=== PATIENT | male | born 1950 | race Caucasian/White ===

== ENCOUNTER 2022-01-20 09:55 | Outpatient (CLI) | payer OTHER, SELFPAY ==
--- OUTSIDE RECORDS SUMMARY | 2022-01-20 09:57 | XMS_ITS | Encounter Summary ---
:1950 Author Organization [facility] Address [address] [place] [address] Care Team Providers Name Role Phone Elsewhere, Pcp Primary Care Provider Unavailable Encounter Details Date Type Department Care Team Description 03/27/2021 Admin Visit Department of Family Medicine, [address] [address] [facility] [phone] Social History Tobacco Use Types Packs/Day Years Used Date Smoking Tobacco: Never Smokeless Tobacco: Never Sex Assigned at Date Recorded Not on file documented as of this encounter Plan of Treatment Not on filedocumented as of this encounter Visit Diagnoses Not on filedocumented in this encounter Additional Health Concerns Infection Onset Date Last Indicated Resolved Time COVID19 Pending 03/26/2021 03/27/2021 03/28/2021 2:04 AM 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
--- OUTSIDE RECORDS SUMMARY | 2022-01-20 09:57 | XMS_ITS | Encounter Summary ---
:[address] [facility] Address [address] [place] [address] Care Team Providers Name Role Phone Elsewhere, Pcp Primary Care Provider Unavailable Reason for Visit Reason Onset Date Comments Outpatient COVID-19 Testing 04/11/2021 Encounter Details Date Type Department Care Team Description 04/11/2021 External Outreach Department of [facility] Lissa Derek Contact With And Medicine, Piyush Cassidy D.O. (Suspected) Exposure Building, in [address] COVID-19 ([place], [place] Dx) [address] [address] [place], [place] [phone] [address] (Work) [phone] Social History Tobacco Use Types Packs/Day Years Used Date Smoking Tobacco: Never Smokeless Tobacco: Never Sex Assigned at Date Recorded Not on file documented as of this encounter Progress Notes Kiki Carver, RMira. - 04/11/2021 8:13 AM CST Encounter created for COVID-19 screening. TIVE PHYSICAL EDUCATION SPECIALIST documented in this encounter Plan of Treatment Not on filedocumented as of this encounter Procedures Procedure Name Priority Date/Time Associated Diagnosis Comme nts SARS CORONAVIRUS-2 Routine 04/12/2021 11:01 AM Contact With An d Results for this RNA, V ADAPTIVE PHYSICAL EDUCATION SPECIALIST (Suspected) Exposure procedu re are in To COVID-19 the results section. documented in this encounter Results SARS Coronavirus-2 RNA, V Asymptomatic (04/12/2021 11:01 AM ADAPTIVE PHYSICAL EDUCATION SPECIALIST) [facility] Method Time Signature SARS-CoV-2 Swab, 04/13/2021 MKTO Specimen Nasopharynx 4:01 AM ADAPTIVE PHYSICAL EDUCATION SPECIALIST Source SARS CoV-2 Undetected Undetected 04/13/2021 MKTO RNA, TMA 4:01 AM ADAPTIVE PHYSICAL EDUCATION SPECIALIST Comment: SARS-CoV-2 RNA absent. This result does not rule out COVID-19 in the patient, as the sensitivity of the test depends o n the timing of the specimen collection and the quality of the specim en. Result should be correlated with patient's history and clinical presentat ion. ----ADDITIONAL INFORMATION---- This molecular amplification test was pe rformed using the Aptima SARS-CoV-2 assay ([employer] on the Resort Gem[employer] tem under emergency use authorization (EUA) by the U.S. Food and Drug Administ ration. Fact sheets for this EUA assay can be fo und at the following links: For Healthcare Providers: https://www.Handprint a.gov/media/390488/download For Patients: https://www.fda.gov/media/ 722439/download Specimen Anatomical Collection Method Collection Time Receive d Time (Source) Location / / Volume Laterality Varies 04/12/2021 11:01 04/12/2021 8:00 (Nasopharynx) AM ADAPTIVE PHYSICAL EDUCATION SPECIALIST PM ADAPTIVE PHYSICAL EDUCATION SPECIALIST Derek Alcaraz D.O. LAB MICROBIOLOGY - GENERAL O ESTHERERABLES Performing Organization Address City/State/ZIP Code Phon e Number [facility]- [address] [place] [phone] [place] [address] [place] [address] [address] documented in this encounter Visit Diagnoses Diagnosis Contact With And (Suspected) Exposure To COVID-19 - Primary documented in this encounter Additional Health Concerns Infection Onset Date Last Indicated Resolved Time COVID19 Pending 04/11/2021 04/12/2021 04/13/2021 4:02 AM ADAPTIVE PHYSICAL EDUCATION SPECIALIST documented as of this encounter Care Teams Boat Builder And Repairer Relationship Specialty Start Date End Date Elsewhere, Pcp PCP - General Family Medicine 10/30/20 documented as of this encounter
--- OUTSIDE RECORDS SUMMARY | 2022-01-20 09:57 | XMS_ITS ---
:1950 Author Care Team Providers Name Role Phone MATTHIEU DAIGLE MD Primary Care Provider [phone] Allergies Notes: Duramorph 0.5 MG/ML Injection S olution Medications Name Status Start Date Stop Date ? ? amoxicillin 500 mg capsule Completed ? 02/06 cephalexin 500 mg capsule Completed ? 2019 clobetasol 0.05 % topical ointment Active ? Not available hydrocodone 5 mg-acetaminophen 325 mg tablet Completed ? 02/07/2020 hydrocortisone 2.5 % topical cream Active ? Not available imatinib 100 mg tablet Completed ? 0 ketoconazole 2 % shampoo Completed ? 020 mupirocin 2 % topical ointment Active ? N ot available omeprazole 40 mg capsule,delayed release Active ? Not available TAKE 1 CAPSULE BY MOUTH TWO TIMES A DAY BEFORE A MEAL. prednisolone acetate 1 % eye drops,suspension Active ? Not available tadalafil 20 mg tablet Active ? Not avail able TAKE ONE TABLET BY MOUTH EVERY DAY tobramycin 0.3 %-dexamethasone 0.1 % eye Active ? Not available drops,suspension Problems None recorded. Procedures Date Name Performed by ? 11/04/2007 Colonoscopy Information not sofy alexis Notes: last done 2007, checked care ev erywhere 02/07/2020 MRI, Prostate[facility] W/[facility] [address] [place] [address] (Work Place) Notes: TURP surgery stomach tumor Results Lab Results Date Name Specimen Result Interpretation Description Value Range Status Address ? 10/02/2020 PSA, Serum ? No observation ? ? ? or Plasma recorded. 05/01/2020 PSA, Total, ? No observation ? ? ? [place] [facility] Serum or recorded. [facility] ury: [address] [facility] 02/07/2020 PSA, Serum ? No observation ? ? ? or Plasma recorded. 10/11/2019 PSA, Serum ? No observation ? ? ? or Plasma recorded. ? PSA, Serum ? PSA, Total 8.9 ? ? or Plasma ? PSA, Serum ? PSA, Total 6.4 ? ? or Plasma ng/mL ? PSA, Serum Blood venous ? No observation ? ? ? [facility]: or Plasma recorded. [address], [place] [facility] ? PSA, Serum ? PSA, Total 7.0 ? ? [facility]: or Plasma ng/ml [address], [place] Past Encounters 10/02/2020 Raised Prostate Specific Antigen; Primar y Erectile Dysfunction Dimitri Griggs MD: [address] [facility] [place] [address], Ph. Social History Tobacco Smoking Status Never Smoker Vaccine List Vaccine Type pneumococcal polysaccharide PPV23 02/13/2020 Plan of Care Reminders Provider Appointments None recorded. ? ? Lab None recorded. ? ? Referral None recorded. ? ? Procedures None recorded. ? ? Surgeries None recorded. ? ? Imaging None recorded. ? ? Vitals 10/02/2020 10:10AM ESTABLISHED 20 Height Weight BMI 6 ft 158 lbs 21.4 kg/m2 02/07/2020 02:20PM ESTABLISHED 10 Height Weight BMI 6 ft 158 lbs 21.4 kg/m2 11/11/2019 02:40PM ESTABLISHED 20 Height 6 ft 10/11/2019 08:50AM NEW PHONE VISIT 20 Height Weight BMI 6 ft 158 lbs 21.4 kg/m2
--- OUTSIDE RECORDS SUMMARY | 2022-01-20 09:57 | XMS_ITS | Encounter Summary ---
:1950 Author Organization [facility] Address [address] [place] [address] Care Team Providers Name Role Phone Elsewhere, Pcp Primary Care Provider Unavailable Encounter Details Date Type Department Care Team Description 04/09/2021 Clinical Communication Central Appointment Vipul murphy, Office in [facility] [address] [place], [place] [address] Social History Tobacco Use Types Packs/Day Years Used Date Smoking Tobacco: Never Smokeless Tobacco: Never Sex Assigned at Date Recorded Not on file documented as of this encounter Miscellaneous Notes Telephone Encounter - Abigail Lyle - 04/09/2021 8:20 AM CST What is the purpose of the call?: Requesting Testing Only Request Testing In the past 14 days are any of the following symptoms new to you and not related to an existing health condition?: No symptoms noted In the past 14 days have you had close contact* with a person who has a LABORATORY CONFIRMED case ofCOVID-19?: Yes exposure noted. [place] patient, instruct to quarantine, testing indicated (End Screening) Plan: Endpoint recommendation: Patient is asymptomatic with exposure to a COVID-19 positive individual. Instructed to quarantine for 14 days because they are not fully vaccinated or vaccination series has been less than 2 weeks. *Reminder if sending patient for testing in [facility] or [facility], route encounter to the correct testing pool. NT RELATIONS ASSOCIATE documented in this encounter Plan of Treatment Not on filedocumented as of this encounter Visit Diagnoses Not on filedocumented in this encounter Care Teams Bus Analyst Relationship Specialty Start Date End Date Elsewhere, Pcp PCP - General Family Medicine 10/30/20 documented as of this encounter
--- OUTSIDE RECORDS SUMMARY | 2022-01-20 09:57 | XMS_ITS | Encounter Summary ---
:1950 Author Organization [facility] Address [address] [place] [address] Care Team Providers Name Role Phone Elsewhere, Pcp Primary Care Provider Unavailable Encounter Details Date Type Department Care Team Description 04/12/2021 Admin Visit Department of Family Medicine, [address] [address] [facility] [phone] Social History Tobacco Use Types Packs/Day Years Used Date Smoking Tobacco: Never Smokeless Tobacco: Never Sex Assigned at Date Recorded Not on file documented as of this encounter Plan of Treatment Not on filedocumented as of this encounter Visit Diagnoses Not on filedocumented in this encounter Additional Health Concerns Infection Onset Date Last Indicated Resolved Time COVID19 Pending 04/11/2021 04/12/2021 04/13/2021 4:02 AM LEDGE MAN documented as of this encounter Care Teams Employment Service Specialist Relationship Specialty Start Date End Date Elsewhere, Pcp PCP - General Family Medicine 10/30/20 documented as of this encounter
--- OUTSIDE RECORDS SUMMARY | 2022-01-20 09:57 | XMS_ITS | Clinical Summary ---
:[address] [facility] Address [address] [place] [address] Care Team Providers Name Role Phone Elsewhere, Pcp Primary Care Provider Unavailable Source Comments Patient records contain information from all sites at [facility]. For routine questions regarding patient records, call [phone] during business hours, M-F 8:00 AM - 5:00 PM Central Time. Record requests for emergency care only can be directed to [phone] at any time.[facility] Allergies Active Allergy Reactions Severity Noted Date Comments Morphine Other (see comments) 05/24/2010 Medications Medication Sig Dispensed Refills Start Date End Date Status imatinib (GLEEVEC) Take 200 mg by 0 07/27/2017 Active 100 mg tablet mouth daily. prasterone, dhea, Take by mouth. 0 Active (DHEA) 25 mg tablet acetaminophen Take 500-1,000 mg 0 01/23/2016 Active (TYLENOL EXTRA by mouth. STRENGTH) 500 mg tablet amoxicillin (AMOXIL) TAKE 4 CAPSULES 1 6 06/01/2018 Active 500 mg capsule HOUR BEFORE DENTAL PROCEDURE omeprazole (PriLOSEC) Take 1 capsule 180 capsule 3 02/04/[address] capsule (40 mg total) by mouth 2 (two) times a day. 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) Chronic Kidney Disease Stage 4 Glomerular Filtration R ate 15-29 11/22/2015 Overview: Chronic Kidney Disease (CKD) Stage 4 GFR 15-29 Anemia 11/22/2015 Elevated Prostate-Specific Antigen 11/22/2015 Impaired Fasting Glucose 11/22/2015 Hydroureteronephrosis 11/22/2015 Benign Prostatic Hyperplasia Hypertrophy With Obstruct ion 11/09/2015 Hypertension 11/08/2015 Overview: Hypertension (HTN) NOS Stasis Ulcer With Varicose Vein Left 12/13/2014 Overview: Stasis Ulcer With Varicose Vein (VV) L Keratosis Seborrheic 11/29/2013 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 Immunizations Name Administration Dates Next Due H1N1 All Forms 04/05/2009 HepA Adult 08/11/2006, 01/28/2006 HepA, Unspecified 08/11/2006 HepB Adult 08/11/2006, 01/28/2006 HepB, Unspecified 08/11/2006 Influenza Split 01/07/2006 Influenza, Injectable, Quadrivalent 03/27/2015 Influenza, Seasonal, Injectable 03/19/2012, 03/18/2007, 12/21 Influenza, Unspecified 02/23/2018, 01/29/2016, 03/27/2015, 03/18/2013, 03/19/2012, 01/14/2011 PCV13 04/26/2018 Td (Adult), adsorbed 03/02/2003, 02/19/1994, 03/10/1984 Td, (Adult) Unspecified 03/02/2003 Tdap 03/27/2015 Ty21a (oral) 02/05/2006 TyVi (inj) 02/05/2006 influenza high dose (65 years or 02/01/2019, 03/10/2017 older) (PF) Family History Medical History Relation Name Comments Benign prostatic hyperplasia Father Coronary artery disease Father Heart failure Father Relation Name Status Comments Father Social History Tobacco Use Types Packs/Day Years Used Date Smoking Tobacco: Never Smokeless Tobacco: Never Sex Assigned at Date Recorded Not on file Last Filed Vital Signs Vital Sign Reading Time Taken Comments Blood Pressure 100/58 10/04/2018 11:00 AM CDT Pulse 84 10/04/2018 11:00 AM CDT Temperature 37 ??C (98.6 ??F) 10/04/2018 11:00 AM CDT Respiratory Rate 16 10/04/2018 11:00 AM CDT Oxygen Saturation 98% 10/04/2018 11:00 AM CDT Inhaled Oxygen Concentration - - Weight 65.6 kg (144 lb 11.7 oz) 10/04/2018 11:00 AM CDT Height 182.5 cm (5' 11.85) 10/04/2018 11:00 AM CDT Body Mass Index 19.71 10/04/2018 11:00 AM CDT Plan of Treatment Health Maintenance Due Date Last Done Comments Hepatitis C Screening 1950 Office Visit for Blood Pressure 1950 Check / Re-check Zoster Vaccines (1 of 2) 09/17/1970 Hepatitis B Vaccines (3 of 3 - 01/11/2007 08/11/2006, 08/11, 19+ 3-dose series) 01/28/2006 Depression Screening (Annual 03/23/2021 PHQ-2) Fall Risk Screen (Annual) 03/23/2021 Fasting Glucose for Diabetes 05/15/2021 05/15/2020, 019, Screening 07/05/2018, Additional history exists COVID-19 Vaccine (5 - Booster for 10/04/2021 08/09/2021, , Moderna series) 06/01/2020, Additional history exists DTaP,Tdap,and Td Vaccines (2 - Td 03/27/2025 03/27/2015, , or Tdap) 03/02/2003, Additional history exists Abdominal Aortic Aneurysm (AAA) Discontinued 11/14/2015 Screen Pneumococcal vaccine (65+ years) Completed 02/13/2020, 06/2018 Influenza Vaccine Completed 01/01/2022, 12/18/2020, 02/13/2020, Additional history exists Insurance Payer Benefit Plan / Subscriber ID Effective Phone Address Shauna Dean Dates [employer] [id number] 2017-Pre [phone] [address] PPO OPEN ACCESS sent [address] [place] [address] avelino Medina (Home) [place] [phone] Advance Directives For more information, please contact: [phone] Documents on File Type Date Recorded Patient Press Machine Operator Explanati on Advance Directives 12/13/2015 12:[address] [employer] doc ument. See document viewer. Advance Directives 12/05/2015 12:[address] [employer] doc ument. See document viewer. Care Teams Photographic Laboratory Supervisor Relationship Specialty Start Date End Date Elsewhere, Pcp PCP - General Family Medicine 10/30/20
--- OUTSIDE RECORDS SUMMARY | 2022-01-20 09:57 | XMS_ITS | Encounter Summary ---
:1950 Author Organization [facility] Address [address] [place] [address] Care Team Providers Name Role Phone Elsewhere, Pcp Primary Care Provider Unavailable Reason for Visit Reason Onset Date Comments Outpatient COVID-19 Testing 04/25/2021 Encounter Details Date Type Department Care Team Description 04/25/2021 External Outreach Department of Derek Alcaraz And Internal Medicine in [place] (Suspected) Exposure [place], [place] [address] To COVID-19 (Primary [address] [place], [place] Dx) [place] [phone] Social History Tobacco Use Types Packs/Day Years Used Date Smoking Tobacco: Never Smokeless Tobacco: Never Sex Assigned at Date Recorded Not on file documented as of this encounter Progress Notes Hailey Camargo R.N. - 04/25/2021 9:37 AM CST Encounter created for COVID-19 screening. LE HOME TECHNICIAN documented in this encounter Plan of Treatment Not on filedocumented as of this encounter Procedures Procedure Name Priority Date/Time Associated Diagnosis Comme nts SARS CORONAVIRUS-2 Routine 04/26/2021 10:32 AM Contact With An d Results for this RNA, V MOBILE HOME TECHNICIAN (Suspected) Exposure procedu re are in To COVID-19 the results section. documented in this encounter Results SARS Coronavirus-2 RNA, V Asymptomatic (04/26/2021 10:32 AM MOBILE HOME TECHNICIAN) [facility] Method Time Signature SARS-CoV-2 Swab, 04/27/2021 MKTO Specimen Nasopharynx 2:50 AM MOBILE HOME TECHNICIAN Source SARS CoV-2 Undetected Undetected 04/27/2021 MKTO RNA, TMA 2:50 AM MOBILE HOME TECHNICIAN Comment: SARS-CoV-2 RNA absent. This result does not rule out COVID-19 in the patient, as the sensitivity of the test depends o n the timing of the specimen collection and the quality of the specim en. Result should be correlated with patient's history and clinical presentat ion. ----ADDITIONAL INFORMATION---- This molecular amplification test was pe rformed using the Aptima SARS-CoV-2 assay ([employer] on the [employer] tem under emergency use authorization (EUA) by the U.S. Food and Drug Administ ration. Fact sheets for this EUA assay can be fo und at the following links: For Healthcare Providers: https://www.iSoccer a.gov/media/154507/download For Patients: https://www.fda.gov/media/ 453520/download Specimen Anatomical Collection Method Collection Time Receive d Time (Source) Location / / Volume Laterality Varies 04/26/2021 10:32 04/26/2021 3:24 (Nasopharynx) AM MOBILE HOME TECHNICIAN PM MOBILE HOME TECHNICIAN Derek Alcaraz D.O. LAB MICROBIOLOGY - GENERAL O ESTHERERABLES Performing Organization Address City/State/ZIP Code Phon e Number [facility]- [address] [place] [phone] [place] [address] [place] [address] [address] documented in this encounter Visit Diagnoses Diagnosis Contact With And (Suspected) Exposure To COVID-19 - Primary documented in this encounter Additional Health Concerns Infection Onset Date Last Indicated Resolved Time COVID19 Pending 04/25/2021 04/26/2021 04/27/2021 2:51 AM MOBILE HOME TECHNICIAN documented as of this encounter Care Teams Research Epidemiologist Relationship Specialty Start Date End Date Elsewhere, Pcp PCP - General Family Medicine 10/30/20 documented as of this encounter
--- OUTSIDE RECORDS SUMMARY | 2022-01-20 09:57 | XMS_ITS | Encounter Summary ---
:1950 Author Organization [facility] Address [address] [place] [address] Care Team Providers Name Role Phone Elsewhere, Pcp Primary Care Provider Unavailable Reason for Visit Reason Comments COVID Inquiry Encounter Details Date Type Department Care Team Description 04/25/2021 Clinical Communication Central Appointment PreschedKING barakatID Kim Office in [facility] [address] [place] [address] Social History Tobacco Use Types Packs/Day Years Used Date Smoking Tobacco: Never Smokeless Tobacco: Never Sex Assigned at Date Recorded Not on file documented as of this encounter Miscellaneous Notes Telephone Encounter - Yanique Anutnez - 04/25/2021 8:09 AM CST What is the purpose of the call?: Requesting Testing Only Request Testing In the past 48 hours, have you had any of the following symptoms new to you and not related to an existing health condition?: No symptoms noted In the past 14 days have you had close contact* with a person who has a LABORATORY CONFIRMED case ofCOVID-19?: No exposure noted (Continue Screening) Have you tested positive for COVID-19 in the last 90 days?: No (Continue Screening) Why is the patient requesting testing?: Other reason (Specify in Comments) (seeing family) [facility] only [facility] recommended (End Screening) Testing Recommendation Endpoint Is testing recommended? : Recommended to test Plan: Endpoint recommendation: Testing indicated, advised to be swabbed for COVID-19 Only , sent to [place] located at [address] [place] [address] ([facility]). An appointment is required for testing, please call [phone] Thursday-Thursday 7am to 6pm and Thursday & Thursday 9am to 4pm to schedule an appointment. Testing hours are 8am - 4:30pm daily. You can also schedule via your Patient Online Services account., Please avoid using public transportation per CDC recommendation. If you do not have personal transportation please self- quarantine until a personal transportation option is available. *Reminder if sending patient for testing in [facility] or [facility], route encounter to the correct testing pool. ENGINE OPERATOR documented in this encounter Plan of Treatment Not on filedocumented as of this encounter Visit Diagnoses Not on filedocumented in this encounter Care Teams Car Shifter Relationship Specialty Start Date End Date Elsewhere, Pcp PCP - General Family Medicine 10/30/20 documented as of this encounter
--- OUTSIDE RECORDS SUMMARY | 2022-01-20 09:57 | XMS_ITS | Encounter Summary ---
:1950 Author Organization [facility] Address [address] [place] [address] Care Team Providers Name Role Phone Elsewhere, Pcp Primary Care Provider Unavailable Encounter Details Date Type Department Care Team Description 04/26/2021 Admin Visit Department of Family Medicine, [address] [address] [facility] [phone] Social History Tobacco Use Types Packs/Day Years Used Date Smoking Tobacco: Never Smokeless Tobacco: Never Sex Assigned at Date Recorded Not on file documented as of this encounter Plan of Treatment Not on filedocumented as of this encounter Visit Diagnoses Not on filedocumented in this encounter Additional Health Concerns Infection Onset Date Last Indicated Resolved Time COVID19 Pending 04/25/2021 04/26/2021 04/27/2021 2:51 AM ANTENNA INSTALLER documented as of this encounter Care Teams Tractor Engine Assembler Relationship Specialty Start Date End Date Elsewhere, Pcp PCP - General Family Medicine 10/30/20 documented as of this encounter
--- OUTSIDE RECORDS SUMMARY | 2022-01-20 09:58 | XMS_ITS | Encounter Summary ---
:1950 Author Organization [facility] Address [address] [place] [address] Care Team Providers Name Role Phone Elsewhere, Pcp Primary Care Provider Unavailable Encounter Details Date Type Department Care Team Description 03/12/2021 Admin Visit Department of Family Medicine, [address] [address] [facility] [phone] Social History Tobacco Use Types Packs/Day Years Used Date Smoking Tobacco: Never Smokeless Tobacco: Never Sex Assigned at Date Recorded Not on file documented as of this encounter Plan of Treatment Not on filedocumented as of this encounter Visit Diagnoses Not on filedocumented in this encounter Additional Health Concerns Infection Onset Date Last Indicated Resolved Time COVID19 Pending 03/11/2021 03/12/2021 03/12/2021 7:41 PM FILLER MACHINE OPERATOR documented as of this encounter Care Teams Spanish Translator Relationship Specialty Start Date End Date Elsewhere, Pcp PCP - General Family Medicine 10/30/20 documented as of this encounter
--- OUTSIDE RECORDS SUMMARY | 2022-01-20 09:58 | XMS_ITS | Encounter Summary ---
:1950 Author Organization [facility] Address [address] [place] [address] Care Team Providers Name Role Phone Gabby Briggs M.D. Primary Care Provider [phone] Reason for Visit Reason Comments COURTNEY Nurse Line Encounter Details Date Type Department Care Team Description 02/07/2020 Clinical Communication Division of COURTNEY Galarza Nurse Rosaura [facility] Internal Betzy Benoit R.N. [facility] [address] [facility] in [place], [place] [address] [address] [facility] [phone] [place], [place] (Work) [phone] Social History Tobacco Use Types Packs/Day Years Used Date Smoking Tobacco: Never Smokeless Tobacco: Never Sex Assigned at Date Recorded Not on file documented as of this encounter Miscellaneous Notes Telephone Encounter - Betzy Galarza R.N. - 02/07/2020 8:37 PM CST COVID-19 Nurse Line Screening ASSESSMENT COVID 19 Screening Have you had close contact with a person who has a LABORATORY CONFIRMED case of COVID-19 in the past14 days?: Yes - Continue screening. Over the last 48 hours have you had any of the following symptoms that are not related to a exsitingcondition?: No symptoms- (Continue Screening) Have you tested positive for COVID-19 in the last 45 days? : No (Continue Screening) Do any of the following quarantine criteria apply?: Close contact with COVID positive person within their infectious period or 48 hours prior to testing if they had not symptoms PLAN Endpoint recommendation: Screening positive, testing indicated, advised to be swabbed for COVID-19, sent to [facility] located at [address] [place] [address]. The entrance is on the north side of the building. A staff member will reyes you access to get inside. You must call [phone] for an appointment time.Testing hours are Daily 9 am to 7 pm. Care Points provided: STANDARD PRECAUTIONS FOR ALL PATIENTS: Wash hands often with soap and water for at least 20 seconds, especially after blowing your nose, coughing, sneezing, or having been in a public place. If soap and water aren't available, use a hand medical file clerk that contains at least 60% alcohol. Avoid close contact with anyone who may be exhibiting respiratory symptoms such as coughing and sneezing. Avoid touching your eyes, nose and mouth. Clean and disinfect frequently touched surfaces daily. Cover your mouth and nose with a cloth face cover when around others or in public. The cloth face cover is not a substitute for social distancing. Continue to keep about 6 feet between yourself andothers. Monitor for symptoms. Do not take your temperature within 30 minutes of exercise. If your test or screen is negative and new symptoms develop please contact your provider if it has been greaterthan 72 hours since you were tested. Educational Resource: https://www.cdc.gov/coronavirus/2019-ncov/ piwqlxb-uqnsorg-lzgb/index.html RECOMMENDATIONS TESTING CRITERIA IS MET: Stay home except to get medical care. Quarantine for 14 days if exposed to someone with a laboratory confirmed case of COVID-19 exposure regardless of your test results. Avoid public areas and public transportation. Separate yourself from other people and stay in a specific sick room if possible. Wear a cloth face covering, over your nose and mouth if youmust be around other people even at home). Cover your nose and mouth when coughing or sneezing. Contact employer/occupational health department to notify them that they are being tested. Seek emergent care if any of the following occur: 1) Trouble breathing, 2) Bluish lips or face, 3) Persistent pain or pressure in the chest, 4) Newly confused or unable to stay alert and awake. Notify appropriate care provider if any new or worsening symptoms. You may need re-testing if it has been greater than 72 hours after a negative COVID- 19 test result. Education Resources: https://www.cdc.gov/coronavirus/2019- ncov/hz-oor-yqb-sick/imjid-iuhn-rdyp.html SELF CARE FOR ALL PATIENTS: Take breaks from watching, reading, or listening to news stories. Make time to unwind. Try to do some other activities you enjoy. Connect with others. Be creative in keepingconnected with loved ones, especially those at high risk. Try healthy coping strategies such as meditation, relaxation, exercise, healthy eating habits, and avoid alcohol and drugs. Education: Patient/caregiver able to teach back Patient agreeable to plan of care: Yes The following references were used: [facility] novel coronavirus (COVID- 19) resources CDC web site https://www.cdc.gov/coronavirus/2019-ncov/summary.html Nursing judgement SH BLENDER documented in this encounter Plan of Treatment Not on filedocumented as of this encounter Visit Diagnoses Not on filedocumented in this encounter Care Teams Light Rail Transit Operator Relationship Specialty Start Date End Date Gabby Briggs M.D. PCP - General Family Medicine 04/19/18 05/02/[address] [address] documented as of this encounter
--- OUTSIDE RECORDS SUMMARY | 2022-01-20 09:58 | XMS_ITS | Encounter Summary ---
:1950 Author Organization [facility] Address [address] [place] [address] Care Team Providers Name Role Phone Gabby Briggs M.D. Primary Care Provider [phone] Reason for Visit Reason Onset Date Comments Outpatient COVID-19 Testing 02/08/2020 Encounter Details Date Type Department Care Team Description 02/08/2020 External Outreach Department of Gabby Chapin M.D. [address] [place] [phone] Infection Upper Family Medicine, Johanny Chilel R.N. [address] [place] [phone] Respiratory (Primary [facility], Dx) in [place], [place] [address] [place] [address] Social History Tobacco Use Types Packs/Day Years Used Date Smoking Tobacco: Never Smokeless Tobacco: Never Sex Assigned at Date Recorded Not on file documented as of this encounter Progress Notes Johanny Chilel R.N. - 02/08/2020 8:18 AM CST Encounter created for the drive-through COVID-19 testing. ING SUPERVISOR documented in this encounter Plan of Treatment Not on filedocumented as of this encounter Procedures Procedure Name Priority Date/Time Associated Diagnosis Comme nts SARS CORONAVIRUS-2 Routine 02/08/2020 10:06 AM Infection Upper Results for this RNA, V BOOKING SUPERVISOR Respiratory procedure are i n the results section. documented in this encounter Results SARS Coronavirus-2 RNA, V Symptomatic (02/08/2020 10:06 AM BOOKING SUPERVISOR) [facility] Method Time Signature SARS-CoV-2 Swab, 02/08/2020 MKTO Specimen Nasopharynx 10:20 PM Source BOOKING SUPERVISOR SARS CoV-2 Undetected Undetected 02/08/2020 MKTO RNA, TMA 10:20 PM BOOKING SUPERVISOR Comment: SARS-CoV-2 RNA absent. This result does not rule out COVID-19 in the patient, as the sensitivity of the test depends o n the timing of the specimen collection and the quality of the specim en. Result should be correlated with patient's history and clinical presentat ion. ----ADDITIONAL INFORMATION---- This test is performed using the Aptima SARS-CoV-2 assay ([employer] which has received Emergency Use Authori zation (EUA) by the U.S. Food and Drug Administration. Fact sheets for this Emergency Use Autho rization (EUA) assay can be found at the following links: For Healthcare Providers: https://www.fd a.gov/media/361732/download For Patients: https://www.fda.gov/media/ 682766/download Specimen Anatomical Collection Method Collection Time Receive d Time (Source) Location / / Volume Laterality Varies 02/08/2020 10:06 02/08/2020 3:30 (Nasopharynx) AM BOOKING SUPERVISOR PM BOOKING SUPERVISOR Beverly Welsh P.A.-C. LAB MICROBIOLOGY - GENERAL O RDROCKYBLES Performing Organization Address City/State/ZIP Code Phon e Number [facility]- [address] [place] [address] [place] [address] [address] documented in this encounter Visit Diagnoses Diagnosis Infection Upper Respiratory - Primary documented in this encounter Additional Health Concerns Infection Onset Date Last Indicated Resolved Time COVID19 Pending 02/08/2020 02/08/2020 02/08/2020 10:20 PM BOOKING SUPERVISOR documented as of this encounter Care Teams Beam Carrier Hauler Pusher Relationship Specialty Start Date End Date Gabby Briggs M.D. PCP - General Family Medicine 04/19/18 05/02/[address] [address] documented as of this encounter
--- OUTSIDE RECORDS SUMMARY | 2022-01-20 09:58 | XMS_ITS | Encounter Summary ---
:1950 Author Organization [facility] Address [address] [place] [address] Care Team Providers Name Role Phone Elsewhere, Pcp Primary Care Provider Unavailable Reason for Visit Reason Comments COVID Inquiry Encounter Details Date Type Department Care Team Description 12/27/2020 Clinical Communication Central Appointment PreschedKING barakatID Kim Office in [facility] [address] [place] [address] Social History Tobacco Use Types Packs/Day Years Used Date Smoking Tobacco: Never Smokeless Tobacco: Never Sex Assigned at Date Recorded Not on file documented as of this encounter Miscellaneous Notes Telephone Encounter - Napoleon Dubose Kevin - 12/27/2020 9:29 AM CDT What is the purpose of the call?: [...] requesting testing?: Other reason (Specify in Comments) Select appropriate regional recommendations: [facility] COVID only testing recommended (End Screening) Plan: Endpoint recommendation: Testing indicated, advised to be swabbed for COVID-19 Only , sent to [facility] located at [address] [place] [address] ([facility]). An appointment is required for testing, please call [phone] Thursday-Thursday 7am to 6pm and Thursday & [...] sending patient for testing in [facility] or [facility], route encounter to the correct testing pool. documented in this encounter Plan of Treatment Not on filedocumented as of this encounter Visit Diagnoses Not on filedocumented in this encounter Care Teams Molding Machine Operator Helper Relationship Specialty Start Date End Date Elsewhere, Pcp PCP - General Family Medicine 10/30/20 documented as of this encounter
--- OUTSIDE RECORDS SUMMARY | 2022-01-20 09:58 | XMS_ITS | Encounter Summary ---
:1950 Author Organization [facility] Address [address] [place] [address] Care Team Providers Name Role Phone Gabby Briggs M.D. Primary Care Provider Encounter Details Date Type Department Care Team Description 03/13/2020 Admin Visit Department of Family Medicine, [address] [address] [facility] [phone] Social History Tobacco Use Types Packs/Day Years Used Date Smoking Tobacco: Never Smokeless Tobacco: Never Sex Assigned at Date Recorded Not on file documented as of this encounter Plan of Treatment Not on filedocumented as of this encounter Visit Diagnoses Not on filedocumented in this encounter Additional Health Concerns Infection Onset Date Last Indicated Resolved Time COVID19 Pending 03/12/2020 03/13/2020 03/14/2020 2:53 AM GOVERNMENT RELATIONS ANALYST documented as of this encounter Care Teams Machine Bander And Cellophaner Relationship Specialty Start Date End Date Gabby Briggs M.D. PCP - General Family Medicine 04/19/18 05/02/20 [address] [place] [address] documented as of this encounter
--- OUTSIDE RECORDS SUMMARY | 2022-01-20 09:58 | XMS_ITS | Encounter Summary ---
:1950 Author Organization [facility] Address [address] [place] [address] Care Team Providers Name Role Phone Gabby Briggs M.D. Primary Care Provider Encounter Details Date Type Department Care Team Description 02/08/2020 Admin Visit Department of Family Medicine, [facility] in [place], [place] [address] [place] [address] Social History Tobacco Use Types Packs/Day Years Used Date Smoking Tobacco: Never Smokeless Tobacco: Never Sex Assigned at Date Recorded Not on file documented as of this encounter Plan of Treatment Not on filedocumented as of this encounter Visit Diagnoses Not on filedocumented in this encounter Additional Health Concerns Infection Onset Date Last Indicated Resolved Time COVID19 Pending 02/08/2020 02/08/2020 02/08/2020 10:20 PM TUMBLER PLATER documented as of this encounter Care Teams Leather Production Artisan Relationship Specialty Start Date End Date Gabby Briggs M.D. PCP - General Family Medicine 04/19/18 05/02/[address] [place] [address] documented as of this encounter
--- OUTSIDE RECORDS SUMMARY | 2022-01-20 09:58 | XMS_ITS | Encounter Summary ---
:[address] [facility] Address [address] [place] [address] Care Team Providers Name Role Phone Elsewhere, Pcp Primary Care Provider Unavailable Encounter Details Date Type Department Care Team Description 03/20/2021 Admin Visit Department of Family Medicine, [address] [address] [facility] [phone] Social History Tobacco Use Types Packs/Day Years Used Date Smoking Tobacco: Never Smokeless Tobacco: Never Sex Assigned at Date Recorded Not on file documented as of this encounter Plan of Treatment Not on filedocumented as of this encounter Visit Diagnoses Not on filedocumented in this encounter Additional Health Concerns Infection Onset Date Last Indicated Resolved Time COVID19 Pending 03/19/2021 03/20/2021 03/20/2021 9:41 PM PUPPET MASTER documented as of this encounter Care Teams Channel Specialist Relationship Specialty Start Date End Date Elsewhere, Pcp PCP - General Family Medicine 10/30/20 documented as of this encounter
--- OUTSIDE RECORDS SUMMARY | 2022-01-20 09:58 | XMS_ITS | Encounter Summary ---
:1950 Author Organization [facility] Address [address] [place] [address] Care Team Providers Name Role Phone Elsewhere, Pcp Primary Care Provider Unavailable Encounter Details Date Type Department Care Team Description 02/27/2021 Admin Visit Department of Family Medicine, [address] [address] [facility] [phone] Social History Tobacco Use Types Packs/Day Years Used Date Smoking Tobacco: Never Smokeless Tobacco: Never Sex Assigned at Date Recorded Not on file documented as of this encounter Plan of Treatment Not on filedocumented as of this encounter Visit Diagnoses Not on filedocumented in this encounter Additional Health Concerns Infection Onset Date Last Indicated Resolved Time COVID19 Pending 02/26/2021 02/27/2021 02/27/2021 1:33 PM REMOTE BROADCAST ENGINEER documented as of this encounter Care Teams Tip Stitcher Relationship Specialty Start Date End Date Elsewhere, Pcp PCP - General Family Medicine 10/30/20 documented as of this encounter
--- OUTSIDE RECORDS SUMMARY | 2022-01-20 09:58 | XMS_ITS | Encounter Summary ---
:[address] [facility] Address [address] [place] [address] Care Team Providers Name Role Phone Elsewhere, Pcp Primary Care Provider Unavailable Reason for Visit Reason Onset Date Comments Outpatient COVID-19 Testing 12/27/2020 Encounter Details Date Type Department Care Team Description 12/27/2020 External Outreach Department of [facility] Lissa Derek Contact With And Medicine, Piyush Cassidy D.O. (Suspected) Exposure Building, in [address] COVID-19 ([place], [place] Dx) [address] [facility] [address] [place], [place] [phone] [address] (Work) [phone] Social History Tobacco Use Types Packs/Day Years Used Date Smoking Tobacco: Never Smokeless Tobacco: Never Sex Assigned at Date Recorded Not on file documented as of this encounter Progress Notes Kiki Carver R.N. - 12/27/2020 9:45 AM CDT Encounter created for COVID-19 screening. documented in this encounter Plan of Treatment Not on filedocumented as of this encounter Procedures Procedure Name Priority Date/Time Associated Diagnosis Comme nts SARS CORONAVIRUS-2 Routine 12/27/2020 10:10 AM Contact With An d Results for this RNA, V CDT (Suspected) Exposure procedu re are in To COVID-19 the results section. documented in this encounter Results SARS Coronavirus-2 RNA, V Asymptomatic (12/27/2020 10:10 AM CDT) [facility] Method Time Signature SARS-CoV-2 Swab, 12/27/2020 MKTO Specimen Nasopharynx 11:55 PM Source CDT SARS CoV-2 Undetected Undetected 12/27/2020 MKTO RNA, TMA 11:55 PM CDT Comment: SARS-CoV-2 RNA absent. This result does not rule out COVID-19 in the patient, as the sensitivity of the test depends o n the timing of the specimen collection and the quality of the specim en. Result should be correlated with patient's history and clinical presentat ion. ----ADDITIONAL INFORMATION---- This molecular amplification test was pe rformed using the Aptima SARS-CoV-2 assay ([employer] on the [employer] tem under emergency use authorization (EUA) by the U.S. Food and Drug Administ ration. Fact sheets for this EUA assay can be fo und at the following links: For Healthcare Providers: https://www.fd a.gov/media/339897/download For Patients: https://www.fda.gov/media/ 693158/download Specimen Anatomical Collection Method Collection Time Receive d Time (Source) Location / / Volume Laterality Varies 12/27/2020 10:10 12/27/2020 4:00 (Nasopharynx) AM CDT PM CDT Derek Alcaraz D.O. LAB MICROBIOLOGY - GENERAL O [place]HERERA[place]ONETTE Performing Organization Address City/State/ZIP Code Phon e Number [facility]- [address] [place] [id number] [place] [address] [place] [address] System [address] documented in this encounter Visit Diagnoses Diagnosis Contact With And (Suspected) Exposure To COVID-19 - Primary documented in this encounter Additional Health Concerns Infection Onset Date Last Indicated Resolved Time COVID19 Pending 12/27/2020 12/27/2020 12/27/2020 11:56 PM CDT documented as of this encounter Care Teams Dance Professor Relationship Specialty Start Date End Date Elsewhere, Pcp PCP - General Family Medicine 10/30/20 documented as of this encounter
--- OUTSIDE RECORDS SUMMARY | 2022-01-20 09:58 | XMS_ITS | Encounter Summary ---
:1950 Author Organization [facility] Address [address] [place] [address] Care Team Providers Name Role Phone Gabby Briggs M.D. Primary Care Provider [phone] Reason for Visit Reason Onset Date Comments Outpatient COVID-19 Testing 01/01/2020 Encounter Details Date Type Department Care Team Description 01/01/2020 External Outreach Department of Derek Alcaraz Infect ion Upper Internal Medicine in J, D.O. Respiratory (Primary [place], [place] [address] Dx) [address] [place] [address] Social History Tobacco Use Types Packs/Day Years Used Date Smoking Tobacco: Never Smokeless Tobacco: Never Sex Assigned at Date Recorded Not on file documented as of this encounter Progress Notes Jenny Hernandez RMira. - 01/01/2020 8:38 AM CDT Encounter created for the drive-through COVID-19 testing. documented in this encounter Plan of Treatment Not on filedocumented as of this encounter Procedures Procedure Name Priority Date/Time Associated Diagnosis Comme nts SARS CORONAVIRUS-2 Routine 01/01/2020 11:59 AM Infection Upper Results for this RNA, V CDT Respiratory procedure are i n the results section. documented in this encounter Results SARS Coronavirus-2 RNA, V Symptomatic (01/01/2020 11:59 AM CDT) [facility] Method Time Signature SARS-CoV-2 Swab, 01/02/2020 MKTO Specimen Nasopharynx 12:52 AM Source CDT SARS CoV-2 Undetected Undetected 01/02/2020 MKTO RNA, TMA 12:52 AM CDT Comment: SARS-CoV-2 RNA absent. This result does not rule out COVID-19 in the patient, as the sensitivity of the test depends o n the timing of the specimen collection and the quality of the specim en. Result should be correlated with patient's history and clinical presentat ion. ----ADDITIONAL INFORMATION---- This test is performed using the Aptima SARS-CoV-2 assay ([employer] which has received Emergency Use Authori zation (EUA) by the U.S. Food and Drug Administration. Fact sheets for this Emergency Use Autho rization (EUA) assay can be found at the following links: For Healthcare Providers: https://www.[employer] a.gov/media/554477/download For Patients: https://www.fda.gov/media/ 506294/download Specimen Anatomical Collection Method Collection Time Receive d Time (Source) Location / / Volume Laterality Varies 01/01/2020 11:59 01/01/2020 4:14 (Nasopharynx) AM CDT PM CDT Derek Alcaraz D.O. LAB MICROBIOLOGY - GENERAL O SILKE Performing Organization Address City/State/ZIP Code Phon e Number [facility]- [address] [place] [address] [place] [address] System in [address] documented in this encounter Visit Diagnoses Diagnosis Infection Upper Respiratory - Primary documented in this encounter Additional Health Concerns Infection Onset Date Last Indicated Resolved Time COVID19 Pending 01/01/2020 01/01/2020 01/02/2020 12:53 AM CDT documented as of this encounter Care Teams Crawler Crane Operator Relationship Specialty Start Date End Date Gabby Briggs M.D. PCP - General Family Medicine 04/19/18 05/02/[address] [phone] documented as of this encounter
--- OUTSIDE RECORDS SUMMARY | 2022-01-20 09:58 | XMS_ITS | Encounter Summary ---
:1950 [facility] Address [address] [place] [address] Care Team Providers Name Role Phone Gabby Briggs M.D. Primary Care Provider [phone] Reason for Visit Reason Onset Date Comments Testing For Upper Respiratory Virus Symptoms 03/12/2020 Encounter Details Date Type Department Care Team Description 03/12/2020 External Outreach Department of [facility] Derek Alcaraz [facility] Medicine, [facility] Aby Cassidy Respiratory (Primary Building, in [address]) [place], [place] [address] [facility] [address] [place], [place] [phone] [address] (Work) [phone] Social History Tobacco Use Types Packs/Day Years Used Date Smoking Tobacco: Never Smokeless Tobacco: Never Sex Assigned at Date Recorded Not on file documented as of this encounter Progress Notes Jeannine Danielson RLaceyN. - 03/12/2020 2:59 PM CST Encounter created for symptomatic infectious disease screening with possible COVID, Influenza, and RSV testing. P BALER documented in this encounter Plan of Treatment Not on filedocumented as of this encounter Procedures Procedure Name Priority Date/Time Associated Diagnosis Comme nts SARS CORONAVIRUS-2 Routine 03/13/2020 9:07 AM Infection Upper Results for this RNA, V SCRAP BALER Respiratory procedure are i n the results section. documented in this encounter Results SARS Coronavirus-2 RNA, V Symptomatic (03/13/2020 9:07 AM SCRAP BALER) [facility] Method Time Signature SARS-CoV-2 Swab, 03/14/2020 MKTO Specimen Nasopharynx 2:52 AM SCRAP BALER Source SARS CoV-2 Undetected Undetected 03/14/2020 [facility] RNA, TMA 2:52 AM SCRAP BALER Comment: SARS-CoV-2 RNA absent. This result does not rule out COVID-19 in the patient, as the sensitivity of the test depends o n the timing of the specimen collection and the quality of the specim en. Result should be correlated with patient's history and clinical presentat ion. ----ADDITIONAL INFORMATION---- This molecular amplification test was pe rformed using the Aptima SARS-CoV-2 assay ([employer] on the Equiendos tem under emergency use authorization (EUA) by the U.S. Food and Drug Administ ration. Fact sheets for this EUA assay can be fo und at the following links: For Healthcare Providers: https://www.Ruci.cn a.gov/media/247184/download For Patients: https://www.fda.gov/media/ 896619/download Specimen Anatomical Collection Method Collection Time Receive d Time (Source) Location / / Volume Laterality Varies 03/13/2020 9:07 AM 0 3:40 (Nasopharynx) SCRAP BALER PM SCRAP BALER Derek Alcaraz D.O. LAB MICROBIOLOGY - GENERAL O SILKE Performing Organization Address City/State/ZIP Code Phon e Number [facility]- [address] [place] [phone] [place] [address] System [address] documented in this encounter Visit Diagnoses Diagnosis Infection Upper Respiratory - Primary documented in this encounter Additional Health Concerns Infection Onset Date Last Indicated Resolved Time COVID19 Pending 03/12/2020 03/13/2020 03/14/2020 2:53 AM SCRAP BALER documented as of this encounter Care Teams System Controller Relationship Specialty Start Date End Date Gabby Briggs M.D. PCP - General Family Medicine 04/19/18 05/02/[address] [place] [address] [phone] documented as of this encounter
--- OUTSIDE RECORDS SUMMARY | 2022-01-20 09:58 | XMS_ITS | Encounter Summary ---
:1950 Author Organization [facility] Address [address] [place] [address] Care Team Providers Name Role Phone Elsewhere, Pcp Primary Care Provider Unavailable Reason for Visit Reason Comments COVID Inquiry Encounter Details Date Type Department Care Team Description 02/26/2021 Clinical Communication Central Appointment PreschedCOURTNEY barakat Office in [address] [id number] Social History Tobacco Use Types Packs/Day Years Used Date Smoking Tobacco: Never Smokeless Tobacco: Never Sex Assigned at Date Recorded Not on file documented as of this encounter Plan of Treatment Not on filedocumented as of this encounter Visit Diagnoses Not on filedocumented in this encounter Care Teams Stabilizing Machine Operator Relationship Specialty Start Date End Date Elsewhere, Pcp PCP - General Family Medicine 10/30/20 documented as of this encounter
--- OUTSIDE RECORDS SUMMARY | 2022-01-20 09:58 | XMS_ITS | Encounter Summary ---
:1950 Author Organization [facility] Address [address] [place] [address] Care Team Providers Name Role Phone Elsewhere, Pcp Primary Care Provider Unavailable Encounter Details Date Type Department Care Team Description 12/27/2020 Admin Visit Department of Family Medicine, [address] [address] [facility] [phone] Social History Tobacco Use Types Packs/Day Years [...] documented as of this encounter Care Teams Product Management Manager Relationship Specialty Start Date End Date Elsewhere, Pcp PCP - General Family Medicine 10/30/20 documented as of this encounter
--- OUTSIDE RECORDS SUMMARY | 2022-01-20 09:58 | XMS_ITS | Encounter Summary ---
:1950 Author Organization [facility] Address [address] [place] [address] Care Team Providers Name Role Phone Elsewhere, Pcp Primary Care Provider Unavailable Reason for Visit Reason Comments COURTNEY Nurse Rosaura Encounter Details Date Type Department Care Team Description 03/09/2021 Clinical Communication Division of COURTNEY Clay Nurse Rosaura [facility] Lizet Mayen [facility] [phone] [place], in (Work) [place], [place] [address] [place] [address] Social History Tobacco Use Types Packs/Day Years Used Date Smoking Tobacco: Never Smokeless Tobacco: Never Sex Assigned at Date Recorded Not on file documented as of this encounter Miscellaneous Notes Telephone Encounter - Denise Clay R.N. - 03/09/2021 12:32 PM BUSINESS SALES CONSULTANT COVID-19 Nurse Line Screening ASSESSMENT Initial Screening Pathway Select appropriate pathway: : Adult In the last 48 hours, have you had a fever* OR symptoms that are unrelated to a preexisting illness?: No symptoms noted (Continue Screening) COVID Asymptomatic Screening Have you had close contact* with a person who has a LABORATORY CONFIRMED case of COVID-19 in the past 14 days?: No (Continue Screening) Have you tested positive for COVID-19 in the last 90 days?: No (Continue Screening) Have you been advised to undergo testing or are you requesting testing?: Yes, COVID-19 testing is indicated (End Screening) Testing Recommendation Endpoint Is testing recommended? : Recommended to test Further Triage Needs Any further triage needs? : No further concerns noted. PLAN Endpoint recommendation: Per patient request, testing indicated for request test, sent to [facility] located at [address] [place] [address] ([facility]). An appointment is required for testing, please call [phone] Thursday-Thursday 7am to 6pm and Thursday & Thursday 9am to 4pm to schedule an appointment. Testing hours are 8am - 4:30pm daily. You can also schedule via your Patient Online Services account., Please avoid using public transportation per CDC recommendation. If you do not have personal transportation please self- quarantine until a personal transportation option is available. Standard Care Points -Get a COVID -19 vaccine as soon as you can if not fully vaccinated. -Wash hands frequently with soap and water, use hand escalator service mechanic if soap and water aren't available. -Wear a mask over your nose and mouth to help protect yourself and others if not fully vaccinated and having no symptoms -Stay 6 feet between yourself and others who don't live with you. -Avoid crowds and poorly ventilated indoor spaces. -Seek emergent care if any of the following occur Trouble breathing Bluish lips or face Persistent pain or pressure in the chest New confusion or inability to rouse. -Notify your regular care provider of any new or worsening symptoms. Exposure Carepoints: If you are not fully vaccinated, quarantine for 14 days from your last known exposure to someone with a laboratory confirmed case of COVID-19 regardless of a negative test result unless otherwise directed. If you are fully vaccinated (last dose was greater than 14 days) quarantineis not needed if you remain without symptoms. If you remain asymptomatic it is recommended to be tested 3-5 days after the exposure as this will produce a more accurate result, unless otherwise directed. Testing is recommended if you become symptomatic at any point. Education: Patient/caregiver able to teach back Patient agreeable to plan of care: Yes The following references were used: [facility] novel coronavirus (COVID- 19) resources CDC web site https://www.cdc.gov/coronavirus/2019-ncov/your-health/index.html Nursing judgement NESS SALES CONSULTANT documented in this encounter Plan of Treatment Not on filedocumented as of this encounter Visit Diagnoses Not on filedocumented in this encounter Care Teams Biomedical Scientist Relationship Specialty Start Date End Date Elsewhere, Pcp PCP - General Family Medicine 10/30/20 documented as of this encounter
--- OUTSIDE RECORDS SUMMARY | 2022-01-20 09:58 | XMS_ITS | Encounter Summary ---
:1950 Author Organization [facility] Address [address] [place] [address] Care Team Providers Name Role Phone Elsewhere, Pcp Primary Care Provider Unavailable Reason for Visit Reason Comments COVID Inquiry Encounter Details Date Type Department Care Team Description 03/25/2021 Clinical Communication Central Appointment PreschedKING barakatID Kim Office in [facility] [address] [place] [address] Social History Tobacco Use Types Packs/Day Years Used Date Smoking Tobacco: Never Smokeless Tobacco: Never Sex Assigned at Date Recorded Not on file documented as of this encounter Miscellaneous Notes Telephone Encounter - Brenda Bacon - 03/25/2021 11:18 AM CST Plan: Endpoint recommendation: Testing indicated, advised to be swabbed for COVID-19 Only , sent to [facility] located at [address] [place] [address] ([facility]). An appointment is required for testing, please call [phone] Thursday-Thursday 7am to 6pm and Thursday & [...] sending patient for testing in [facility] or [facility], route encounter to the correct testing pool. WASHER documented in this encounter Plan of Treatment Not on filedocumented as of this encounter Visit Diagnoses Not on filedocumented in this encounter Care Teams Dobie Worker Relationship Specialty Start Date End Date Elsewhere, Pcp PCP - General Family Medicine 10/30/20 documented as of this encounter
--- OUTSIDE RECORDS SUMMARY | 2022-01-20 09:58 | XMS_ITS | Encounter Summary ---
:1950 Author Organization [facility] Address [address] [place] [address] Care Team Providers Name Role Phone Elsewhere, Pcp Primary Care Provider Unavailable Reason for Visit Reason Onset Date Comments Outpatient COVID-19 Testing 03/19/2021 Encounter Details Date Type Department Care Team Description 03/19/2021 External Outreach Department of [facility] Derek Alcaraz Contact With And Medicine, Piyush Cassidy D.O. (Suspected) Exposure Building, in [address] ([place], [place] Dx) [address] [facility] [address] [place], [place] [phone] (Work) [phone] Social History Tobacco Use Types Packs/Day Years Used Date Smoking Tobacco: Never Smokeless Tobacco: Never Sex Assigned at Date Recorded Not on file documented as of this encounter Progress Notes Kiki Ann R.N. - 03/19/2021 11:31 AM CST Encounter created for COVID-19 screening. TRUCK DRIVER OFF HIGHWAY Kiki Ann R.N. - 03/19/2021 11:31 AM CST Encounter created for COVID-19 screening. TRUCK DRIVER OFF HIGHW[address] documented in this encounter Miscellaneous Notes Addendum Note - Kiki Ann R.N. - 03/19/2021 11:31 AM DUMP TRUCK DRIVER OFF HIG[address] Addended by: KIKI ANN on: 03/19/2021 11:34 AM Modules accepted: Orders, Level of Service, SmartSet TRUCK DRIVER OFF HIGHW[address] documented in this encounter Plan of Treatment Not on filedocumented as of this encounter Procedures Procedure Name Priority Date/Time Associated Diagnosis Comme nts SARS CORONAVIRUS-2 Routine 03/20/2021 8:58 AM Contact With And Results for this RNA, V DUMP TRUCK DRIVER OFF HIG[address] (Suspected) Exposure procedu re are in To COVID-19 the results section. documented in this encounter Results SARS Coronavirus-2 RNA, V Asymptomatic (03/20/2021 8:58 AM DUMP TRUCK DRIVER OFF [address]) [facility] Method Time Signature SARS-CoV-2 Swab, 03/20/2021 [facility] Specimen Nasopharynx 9:40 PM DUMP TRUCK DRIVER OFF [address] Source SARS CoV-2 Undetected Undetected 03/20/2021 [facility] RNA, TMA 9:40 PM DUMP TRUCK DRIVER [address] Comment: SARS-CoV-2 RNA absent. This result does not rule out COVID-19 in the patient, as the sensitivity of the test depends o n the timing of the specimen collection and the quality of the specim en. Result should be correlated with patient's history and clinical presentat ion. ----ADDITIONAL INFORMATION---- This molecular amplification test was pe rformed using the Aptima SARS-CoV-2 assay ([employer] on the Dexter Vessix V[employer] tem under emergency use authorization (EUA) by the U.S. Food and Drug Administ ration. Fact sheets for this EUA assay can be fo und at the following links: For Healthcare Providers: https://www.fd a.gov/media/939331/download For Patients: https://www.fda.gov/media/ 657861/download Specimen Anatomical Collection Method Collection Time Receive d Time (Source) Location / / Volume Laterality Varies 03/20/2021 8:58 AM 3:39 (Nasopharynx) DUMP TRUCK DRIVER OFF HIG[address] PM DUMP TRUCK DRIVER OFF HIG[address] Derek Alcaraz D.O. LAB MICROBIOLOGY - GENERAL O RDERABLES Performing Organization Address City/State/ZIP Code Phon e Number [facility]- [address] [place] [address] [place] [address] System in [place] [address] [facility] documented in this encounter Visit Diagnoses Diagnosis Contact With And (Suspected) Exposure To COVID-19 - Primary documented in this encounter Additional Health Concerns Infection Onset Date Last Indicated Resolved Time COVID19 Pending 03/19/2021 03/19/2021 03/19/2021 11:34 AM DUMP TRUCK DRIVER [address] COVID19 Pending 03/19/2021 03/20/2021 03/20/2021 9:41 PM DUMP TRUCK DRIVER [address] documented as of this encounter Care Teams Pick Pack Worker Relationship Specialty Start Date End Date Elsewhere, Pcp PCP - General Family Medicine 10/30/20 documented as of this encounter
--- OUTSIDE RECORDS SUMMARY | 2022-01-20 09:58 | XMS_ITS | Encounter Summary ---
:1950 Author Organization [facility] Address [address] [place] [address] Care Team Providers Name Role Phone Elsewhere, Pcp Primary Care Provider Unavailable Reason for Visit Reason Onset Date Comments Outpatient COVID-19 Testing 02/26/2021 Encounter Details Date Type Department Care Team Description 02/26/2021 External Outreach Department of [facility] Cesar Alcarazold Contact With And Medicine, Piyush Cassidy D.O. (Suspected) Exposure Building, in [address] COVID[address] ([place], [place] Dx) [address] [facility] [address] [place], [place] [phone] [address] (Work) [phone] Social History Tobacco Use Types Packs/Day Years Used Date Smoking Tobacco: Never Smokeless Tobacco: Never Sex Assigned at Date Recorded Not on file documented as of this encounter Progress Notes Hailey Camargo R.N. - 02/26/2021 2:55 PM CST Encounter created for COVID-19 screening. URCE TEACHER documented in this encounter Plan of Treatment Not on filedocumented as of this encounter Procedures Procedure Name Priority Date/Time Associated Comments Diagnosis SARS CORONAVIRUS 2 Routine 02/27/2021 11:00 Resul ts for this PCR DETECT, V AM RESOURCE TEACHER procedure are in the results section. documented in this encounter Results SARS Coronavirus 2 PCR Detect, V (02/27/2021 11:00 AM RESOURCE TEACHER) [facility] Method Time Signature SARS-CoV-2 Nasopharynx 02/28/2021 [facility] Specimen 11:29 AM RESOURCE TEACHER Source SARS-CoV-2 Undetected Undetected 02/28/2021 [facility] RNA by PCR 11:29 AM RESOURCE TEACHER Comment: SARS-CoV-2 RNA absent. This result does not rule out COVID-19 in the patient, as the sensitivity of the test depends o n the timing of the specimen collection and the quality of the specim en. Result should be correlated with patient's history and clinical presentat ion. ----ADDITIONAL INFORMATION---- This RT-PCR test using the stephanie SARS-Co V-2 assay ([employer] performed on the stephanie 6800/8800 S ystem has received Emergency Use Authorization (EUA) by the U.S. Food and Drug Administration, and is modified from the grain mill products inspector's instructions wit h a bridging study. Performance characteristics were verified by [facility] inic in a manner consistent with CLIA requirements. Fact sheets for this Emergency Use Autho rization (EUA) assay can be found at the following links: For Healthcare Providers: https://www.Novalact a.gov/media/478745/download For Patients: https://www.fda.gov/media/ 131608/download Specimen (Source) Anatomical Collection Method Collection Time Re ceived Time Location / / Volume Laterality Varies 02/27/2021 11:00 AM RESOURCE TEACHER Narrative [facility] - 02/28/2021 11:29 AM RESOURCE TEACHER Specimen Information: Specimen ID: [id number] Specimen Type: Varies Specimen Collection Start Date: 02/28/20 11:00 AM Specimen ID: [id number] Specimen Type: Varies Specimen Collection Start Date: 02/28/20 11:00 AM Specimen Received Date: 02/28/2021 ??5:3 0 AM Derek Alcaraz D.O. LAB MICROBIOLOGY - GENERAL O RDERABLES Performing Organization Address City/State/ZIP Code Phon e Number [address] [place] [address] [facility] [place] [place] [address] Laboratory Medicine and Pathology [address] [place] [address] Dr. KLINE documented in this encounter Visit Diagnoses Diagnosis Contact With And (Suspected) Exposure To COVID-19 - Primary documented in this encounter Additional Health Concerns Infection Onset Date Last Indicated Resolved Time COVID19 Pending 02/26/2021 02/27/2021 02/27/2021 1:33 PM RESOURCE TEACHER documented as of this encounter Care Teams Mental Health Worker Relationship Specialty Start Date End Date Elsewhere, Pcp PCP - General Family Medicine 10/30/20 documented as of this encounter
--- OUTSIDE RECORDS SUMMARY | 2022-01-20 09:58 | XMS_ITS | Encounter Summary ---
:1950 Author Organization [facility] Address [address] [place] [address] Care Team Providers Name Role Phone Elsewhere, Pcp Primary Care Provider Unavailable Reason for Visit Reason Onset Date Comments Outpatient COVID-19 Testing 03/26/2021 Encounter Details Date Type Department Care Team Description 03/26/2021 External Outreach Department of [facility] Lissa Derek Contact With And Medicine, Piyush Cassidy D.O. (Suspected) Exposure Building, in [address] COVID[address] ([place], [place] Dx) [address] [facility] [address] [place], [place] [phone] [address] (Work) [phone] Social History Tobacco Use Types Packs/Day Years Used Date Smoking Tobacco: Never Smokeless Tobacco: Never Sex Assigned at Date Recorded Not on file documented as of this encounter Progress Notes Domitila Rm RMira. - 03/26/2021 4:52 PM CST Encounter created for COVID-19 screening. ING SUPERVISOR documented in this encounter Plan of Treatment Not on filedocumented as of this encounter Procedures Procedure Name Priority Date/Time Associated Diagnosis Comme nts SARS CORONAVIRUS-2 Routine 03/27/2021 2:00 PM Contact With And Results for this RNA, V PUMPING SUPERVISOR (Suspected) Exposure procedu re are in To COVID-19 the results section. documented in this encounter Results SARS Coronavirus-2 RNA, V Asymptomatic (03/27/2021 2:00 PM PUMPING SUPERVISOR) [facility] Method Time Signature SARS-CoV-2 Swab, 03/28/2021 MKTO Specimen Nasopharynx 2:03 AM PUMPING SUPERVISOR Source SARS CoV-2 Undetected Undetected 03/28/2021 MKTO RNA, TMA 2:03 AM PUMPING SUPERVISOR Comment: SARS-CoV-2 RNA absent. This result does not rule out COVID-19 in the patient, as the sensitivity of the test depends o n the timing of the specimen collection and the quality of the specim en. Result should be correlated with patient's history and clinical presentat ion. ----ADDITIONAL INFORMATION---- This molecular amplification test was pe rformed using the Aptima SARS-CoV-2 assay ([employer] on the [employer] tem under emergency use authorization (EUA) by the U.S. Food and Drug Administ ration. Fact sheets for this EUA assay can be fo und at the following links: For Healthcare Providers: https://www.[employer] a.gov/media/484724/download For Patients: https://www.fda.gov/media/ 944784/download Specimen Anatomical Collection Method Collection Time Receive d Time (Source) Location / / Volume Laterality Varies 03/27/2021 2:00 PM 8:36 (Nasopharynx) PUMPING SUPERVISOR PM PUMPING SUPERVISOR Derek Alcaraz D.O. LAB MICROBIOLOGY - GENERAL O ESTHERERABLES Performing Organization Address City/State/ZIP Code Phon e Number [facility]- [address] [place] [phone] [place] [address] [place] [address] System [address] documented in this encounter Visit Diagnoses Diagnosis Contact With And (Suspected) Exposure To COVID-19 - Primary documented in this encounter Additional Health Concerns Infection Onset Date Last Indicated Resolved Time COVID19 Pending 03/26/2021 03/27/2021 03/28/2021 2:04 AM PUMPING SUPERVISOR documented as of this encounter Care Teams Construction Scheduler Relationship Specialty Start Date End Date Elsewhere, Pcp PCP - General Family Medicine 10/30/20 documented as of this encounter
--- OUTSIDE RECORDS SUMMARY | 2022-01-20 09:58 | XMS_ITS | Encounter Summary ---
:1950 Author Organization [facility] Address [address] [place] [address] Care Team Providers Name Role Phone Elsewhere, Pcp Primary Care Provider Unavailable Reason for Visit Reason Comments COVID Inquiry Encounter Details Date Type Department Care Team Description 03/19/2021 Clinical Communication Central Appointment PreschedKING barakatID Kim Office in [facility] [address] [place] [address] Social History Tobacco Use Types Packs/Day Years Used Date Smoking Tobacco: Never Smokeless Tobacco: Never Sex Assigned at Date Recorded Not on file documented as of this encounter Miscellaneous Notes Telephone Encounter - Brenda Bacon Kevin - 03/19/2021 10:36 AM CST What is the purpose of [...] Screening) Why is the patient requesting testing?: Requirement for work, school, or daycare Select appropriate regional recommendations: : [facility] only testing recommended (End Screening) Testing Recommendation Endpoint Is testing recommended? : Recommended to test Plan: Endpoint recommendation: Testing indicated, advised to be swabbed for COVID-19 Only , sent to [facility] located at [address] [place] [address] ([facility]). An appointment is required for testing, please call [phone] Thursday-Thursday 7am to 6pm and Thursday & [...] sending patient for testing in [facility] or [facility], route encounter to the correct testing pool. CTOR OF LEADERSHIP DEVELOPMENT documented in this encounter Plan of Treatment Not on filedocumented as of this encounter Visit Diagnoses Not on filedocumented in this encounter Care Teams Bad Credit Collector Relationship Specialty Start Date End Date Elsewhere, Pcp PCP - General Family Medicine 10/30/20 documented as of this encounter
--- OUTSIDE RECORDS SUMMARY | 2022-01-20 09:58 | XMS_ITS | Encounter Summary ---
:1950 Author Organization [facility] Address [address] [place] [address] Care Team Providers Name Role Phone Elsewhere, Pcp Primary Care Provider Unavailable Reason for Visit Reason Onset Date Comments Outpatient COVID-19 Testing 03/11/2021 Encounter Details Date Type Department Care Team Description 03/11/2021 External Outreach Department of [facility] Lissa Derek Contact With And Medicine, Piyush Cassidy D.O. (Suspected) Exposure Building, in [address] To COVID-19 ([place], [place] Dx) [address] [facility] [address] [place], [place] [phone] (Work) [phone] Social History Tobacco Use Types Packs/Day Years Used Date Smoking Tobacco: Never Smokeless Tobacco: Never Sex Assigned at Date Recorded Not on file documented as of this encounter Progress Notes Domitila Rm RMira. - 03/11/2021 2:47 PM CST Encounter created for COVID-19 screening. [employer] documented in this encounter Plan of Treatment Not on filedocumented as of this encounter Procedures Procedure Name Priority Date/Time Associated Diagnosis Comme nts SARS CORONAVIRUS-2 Routine 03/12/2021 9:24 AM Contact With And Results for this RNA, V [employer] (Suspected) Exposure procedu re are in To COVID-19 the results section. documented in this encounter Results SARS Coronavirus-2 RNA, V Asymptomatic (03/12/2021 9:24 AM [employer]) [facility] Method Time Signature SARS-CoV-2 Swab, 03/12/2021 MKTO Specimen Nasopharynx 7:40 PM [employer] Source SARS CoV-2 Undetected Undetected 03/12/2021 MKTO RNA, TMA 7:40 PM [employer] Comment: SARS-CoV-2 RNA absent. This result does not rule out COVID-19 in the patient, as the sensitivity of the test depends o n the timing of the specimen collection and the quality of the specim en. Result should be correlated with patient's history and clinical presentat ion. ----ADDITIONAL INFORMATION---- This molecular amplification test was pe rformed using the Aptima SARS-CoV-2 assay ([employer] on the [employer] tem under emergency use authorization (EUA) by the U.S. Food and Drug Administ ration. Fact sheets for this EUA assay can be fo und at the following links: For Healthcare Providers: https://www.[employer] a.gov/media/093425/download For Patients: https://www.fda.gov/media/ 587059/download Specimen Anatomical Collection Method Collection Time Receive d Time (Source) Location / / Volume Laterality Varies 03/12/2021 9:24 AM 2:44 (Nasopharynx) [employer] PM [employer] Derek Alcaraz D.O. LAB MICROBIOLOGY - GENERAL O RDERABLES Performing Organization Address City/State/ZIP Code Phon e Number [facility]- [address] [place] [id number] [place] [address] [place] [address] System in [address] documented in this encounter Visit Diagnoses Diagnosis Contact With And (Suspected) Exposure To COVID-19 - Primary documented in this encounter Additional Health Concerns Infection Onset Date Last Indicated Resolved Time COVID19 Pending 03/11/2021 03/12/2021 03/12/2021 7:41 PM [employer] documented as of this encounter Care Teams Director Global Market Research Relationship Specialty Start Date End Date Elsewhere, Pcp PCP - General Family Medicine 10/30/20 documented as of this encounter
--- OUTSIDE RECORDS SUMMARY | 2022-01-20 09:58 | XMS_ITS | Encounter Summary ---
:1950 Author Organization [facility] Address [address] [place] [address] Care Team Providers Name Role Phone Elsewhere, Pcp Primary Care Provider Unavailable Encounter Details Date Type Department Care Team Description 11/06/2020 Orders Only [facility] Sa hoa Hwang M.D. [address] [place], [place] [phone] (Wo rk) Social History Tobacco Use Types Packs/Day Years Used Date Smoking Tobacco: Never Smokeless Tobacco: Never Sex Assigned at Date Recorded Not on file documented as of this encounter Plan of Treatment Not on filedocumented as of this encounter Visit Diagnoses Not on filedocumented in this encounter Care Teams Key Account Executive Relationship Specialty Start Date End Date Elsewhere, Pcp PCP - General Family Medicine 10/30/20 documented as of this encounter
--- OUTSIDE RECORDS SUMMARY | 2022-01-20 09:58 | XMS_ITS | Encounter Summary ---
:[address] [facility] Address [address] [place] [address] Care Team Providers Name Role Phone Gabby Briggs M.D. Primary Care Provider [phone] Reason for Visit Reason Comments COVID Inquiry Encounter Details Date Type Department Care Team Description 03/08/2020 Clinical Communication Central Appointment PreschedKING barakatID Kim Office in [place] [address] [place], [place] [phone] Social History Tobacco Use Types Packs/Day Years Used Date Smoking Tobacco: Never Smokeless Tobacco: Never Sex Assigned at Date Recorded Not on file documented as of this encounter Miscellaneous Notes Telephone Encounter - Mariah Tejada - 03/08/2020 10:15 AM CST COVID-19 Nurse Line Screening ASSESSMENT Combo COVID + Upper Respiratory Infection (URI) Screening Select the most appropriate pathway: : Adult Have you had close contact* with a person who has a LABORATORY CONFIRMED case of COVID-19 in the past 14 days?: No (Continue Screening) In the last 48 hours, have you had a fever* OR symptoms that are unrelated to a preexisting illness?: No symptoms noted (Continue Screening) Have you tested positive for COVID-19 in the last 90 days?: No (Continue Screening) Have you been advised to undergo testing or are you requesting testing?: Yes (End Screening)- Ok to send for testing Testing Recommendation Endpoint Is testing recommended? : Recommended to test PLAN Endpoint recommendation: Screening negative, COVID- 19 testing indicated per request for public health , sent to [facility] located at [address] The entrance is on the north side of the building.You must call [phone] for an appointment time.Testing hours are Daily 9 am to 5 pm.When you arrive at the testing site: Remain in your vehicle and check-in by phone using the same appointment linenumber. and Please avoid using public transportation per CDC recommendation. If you do not have personal transportation please self- quarantine until a personal transportation option is available. Care Points: -Wash hands frequently with soap and water for at least 20 seconds -If soap and water are not available, use a hand chiropractic assistant -Avoid touching your eyes, nose and mouth. -Clean and disinfect high-touch surfaces routinely. -Wear a mask over your nose and mouth. A cloth face cover is not a substitute for social distancing -Continue to keep about 6 feet between yourself and others. -Avoid public areas and public transportation. -Find new ways to connect with family and friends, get support and share feelings. -Seek emergent care if any of the following occur Trouble breathing Bluish lips or face Persistent pain or pressure in the chest New confusion or inability to rouse. -Notify your regular care provider of any new or worsening symptoms. Asymptomatic without exposure Carepoints: If your COVID-19 result is negative and you become symptomatic consider retesting after 72 hours. Education: Not applicable Patient agreeable to plan of care: Yes The following references were used: [facility] novel coronavirus (COVID- 19) resources TEGIC PLANNING DIRECTOR documented in this encounter Plan of Treatment Not on filedocumented as of this encounter Visit Diagnoses Not on filedocumented in this encounter Care Teams Data Sciences Director Relationship Specialty Start Date End Date Gabby Briggs M.D. PCP - General Family Medicine 04/19/18 05/02/[address] [place] [phone] documented as of this encounter
--- OUTSIDE RECORDS SUMMARY | 2022-01-20 09:59 | XMS_ITS | Encounter Summary ---
:[address] [facility] Address [address] [place] [address] Care Team Providers Name Role Phone Gabby Briggs M.D. Primary Care Provider [phone] Encounter Details Date Type Department Care Team Description 04/26/2018 Hospital Encounter Department of Jaswinder Preop erative Exam Radiology in Gabby gutierrez [place], [place] [address] [place] [phone] Social History Tobacco Use Types Packs/Day Years Used Date Smoking Tobacco: Never Smokeless Tobacco: Never Sex Assigned at Date Recorded Not on file documented as of this encounter Medications at Time of Discharge Medication Sig Dispensed Refills Start Date End Date acetaminophen (TYLENOL EXTRA Take 500-1,000 mg 0 01/23/2016 STRENGTH) 500 mg tablet by mouth. imatinib (GLEEVEC) 100 mg Take 200 mg by 0 2017 tablet mouth daily. prasterone, dhea, (DHEA) 25 Take by mouth. 0 mg tablet documented as of this encounter Plan of Treatment Not on filedocumented as of this encounter Procedures Procedure Name Priority Date/Time Associated Comments Diagnosis DX CHEST AP OR PA RAD - Routine 04/26/2018 9:01 Preoperative Exam R esults for this AND LATERAL 2 (most inpatients AM WHEEL ALIGNMENT TECHNICIAN procedure are in VIEWS and all the results outpatients) section. documented in this encounter Results DX Chest AP or PA and Lateral 2 Views (04/26/2018 9:01 AM WHEEL ALIGNMENT TECHNICIAN) Anatomical Region Laterality Modality Chest, Thoracic RST LOS, Thoracic ARZ LOS, Thoracic N/A Digital Radiography FLA LOS Specimen (Source) Anatomical Collection Method Collection Time Re ceived Time Location / / Volume Laterality 04/26/2018 9:20 AM WHEEL ALIGNMENT TECHNICIAN Impressions 04/26/2018 9:21 AM WHEEL ALIGNMENT TECHNICIAN IMPRESSION: Blunting of the right costophrenic angle may represent small amount of pleural fluid or pleural thickening. Mild hyperinflation. Surgical clips in the upper midline abdomen. Normal heart size. Narrative 04/26/2018 9:21 AM WHEEL ALIGNMENT TECHNICIAN EXAM: DX CHEST AP OR PA AND LATERAL 2 VIEWS Procedure Note Xochitl Recinos M.D. - 04/26/2018Forma tting of this note might be different from the original. EXAM: DX CHEST AP OR PA AND LATERAL 2 EWS IMPRESSION: Blunting of the right costop hrenic angle may represent small amount of pleural fluid or pleural thickening. Mild hyperinflation. Surgical clips in the upper midline abdomen. Normal heart size. Gabby Briggs M.D. IMG DIAGNOSTIC IMAGING PROCEDURES documented in this encounter Visit Diagnoses Diagnosis Preoperative Exam documented in this encounter Care Teams Lead Instructor/Flight Attendant Relationship Specialty Start Date End Date Gabby Briggs M.D. PCP - General Family Medicine 04/19/18 05/02/[address] [phone] documented as of this encounter
--- OUTSIDE RECORDS SUMMARY | 2022-01-20 09:59 | XMS_ITS | Encounter Summary ---
:1950 Author Organization [facility] Address [address] [place] [address] Care Team Providers Name Role Phone Gabby Briggs M.D. Primary Care Provider Encounter Details Date Type Department Care Team Description 06/30/2018 Clinical Communication Department of [facility] [place] [facility], [facility], in Melissa Cornejo [place] [address] [place], [place] [address], [place] [phone] Social History Tobacco Use Types Packs/Day Years Used Date Smoking Tobacco: Never Smokeless Tobacco: Never Sex Assigned at Date Recorded Not on file documented as of this encounter Plan of Treatment Not on filedocumented as of this encounter Visit Diagnoses Not on filedocumented in this encounter Care Teams Supervisor Hand Silvering Relationship Specialty Start Date End Date Gabby Briggs M.D. PCP - General Family Medicine 04/19/18 05/02/20 [address] [phone] documented as of this encounter
--- OUTSIDE RECORDS SUMMARY | 2022-01-20 09:59 | XMS_ITS | Encounter Summary ---
:1950 Author Organization [facility] Address [address] [place] [address] Care Team Providers Name Role Phone Gabby Briggs M.D. Primary Care Provider [phone] Reason for Visit Reason Onset Date Comments Ultrasound Renal 06/29/2018 Encounter Details Date Type Department Care Team Description 06/29/2018 Clinical Communication Department of [facility], Gabby Cruz, [facility], in [place] [address] [place] [phone] Social History Tobacco Use Types Packs/Day Years Used Date Smoking Tobacco: Never Smokeless Tobacco: Never Sex Assigned at Date Recorded Not on file documented as of this encounter Miscellaneous Notes Telephone Encounter - Tomas Franco V., C.M.ALacey - 06/30/2018 4:12 PM CDT SUBJECTIVE CHIEF COMPLAINT / REASON FOR CALL Ultrasound Renal INFORMATION DISCUSSED Paperwork has been faxed out to the [facility] scheduling for this. I contacted the patient and notified him that it was all sent. I also notified him if he should have any trouble, to give us a call. PLAN Disposition/Recommendation: N/A Information: patient/caller able to repeat back in their own words Caller agreeable to plan of care: yes The following references were used: provider Dr. Hoffman Telephone Encounter - Jennifer Becerra - 06/30/2018 3:57 PM CDT Reason for Communication: Patient is waiting to get orders on his renal ultrasound which was supposeto be scheduled 2 weeks ago. Current Can Nursing/Provider leave a detailed message: yes Did the patient refuse triage through Nurse line? (for symptom based concerns):na Action Needed: Please advise Name of Medication (if relevant): Telephone Encounter - Gabby Briggs M.D. - 06/30/2018 3:46 PM CDT It is a paper order Telephone Encounter - Karla Quintero, L.P.NLacey - 06/30/2018 2:43 PM CDT SUBJECTIVE CHIEF COMPLAINT / REASON FOR CALL Ultrasound Renal Patient is requesting the following information: Ultra sound PLAN The following information was provided : Spoke with [facility] they would like a new order that states renal ultrasound (remove the with contrast) faxed to them [phone]. Please advise Information: patient/caller able to repeat back in their own words The following references were used: none Telephone Encounter - Luis Alberto Brooks - 06/30/2018 2:20 PM CDT Reason for Communication: mandy calling back to get an answer from her message yesterday. The patient is calling them to schedule and they need to know what dr. Hoffman wants done. Please advise. Current Can Nursing/Provider leave a detailed message: yes Did the patient refuse triage through Nurse line? (for symptom based concerns): Action Needed: Name of Medication (if relevant): Telephone Encounter - Gabby Briggs M.D. - 06/29/2018 5:03 PM CDT Needs a plain renal ultrasound at [facility] to follow-up flank pain and renal insufficiency. He also needs labs redone here when he is well hydrated to recheck his renal insufficiency. Telephone Encounter - Heather Sarah - 06/29/2018 2:17 PM CDT Reason for Communication:Mandy from [facility] states that they do not do a ultrasound renal withcontrast. Please call back to clarify and will also need a new order. Current Can Nursing/Provider leave a detailed message: Did the patient refuse triage through Nurse line? (for symptom based concerns): Action Needed: phone call Name of Medication (if relevant): documented in this encounter Plan of Treatment Not on filedocumented as of this encounter Visit Diagnoses Not on filedocumented in this encounter Care Teams Telegraph And Teletype Operator Relationship Specialty Start Date End Date Gabby Briggs M.D. PCP - General Family Medicine 04/19/18 05/02/20 [address] [place] [phone] documented as of this encounter
--- OUTSIDE RECORDS SUMMARY | 2022-01-20 09:59 | XMS_ITS | Encounter Summary ---
:1950 Author Organization [facility] Address [address] [place] [address] Care Team Providers Name Role Phone Gabby Briggs M.D. 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 tablet amoxicillin (AMOXIL) 500 TAKE 4 CAPSULES 1 6 05/21 mg capsule HOUR BEFORE DENTAL PROCEDURE imatinib (GLEEVEC) 100 mg Take 200 mg by mouth 0 07/27/2017 tablet daily. prasterone, dhea, (DHEA) Take by mouth. 0 25 mg tablet documented as of this encounter Plan of Treatment Not on filedocumented as of this encounter Procedures Procedure Name Priority Date/Time Associated Diagnosis Comme nts CBC WITH Routine 07/05/2018 3:38 Gastrointestinal Stromal Results for this DIFFERENTIAL, B PM CDT Tumor Unspecified Site pr ocedure are in (HCC) the results Other Vitamin B12 section. Deficiency Anemias BASIC METABOLIC Routine 07/05/2018 3:38 Insufficiency Renal Re sults for this PANEL, S/P PM CDT procedure are i n the results section. documented in this encounter Results (ABNORMAL) Basic Metabolic Panel (07/05/2018 3:38 PM CDT) Analysis Performed At Patho logist Time Signature Potassium, S 4.2 3.6 - 5.2 07/06/2018 [facility] mmol/L 11:32 AM [facility] [place] [facility] Sodium, S 143 135 - 145 07/06/2018 [facility] mmol/L 11:32 AM [facility] Chloride, S 108 (H) 98 - 107 07/06/2018 [facility] mmol/L 11:32 AM [facility] Bicarbonate, S 24 22 - 29 07/06/2018 [facility] mmol/L 11:32 AM [facility] Anion Gap 11 7 - 15 07/06/2018 [facility] 11:32 AM [facility] BUN (Blood Urea 20 8 - 24 07/06/2018 [facility] Nitrogen), S mg/dL 11:32 AM [facility] Creatinine 1.58 (H) 0.74 - 07/06/2018 [facility] 1.35 mg/dL 11:32 AM [facility] eGFR-Non 45 (L) >=60 07/06/2018 [facility] Black/ mL/min/BSA 11:32 AM [facility] [place] [facility] Comment: ----ADDITIONAL INFORMATION---- Estimated GFR calculated using the 2009 CKD_EPI creatinine equation. eGFR-Black/ 52 (L) >=60 mL/min/BSA 07/06/2018 11:3 2 [facility] Comment: ----ADDITIONAL INFORMATION---- Estimated GFR calculated using the 2009 CKD_EPI creatinine equation. Calcium, Total, S 9.3 8.8 - 10.2 mg/dL 07/06/2018 11:3 2 AM [facility] Glucose, S 133 70 - 140 mg/dL 07/06/2018 11:32 AM [facility] Specimen Anatomical Collection Method Collection Time Receive d Time (Source) Location / / Volume Laterality Blood (Blood, 07/05/2018 3:38 PM 07/07/19 19 Venous) CDT 10:41 AM CDT Gabby Briggs M.D. LAB BLOOD ADD-ON Performing Organization Address City/State/ZIP Code Phon e Number [facility] [address] [place] [address] LAB (ABNORMAL) CBC with Differential, Blood (07/05/2018 3:38 PM CDT) [facility] Method Time Signature Hemoglobin 11.1 (L) 13.2 - 07/05/2018 [facility] 16.6 g/dL 3:42 PM CDT [facility] Hematocrit 32.9 (L) 38.3 - 07/05/2018 [facility] 48.6 % 3:42 PM CDT [facility] Erythrocytes 3.59 (L) 4.35 - 07/05/2018 [facility] 5.65 3:42 PM CDT [facility] MCV 91.6 78.2 - 07/05/2018 [facility] 97.9 fL 3:42 PM CDT [facility] RBC Distrib Width 13.0 11.8 - 07/05/2018 [facility] 14.5 % 3:42 PM CDT [facility] Platelet Count 234 135 - 317 07/05/2018 [facility] x10(9)/L 3:42 PM CDT [facility] Leukocytes 5.8 3.4 - 9.6 07/05/2018 [facility] x10(9)/L 3:42 PM CDT [facility] Neutrophils 3.80 1.56 - 07/05/2018 [facility] 6.45 3:42 PM CDT [facility](9)/[facility]- [facility] Lymphocytes 1.24 0.95 - 07/05/2018 [facility] 3.07 3:42 PM CDT [facility] x[facility](9)/[facility]- [facility] Monocytes 0.41 0.26 - 07/05/2018 [facility] 0.81 3:42 PM CDT [facility] x10(9)/L SYSTEM- [place] [facility] Eosinophils 0.25 0.03 - 07/05/2018 [facility] 0.48 3:42 PM CDT [facility] x[facility](9[facility] Basophils 0.09 (H) 0.01 - 07/05/2018 [facility] 0.08 3:42 PM CDT [facility] Specimen Anatomical Collection Method Collection Time Receive d Time (Source) Location / / Volume Laterality Blood (Blood, 07/05/2018 3:38 PM 07/06/19 19 3:38 Venous) CDT PM CDT Harley Marquis M.D. LAB BLOOD ADD-ON Performing Organization Address City/State/ZIP Code Phon e Number [facility] [address] [place] [address] LAB documented in this encounter Visit Diagnoses Diagnosis Gastrointestinal Stromal Tumor Unspecifi ed Site (HCC) Other Vitamin B12 Deficiency Anemias Insufficiency Renal documented in this encounter Care Teams Waste Recycler Relationship Specialty Start Date End Date Gabby Briggs M.D. PCP - General Family Medicine 04/19/18 05/02/[address] [place] [phone] documented as of this encounter
--- OUTSIDE RECORDS SUMMARY | 2022-01-20 09:59 | XMS_ITS | Encounter Summary ---
:1950 Author Organization [facility] Address [address] [place] [address] Care Team Providers Name Role Phone Gabby Briggs M.D. Primary Care Provider [phone] Encounter Details Date Type Department Care Team Description 09/17/2018 Abstract Department of Family Medicine, Provider, [facility], in [place], [place] [address] [place] [address] Social History Tobacco Use Types Packs/Day Years Used Date Smoking Tobacco: Never Smokeless Tobacco: Never Sex Assigned at Date Recorded Not on file documented as of this encounter Plan of Treatment Not on filedocumented as of this encounter Procedures Procedure Name Priority Date/Time Associated Diagnosis Comme nts CBC WITH DIFFERENTIAL, Routine 08/24/2018 Resul ts for this B procedure are i n the results section . HEPATIC FUNCTION PANEL Routine 08/24/2018 Resul ts for this procedure are i n the results section . BASIC METABOLIC PANEL, Routine 08/24/2018 Resul ts for this S/P procedure are i n the results section . documented in this encounter Results Hepatic function panel (08/24/2018) [facility] Method Time Signature Alkaline 68 25 - 125 EXTERNAL Phosphatase, S NON-INTERFACE D LAB Alanine 31 10 - 40 EXTERNAL Amniotransferase, LD NON-INTER FACE D LAB Aspartate 34 14 - 40 EXTERNAL Aminotransferase NON-INTERFACE (AST), S D LAB Specimen (Source) Anatomical Location Collection Method / Collectio n Time Received Time / Laterality Volume Blood (Blood, Venous) Ordering Provider External M.D. LAB BLOOD ADD-ON Performing Organization Address City/State/ZIP Code Phon e Number EXTERNAL NON-INTERFACED LAB [address] [place], [place] [address] (ABNORMAL) Basic Metabolic Panel (08/24/2018) Analysis Performed At [facility] Time Signature Glucose 102 mg/dL EXTERNAL NON-INTERFACE D LAB BUN (Blood Urea 20 4 - 21 EXTERNAL Nitrogen), S NON-INTERFACE D LAB Creatinine 1.52 (A) 0.6 - 1.3 EXTERNAL NON-INTERFACE D LAB Potassium, S 3.8 3.4 - 5.3 EXTERNAL NON-INTERFACE D LAB Sodium, S 144 137 - 147 EXTERNAL NON-INTERFACE D LAB Specimen (Source) Anatomical Location Collection Method / Collectio n Time Received Time / Laterality Volume Blood (Blood, Venous) Ordering Provider External M.D. LAB BLOOD ADD-ON Performing Organization Address City/[facility] Phon e Number EXTERNAL NON-INTERFACED LAB [address] [place], [place] [address] (ABNORMAL) CBC with Differential, Blood (08/24/2018) Analysis Performed At [facility] Time Signature Hemoglobin 10.0 (A) 13.5 - EXTERNAL 17.5 NON-INTERFACE D LAB Hematocrit 29 (A) 41 - 53 % EXTERNAL NON-INTERFACE D LAB Platelet Count 151 150 - 399 EXTERNAL NON-INTERFACE D LAB Auto WBC 4.5 3.3 - 10.0 EXTERNAL 10*3/mL NON-INTERFACE D LAB Specimen (Source) Anatomical Location Collection Method / Collectio n Time Received Time / Laterality Volume Blood (Blood, Venous) Ordering Provider External M.D. LAB BLOOD ADD-ON Performing Organization Address [facility] Phon e Number EXTERNAL NON-INTERFACED LAB [address] [place], [place] [address] documented in this encounter Visit Diagnoses Not on filedocumented in this encounter Care Teams Mutual Fund Sales Agent Relationship Specialty Start Date End Date Gabby Briggs M.D. PCP - General Family Medicine 04/19/18 05/02/[address] [phone] documented as of this encounter
--- OUTSIDE RECORDS SUMMARY | 2022-01-20 09:59 | XMS_ITS | Encounter Summary ---
:1950 Author Organization [facility] Address [address] [place] [address] Care Team Providers Name Role Phone Gabby Briggs M.D. Primary Care Provider Encounter Details Date Type Department Care Team Description 06/29/2018 Orders Only [facility], Gabby Marlow, (Primary Dx) Clinic, in [place] [address] [place] [phone] Social History Tobacco Use Types Packs/Day Years Used Date Smoking Tobacco: Never Smokeless Tobacco: Never Sex Assigned at Date Recorded Not on file documented as of this encounter Plan of Treatment Not on filedocumented as of this encounter Results (ABNORMAL) Basic Metabolic Panel (07/05/2018 3:38 PM CDT) Analysis Performed At [facility] Time Signature Potassium, S 4.2 3.6 - 5.2 07[facility]06[facility] mmol/L 11:32 AM [facility] Sodium, S 143 135 - 145 07/06/2018 [facility] mmol/L 11:32 AM [facility] Chloride, S 108 (H) 98 - 107 07/06/2018 [facility] mmol/L 11:32 AM [facility] Bicarbonate, S 24 22 - 29 07/06/2018 [facility] mmol/L 11:[address] [facility] Anion Gap 11 7 - 15 07/06/2018 [facility] 11:[address] [facility] BUN (Blood Urea 20 8 - 24 07/06/2018 [facility] Nitrogen), S mg/dL 11:[address] [facility] Creatinine 1.58 (H) 0.74 - 07/06/2018 [facility] 1.35 mg/dL 11:[address] [facility] eGFR-Non 45 (L) >=60 07/06/2018 [facility] Black/ mL/min/BSA 11:32 AM [facility] Comment: ----ADDITIONAL INFORMATION---- Estimated GFR calculated using the 2009 CKD_EPI creatinine equation. eGFR-Black/ 52 (L) >=60 mL/min/BSA 07/06/2018 11:3 2 [facility] Comment: ----ADDITIONAL INFORMATION---- Estimated GFR calculated using the 2009 CKD_EPI creatinine equation. Calcium, Total, S 9.3 8.8 - 10.2 mg/dL 07/06/2018 11:3 2 AM [facility] Glucose, S 133 70 - 140 mg/dL 07/06/2018 11:32 AM [facility] LAB Specimen Anatomical Collection Method Collection Time Receive d Time (Source) Location / / Volume Laterality Blood (Blood, 07/05/2018 3:38 PM 07/07/19 19 Venous) CDT 10:41 AM CDT Gabby Briggs M.D. LAB BLOOD ADD-ON Performing Organization Address City/State/ZIP Code Phon e Number [facility] [address] [place] [address] LAB documented in this encounter Visit Diagnoses Diagnosis Insufficiency Renal - Primary documented in this encounter Care Teams [place] Aide Relationship Specialty Start Date End Date Gabby Briggs M.D. PCP - General Family Medicine 04/19/18 05/02/202199 [place] [address] documented as of this encounter
--- OUTSIDE RECORDS SUMMARY | 2022-01-20 09:59 | XMS_ITS | Encounter Summary ---
:1950 Author Organization [facility] Address [address] [place] [address] Care Team Providers Name Role Phone Gabby Briggs M.D. Primary Care Provider [phone] Encounter Details Date Type Department Care Team Description 08/08/2019 Orders Only RST PCP [facility] MNT Radha Scre ening Examination Gabby hopkins M.D. Diabetes Mellitus [address] [phone] (Wo rk) Social History Tobacco Use Types Packs/Day Years Used Date Smoking Tobacco: Never Smokeless Tobacco: Never Sex Assigned at Date Recorded Not on file documented as of this encounter Plan of Treatment Not on filedocumented as of this encounter Visit Diagnoses Diagnosis Screening Examination Diabetes Mellitus documented in this encounter Care Teams Chief Executive Relationship Specialty Start Date End Date Gabby Briggs M.D. PCP - General Family Medicine 04/19/18 05/02/20 [address] [phone] documented as of this encounter
--- OUTSIDE RECORDS SUMMARY | 2022-01-20 09:59 | XMS_ITS | Encounter Summary ---
:1950 Author Organization [facility] Address [address] [place] [address] Care Team Providers Name Role Phone Gabby Briggs M.D. Primary Care Provider Reason for Visit Reason Comments Med Refill Encounter Details Date Type Department Care Team Description 02/04/2019 Refill Department of Family Medicine, Dalton Hassan Med Refill [facility], in [place]by [place] M.D. [place] [address] [place] [address] [place] [address] [phone] Social History Tobacco Use Types Packs/Day Years Used Date Smoking Tobacco: Never Smokeless Tobacco: Never Sex Assigned at Date Recorded Not on file documented as of this encounter Plan of Treatment Not on filedocumented as of this encounter Visit Diagnoses Not on filedocumented in this encounter Care Teams Hr Specialist Relationship Specialty Start Date End Date Gabby Briggs M.D. PCP - General Family Medicine 04/19/18 05/02/20 [address], [place] [address] documented as of this encounter
--- OUTSIDE RECORDS SUMMARY | 2022-01-20 09:59 | XMS_ITS | Encounter Summary ---
:1950 Author Organization [facility] Address [address] [place] [address] Care Team Providers Name Role Phone Gabby Briggs M.D. Primary Care Provider [phone] Reason for Visit Reason Onset Date Comments FYI Only 12/15/2018 Encounter Details Date Type Department Care Team Description 12/15/2018 Clinical Communication Department of Family Dalton Beltran FYI Only Medicine, Gabby Varela, [employer], in [place] [address] [place] [phone] Social History Tobacco Use Types Packs/Day Years Used Date Smoking Tobacco: Never Smokeless Tobacco: Never Sex Assigned at Date Recorded Not on file documented as of this encounter Miscellaneous Notes Telephone Encounter - Heather Sarah - 12/15/2018 10:57 AM CDT Reason for Communication: [facility]) calling to report that patient is nolonger using this service as goal has been met. Understands what needs to be done and has gained 5 lbs. If further questions you can call Beverly at : Current - (private-confidential voice mail) Can Nursing/Provider leave a detailed message: Did the patient refuse triage through Nurse line? (for symptom based concerns): Action Needed: FYI only Name of Medication (if relevant): documented in this encounter Plan of Treatment Not on filedocumented as of this encounter Visit Diagnoses Not on filedocumented in this encounter Care Teams Chainstitch Pants Outseamer Relationship Specialty Start Date End Date Gabby Briggs M.D. PCP - General Family Medicine 04/19/18 05/02/[address] [phone] documented as of this encounter
--- OUTSIDE RECORDS SUMMARY | 2022-01-20 09:59 | XMS_ITS | Encounter Summary ---
:1950 Author Organization [facility] Address [address] [place] [address] Care Team Providers Name Role Phone Gabby Briggs M.D. Primary Care Provider [phone] Encounter Details Date Type Department Care Team Description 07/07/2018 Clinical Communication Department of [facility] Dalton Beltran [facility], Gabby Marlow, Clinic, in [place] [address] [phone] Social History Tobacco Use Types Packs/Day Years Used Date Smoking Tobacco: Never Smokeless Tobacco: Never Sex Assigned at Date Recorded Not on file documented as of this encounter Miscellaneous Notes Telephone Encounter - Tanesha Malave C.MYani - 07/07/2018 8:26 AM CDT SUBJECTIVE CHIEF COMPLAINT / REASON FOR CALL No chief complaint on file. INFORMATION DISCUSSED Results from Renal US. See message from Dr. Pierre below. PLAN Disposition/Recommendation: NA Information: patient/caller able to repeat back in their own words Caller agreeable to plan of care: yes The following references were used: provider Dr. Pierre Telephone Encounter - Gabby Briggs M.D. - 07/07/2018 7:44 AM CDT Please contact patient. Ultrasound was unremarkable. It could see that he has an enlarged prostate but that is not causing obstruction. His kidney function based on blood tests from the show that his kidneys, although not functioning quite normally, have gone back to his baseline. documented in this encounter Plan of Treatment Not on filedocumented as of this encounter Visit Diagnoses Not on filedocumented in this encounter Care Teams Bend Up Relationship Specialty Start Date End Date Gabby Briggs M.D. PCP - General Family Medicine 04/19/18 05/02/[address] [phone] documented as of this encounter
--- OUTSIDE RECORDS SUMMARY | 2022-01-20 09:59 | XMS_ITS | Encounter Summary ---
:1950 Author Organization [facility] Address [address] [place] [address] Care Team Providers Name Role Phone Gabby Briggs M.D. Primary Care Provider [phone] Reason for Visit Reason Comments Pre-op Exam upper endoscopy [facility] Dr. Peres fax [phone] 10/07/18 Appointment Request (Routine) - Closed Specialty Diagnoses / Procedures Referred By Contact Refer red To Contact Family Medicine Referral ID Status Reason Start Date Expiration Date Visits Requ ested Visits Authorized [id number] Closed 10/01/2018 10/01/2019 1 1 Encounter Details Date Type Department Care Team Description 10/04/2018 Office Visit Department of [facility] Eliezer Ledezma perative Exam (Primary Dx); Medicine, Ayden RowellSLacey, [facility], in [place] [address] [facility] [address] [place] [phone] Social History Tobacco Use Types Packs/Day Years Used Date Smoking Tobacco: Never Smokeless Tobacco: Never Sex Assigned at Date Recorded Not on file documented as of this encounter Last Filed Vital Signs Vital Sign Reading [...] Mass Index 19.71 10/04/2018 11:00 AM CDT documented in this encounter H&P Notes Eliezer Ledezma M.B.B.S., M.D. - 10/04/2018 11:00 AM CDT Adult PRE-OP Evaluation: Atilio Austin, 1950 presents for pre-operative evaluation and assessment as requested by Dr. Sky Peres. Proposed procedure: EGD with dilation with Botox Date of Surgery/ Procedure: 10/07/2018 Hospital/Surgical Facility: [facility]* Primary Physician: Gabby Briggs M.D. Type of Anesthesia Anticipated: General anesthesia History of anesthesia complications: NONE} History of abnormal bleeding: NONE History of blood transfusions: NONE Preoperative Questions NO - Do you have a history of heart attack, stroke, stent, bypass or surgery on an artery in the head, neck, heart or legs? NO - Do you ever have any pain or discomfort in your chest? NO - Do you have a history of Congestive Heart Failure? NO - Are you troubled by shortness of breath when: walking on the level/ up a slight hill/ at night? NO - Does your chest ever sound wheezy or whistling? NO - Do you currently have a cold, bronchitis or other respiratory infection? NO - Have you had a cold, bronchitis or other respiratory infection within the last 2 weeks? NO - Do you usually have a cough? NO - Do you sometimes get pains in the calves of your legs when you walk? NO - Do you or anyone in your family have previous history of blood clots? NO - Do you or does anyone in your family have a serious bleeding problem such as prolonged bleedingfollowing surgeries or cuts? NO - Have you ever had problems with anemia or been told to take iron pills? NO - Have you had any abnormal blood loss such as black, tarry or bloody stools, or abnormal vaginalbleeding? NO - Have you ever had a blood transfusion? NO - Have you or any of your relatives ever had problems with anesthesia? NO - Do you have sleep apnea, excessive snoring or daytime drowsiness? NO - Do you have any prosthetic heart valves? NO - Do you have prosthetic joints? NO - Is there any chance that you may be ? Patient Active Problem List Diagnosis ??? Hypertension ??? Stasis Ulcer With Varicose Vein Left (HCC) ??? Chronic Kidney Disease Stage 3 Glomerular Filtration Rate 30 To 59 (HCC) ??? Tumor Gastrointestinal Stromal Malignant ??? Chronic Kidney Disease Stage 4 Glomerular Filtration Rate 15-29 (HCC) ??? Gastrectomy Partial Status Post ??? Hernia Inguinal Right ??? Benign Prostatic Hyperplasia Hypertrophy With Obstruction ??? Malignant Neoplasm Of Skin Trunk ??? Anemia ??? Elevated Prostate-Specific Antigen ??? Impotence Organic ??? Impaired Fasting Glucose Current Outpatient Medications Medication Sig Dispense Refill ??? acetaminophen (TYLENOL EXTRA STRENGTH) 500 mg tablet Take 500-1,000 mg by mouth. ??? amoxicillin (AMOXIL) 500 mg capsule TAKE 4 CAPSULES 1 HOUR BEFORE DENTAL PROCEDURE 6 ??? imatinib (GLEEVEC) 100 mg tablet Take 200 mg by mouth daily. ??? prasterone, dhea, (DHEA) 25 mg tablet Take by mouth. Current Facility-Administered Medications Medication Dose Route Frequency Provider Last Rate Last Dose ??? cyanocobalamin 1,000 mcg/mL injection 1,000 mcg (VITAMIN B12) 1,000 mcg intramuscular Q30 Days Gabby Briggs M.D. 1,000 mcg at 04/26/18 1673 OTC products: None, except as noted above Allergies Allergen Reactions ??? Morphine Other (see comments) Latex Allergy:NO Social History Socioeconomic History ??? Marital status: Spouse name: None ??? Number of children: None ??? Years of education: None ??? Highest education level: None Occupational History ??? None Social Needs ??? Financial resource strain: None ??? Food insecurity: Worry: None Inability: None ??? Transportation needs: Medical: None Non-medical: None Tobacco Use ??? Smoking status: Never Smoker ??? Smokeless tobacco: Never Used Substance and Sexual Activity ??? Alcohol use: None ??? Drug use: None ??? Sexual activity: None Lifestyle ??? Physical activity: Days per week: None Minutes per session: None ??? Stress: None Relationships ??? Social connections: Talks on phone: None Gets together: None Attends sabianist service: None Active member of club or organization: None Attends meetings of clubs or organizations: None Relationship status: None ??? Intimate partner violence: Fear of current or ex partner: None Emotionally abused: None Physically abused: None Forced sexual activity: None Other Topics Concern ??? None Social History Narrative ??? None REVIEW OF SYSTEMS: GENERAL: No weight gain, no weight loss, no fever in past month, no chills, no sweats, no fatigue., HEENT: No blurred vision, no double vision, no eye pain, no sinus problems, no hoarseness, no difficulty swallowing, no mouth sores, no diminished hearing, no ringing in ears, no enlarged glands., PULMONARY: No shortness of breath, no cough, no wheezing, no sputum, no hemoptysis., CARDIAC: No valve problems, no chest pain, no chest pressure, no rapid beating, no irregular beating, no dependent edema, pain in calves or with walking, no difficulty moving arms and legs., GI: No heartburn, no nausea, no vomiting, no stomach trouble, no constipation, no diarrhea, no blood in BMs, no change in BMs., REPRODUCTIVE: Is heterosexual , no change in sex drive or performance., : No burning/pain with urination, no difficulty starting stream, no difficulty emptying bladder, no excessive urination., MUSCULOSKELETAL: No joint pain, no joint swelling, no joint stiffness, no muscle pain, no muscle stiffness, no back pain, no back stiffness., SKIN: No skin rashes, no skin sores, no change in moles., NEURO: No significant headaches, no slurred speech, no seizures, no dizziness, no loss of consciousness, no memoryloss. and PSYCH: No mood change. Sleep is okay. Obstructing sleep apnea screening: Stop Bang Total Score: 3 EXAM: BP 100/58 (BP Location: Left arm, Patient Position: Sitting, Cuff Size: Regular) Pulse 84 Temp 37 ??C Resp 16 Ht 182.5 cm Wt 65.6 kg SpO2 98% BMI 19.71 kg/m?? GENERAL: Patient is in no distress. Capable of full communication without difficulty. Patient is polite and cooperative. Appropriately dressed and normal hygiene., HEENT: Normocephalic. EOMI, PERRLA, Canals patent, TMs normal. Oropharynx without lesion of mucosa. Pharyngeal rises symmetrically without exudate., NECK: No nodes, no thyromegaly. No bruit auscultated., HEART: Regular rate and rhythm. No murmurs, gallops or rubs noted., LUNGS: Clear to auscultation bilaterally. No expiratory wheeze. No accessory muscles of respiration noted., ABDOMEN: Nontender to palpation. No hepato-splenomegaly. No mass. Normal bowel sounds in all 4 quadrants., EXTREMITIES: No neurovascular compromise. No cyanosis, clubbing or edema. No abnormal limb length., ENDOCRINE: No purple striae, villalpando faces or buffalo hump., NEURO: Grossly intact with no evidence of impairment. and SKIN: No lesion, rash or bruising. DIAGNOSTICS: Labs drawn and process RISK ASSESSMENT: Cardiovascular Risk: -Patient is able to perform ADL's without assistance and able to walk up a flight of stairs without chest pain. -The patient does not have chest pain at rest and with exertion . -Patient does not have a history of congestive heart failure. -The patient does not have a history of stroke and does not havea history of valvular disease. Cardiovascular risk analysis - none Revised cardiac risk index: 0 point, class 1 and risk of 0.4% of major cardiac event Pulmonary Risk: -In terms of risk factors for pulmonary complication, the patient is older than 60 Perioperative Complications: -The patient does not have a history of bleeding or clotting problems in the past. -The patient has not had complications from surgeries -The patient does not have a family history of any anesthesia or surgical complications. IMPRESSION: Reason for surgery/procedure: Persistent weight loss with a history of GI stromal tumor. The proposed surgical procedure is considered LOW(endoscopic, cataract and breast surgery) risk. For above listed surgery and anesthesia: Patient is at LOW(otherwise) perioperative complications. RECOMMENDATIONS: Fasting: Must be NPO for 8 hours preoperatively. Preop Plan: Approval given to proceed with proposed procedure, without further diagnostic evaluation. Medications: Patient should hold their regular medications the morning of surgery unless otherwise instructed. Hold aspirin 7 days prior to surgery. Hold ibuprofen for 5 days prior to surgery. Yasmin Gomez M.D. Please contact our office if there are any further questions or information required about this patient. documented in this encounter Plan of Treatment Not on filedocumented as of this encounter Procedures Procedure Name Priority Date/Time Associated Diagnosis Comme nts CBC WITH Routine 10/04/2018 11:47 Preoperative Ex am Results for this DIFFERENTIAL, B AM CDT Anemia procedure ar e in the results section. documented in this encounter Results (ABNORMAL) CBC with Differential, Blood (10/04/2018 11:47 AM CDT) [facility] Method Time Signature Hemoglobin 11.1 (L) 13.2 - 10/04/2018 16.6 g/dL 11:57 AM CDT Hematocrit 33.9 (L) 38.3 - 10/04/2018 48.6 % 11:57 AM CDT Erythrocytes 3.62 (L) 4.35 - 10/04/2018 5.65 11:57 AM CDT x10(12)/L MCV 93.6 78.2 - 10/04/2018 97.9 fL 11:57 AM CDT RBC Distrib Width 12.8 11.8 - 10/04/2018 14.5 % 11:57 AM CDT Platelet Count 208 135 - 317 10/04/2018 x10(9)/L 11:57 AM CDT Leukocytes 4.3 3.4 - 9.6 10/04/2018 x10(9)/L 11:57 AM CDT Neutrophils 2.64 1.56 - 10/04/2018 6.45 11:57 AM CDT x10(9)/L Lymphocytes 0.99 0.95 - 10/04/2018 3.07 11:57 AM CDT x10(9)/L Monocytes 0.32 0.26 - 10/04/2018 0.81 11:57 AM CDT x10(9)/L Eosinophils 0.24 0.03 - 10/04/2018 0.48 11:57 AM CDT x10(9)/L Basophils 0.09 (H) 0.01 - 10/04/2018 0.08 11:57 AM CDT x10(9)/L Specimen Anatomical Collection Method Collection Time Receive d Time (Source) Location / / Volume Laterality Blood (Blood, 10/04/2018 11:47 10/04/2018 Venous) AM CDT 11:47 AM CDT Eliezer Hoffman M.D. LAB BLOOD ADD-ON Performing Organization Address City/State/ZIP Code Phon e Number [facility] [address] [place] [address] LAB documented in this encounter Visit Diagnoses Diagnosis Preoperative Exam - Primary Anemia documented in this encounter Administered Medications Inactive Administered Medications - up to 3 most recent administrations Medication Order MAR Action Action Date Dose Rate Site cyanocobalamin 1,000 mcg/mL Given 10/04/2018 11:35 AM 1,000 mcg Left Deltoid injection 1,000 mcg CDT (VITAMIN B12) 1,000 mcg, intramuscular, Every 30 days, First dose on Thu04/27/18 at 0900, For 12 doses Given 04/26/2018 9:23 AM MANAGER ACTIVITIES 1,000 mcg Right Deltoid documented in this encounter Care Teams Technology Manager Relationship Specialty Start Date End Date Gabby Briggs M.D. PCP - General Family Medicine 04/19/18 05/02/[address] [place] [phone] documented as of this encounter
--- OUTSIDE RECORDS SUMMARY | 2022-01-20 09:59 | XMS_ITS | Encounter Summary ---
:1950 Author Organization [facility] Address [address] [place] [address] Care Team Providers Name Role Phone Gabby Briggs M.D. Primary Care Provider [phone] Encounter Details Date Type Department Care Team Description 04/26/2018 Clinical Communication Department of [facility] Shauna Izquierdo, Medicine, [place] [facility], [facility] [address] [place], [place] [address] [facility] [address] [place], [place] [phone] (Work) [phone] Social History Tobacco Use Types Packs/Day Years Used Date Smoking Tobacco: Never Smokeless Tobacco: Never Sex Assigned at Date Recorded Not on file documented as of this encounter Miscellaneous Notes Telephone Encounter - Tg Izquierdo, L.P.N. - 04/26/2018 3:37 PM DOOR WORKER Pre op documents for procedure scheduled for 04/29/2018 at [facility] faxed to [facility] pre op department at [phone], along with copy of documents faxed to patient per his request to [phone]. Copy of patients labs completed today at appointment faxed to [facility] at [phone] harp WORKER documented in this encounter Plan of Treatment Not on filedocumented as of this encounter Visit Diagnoses Not on filedocumented in this encounter Care Teams Business Development Associate Relationship Specialty Start Date End Date Gabby Briggs M.D. PCP - General Family Medicine 04/19/18 [address] [phone] documented as of this encounter
--- OUTSIDE RECORDS SUMMARY | 2022-01-20 09:59 | XMS_ITS | Encounter Summary ---
:1950 Author Organization [facility] Address [address] [place] [address] Care Team Providers Name Role Phone Gabby Briggs M.D. Primary Care Provider Reason for Visit Reason Onset Date Comments Lab Results 06/22/2018 Encounter Details Date Type Department Care Team Description 06/22/2018 Clinical Communication Department of [facility] Dalton Beltran Lab Results Medicine, Gabby Marlow, Clinic, in [place] [address] [place] [phone] Social History Tobacco Use Types Packs/Day Years Used Date Smoking Tobacco: Never Smokeless Tobacco: Never Sex Assigned at Date Recorded Not on file documented as of this encounter Miscellaneous Notes Telephone Encounter - Consuelo Bowman, C.M.ALacey - 06/24/2018 4:24 PM CDT Faxed paperwork to [facility] to schedule the patient. Telephone Encounter - Jenny Wilson - 06/24/2018 3:41 PM CDT Patient called again to see if Ultra sound is still needed. Telephone Encounter - Gabby Briggs M.D. - 06/23/2018 4:07 PM CDT Yes his renal function was off so I want to make sure everything looks okay Telephone Encounter - Jimbo You L.P.NLacey - 06/23/2018 11:00 AM CDT SUBJECTIVE CHIEF COMPLAINT / REASON FOR CALL Lab Results INFORMATION DISCUSSED Ultra sound [facility]. Dr. Hoffman, The patient is stating that the pain went away and is gone now. He would like to know if he still needs the ultra Sound? Please advise. PLAN Disposition/Recommendation: self-care appropriate at this time . Information: patient/caller able to repeat back in their own words Caller agreeable to plan of care: yes The following references were used: provider [place] Telephone Encounter - Gabby Briggs M.D. - 06/22/2018 9:59 PM CDT Renal function suggests that he is dehydrated. He needs to push fluids. We also need to get an ultrasound [facility], renal ultrasound. [facility] May be our best bet. Telephone Encounter - Gill Suero - 06/22/2018 4:50 PM CDT Reason for Communication: Patient is calling in regards to his lab results. Was advised by pcp that he would have them by the afternoon. Current Can Nursing/Provider leave a detailed message: Action Needed: Please review and call back patient with lab results. Name of Medication (if relevant): documented in this encounter Plan of Treatment Not on filedocumented as of this encounter Visit Diagnoses Not on filedocumented in this encounter Care Teams Rib Cloth Knitter Relationship Specialty Start Date End Date Gabby Briggs M.D. PCP - General Family Medicine 04/19/18 05/02/[address] [phone] documented as of this encounter
--- OUTSIDE RECORDS SUMMARY | 2022-01-20 09:59 | XMS_ITS | Encounter Summary ---
:1950 Author Organization [facility] Address [address] [place] [address] Care Team Providers Name Role Phone Gabby Briggs M.D. Primary Care Provider [phone] Reason for Visit Reason Comments Back Pain yesterday morning after a kim ut of diarrhea, low back pain. Rates at a 8. Used a heat pack. Appointment Request (Routine) - Closed Specialty Diagnoses / Procedures Referred By Contact Refer red To Contact Family Medicine Referral ID Status Reason Start Date Expiration Date Visits Requ ested Visits Authorized [id number] Closed 06/22/2018 06/22/2019 1 Encounter Details Date Type Department Care Team Description 06/22/2018 Office Visit Department of Family Gera Tran (Primary Dx) Medicine, Gabby Marlow, [facility], in [place] [address] [phone] Social History Tobacco Use Types Packs/Day Years Used Date Smoking Tobacco: Never Smokeless Tobacco: Never Sex Assigned at Date Recorded Not on file documented as of this encounter Last Filed Vital Signs Vital Sign Reading Time Taken Comments Blood Pressure 120/68 06/22/2018 8:59 AM CDT Pulse 68 06/22/2018 8:59 AM CDT Temperature 36.9 ??C (98.4 ??F) 06/22/2018 8:59 AM CDT Respiratory Rate 16 06/22/2018 8:59 AM CDT Oxygen Saturation - - Inhaled Oxygen Concentration - - Weight 67.9 kg (149 lb 12.8 oz) 06/22/2018 8:59 AM CDT Height 185 cm (6' 0.84) 06/22/2018 8:59 AM CDT Body Mass Index 19.85 06/22/2018 8:59 AM CDT documented in this encounter Progress Notes Gabby Briggs M.D. - 06/22/2018 8:45 AM CDT CHIEF COMPLAINT/ REASON FOR VISIT Back pain. HISTORY OF PRESENT ILLNESS Atilio Austin is a 67 y.o. male who presents to the clinic today for back pain. He states that he woke up yesterday with severe diarrhea, which lasted most of the morning. As this was going on, he developed severe pain in his upper back. He left work and went home and put heat on it. He slept for a few hours and it did better. It was fine later in the day, but towards bedtime, it startedto be painful again and he did not sleep well last night. He is worried that it may be kidneys. The diarrhea has resolved and he has not had any abdominal pain. He has not noticed any issues with his urine, but he has not been drinking much. He has had a kidney infection in the past. He describes his pain as mostly uncomfortable and rates it at a 5-6/10. It is not tender to the touch. He had a normalchest CT in April. The patient denies any additional questions or concerns at this time. REVIEW OF SYSTEMS Please see HPI for pertinent positives, otherwise rest of ROS negative. CURRENT MEDICATIONS Current Outpatient Prescriptions Medication Sig Dispense Refill ??? acetaminophen (TYLENOL [...] Gabby Briggs M.D. 1,000 mcg at 04/26/18 0923 ALLERGIES/CONTRAINDICATIONS Allergies Allergen Reactions ??? Morphine Other (see comments) MEDICAL HISTORY Past Medical History: Diagnosis Date ??? Anemia 11/22/2015 ??? Benign Prostatic Hyperplasia Hypertrophy With Obstruction 11/09/2015 ??? Chronic Kidney Disease Stage 3 Glomerular Filtration Rate 30 To 59 (HCC) ??? Elevated Prostate-Specific Antigen 11/22/2015 ??? Hernia Inguinal Right 08/07/2017 ??? Hypertension ??? Impaired Fasting Glucose 11/22/2015 ??? 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 Stasis Ulcer With Varicose Vein Left (HCC) ??? Tumor Gastrointestinal Stromal Malignant SURGICAL HISTORY Past Surgical History: Procedure Laterality Date ??? COLONOSCOPY 10/22/2007 ??? CYSTOSCOPY W/ LASER LITHOTRIPSY 11/2015 Cystolitholapaxy with laser lithotripsy with bladder stone removal with TURP secondary to BPH and bladder stones ??? HEMILAMINOTOMY LUMBAR SPINE Right 05/31/1998 Right fourth-fifth lumbar hemilaminectomy ??? INGUINAL HERNIA REPAIR Right 04/29/[address] Moreno at [facility] ??? 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 He developed a small esophageal leak at four weeks and was stented with subsequent J-tube placement. ??? TONSILLECTOMY As a child ??? TOTAL HIP ARTHROPLASTY Left 2000 PREVENTIVE SERVICES: Social History Substance Use Topics ??? Smoking status: Never Smoker ??? Smokeless tobacco: Never Used ??? Alcohol use Not on file VITAL SIGNS Vitals: 06/22/18 0859 BP: 120/68 Patient Position: Sitting Pulse: 68 Temp: 36.9 ??C Resp: 16 Height: 185 cm Weight: 67.9 kg Body mass index is 19.85 kg/m??. PHYSICAL EXAMINATION General: Patient is alert and oriented times three, in no acute distress, good hygiene and is dressed appropriately. Lymph: Not palpably enlarged and no nodules are palpated. Heart: Regular rate and rhythm without murmur. Lungs: Clear to auscultation. Abdomen: Soft and nontender with no masses. Back: Left flank tenderness. No palpable mass. Extremities: Within normal limits. Skin: No rashes or suspicious lesions noted on exposed skin. DIAGNOSTICS BMP is ordered today with results pending. Lab Results Component Value Date WBC 7.3 06/22/2018 HGB 12.1 (L) 06/22/2018 HCT 36.1 (L) 06/22/2018 MCV 90.5 06/22/2018 PLT 193 06/22/2018 Lab Results Component Value Date URINESOURCE Midstream 06/22/2018 CLARITYU Clear 06/22/2018 COLORU Yellow 06/22/2018 RBCU Negative 06/22/2018 RBCU None Seen 06/22/2018 NITRITEU Negative 06/22/2018 LEUKOCYTESU Negative 06/22/2018 PROTEINQUALU 30 (A) 06/22/2018 GLUCOSEU Negative 06/22/2018 KETONESU Negative 06/22/2018 BILIRUBINU Negative 06/22/2018 PHURINE 5.0 06/22/2018 SPECGRAV >=1.030 06/22/2018 UROBILINOGEN 0.2 06/22/2018 ASSESSMENT / PLAN #1 Pain Flank PLAN: Will await BMP results. Further recommendations pending these results. Will consider ultrasound if this is normal. #2 Follow up PLAN: The patient will contact the clinic with any new or worsening symptoms. This document serves as a record of services personally performed by Gabby Hoffman MD. It was created on their behalf by Anay Berger, a trained certified medical biller. The creation of this record is based on the scribe's personal observations and the provider's statements to them. This document has been ch ecked and approved by the attending provider. documented in this encounter Plan of Treatment Not on filedocumented as of this encounter Procedures Procedure Name Priority Date/Time Associated Comments Diagnosis CBC WITH Routine 06/22/2018 9:35 AM Pain Flank Results f or this DIFFERENTIAL, B CDT procedure ar e in the results section. BASIC METABOLIC Routine 06/22/2018 9:35 AM Pain Flank Result s for this PANEL, S/P CDT procedure are i n the results section. URINALYSIS WITH Routine 06/22/2018 9:34 AM Pain Flank Result s for this MICROSCOPIC IF CDT procedure are in INDICATED, U the results section. MICROSCOPIC MANUAL Routine 06/22/2018 9:34 AM Res ults for this CDT procedure are i n the results section. BACTERIAL CULTURE, Routine 06/22/2018 9:34 AM Pain Flank Res ults for this AEROBIC + SUSC, URINE CDT proced ure are in the results section. documented in this encounter Results (ABNORMAL) Basic Metabolic Panel (06/22/2018 9:35 AM CDT) Analysis Performed At Patho logist Time Signature Potassium, S 4.5 3.6 - 5.2 06/22/2018 [facility] mmol/L 3:05 PM [facility] Sodium, S 140 135 - 145 06/22/2018 [facility] mmol/L 3:05 PM [facility] Chloride, S 106 98 - 107 06/22/2018 [facility] mmol/L 3:05 PM [facility] Bicarbonate, S 22 22 - 29 06/22/2018 [facility] mmol/L 3:05 PM [facility] Anion Gap 12 7 - 15 06/22/2018 [facility] 3:05 PM [facility] BUN (Blood Urea 25 (H) 8 - 24 06/22/2018 [facility] Nitrogen), S mg/dL 3:05 PM [facility] Creatinine 2.18 (H) 0.74 - 06/22/2018 [facility] 1.35 mg/dL 3:05 PM [facility] eGFR-Non 30 (L) >=60 06/22/2018 [facility] Black/ mL/min/BSA 3:05 PM [facility] Comment: ----ADDITIONAL INFORMATION---- Estimated GFR calculated using the 2009 CKD_EPI creatinine equation. eGFR-Black/ 35 (L) >=60 mL/min/BSA 06/22/2018 3:05 [facility] [place] [facility] Comment: ----ADDITIONAL INFORMATION---- Estimated GFR calculated using the 2009 CKD_EPI creatinine equation. Calcium, Total, S 9.5 8.8 - 10.2 mg/dL 06/22/2018 3 :05 PM CDT [facility] Glucose, S 102 70 - 140 mg/dL 06/22/2018 3:05 PM CDT [facility] LAB Specimen Anatomical Collection Method Collection Time Receive d Time (Source) Location / / Volume Laterality Blood (Blood, 06/22/2018 9:35 AM 06/23/19 19 1:02 Venous) CDT PM CDT Gabby Briggs M.D. LAB BLOOD ADD-ON Performing Organization Address City/State/ZIP Code Phon e Number [facility] [address] [place] [address] LAB (ABNORMAL) CBC with Differential, Blood (06/22/2018 9:35 AM CDT) [facility] gist Method Time Signature Hemoglobin 12.1 (L) 13.2 - 06/22/2018 [facility] 16.6 g/dL 9:48 AM [facility] Hematocrit 36.1 (L) 38.3 - 06/22/2018 [facility] 48.6 % 9:48 AM [facility] Erythrocytes 3.99 (L) 4.35 - 06/22/2018 [facility] 5.65 9:48 AM CDT [facility] x10(12)/L [facility] LAB MCV 90.5 78.2 - 06/22/2018 [facility] 97.9 fL 9:48 AM [facility] RBC Distrib Width 13.1 11.8 - 06/22/2018 [facility] 14.5 % 9:48 AM [facility] Platelet Count 193 135 - 317 06/22/2018 [facility] x10(9)/L 9:48 AM T [facility] Leukocytes 7.3 3.4 - 9.6 06/22/2018 [facility] x10(9)/L 9:48 AM [facility] Neutrophils 5.95 1.56 - 06/22/2018 [facility] 6.45 9:48 AM CDT [facility] x10(9)/L [facility] LAB Lymphocytes 0.61 (L) 0.95 - 06/22/2018 [facility] 3.07 9:48 AM CDT [facility] x10(9)/L [facility] Monocytes 0.57 0.26 - 06/22/2018 [facility] 0.81 9:48 AM CDT [facility] x10(9)/L [facility] Eosinophils 0.06 0.03 - 06/22/2018 [facility] 0.48 9:48 AM CDT [facility] x10(9)/L [facility] Basophils 0.06 0.01 - 06/22/2018 [facility] 0.08 9:48 AM CDT HEALTH x10(9)/L [facility]- [facility] Specimen Anatomical Collection Method Collection Time Receive d Time (Source) Location / / Volume Laterality Blood (Blood, 06/22/2018 9:35 AM 06/23/19 19 9:35 Venous) CDT AM CDT Gabby Briggs M.D. LAB BLOOD ADD-ON Performing Organization Address City/[facility] Code Phon e Number [facility] [address] [place] [address] LAB Microscopic Manual (06/22/2018 9:34 AM CDT) P athologist Signature White Blood Occ-3 /hpf 06/22/2018 [facility] Cells 10:01 AM CDT [facility] LAB Comment: ----REFERENCE VALUE---- Males: 0-3 Females: 0-10 Unknown: 0-10 Red Blood Cells None Seen 0 - 2 /hpf 06/22/2018 10:01 AM CDT [facility] [place] B Specimen Anatomical Collection Method Collection Time Receive d Time (Source) Location / / Volume Laterality Urine 06/22/2018 9:34 AM 9 9:44 CDT AM CDT Gabby Briggs M.D. LAB URINE ORDERABLES Performing Organization Address City/[facility] Phon e Number [facility] [address] [place] [address] LAB Bacterial Culture, Aerobic + Susc, Urine (06/22/2018 9:34 AM CDT) Patholo gist Method Time Signature Urine Culture No growth 06/23/2018 [facility] after 1 day 11:04 AM T [facility] LAB Specimen Anatomical Collection Method Collection Time Receive d Time (Source) Location / / Volume Laterality Urine (Urine, 06/22/2018 9:34 AM 06/23/19 19 2:07 Midstream) CDT PM CDT Comment: Specimen Source Site: Urine Gabby Briggs M.D. LAB MICROBIOLOGY - GEN ERAL ORDERABLES Performing Organization Address City/State/[facility] Code Phon e Number [facility] [address] [place] [address] LAB (ABNORMAL) Urinalysis with Microscopic if Indicated (06/22/2018 9:34 AM CDT) P athologist Signature Source Midstream 06/22/2018 [facility] 9:44 AM [facility] [employer] LAB Clarity Clear Clear 06/22/2018 [facility] 9:44 AM [facility] [employer] LAB Color Yellow 06/22/2018 [facility] 9:44 AM [facility] Comment: ----REFERENCE VALUE---- Colorless Yellow Celena Blood Negative Negative 06/22/2018 9:44 AM CDT [facility] Nitrite Negative Negative 06/22/2018 9:44 AM CDT [facility] Leukocyte Esterase Negative Negative 06/22/2018 9:44 AM CD T [facility] [employer] B Protein 30 (A) mg/dL 06/22/2018 9:44 AM CDT [facility] B Comment: ----REFERENCE VALUE---- Negative Trace Glucose Negative Negative mg/dL 06/22/2018 9:44 AM [facility] Ketones, QI(U) Negative Negative mg/dL 06/22/2018 9:44 AM [facility] [employer] LAB Bilirubin Negative Negative 06/22/2018 9:44 AM [facility] pH 5.0 5.0 - 8.0 06/22/2018 9:44 AM [facility] [employer] LAB Specific Prentiss >=1.030 1.001 - 1.035 06/22/2018 9:44 AM [facility] [employer] LAB Urobilinogen 0.2 0.2 - 1.0 mg/dL 06/22/2018 9:44 AM [facility] [employer] LAB Specimen Anatomical Collection Method Collection Time Receive d Time (Source) Location / / Volume Laterality Urine (Urine, 06/22/2018 9:34 AM 06/23/19 19 9:40 Clean Catch) CDT AM CDT Gabby Briggs M.D. LAB URINE ORDERABLES Performing Organization Address City/State/ZIP Code Phon e Number [facility] [address] [place] [address] LAB documented in this encounter Visit Diagnoses Diagnosis Pain Flank - Primary documented in this encounter Care Teams Boat Joiner Relationship Specialty Start Date End Date Gabby Briggs M.D. PCP - General Family Medicine 04/19/18 05/02/[address] [phone] documented as of this encounter
--- OUTSIDE RECORDS SUMMARY | 2022-01-20 09:59 | XMS_ITS | Encounter Summary ---
:1950 Author Organization [facility] Address [address] [place] [address] Care Team Providers Name Role Phone Gabby Briggs M.D. Primary Care Provider [phone] Encounter Details Date Type Department Care Team Description 06/30/2018 Clinical Communication Department of [facility], in [place] [address] [facility] [address] [phone] Social History Tobacco Use Types Packs/Day Years Used Date Smoking Tobacco: Never Smokeless Tobacco: Never Sex Assigned at Date Recorded Not on file documented as of this encounter Miscellaneous Notes Telephone Encounter - Tomas Franco V. CLaceyMLaceyALacey - 06/30/2018 4:11 PM CDT SUBJECTIVE CHIEF COMPLAINT / REASON FOR CALL No chief complaint on file. INFORMATION DISCUSSED Contacted the patient and notified them of the provider's request for labs and advice. Patient was understanding of this. PLAN Disposition/Recommendation: patient to schedule appointment Information: patient/caller able to repeat back in their own words Caller agreeable to plan of care: yes The following references were used: provider Dr. Hoffman Telephone Encounter - Gabby Briggs M.D. - 06/30/2018 3:55 PM CDT In addition to renal ultrasound, he needs to have his chemistries recheck. He should hydrate well prior to testing. documented in this encounter Plan of Treatment Not on filedocumented as of this encounter Visit Diagnoses Diagnosis Insufficiency Renal - Primary documented in this encounter Care Teams Vehicle Damage Appraiser Relationship Specialty Start Date End Date Gabby Briggs M.D. PCP - General Family Medicine 04/19/18 05/02/[address] [phone] documented as of this encounter
--- OUTSIDE RECORDS SUMMARY | 2022-01-20 09:59 | XMS_ITS | Encounter Summary ---
:1950 Author Organization [facility] Address [address] [place] [address] Care Team Providers Name Role Phone Gabby Briggs M.D. Primary Care Provider Reason for Visit Reason Comments Flu Vaccine Appointment Request (Routine) - Closed Specialty Diagnoses / Procedures Referred By Contact Refer red To Contact Family Medicine Referral ID Status Reason Start Date Expiration Date Visits Requ ested Visits Authorized [id number] Closed 02/01/2019 02/01/2020 1 1 Encounter Details Date Type Department Care Team Description 02/01/2019 Immunization Department of [facility] CMLaceyAL[facility], [facility] [address] [phone] Social History Tobacco Use Types Packs/Day Years Used Date Smoking Tobacco: Never Smokeless Tobacco: Never Sex Assigned at Date Recorded Not on file documented as of this encounter Plan of Treatment Not on filedocumented as of this encounter Visit Diagnoses Not on filedocumented in this encounter Care Teams Motorcycle Deliverer Relationship Specialty Start Date End Date Gabby Briggs M.D. PCP - General Family Medicine 04/19/18 05/02/20 [address] [address] documented as of this encounter
--- OUTSIDE RECORDS SUMMARY | 2022-01-20 09:59 | XMS_ITS | Encounter Summary ---
:[address] [facility] Address [address] [place] [address] Care Team Providers Name Role Phone Rudi Briggs M.D. Primary Care Provider [phone] Encounter Details Date Type Department Care Team Description 07/01/2018 Clinical Communication Department of [facility] Dalton Zonia [facility], Rudi Varela, [facility], in [place] [address] [place] [phone] Social History Tobacco Use Types Packs/Day Years Used Date Smoking Tobacco: Never Smokeless Tobacco: Never Sex Assigned at Date Recorded Not on file documented as of this encounter Miscellaneous Notes Telephone Encounter - Angeltia Veronica CLaceyMLaceyALacey - 07/02/2018 8:56 AM CDT SUBJECTIVE CHIEF COMPLAINT / REASON FOR CALL No chief complaint on file. Patient is requesting the following information: Return call PLAN The following information was provided : Called and left a message with Jennifer housing case manager of and [employer] recommendations. Let her know if she has any question to call me at the clinic Information: patient/caller able to repeat back in their own words The following references were used: provider rudi Telephone Encounter - Rudi Briggs M.D. - 07/01/2018 7:18 PM CDT Has an ultrasound coming up soon and I should see him back after that to review results. We can discuss weight loss at that time. Telephone Encounter - Cielo Patrick - 07/01/2018 2:51 PM CDT Reason for Communication: Weight loss concerns Current Phone Number: [phone] Can Nursing/Provider leave a detailed message: Yes Did the patient refuse triage through Nurse line? (for symptom based concerns):N/A Action Needed: Jennifer called from [employer] stating that the patient is participating in a case management program and Jennifer said that the patient has weight loss concerns due toa poor appetite. Jennifer was asking if Dr. Hoffman would address this concern at his next appt. She also said that he is seeing an Oncologist at [facility] and it was recommended that he also see a stock sorter. Name of Medication (if relevant): documented in this encounter Plan of Treatment Not on filedocumented as of this encounter Visit Diagnoses Not on filedocumented in this encounter Care Teams Sat Math Tutor Relationship Specialty Start Date End Date Rudi Briggs M.D. PCP - General Family Medicine 04/19/18 05/02/[address] [phone] documented as of this encounter
--- OUTSIDE RECORDS SUMMARY | 2022-01-20 10:00 | XMS_ITS | Encounter Summary ---
:1950 Author Organization [facility] Address [address] [place] [address] Care Team Providers Name Role Phone Unavailable Primary Care Provider Unavailable Encounter Details Date Type Department Care Team Description 10/23/2015 Hospital Encounter HX [facility] Hugo Preciado M.D. [address] [place], [place] [address] (Wo rk) Social History Tobacco Use Types Packs/Day Years Used Date Smoking Tobacco: Never Assessed Sex Assigned at Date Recorded Not on file documented as of this encounter Last Filed Vital Signs Vital Sign Reading Time Taken Comments Blood Pressure 162/84 10/23/2015 2:03 PM CDT Pulse 72 10/23/2015 1:58 PM CDT Temperature - - Respiratory Rate - - Oxygen Saturation - - Inhaled Oxygen Concentration - - Weight 100 kg (220 lb 7.4 oz) 10/23/2015 1:58 PM CDT Height 185 cm (6' 0.84) 10/23/2015 2:03 PM CDT Body Mass Index 29.22 10/23/2015 1:58 PM CDT documented in this encounter Progress Notes Keaton Preciado M.D. - 10/23/2015 2:39 PM CDT Clinic Full Note CHIEF COMPLAINT/REASON FOR VISIT frequent urination, sometime painful to urinate and leaking at night over the last 2-3 weeks, has been feeling some pressure on upper left side HISTORY OF PRESENT ILLNESS Pt here with c/o urinary frequency as well as some incontinence at night x 2-3 weeks. He is followed by Urology in [place] for some form of prostatism for which he is taking Flomax and apparently has some surgical option being pushed upon him. He denies any fever, nausea or emesis. He does acknowledge higher BP today and admits having checked BP in the past (including more than a year ago) where he is consistently SBP=/> 160mm Hg. He admits being historically reticent to take senior living medication for HTN. He reports having adverse affect to atenolol after surgery in the past (hypotension, likely enhanced by postop hypovolemia). 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 SOCIAL HISTORY Date Time: 10/23/2015 13:58 Tobacco: Smoking Status: Never smoker Exposure: Other: NEVER Alcohol: Use: No Results Found Recreational Drugs: Use: None Type: No Results Found FAMILY HISTORY Father:Positive: Congestive heart failure; Coronary artery disease SYSTEMS REVIEW GENERAL: No weight gain, no weight loss, no fever in past month, no chills, no sweats, no fatigue EENT: No blurred vision, no double vision, no eye pain, no sinus problems, no hoarseness, no difficulty swallowing, no mouth sores, no diminished hearing, no ringing in ears, no enlarged glands PULMONARY: No shortness of breath, no cough, no wheezing, no sputum, no hemoptysis CARDIAC: No valve problems, no chest pain, no chest pressure, no rapid beating, no dependent edema,no pain in calves or with walking, no difficulty moving arms and legs GI: No heartburn, no nausea, no vomiting, no stomach trouble, no constipation, no diarrhea, no blood in BMs, no change in BMs : No urethral discharge, no burning/pain with urination, notes difficulty starting stream as wellas difficulty emptying bladder and with sensation of excessive urination MUSCULOSKELETAL: No joint pain, no joint swelling, no joint stiffness, no muscle pain, no muscle stiffness, no back pain, no back stiffness. SKIN: No skin rashes, no skin sores, no change in moles NEURO: No significant headaches, no slurred speech, no seizures, no dizziness, no loss of consciousness, no memory loss ENDOCRINE: No excessive thirst, no excessive bruising. VITAL SIGNS HR: 72 BP: 162 / 84 HT: 185 cm WT: 100 kg BMI: 29.22 PHYSICAL EXAMINATION HEAD: nc/at. PERRLA.EOMI. OP clear and unobstructed. Tongue midline with extension and lesion-free NECK: supple. No gross JVD. Thyroid is non-palpable. Trachea midline LUNGS: clear to auscultation. No wheezes, rales or egophony. No stridor CV: regular, Normal s1 and s2. No murmur or rub. ABD: Soft, non-distended. Non-tender. No suprapubic discomfort. No CVA tenderness. No palpable pulsatile masses. EXTR: no clubbing, cyanosis, or edema. Capillary refill at 2 seconds throughout both upper and lower extremities bilaterally NEURO: Aware and oriented x3. 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 PSYCH: pt is euthymic. Pt shows no delusions or hallucinations. Pt denies any violent ideation. No psychomotor agitation present. Speech normal flow. Insight adequate. IMPRESSION/REPORT/PLAN Frequency Urinary UA noted for bacterial and + LET. He may be predisposed for infection due to possible retention/reflux. After d/w pt regarding risks and benefits, the pt accepts script for Cipro per EMR orders. Ordered: OV New Pt Level 3 - 66358 - 30 min Hypertension (HTN) Essential Benign Despite great reluctance, we have prevailed upon pt to reduce risk for ASCVD and CVA by accepting treatment for his HTN. After d/w pt regarding risks and benefits, the pt accepts script for Valsartan per EMR orders. I've deferred beta blockers (previous experience) as well as losartan (inefficacy per Nephrology) and will have pt f/u with PCP in 3 weeks Ordered: valsartan, 160 mg = 1 tab(s), PO, Daily AM, # 30 tab(s), 11 Refill(s), Maintenance, [id number] OV New Pt Level 3 - 45967 - 30 min Orders: ciprofloxacin, 250 mg = 1 tab(s), PO, 2xDay, x 5 day(s), # 10 tab(s), 0 Refill(s), Acute, [id number] Electronically Signed By: KEATON PRECIADO MD On: 10/23/2015 02:48 PM Source: [facility] [employer] Document Id: [id number] documented in this encounter Nursing Notes Keaton Preciado M.D. - 10/23/2015 2:49 PM CDT Ambulatory Patient Education The following Patient Education Materials have been given to the patient: Patient Education Materials: Ambulatory HYPERTENSION, Established Ambulatory High Blood Pressure --Established High Blood Pressure (Hypertension) is a chronic disease. The cause is unknown in most cases. It can usually be controlled with lifestyle changes and/or medicines. Symptoms of high blood pressure may include headache, dizziness, visual changes, chest pain and shortness of breath. Sometimes it causes no symptoms at all. However, even if there are no symptoms, untreated high blood pressure increases therisk of heart attack, also known as acute myocardial infarction, or AMI, and stroke. It is a serioushealth risk and should not be ignored. A normal blood pressure is 120/80 or less. The first (top) number is the systolic pressure. The second (bottom) number is the diastolic pressure. Hypertension exists when either the top number is 140 or higher, OR the bottom number is 90 or higher on repeated measurements. Home Care: All patients with high blood pressure should do the following to lower their pressure. If you are onmedicines, then these methods may reduce or eliminate your need for medicines in the future. Begin a weight loss program if you are overweight. Reduce your salt intake. ?? Avoid high salt foods (olives, pickles, smoked meats, salted potato chips, etc.). ?? Do not add salt to your food at the table. ?? Use only small amounts of salt when cooking. Begin an exercise program. Discuss with your doctor what type of exercise program would be best for you. It doesn't have to be difficult. Even brisk walking for 20 minutes three times a week is a good form of exercise. Avoid medicines which contain heart stimulants. This includes many cold and sinus decongestant pillsand sprays as well as diet pills. Check the warnings about hypertension on the label. Stimulants such as amphetamine or cocaine could be lethal for someone with hypertension. Never take these. Limit your caffeine intake or switch to caffeine-free products. Stop smoking. If you are a long-time smoker, this can be hard. Enroll in a stop- smoking program to improve your chance of success. Learning how to handle stress better is an important part of any program to lower blood pressure. Learn about relaxation methods such as meditation, yoga or biofeedback. If medicines were prescribed, take them exactly as directed. Missing doses may cause your blood pressure get out of control. Consider buying an automatic blood pressure machine (available at most pharmacies). Use this to monitor your blood pressure at home and report the results to your doctor. Follow Up: Regular visits to your own physician for blood pressure checks and medicine adjustment is an important part of your care. Make a follow-up appointment as directed by our staff. Get Prompt Medical Attention if any of the following occur: ?? Chest pain or shortness of breath ?? Severe headache ?? Throbbing or rushing sound in the ears ?? Nosebleed ?? Sudden severe abdominal pain ?? Extreme drowsiness, confusion or fainting ?? Dizziness or vertigo (dizziness with spinning sensation) ?? Weakness of an arm or leg or one side of the face ?? Difficulty with speech or vision ?? [id number] [employer], [address] [place] [address], [place] [address]. All rights reserved. This information is not intended as a substitute for professional medical care. Always follow your healthcare professional's instructions. This document has images extracted. Please consider using [employer] for all your patient education needs. Source: [facility] [employer] Document Id: [id number] Keaton Prceiado M.D. - 10/23/2015 2:48 PM CDT Ambulatory Patient Education The following Patient Education Materials have been given to the patient: Patient Education Materials: Ambulatory HYPERTENSION, Established Ambulatory High Blood Pressure --Established High Blood Pressure (Hypertension) is a chronic disease. The cause is unknown in most cases. It can usually be controlled with lifestyle changes and/or medicines. Symptoms of high blood pressure may include headache, dizziness, visual changes, chest pain and shortness of breath. Sometimes it causes no symptoms at all. However, even if there are no symptoms, untreated high blood pressure increases therisk of heart attack, also known as acute myocardial infarction, or AMI, and stroke. It is a serioushealth risk and should not be ignored. A normal blood pressure is 120/80 or less. The first (top) number is the systolic pressure. The second (bottom) number is the diastolic pressure. Hypertension exists when either the top number is 140 or higher, OR the bottom number is 90 or higher on repeated measurements. Home Care: All patients with high blood pressure should do the following to lower their pressure. If you are onmedicines, then these methods may reduce or eliminate your need for medicines in the future. Begin a weight loss program if you are overweight. Reduce your salt intake. ?? Avoid high salt foods (olives, pickles, smoked meats, salted potato chips, etc.). ?? Do not add salt to your food at the table. ?? Use only small amounts of salt when cooking. Begin an exercise program. Discuss with your doctor what type of exercise program would be best for you. It doesn't have to be difficult. Even brisk walking for 20 minutes three times a week is a good form of exercise. Avoid medicines which contain heart stimulants. This includes many cold and sinus decongestant pillsand sprays as well as diet pills. Check the warnings about hypertension on the label. Stimulants such as amphetamine or cocaine could be lethal for someone with hypertension. Never take these. Limit your caffeine intake or switch to caffeine-free products. Stop smoking. If you are a long-time smoker, this can be hard. Enroll in a stop- smoking program to improve your chance of success. Learning how to handle stress better is an important part of any program to lower blood pressure. Learn about relaxation methods such as meditation, yoga or biofeedback. If medicines were prescribed, take them exactly as directed. Missing doses may cause your blood pressure get out of control. Consider buying an automatic blood pressure machine (available at most pharmacies). Use this to monitor your blood pressure at home and report the results to your doctor. Follow Up: Regular visits to your own physician for blood pressure checks and medicine adjustment is an important part of your care. Make a follow-up appointment as directed by our staff. Get Prompt Medical Attention if any of the following occur: ?? Chest pain or shortness of breath ?? Severe headache ?? Throbbing or rushing sound in the ears ?? Nosebleed ?? Sudden severe abdominal pain ?? Extreme drowsiness, confusion or fainting ?? Dizziness or vertigo (dizziness with spinning sensation) ?? Weakness of an arm or leg or one side of the face ?? Difficulty with speech or vision ?? [phone] [place] [address]. All rights reserved. This information is not intended as a substitute for professional medical care. Always follow your healthcare professional's instructions. This document has images extracted. Please consider using [employer] for all your patient education needs. Source: [facility] Document Id: [id number] documented in this encounter Miscellaneous Notes Miscellaneous - Keaton Preciado M.D. - 10/23/2015 2:49 PM CDT Ambulatory Patient Summary [address] [id number] Visit Information Name: ATILIO AUSTIN [facility] Number: [id number] Current Date: 10/23/2015 14:49:07 Physicians Attending Provider: KEATON PRECIADO MD Primary Care Provider: MIGUEL A ESTRADA MD ATILIO AUSTIN has been given the following list of follow-up instructions, medicationlist, and patient education materials: Follow-up Instructions With: Address: When: Follow up with primary care provider , only if needed Your Medications Here is a list of your medications. It is important to take your medications as directed. Use a pillbox or chart to help remind you to take your medications. Please let your doctor or nurse know if you have problems taking your medications. Medication/Strength How to Take Indications/Special Instructions/Comments/Notes for Patient Medication Changes/Routing aspirin (aspirin 81 mg oral tablet) 1 Tablet(s), Oral, once a day ciprofloxacin (ciprofloxacin 250 mg oral tablet) 1 Tablet(s), Oral, two times a day x 5 day(s) New Routed to [facility] [address] [place], [place] [id number] multivitamin (multivitamin) Oral, once a day sildenafil (Viagra 50 mg oral tablet) 1 Tablet(s), Oral, once a day as needed for Erectile dysfunction tamsulosin (Flomax 0.4 mg oral capsule) 1 cap, Oral, two times a day valsartan (valsartan 160 mg oral tablet) 1 Tablet(s), Oral, once a day (in the morning) New Routed to [facility] [address] [place], [place] [id number] Stop Taking the Following Medications: Medication list as of 10-23-15 14:49 Attention: If you have any medications at home that are not on this list, DO NOT take them until youcontact your provider for clarification. Give a copy of your medication list to your primary care provider. Update your medication list any time medications or doses are changed and carry your medication list at all times in case of emergency. Electronically Signed By: KEATON PRECIADO MD Signed On:23-OCT-2015 14:48:45 Your Allergies & Intolerances Substance Reaction Symptoms Category Comments morphine Drug Your Problem List Problem Status Onset Comments DJD, Unspecified Active Back pain, low Active Total Hip Arthroplasty Active 01/14/112000 and left hip Lumbar discectomy Active 01/14/11 05/31/98 foot frop resulting on right side Closed fracture of wrist NOS Active 01/14/11 right wrist - distant past Ankle fracture Active 01/14/11 right ankle- distant past BPH (benign prostatic hypertrophy) w/o obstruction & LUTS Active Erectile dysfunction* Active Screening for Malignant Neoplasms of the Skin Active 01/28/2011 Neoplasm of Uncertain Behavior of Skin Active 01/28/2011 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 High Blood Pressure --Established High Blood Pressure (Hypertension) is a chronic disease. The cause is unknown in most cases. It can usually be controlled with lifestyle changes and/or medicines. Symptoms of high blood pressure may include headache, dizziness, visual changes, chest pain and shortness of breath. Sometimes it causes no symptoms at all. However, even if there are no symptoms, untreated high blood pressure increases therisk of heart attack, also known as acute myocardial infarction, or AMI, and stroke. It is a serioushealth risk and should not be ignored. A normal blood pressure is 120/80 or less. The first (top) number is the systolic pressure. The second (bottom) number is the diastolic pressure. Hypertension exists when either the top number is 140 or higher, OR the bottom number is 90 or higher on repeated measurements. Home Care: All patients with high blood pressure should do the following to lower their pressure. If you are onmedicines, then these methods may reduce or eliminate your need for medicines in the future. Begin a weight loss program if you are overweight. Reduce your salt intake. ?? Avoid high salt foods (olives, pickles, smoked meats, salted potato chips, etc.). ?? Do not add salt to your food at the table. ?? Use only small amounts of salt when cooking. Begin an exercise program. Discuss with your doctor what type of exercise program would be best for you. It doesn't have to be difficult. Even brisk walking for 20 minutes three times a week is a good form of exercise. Avoid medicines which contain heart stimulants. This includes many cold and sinus decongestant pillsand sprays as well as diet pills. Check the warnings about hypertension on the label. Stimulants such as amphetamine or cocaine could be lethal for someone with hypertension. Never take these. Limit your caffeine intake or switch to caffeine-free products. Stop smoking. If you are a long-time smoker, this can be hard. Enroll in a stop- smoking program to improve your chance of success. Learning how to handle stress better is an important part of any program to lower blood pressure. Learn about relaxation methods such as meditation, yoga or biofeedback. If medicines were prescribed, take them exactly as directed. Missing doses may cause your blood pressure get out of control. Consider buying an automatic blood pressure machine (available at most pharmacies). Use this to monitor your blood pressure at home and report the results to your doctor. Follow Up: Regular visits to your own physician for blood pressure checks and medicine adjustment is an important part of your care. Make a follow-up appointment as directed by our staff. Get Prompt Medical Attention if any of the following occur: ?? Chest pain or shortness of breath ?? Severe headache ?? Throbbing or rushing sound in the ears ?? Nosebleed ?? Sudden severe abdominal pain ?? Extreme drowsiness, confusion or fainting ?? Dizziness or vertigo (dizziness with spinning sensation) ?? Weakness of an arm or leg or one side of the face ?? Difficulty with speech or vision ?? [id number] [place] [address]. All rights reserved. This information is not intended as a substitute for professional medical care. Always follow your healthcare professional's instructions. Consider Using Patient Online [employer] Patient Online [employer] is a secure online and Mobile application that lets you: ?? View lab and test results ?? View portions of your medical record including clinical notes, immunizations and discharge summaries ?? Request an appointment or medication refill ?? Review your appointment schedule ?? Send secure messages to your care team Its easy to create an account if you dont have one. Go to [email or web address] and click on Create Your Account. Then, follow the directions to complete the online form. Youll be asked for your [facility] number which you can find at the top of this document. Your Goals/Additional instructions: This document has images extracted. Please consider using [employer] for all your patient education needs. Source: [facility] POWERCHART Document Id: [id number] Miscellaneous - Keaton Preciado M.D. - 10/23/2015 2:49 PM CDT Ambulatory Discharge Medication List [place] [id number] [facility] [place] [phone] Visit Information Name: ATILIO AUSTIN [facility] Number: [id number] Visit Date: 10/23/2015 14:49:06 Attending Provider: KEATON PRECIADO MD Primary Care Provider: MIGUEL A ESTRADA MD [facility] ATILIO DURANIN has been given the following list of medications: Your Medications It is important to take your medications as directed. Use a pill box or chart to help remind you to take your medications. Please let your doctor or nurse know if you have problems taking your medications. Medication/Strength How to Take Indications/Special Instructions/Comments/Notes for Patient Medication Changes/Routing aspirin (aspirin 81 mg oral tablet) 1 Tablet(s), Oral, once a day ciprofloxacin (ciprofloxacin 250 mg oral tablet) 1 Tablet(s), Oral, two times a day x 5 day(s) New Routed to [facility] [address] [place] [address] multivitamin (multivitamin) Oral, once a day sildenafil (Viagra 50 mg oral tablet) 1 Tablet(s), Oral, once a day as needed for Erectile dysfunction tamsulosin (Flomax 0.4 mg oral capsule) 1 cap, Oral, two times a day valsartan (valsartan 160 mg oral tablet) 1 Tablet(s), Oral, once a day (in the morning) New Routed to [facility] [address] [place] [address] Stop Taking the Following Medications: Medication list as of 10-23-15 14:49 Attention: If you have any medications at home that are not on this list, DO NOT take them until youcontact your provider for clarification. Give a copy of your medication list to your primary care provider. Update your medication list any time medications or doses are changed and carry your medication list at all times in case of emergency. Electronically Signed By: KEATON PRECIADO MD Signed On:23-OCT-2015 14:48:45 Additional Information: Source: [facility] [employer] Document Id: [id number] Miscellaneous - Anant Chong L.P.NLacey - 10/23/2015 2:03 PM CDT Ambulatory Vitals Height Weight Ambulatory Vitals Height Weight Entered On: 10/23/2015 14:04 CDT Performed On: 10/23/2015 14:03 CDT by ANANT CHONG LPN Vitals/Ht/Wt Systolic Blood Pressure : 162 mmHg (>HHI) Diastolic Blood Pressure : 84 mmHg NIBP Mean : 110 mmHg BP Location : Left upper extremity Blood Pressure Cuff Size : Large Height : 185 cm(Converted to: 6 ft 1 inch(es), 73 inch(es)) ANANT CHONG LPN - 10/23/2015 14:03 CDT 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 Intake/History Entered On: 10/23/2015 14:02 CDT Performed On: 10/23/2015 13:58 CDT by ANNAT CHONG LPN Intake Chief Complaint : frequent urination, sometime painful to urinate and leaking at night over the last2-3 weeks, has been feeling some pressure on upper left side Peripheral Pulse Rate : 72 /min Heart Rhythm : Regular Systolic Blood Pressure : 176 mmHg (>HHI) Diastolic Blood Pressure : 90 mmHg (HI) NIBP Mean : 119 mmHg BP Location : Left upper extremity Blood Pressure Cuff Size : Large Height : 185 cm(Converted to: 6 ft 1 inch(es), 73 inch(es)) Actual Weight : 100 kg(Converted to: 220 lb 7 oz) Weight Source : Standing scale Dosing Weight Clinic : 100 kg Clinic BSA : 2.27 Body Mass Index : 29.22 kg/m2 ANANT CHONG LPN - 10/23/2015 13:58 CDT General Info Information Given By : Patient Preferred Communication Mode : Verbal, Written Languages : Romansh Is Patient Female and 13-50 no hysterectomy : No ANANT CHONG LPN - 10/23/2015 13:58 CDT Subjective Pain Symptoms : Yes ANANT CHONG LPN - 10/23/2015 13:58 CDT Pain Scale Pain Scale Verbal 0-10 : Open ANANT CHONG LPN - 10/23/2015 13:58 CDT Pain Pain Assessment Grid Pain 1 Location : Abdomen Laterality : Left ANANT CHONG LPN - 10/23/2015 13:58 CDT Dependent Habits Exposure to Tobacco Smoke : Other: NEVER Smoking Status : Never smoker Tobacco 2A : No Tobacco Use/Currently Using : No Tobacco Use/Last 30 Days : No Tobacco Use/Last 12 months : No ANANT CHONG LPN - 10/23/2015 13:58 CDT Caffeine Use Grid Caffeine Use : Current Type : Soft drinks Frequency : Daily ANANT CHONG LPN 10/23/2015 13:58 CDT Recreational Drug Use Grid Drug Use : None ANANT CHONG LPN 10/23/2015 13:58 CDT [facility] Document Id: [id number]!45 documented in this encounter Plan of Treatment Not on filedocumented as of this encounter Procedures Procedure Name Priority Date/Time Associated Comments Diagnosis URINALYSIS WITH Routine 10/23/2015 1:53 PM Result s for this MICROSCOPIC CDT procedure are i n the results section. documented in this encounter Results (ABNORMAL) Urinalysis, Complete, Includes Microscopic (10/23/2015 1:53 PM CDT) [facility] gist Method Time Signature Clarity Clear Clear POWERCHART HXUr Color Yellow Colorless POWERCHART Specific 1.010 POWERCHART [place], POCT, U pH, POCT, Urine 5.5 <5.0 POWERCHART Protein, Ur, Dip Negative Negative POWERCHART MGDL Glucose Negative Negative POWERCHART MGDL Ketones, QL(U) Negative Negative POWERCHART MGDL HXBILIRUBIN Negative Negative POWERCHART HXBLOOD Negative Negative POWERCHART Leukocyte Trace (A) Negative POWERCHART Esterase HXNITRITE Negative Negative POWERCHART Urobilinogen 0.2 0.2 MGDL POWERCHART HXUR WBC. 4-10 (A) None Seen POWERCHART HPF HXUR RBC. None Seen None Seen POWERCHART HPF Specimen (Source) Anatomical Collection Method Collection Time Re ceived Time Location / / Volume Laterality Urine, First 10/23/2015 1:53 PM Voided CDT Keaton Preciado M.D. LAB URINE ORDERABLES Performing Organization Address City/State/ZIP Code Phon e Number POWERCHART documented in this encounter Visit Diagnoses Not on filedocumented in this encounter
--- OUTSIDE RECORDS SUMMARY | 2022-01-20 10:00 | XMS_ITS | Encounter Summary ---
:1950 Author Organization [facility] Address [address] [place] [address] Care Team Providers Name Role Phone Jefferson Mitchell M.D. Primary Care Provider Encounter Details Date Type Department Care Team Description 09/09/2017 [facility] [place] [facility] [place], [address] [place], [place] [address] [facility] [address] [place], [place] [phone] (Work) [phone] Social History Tobacco Use Types Packs/Day Years Used Date Smoking Tobacco: Never Smokeless Tobacco: Never Sex Assigned at Date Recorded Not on file documented as of this encounter Plan of Treatment Not on filedocumented as of this encounter Visit Diagnoses Not on filedocumented in this encounter Care Teams Engineering Officer Relationship Specialty Start Date End Date Jefferson Mitchell M.D. PCP - General 09/04/16 11/12/17 [address] [place], [place] [id number] documented as of this encounter
--- OUTSIDE RECORDS SUMMARY | 2022-01-20 10:00 | XMS_ITS | Encounter Summary ---
:1950 Author Organization [facility] Address [address] [place] [address] Care Team Providers Name Role Phone Unavailable Primary Care Provider Unavailable Encounter Details Date Type Department Care Team Description 02/15/2016 Hospital Encounter HX [facility] Gabby Haywood M.D. [address] [place], [place] [phone] (Wo rk) Social History Tobacco Use Types Packs/Day Years Used Date Smoking Tobacco: Never Assessed Sex Assigned at Date Recorded Not on file documented as of this encounter Last Filed Vital Signs Vital Sign Reading Time Taken Comments Blood Pressure 102/66 02/15/2016 11:33 AM DYE TANK TENDER Pulse 92 02/15/2016 11:33 AM DYE TANK TENDER Temperature - - Respiratory Rate 20 02/15/2016 11:33 AM DYE TANK TENDER Oxygen Saturation - - Inhaled Oxygen Concentration - - Weight 81.9 kg (180 lb 10.7 oz) 02/15/2016 11:33 AM DYE TANK TENDER Height 185 cm (6' 0.84) 02/15/2016 11:33 AM DYE TANK TENDER Body Mass Index 23.94 02/15/2016 11:33 AM DYE TANK TENDER documented in this encounter Medications at Time of Discharge Medication Sig Dispensed Refills Start Date End Date acetaminophen (TYLENOL EXTRA Take 500-1,000 mg 0 01/23/2016 STRENGTH) 500 mg tablet by mouth. documented as of this encounter H&P Notes Gabby Palmer M.D. - 02/15/2016 11:23 AM CST [id number] CHIEF COMPLAINT/ REASON FOR VISIT Proposed surgery date: 02/19/2016. Surgeon: Dr. Zambrano Proposed surgery: Stent removal. Location: [facility]. HISTORY OF PRESENT ILLNESS Atilio is a 65-year-old male who presents to the clinic today for a preanesthetic medical evaluation for stent removal. I am asked by Dr. Zambrano to assess whether the patient is an adequate candidate foranesthesia. He has not had any changes since his last hospitalization. Atilio has had not fevers or runny nose. He has had a dry cough which he has had since having his surgeries. Atilio has had no difficulty with anesthesia There are no further concerns at this time. MEDICATIONS Post-visit Medication Reconciliation On no chronic medications. ALLERGIES Morphine. SYSTEMS REVIEW He is able to take liquid PO but otherwise gets nutrition via tube feeds. He otherwise has no complaints. No headaches, numbness or tingling. No changes in vision or hearing.No sore throat, runny nose, earache. No shortness of breath or chest pain. No abdominal pain or change in bowel habits. No hematuria or dysuria. No musculoskeletal aches or pains. No lymph node swelling. No easy bruising or bleeding. No excessive thirst or hunger. No mood or behavioral difficulties. Cardiac risk factors: none Pulmonary risk factors: none Sleep Apnea: none Steroid use within the past 12 months: none Diabetes: none Bleeding risk factors: none Anesthesia reactions: none Need for prophylactic antibiotics: none Beta mariely: none The remainder of the review of systems is negative. PAST MEDICAL/SURGICAL HISTORY 1. DJD. 2. Low back pain. 3. Left total hip arthroplasty, 2000. 4. Hemilaminectomy of L4-5 resulting in right drop foot, 1998. 5. History of closed fracture of the right wrist in the distant past. 6. History of right ankle fracture, distant past. 7. BPH without obstruction. 8. Erectile dysfunction. 9. History of stasis ulcer with varicose vein. 10. Solar elastosis. 11. History of primary essential hypertension. 12. Hydroureteronephrosis. 13. History of bladder stones. 14. Chronic kidney disease. 15. Anemia. 16. History of elevated PSA. 17. History of hyperglycemia. 19. History of basal cell carcinoma of the skin of the trunk, 2010. 19. Tonsillectomy as a child. 20. Cystolitholapaxy with laser lithotripsy with bladder stone removal with TURP secondary to BPH and bladder stones, 11/2015. 21. 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 Regional lymph nodeswere negative and there were 17 lymph nodes evaluated. He developed an esophageal leak in the postoperative period with subsequent J-tube placement. PREVENTIVE SERVICES Tobacco use: none, never smoker. Lipid panel: 03/27/2015. Colonoscopy: 10/22/2007. Influenza: 01/2016, per patient. Tetanus booster: 03/27/2015. SOCIAL HISTORY He is and has grown children. No personal history of difficulty with anesthesia. FAMILY HISTORY Father with congestive heart failure, coronary artery disease and BPH. Mother is living has difficulty with her joints. He is an only child. Paternal family history positive for heart disease. No family history of cancer. No family history of difficulty with anesthesia VITAL SIGNS HEIGHT: 185 cm. WEIGHT: 81.95 kg. BMI: 23.94 kg/m2. NECK CIRCUMFERENCE: 40 cm. TEMP: 36.8 Deg C. PULSE: 92 /min. RESP: 20 /min. SpO2: 97 %. SYSTOLIC: 102 mmHg. DIASTOLIC: 66 mmHg. PHYSICAL EXAMINATION GENERAL: Alert and orientated x3, good hygiene, appropriately dressed. HEENT: Tympanic membranes are normal bilaterally. Oropharynx is without erythema or exudate. Nasal mucosa is without injection. Neck is without adenopathy. LYMPH NODES: Not palpably enlarged and no nodules are palpated. HEART: Regular rate and rhythm without murmur. LUNGS: Clear to auscultation. ABDOMEN: Soft and nontender with no masses. Percutaneous jejunostomy in place in the left abdomen with no surrounding erythema or skin break down. EXTREMITIES: Within normal limits. IMPRESSION/REPORT/PLAN 1. Preoperative evaluation for surgery. The patient is cleared up to and including general anesthesia. There is no contraindication to proceeding with anesthesia and surgery as planned. Further recommendations per Dr. Zambrano. 2. Follow up. The patient will contact the clinic with any new or worsening symptoms. This document serves as a record of services personally performed by Gabby Hoffman MD. It was created on their behalf by Suzy Lake, a trained certified medical coding specialist. The creation of this record is based on the scribe's personal observations and the provider's statements to them. This document has been monster cked and approved by the attending provider. Gabby Booker M.D./tiffanie cc: [address] [phone] Electronically Signed By: GABBY PALMER MD On: 02/15/2016 12:17 PM Modified by and Electronically Signed by: GABBY PALMER MD On: 02/15/2016 12:17 PM Source: [facility] MHSDOLBEYNONRADSYS Document Id: [id number] TANK TENDER documented in this encounter Miscellaneous Notes Miscellaneous - Gabby Palmer M.D. - 02/18/2016 8:57 AM DYE TANK TENDER Ambulatory Patient Summary [address] [id number] Visit Information Name: ATILIO AUSTININ [facility] Number: [id number] Current Date: 02/18/2016 08:57:34 Physicians Attending Provider: GABBY PALMER MD Primary Care Provider: MIGUEL A ESTRADA MD ATILIO AUSTIN has been given the following list of follow-up instructions, medicationlist, and patient education materials: Follow-up Instructions Your Medications Here is a list of your medications. It is important to take your medications as directed. Use a pillbox or chart to help remind you to take your medications. Please let your doctor or nurse know if you have problems taking your medications. Medication/Strength How to Take Indications/Special Instructions/Comments/Notes for Patient Medication Changes/Routing No Medications found Stop Taking the Following Medications: Medication list as of 02-18-16 08:57 Attention: If you have any medications at home that are not on this list, DO NOT take them until youcontact your provider for clarification. Give a copy of your medication list to your primary care provider. Update your medication list any time medications or doses are changed and carry your medication list at all times in case of emergency. Electronically Signed By: GABBY PALMER MD Signed On:18-FEB-2016 08:56:46 Your Allergies & Intolerances Substance Reaction Symptoms [...] Vein (VV) L Active Elastosis Solar Active Hypertension (HTN) NOS Active Hydroureteronephrosis Bilateral Active Stone Bladder Active Chronic Kidney Disease (CKD) Stage 4 GFR 15-29 Active Anemia NOS Active Elevated Prostate-Specific Antigen (PSA) Active Impaired (IFG) Fasting Glucose Active Abnormal CT Abdomen Gastric wall thickening and flocculent calcifications within the gastric fundus Active Leak Esophageal Postoperative Active Your Upcoming Appointments Date Time Location Provider 02/27/2016 13:15 [facility] Paula GOOD, Miguel A Brown Attention: Contact your local Clinic if further appointment detail needed. Consider Using Patient Online Services Patient Online Services is a secure online and Mobile application that lets you: ?? View lab and test results ?? View portions of your medicalrecord including clinical notes, immunizations and discharge summaries ?? Request an appointment or medication refill ?? Review your appointment schedule ?? Send secure messages to your care team Its easy to create an account if you dont have one. Go to [email or web address] and click on Create Your Account. Then, follow the directions to complete the online form. Youll be asked for your [facility] number which you can find at the top of this document. Your Goals/Additional instructions: Source: [facility] Smallaa Document Id: [id number] TANK TENDER Marybelcellaneous - Gabby Palmer M.D. - 02/18/2016 8:57 AM DYE TANK TENDER Ambulatory Discharge Medication List [address] [id number] Visit Information Name: ATILIO AUSTIN [facility] Number: [id number] Current Date: 02/18/2016 08:57:33 Attending Provider: GABBY PALMER MD Primary Care Provider: MIGUEL A ESTRADA [...] Take Indications/Special Instructions/Comments/Notes for Patient Medication Changes/Routing No Medications found Stop Taking the Following Medications: Medication list as of 02-18-16 08:57 Attention: If you have any medications at home that are not on this list, DO NOT take them until youcontact your provider for clarification. Give a copy of your medication list to your primary care provider. Update your medication list any time medications or doses are changed and carry your medication list at all times in case of emergency. Electronically Signed By: GABBY PALMER MD Signed On:18-FEB-2016 08:56:46 Additional Information: Source: [facility] Smallaa Document Id: [id number] TANK TENDER Miscellaneous - Zuleika Zapata, L.P.N. - 02/15/2016 11:35 AM CST Obstructive Sleep Apnea Obstructive Sleep Apnea Entered On: 02/15/2016 11:36 DYE TANK TENDER Performed On: 02/15/2016 11:35 DYE TANK TENDER by ZULEIKA ZAPATA LPN ANN Screening Known Obstructive Sleep Apnea : No - NOT diagnosed with ANN ANN Score : No qualifying data available. ANN Results : No qualifying data available. ZULEIKA ZAPATA LPN - 02/15/2016 11:35 DYE TANK TENDER ANN Assessment Do you have high blood pressure or have you been told to take medication for high blood pressure? : Yes Frequency of Snoring HTN : Often (1-2 times per week) Frequency of Gasping, Choking, Snorting HTN : Never Total Number of Historical Features HTN : 0 Neck Circumference - ANN - HTN : 40/41 Total Sleep Apnea Clinical Score HTN Calc : 8 ZULEIKA ZAPATA LPN - 02/15/2016 11:35 DYE TANK TENDER Source: [facility] Specific MediaCHART Document Id: [id number] DYE TANK TENDER!12 TANK TENDER Miscellaneous - Zuleika Zapata L.P.N. - 02/15/2016 11:33 AM CST Adult Viner Operator Intake/History Adult Viner Operator Intake/History Entered On: 02/15/2016 11:35 DYE TANK TENDER Performed On: 02/15/2016 11:33 DYE TANK TENDER by ZULEIKA ZAPATA LPN Intake Chief Complaint : pre op physical for stent removal on 02/19/2016 at [facility] Temperature Core : 36.8 DegC(Converted to: 98.2 DegF) Peripheral Pulse Rate : 92 /min Respiratory Rate : 20 /min Systolic Blood Pressure : 102 mmHg Diastolic Blood Pressure : 66 mmHg NIBP Mean : 78 mmHg BP Location : Left upper extremity Blood Pressure Cuff Size : Regular SpO2 : 97 % Oxygen Therapy : Room air Height : 185 cm(Converted to: 6 ft 1 inch(es), 73 inch(es)) Actual Weight : 81.95 kg(Converted to: 180 lb 11 oz) Weight Source : Standing scale Dosing Weight Clinic : 81.95 kg Prosthetic device on during patient weight : No Clinic BSA : 2.05 Body Mass Index : 23.94 kg/m2 Neck Circumference : 40 cm(Converted to: 16 inch(es)) ZULEIKA ZAPATA [facility] - 02/15/2016 11:33 DYE TANK TENDER General Info Information Given By : Patient Preferred Communication Mode : Verbal Languages : Indonesian Is Patient Female and 13-50 no hysterectomy : No ZULEIKA ZAPATA [facility] - 02/15/2016 11:33 DYE TANK TENDER Subjective Pain Symptoms : ZULEIKA [place] [facility] - 02/15/2016 11:33 DYE TANK TENDER Dependent Habits Exposure to Tobacco Smoke : Other: NEVER Smoking Status : Never smoker Tobacco 2A : No Tobacco Use/Currently Using : No Tobacco Use/Last 30 Days : No Tobacco Use/Last 12 months : No ZULEIKA ZAPATA [facility] - 02/15/2016 11:33 DYE TANK TENDER Caffeine Use Grid Caffeine Use : Current Type : Soft drinks Frequency : Daily ZULEIKA ZAPATA [facility] - 02/15/2016 11:33 DYE TANK TENDER Recreational Drug Use Grid Drug Use : None ZULEIKA ZAPATA [facility] - 02/15/2016 11:33 DYE TANK TENDER [facility] Document Id: [id number] DYE TANK TENDER!43 TANK TENDER documented in this encounter Plan of Treatment Not on filedocumented as of this encounter Visit Diagnoses Not on filedocumented in this encounter
--- OUTSIDE RECORDS SUMMARY | 2022-01-20 10:00 | XMS_ITS | Encounter Summary ---
:1950 Author Organization [facility] Address [address] [place] [address] Care Team Providers Name Role Phone Unavailable Primary Care Provider Unavailable Encounter Details Date Type Department Care Team Description 01/30/2016 Hospital Encounter [facility]X [facility]NMED Haja Mitchell M.D. [address] [place], [place] [address] (Wo rk) Social History Tobacco Use Types Packs/Day Years Used Date Smoking Tobacco: Never Assessed Sex Assigned at Date Recorded Not on file documented as of this encounter Last Filed Vital Signs Vital Sign Reading Time Taken Comments Blood Pressure 118/70 01/30/2016 3:09 PM DRAFTER (CAD) ELECTRONIC Pulse 80 01/30/2016 3:09 PM DRAFTER (CAD) ELECTRONIC Temperature - - Respiratory Rate 16 01/30/2016 3:09 PM DRAFTER (CAD) ELECTRONIC Oxygen Saturation - - Inhaled Oxygen Concentration - - Weight 82 kg (180 lb 12.4 oz) 01/30/2016 3:09 PM DRAFTER (CAD) ELECTRONIC Height 185 cm (6' 0.84) 01/30/2016 3:09 PM DRAFTER (CAD) ELECTRONIC Body Mass Index 23.96 01/30/2016 3:09 PM DRAFTER (CAD) ELECTRONIC documented in this encounter Medications at Time of Discharge Medication Sig Dispensed Refills Start Date End Date acetaminophen (TYLENOL EXTRA Take 500-1,000 mg 0 01/23/2016 STRENGTH) 500 mg tablet by mouth. documented as of this encounter Progress Notes Miguel A Mitchell M.D. - 01/30/2016 2:57 PM CST [id number] Document Contains Addenda REVISION HISTORY January 31, 2016, at 11:24 a.m. - Modification - Addendum added per Dr. Miguel A Mitchell by Skylar Orta. CHIEF COMPLAINT/REASON FOR VISIT Recheck after [facility] significant [facility]. Patient basically has had a lot of work [facility]. 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 Regional lymph nodes were negative and there were 17 lymph nodes evaluated. He did well postoperatively but did develop a complication. He had a postoperative esophageal leak which has caused him to have to have a chest tube on the right side and be fed by feeding tube. He is receiving 5-1/2 cans of feed a day. It is 1300 mL, 1.5 kcal/mL so he has got around 1800 to 2000 kcal a day which is maintenance for him. He will not gain weight but he will lose weight with thatand I think that is what they have calculated that. He is not having any diarrhea which is a problemwith tube feeds nor does he have gastric distention or bloating. Tolerates it fairly well. The patient's chest tube is having progressively less drainage. He is down to about 18 mL a day. He is going back up there on Thursday which is a few days in and he is hopeful that they will take the tube out. Chest tube site is good. It is bandaged and it is in his right lung. He has lost a lot of weight but he feels he is finally getting better. He is able to take clear liquids by mouth. They are letting him do that. MEDICATIONS See medicine list in EHR. ALLERGIES See EHR allergy list. SYSTEMS REVIEW Review of systems in all areas except as mentioned above is negative. PREVENTIVE SERVICES Per the Preventive Service component of the EMR. Handwashing done prior to patient contact. PAST MEDICAL/SURGICAL HISTORY Per the diagnosis and problem section of the EHR. VITAL SIGNS Per the nurses' documentation form for this visit. PHYSICAL EXAMINATION GENERAL: He is thin appearing. EENT: Conjunctivae and lids normal. PERRLA. EOMs normal. Sclerae nonicteric. Ophthalmologic exam grossly normal. TMs look okay bilaterally. Nares without erythema or congestion. Mouth without erythema or exudate, no leuko or erythroplakia. Hearing grossly normal to scratch test bilaterally. NECK: Supple, no adenopathy or thyromegaly. Carotid upstrokes plus 2 bilaterally, no bruits. CHEST: Lung gu clear to auscultation and percussion with normal respiratory rate and effort. He has the chest tube in the posterior axillary line on the right side which has got minimal drainage inthe tube. He has a PEG tube in the epigastrium for his tube feedings. CARDIAC: Central venous pressure is normal at 7 to 8 cm of water or less; there is a normal systoliccollapse of the jugular venous pulse; there is not a positive hepatojugular reflex. Heart tones are in sinus rhythm; S1 and S2 normal, physiologic splitting of the second heart tone, no third or fourthsound, no significant murmur, no gallop. IMPRESSION/REPORT/PLAN Complicated course after his tumor surgery where he developed an esophageal leak which has required a chest tube. He is on antibiotics and antifungals at the moment and he has had his esophagus repaired and stented and he is probably going to have his chest tube out on Thursday. I expect he will be feeding with his PEG tube for somewhere in the next couple months as they will probably go very slow withhis esophagus since he is not having any trouble with PEG feedings with diarrhea or bloating and if he tolerates it well, they will be slow and using his esophagus and let it totally heal before he hasto put it to full use. He thinks that will be the course. He is comfortable with that approach. I did not do anything today. He can come back in a month and we will just see how he is doing. ADDENDUM Patient obviously has a PEG tube and he has chest tube as well and today's did constitute a [id number] encounter in which we discussed his need for RN and PT services. As a patient who has been seriously ill and needs postop nursing services and physical therapy. Miguel A Mitchell M.D./aonuris Electronically Signed By: MIGUEL A MITCHELL MD On: 01/31/2016 10:23 AM Miguel A Mitchell M.D./alb Electronically Signed By: MIGUEL A MITCHELL MD On: 01/31/2016 10:23 AM Co-Signed By: MIGUEL A MITHCELL MD On: 01/31/2016 11:33 AM Source: [facility] MHSDOLBEYNONRADSYS Document Id: [id number] TER (CAD) ELECTRONIC documented in this encounter Miscellaneous Notes Miscellaneous - Miguel A Mitchell M.D. - 01/30/2016 3:53 PM CST Ambulatory Discharge Medication List [address] [id number] Visit Information Name: TRENT ATILIO LOPEZ [facility] Number: [id number] Current Date: 01/30/2016 15:53:41 Attending Provider: MIGUEL A MITCHELL MD Primary Care Provider: MIGUEL A MITCHELL MD MINISTERIOSHERRIATILIO JOHN has been given the following list of medications: Your Medications It is important to take your medications as directed. Use a pill box or chart to help remind you to take your medications. Please let your doctor or nurse know if you have problems taking your medications. Medication/Strength How to Take Indications/Special Instructions/Comments/Notes for Patient Medication Changes/Routing amoxicillin-clavulanate (amoxicillin-clavulanate 200 mg-28.5 mg/5 mL oral liquid) 5 Milliliter, Oral, two times a day fluconazole (fluconazole 10 mg/mL oral liquid) 10 Milliliter, Oral, once a day Stop Taking the Following Medications: Medication list as of 01-30-16 15:53 Attention: If you have any medications at home that are not on this list, DO NOT take them until youcontact your provider for clarification. Give a copy of your medication list to your primary care provider. Update your medication list any time medications or doses are changed and carry your medication list at all times in case of emergency. Electronically Signed By: MIGUEL A MITCHELL MD Signed On:30-JAN-2016 15:52:14 Additional Information: Source: [facility] POWERCHART Document Id: [id number] TER (CAD) ELECTRONIC Miscellaneous - Miguel A Mitchell M.D. - 01/30/2016 3:53 PM CST Ambulatory Patient Summary [address] [id number] Visit Information Name: ATILIO AUSTIN [facility] Number: [id number] Current Date: 01/30/2016 15:53:41 Physicians Attending Provider: MIGUEL A MITCHELL MD Primary Care Provider: MIGUEL A MITCHELL MD ATILIO AUSTIN has been given the [...] Take Indications/Special Instructions/Comments/Notes for Patient Medication Changes/Routing amoxicillin-clavulanate (amoxicillin-clavulanate 200 mg-28.5 mg/5 mL oral liquid) 5 Milliliter, Oral, two times a day fluconazole (fluconazole 10 mg/mL oral liquid) 10 Milliliter, Oral, once a day Stop Taking the Following Medications: Medication list as of 01-30-16 15:53 Attention: If you have any medications at home that are not on this list, DO NOT take them until youcontact your provider for clarification. Give a copy of your medication list to your primary care provider. Update your medication list any time medications or doses are changed and carry your medication list at all times in case of emergency. Electronically Signed By: MIGUEL A MITCHELL MD Signed On:30-JAN-2016 15:52:14 Your Allergies & Intolerances Substance Reaction Symptoms [...] if you dont have one. Go to [email or web address] and click on Create Your Account. Then, follow the directions to complete the online form. Youll be asked for your [facility] number which you can find at the top of this document. Your Goals/Additional instructions: Source: [facility] POWERCHART Document Id: [id number] TER (CAD) ELECTRONIC Miscellaneous - Galina Chin L.P.N. - 01/30/2016 3:09 PM CST Adult Associate Merchandise Planner Intake/History Adult Associate Merchandise Planner Intake/History Entered On: 01/30/2016 15:11 DRAFTER (CAD) ELECTRONIC Performed On: 01/30/2016 15:09 DRAFTER (CAD) ELECTRONIC by GALINA CHIN LPN Intake Chief Complaint : post Hospital Face to face encounter Temperature Core : 36.8 DegC(Converted to: 98.2 DegF) Peripheral Pulse Rate : 80 /min Respiratory Rate : 16 /min Systolic Blood Pressure : 118 mmHg Diastolic Blood Pressure : 70 mmHg NIBP Mean : 86 mmHg BP Location : Left upper extremity Blood Pressure Cuff Size : Large Height : 185 cm(Converted to: 6 ft 1 inch(es), 73 inch(es)) Actual Weight : 82 kg(Converted to: 180 lb 12 oz) Weight Source : Standing scale Dosing Weight Clinic : 82 kg Clinic BSA : 2.05 Body Mass Index : 23.96 kg/m2 GALINA CHIN LPN - 01/30/2016 15:09 DRAFTER (CAD) ELECTRONIC General Info Information Given By : Patient Languages : [place] Is Patient Female and 13-50 no hysterectomy : No GALINA CHIN LPN - 01/30/2016 15:09 DRAFTER (CAD) ELECTRONIC Subjective Pain Symptoms : No GALINA CHIN LPN - 01/30/2016 15:09 DRAFTER (CAD) ELECTRONIC Dependent Habits Exposure to Tobacco Smoke : Other: NEVER Smoking Status : Smoker, current status unknown Tobacco 2A : Yes Tobacco Use/Currently Using : No Tobacco Use/Last 30 Days : No Tobacco Use/Last 12 months : No GALINA CHIN LPN - 01/30/2016 15:09 DRAFTER (CAD) ELECTRONIC Caffeine Use Grid Caffeine Use : Current Type : Soft drinks Frequency : Daily GALINA CHIN LPN - 01/30/2016 15:09 DRAFTER (CAD) ELECTRONIC Recreational Drug Use Grid Drug Use : None GALINA CHIN LPN - 01/30/2016 15:09 DRAFTER (CAD) ELECTRONIC Source: [facility] POWERCHART Document Id: [id number] DRAFTER (CAD) ELECTRONIC!38 TER (CAD) ELECTRONIC documented in this encounter Plan of Treatment Not on filedocumented as of this encounter Visit Diagnoses Not on filedocumented in this encounter
--- OUTSIDE RECORDS SUMMARY | 2022-01-20 10:00 | XMS_ITS | Encounter Summary ---
:1950 Author Organization [facility] Address [address] [place] [address] Care Team Providers Name Role Phone Unavailable Primary Care Provider Unavailable Encounter Details Date Type Department Care Team Description 12/05/2014 Hospital Encounter HX [facility] Summer Palacios M.D. [address] [place] [address], [place] [phone] (Wo rk) Social History Tobacco Use Types Packs/Day Years Used Date Smoking Tobacco: Never Assessed Sex Assigned at Date Recorded Not on file documented as of this encounter Last Filed Vital Signs Vital Sign Reading Time Taken Comments Blood Pressure - - Pulse - - Temperature - - Respiratory Rate - - Oxygen Saturation - - Inhaled Oxygen Concentration - - Weight - - Height 185 cm (6' 0.84) 12/05/2014 1:45 PM CDT Body Mass Index - - documented in this encounter Progress Notes Idania Palacios M.D. - 12/05/2014 1:34 PM CDT [id number] CHIEF COMPLAINT/REASON FOR VISIT Full skin exam to screen for skin cancer. HISTORY OF PRESENT ILLNESS This 64-year-old male is here for his annual full skin exam to rule out skin cancer. He has a history of basal cell carcinoma and has had atypical nevi in the past. He has many nevi and comes in once ayear to have them evaluated for changes. Today he notes that he has a wart on his right thumb and perhaps others on his fingers that he would like to have treated. He also has a very large brown spot on his left cheek his grandchildren ask about and wonders if it can be removed. MEDICATIONS Please see medication list in [facility] EMR updated today. ALLERGIES Please see allergy list in [facility] EMR updated today. SYSTEMS REVIEW Please see pertinent positives listed in HPI. Otherwise rest of systems review is negative. PAST MEDICAL/SURGICAL HISTORY Reviewed per EMR. Skin history as reviewed in HPI. 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 He enjoys exercising, walking and golf. Does not smoke. Does not drink alcohol. FAMILY HISTORY Negative for psoriasis, eczema, acne, skin cancer, hayfever, and asthma. PHYSICAL EXAMINATION GENERAL: Alert and oriented x3 in no acute distress. Pleasant demeanor. Well groomed. Near ideal weight. SKIN: Skin of scalp, face, neck, back, chest, abdomen, arms, legs, hands, feet, and buttocks shows type 2 skin with many nevi, many of which were examined under dermoscopy and appeared to be benign. Review of last visit showed that a nevus was removed on the left posterior calf which was read as lentiginous junctional nevus. He does have multiple seborrheic keratoses on back and a large seborrheic keratosis measuring about 1.5 cm on the left cheek, which we opted to treat with liquid nitrogen. It was explained that this may not completely remove this lesion but should improve its appearance and make it ciaio counter molder. It is possible that it could return. Exam of forearms shows photodamage and some seborrheic keratoses. Lower legs show multiple varicosities and support stockings. Exam of hands shows multiple verrucae, one on the right thumb periungually, one on the left index finger, one on the right wrist, and one on the left forearm. These 4 warts were treated with liquid nitrogen. On the right lateral canthus there is a scaly 3 mm pink papule consistent with an actinic keratosis that was treated with liquid nitrogen. DIGITS: Fingers, toes, and nails are within normal limits on visualization and palpation. HEAD: Lips and teeth within normal limits. Hair of scalp and face within normal limits. EYES: Eyes and eyelids normal. THYROID: No thyromegaly on palpation. PERIPHERAL VESSELS: Peripheral vascular system intact. DIAGNOSTICS Medical records from previous visits were reviewed. Pertinent lab results were examined. Verbal consent for any photos was obtained. IMPRESSION/REPORT/PLAN 1. Full skin examination to screen for skin cancer. 2. History of basal cell carcinoma. 3. Seborrheic keratoses, the benign nature of this skin lesion was discussed with the patient. No treatment is required. I recommend continued observation and if any concerning changes occur, the patient should return for reevaluation. 4. Verrucae on hands, 4 treated with liquid nitrogen. 5. Irritated seborrheic keratosis, left cheek, treated with liquid nitrogen. 6. Actinic keratosis, right lateral canthus, treated with liquid nitrogen. 7. Varicose veins. Recommended support stockings with graduated compression. 8. Solar elastosis. Sun protection and sun avoidance were reviewed with the patient. Educational materials were reviewed regarding skin self-examination, the warning signs and symptoms of skin cancer, and the proper use of sunscreens. He will follow up 1 year. Idania aPlacios M.D./julio Electronically Signed By: IDANIA PALACIOS MD On: 01/03/2015 12:45 PM Source: [facility] MHSDOLBEYNONRADSYS Document Id: [id number] documented in this encounter Miscellaneous Notes Miscellaneous - Idania Palacios M.D. - 12/05/2014 4:55 PM CDT Ambulatory Patient Summary [address] [id number] Visit Information Name: ATILIO AUSTIN [facility] Number: [id number] Current Date: 12/05/2014 16:55:06 Physicians Attending Provider: IDANIA PALACIOS MD Primary Care Provider: MIGUEL A ESTRADA [...] tablet) 1 Tablet(s), Oral, once a day multivitamin (multivitamin) Oral, once a day naproxen (naproxen 500 mg oral tablet) 1 Tablet(s), Oral, two times a day as needed for pain sildenafil (Viagra 50 mg oral tablet) 1 Tablet(s), Oral, once a day as needed for Erectile dysfunction tamsulosin (Flomax 0.4 mg oral capsule) 1 cap, Oral, once a day Stop Taking the Following Medications: Medication list as of 12-05-14 16:55 Attention: If you have any medications at home that are not on this list, DO NOT take them until youcontact your provider for clarification. Give a copy of your medication list to your primary care provider. Update your medication list any time medications or doses are changed and carry your medication list at all times in case of emergency. Electronically Signed By: IDANIA PALACIOS MD Signed On:05-DEC-2014 16:55:02 Your Allergies & Intolerances Substance Reaction Symptoms [...] Multiple Active Keratosis Seborrheic (SEBKER SK) Active Your Upcoming Appointments Date Time Location Provider No Appointments found Attention: Contact your local Clinic if further [...] if you dont have one. Go to [email or web address] and click on Create Your Account. Then, follow the directions to complete the online form. Youll be asked for your [facility] number which you can find at the top of this document. Your Goals/Additional instructions: Source: [facility] POWERCHART Document Id: [id number] Miscellaneous - Idania Palacios M.D. - 12/05/2014 4:55 PM CDT Ambulatory Discharge Medication List [facility] [address] [place] [id number] Visit Information Name: ATILIO AUSTIN [facility] Number: [id number] Visit Date: 12/05/2014 16:55:05 Attending Provider: IDANIA PALACIOS MD Primary Care Provider: MIGUEL A ESTRADA [...] tablet) 1 Tablet(s), Oral, once a day multivitamin (multivitamin) Oral, once a day naproxen (naproxen 500 mg oral tablet) 1 Tablet(s), Oral, two times a day as needed for pain sildenafil (Viagra 50 mg oral tablet) 1 Tablet(s), Oral, once a day as needed for Erectile dysfunction tamsulosin (Flomax 0.4 mg oral capsule) 1 cap, Oral, once a day Stop Taking the Following Medications: Medication list as of 12-05-14 16:55 Attention: If you have any medications at home that are not on this list, DO NOT take them until youcontact your provider for clarification. Give a copy of your medication list to your primary care provider. Update your medication list any time medications or doses are changed and carry your medication list at all times in case of emergency. Electronically Signed By: IDANIA PALACIOS MD Signed On:05-DEC-2014 16:55:02 Additional Information: Source: [facility] Conjur Document Id: [id number] Miscellaneous - Justice Riggs, L.P.N. - 12/05/2014 1:45 PM CDT Adult Childcare Administrator Intake/History Adult Childcare Administrator Intake/History Entered On: 12/05/2014 13:46 CDT Performed On: 12/05/2014 13:45 CDT by JUSTICE RIGGS [facility] Intake Chief Complaint : FSE-Nevi Height : 185 cm(Converted to: 6 ft 1 inch(es), 73 inch(es)) JUSTICE RIGGS [facility] - 12/05/2014 13:45 CDT General Info Information Given By : Patient Preferred Communication Mode : Verbal Languages : Lao Is Patient Female and 13-50 no hysterectomy : No JUSTICE RIGGS [facility] - 12/05/2014 13:45 CDT Subjective Pain Symptoms : No JUSTCIE RIGGS [facility] - 12/05/2014 13:45 CDT Dependent Habits Tobacco Use/Currently Using : No Exposure to Tobacco Smoke : Other: NEVER Smoking Status : Never smoker JUSTICE RIGGS [facility] - 12/05/2014 13:45 CDT Caffeine Use Grid Caffeine Use : Current Type : Soft drinks Frequency : Daily JUSTICE RIGGS [facility] - 12/05/2014 13:45 CDT Recreational Drug Use Grid Drug Use : None JUSTICE RIGGS [facility] - 12/05/2014 13:45 CDT Source: [facility] Conjur Document Id: [id number] CDT!23 documented in this encounter Plan of Treatment Not on filedocumented as of this encounter Visit Diagnoses Not on filedocumented in this encounter
--- OUTSIDE RECORDS SUMMARY | 2022-01-20 10:00 | XMS_ITS | Encounter Summary ---
:1950 Author Organization [facility] Address [address] [place] [address] Care Team Providers Name Role Phone Unavailable Primary Care Provider Unavailable Encounter Details Date Type Department Care Team Description 11/08/2015 Hospital Encounter HX [facility] FB Haja Lagunas M.D. [address] [place], [place] [address] (Wo rk) Social History Tobacco Use Types Packs/Day Years Used Date Smoking Tobacco: Never Assessed Sex Assigned at Date Recorded Not on file documented as of this encounter Last Filed Vital Signs Vital Sign Reading Time Taken Comments Blood Pressure 162/82 11/08/2015 8:36 AM CDT Pulse 80 11/08/2015 8:33 AM CDT Temperature - - Respiratory Rate 16 11/08/2015 8:33 AM CDT Oxygen Saturation - - Inhaled Oxygen Concentration - - Weight 97 kg (213 lb 13.5 oz) 11/08/2015 8:33 AM CDT Height 185 cm (6' 0.84) 11/08/2015 8:36 AM CDT Body Mass Index 28.34 11/08/2015 8:33 AM CDT documented in this encounter Progress Notes Miguel A Mitchell M.D. - 11/08/2015 8:26 AM CDT [id number] CHIEF COMPLAINT/REASON FOR VISIT Frequent urination and fatigue. The patient has been having 6 weeks in which he is urinating very frequently at night. He gets up 3 to 4 times at night to empty his bladder. He did not used to have this problem but he is on Flomax twice a day for BPH. A PSA was checked as recently as March of 2015 and was in the normal range for his age. He had a prostate exam at that time that was unremarkable. He gets abdominal bloating at times. He feels nauseous but does not vomit. He has lost a little weight. He raises the issue of whether he could have become diabetic or something of that nature. He does not have fever, chills or sweats and has not had any change in bowel habits. He did take some Cipro from Dr. Preciado for a questionable urinary infection but it made him so sick GI redding he quit the pill. The urine does not really look like he had infection. MEDICATIONS See medicine list in EHR. ALLERGIES [...] documentation form for this visit. PHYSICAL EXAMINATION HEENT: Eyes: Conjunctivae and lids normal. Pupils equal, round, reactive to light and accommodation.Extraocular movements normal. Sclerae nonicteric. Ophthalmologic exam grossly normal. ENT: Tympanic membranes look okay bilaterally. Nares without erythema or congestion. Mouth without erythema or exudate, no leuko or erythroplakia. NECK: Supple, no adenopathy or thyromegaly. Carotid upstrokes plus 2 bilaterally, no bruits. CHEST: Lung gu clear to auscultation and percussion with normal respiratory rate and effort. CARDIAC: Central venous pressure is normal at 7 to 8 cm of water or less; there is a normal systoliccollapse of the jugular venous pulse; there is not a positive hepatojugular reflex. Heart tones are in sinus rhythm; S1 and S2 normal, physiologic splitting of the second heart tone, no third or fourthsound, no significant murmur, no gallop. ABDOMEN: Soft, not distended. There is no organomegaly. No focal mass. His bladder is full but does not appear to be enlarged. The costovertebral angles are nontender. EXTREMITIES: He has no edema in the legs. IMPRESSION/REPORT/PLAN Very unusual situation where we have hypertension, not well controlled, malaise, fatigue, abdominal bloating, and frequent urination. I will check complete laboratories fortunately he does have an appointment with the urologist next week and they can do a postvoid residual. If he is retaining a lot inthe bladder, he is on maximal dose of Flomax, and he is going to have to have a laser surgery. In any event what will do today are laboratories to rule out other possibilities. I will increase his valsartan from 160 to 320 mg. 1. Nonspecific symptoms and frequent urination. He will have full laboratory evaluation. We did today a BMP, CBC, A1c, hepatic function panel, thyroid function cascade, and UA with reflex to culture. 2. Hypertension. Increase valsartan from 160 to 320 mg a day. 3. Malaise, fatigue, etiology unclear but labs will be checked. We will call him with results of thetests. If there is not an answer the next step is to see the urologist next week. Miguel A Mitchell M.D./julio Electronically Signed By: MIGUEL A MITCHELL MD On: 11/09/2015 09:34 AM Source: [facility] MHSDOLBEYNONRADSYS Document Id: [id number] documented in this encounter Miscellaneous Notes Telephone Encounter - Conversion, Historical Provider Ser - 01/25/2016 9:33 AM CDT *Phone Message Document Contains Addenda Addendum by MIGUEL A MITCHELL MD on January 28, 2016 09:00:10 EVP CHIEF EXPLORATION OFFICER From: MIGUEL A MITCHELL MD To: TONY Mitchell Nurse; Sent: 01/28/2016 09:00:10 EVP CHIEF EXPLORATION OFFICER Subject: RE: *Phone Message ok, good Addendum by GALINA CHIN LPN on January 28, 2016 08:45:25 EVP CHIEF EXPLORATION OFFICER From: GALINA CHIN LPN (TONY Mitchell Nurse) To: MIGUEL A MITCHELL MD; Sent: 01/28/2016 08:45:25 EVP CHIEF EXPLORATION OFFICER Subject: FW: *Phone Message From: SAIMA MCCLOUD (TONY Mitchell Nurse) To: TONY Mitchell Nurse; Sent: 01/25/2016 09:33:44 CDT Subject: *Phone Message Caller is: ( ) Patient ( ) Mother ( ) Father ( ) Spouse ( ) Daughter ( ) Son ( ) Pharmacy ( x [facility] ) Other: Physician: Patient MRN #: Reason for Call: Message: Hailey calling - did a hosp f/u today on patient- doing well- has a post surgical appt. 11-8-any questions call Hailey back at [phone] Advice/Action: Source used: ( ) Verbalizes understanding of instructions ( ) Instructed to call back if symptoms worsen or do not resolve ( ) Refused to see provider ( ) Appointment Scheduled ( ) OK to leave message on voice mail ( ) Patient told to expect return call: ( ) today ( ) tomorrow ( ) next work day ( ) Patient's email ( ) Patient told physician out of office, will call upon return call on ( ) ( ) Patient told physician out of office, routed to other physician ( ) Other ( ) Call back telephone number ( ) Call back cell phone number ( ) [facility]: [facility] Document Id: [id number] Telephone Encounter - Conversion, Historical Provider Ser - 12/20/2015 8:46 AM CDT *Phone Message Document Contains Addenda Addendum by GALINA CHIN LPN on December 20, 2015 09:42:01 CDT Sylvie called final culture report faxed to D[facility] From: BREEZY MONTES ([facility]/Travel Nurse) To: TONY Mitchell Nurse; Sent: 12/20/2015 08:46:37 CDT ! Subject: *Phone Message Caller is: ( ) Patient ( ) Mother ( ) Father ( ) Spouse ( ) Daughter ( ) Son ( ) Pharmacy ( x-Dimitrios/ Sylvie ) Other: Physician: Patient MRN #: Reason for Call: Message: Looking for a update on his urine growth he is having surgery today at [facility]. [phone] Advice/Action: Source used: ( ) Verbalizes understanding of instructions ( ) Instructed to call back if symptoms worsen or do not resolve ( ) Refused to see provider ( ) Appointment Scheduled ( ) OK to leave message on voice mail ( ) Patient told to expect return call: ( ) today ( ) tomorrow ( ) next work day ( ) Patient's email ( ) Patient told physician out of office, will call upon return call on ( ) ( ) Patient told physician out of office, routed to other physician ( ) Other ( ) Call back telephone number ( ) Call back cell phone number ( ) Source: [employer] Document Id: [id number] Miscellaneous - Conversion, Historical Provider Ser - 11/20/2015 1:13 PM CDT [facility] November 20, 2015 Re: ATILIO NEWMAN 1950 MR# [id number] Date of Visit 11/08/2015 [facility] - Dr. Bliss, To Whom it May Concern, This patient is being referred for continuing care at your facility. Following your evaluation(s), Iwould appreciate hearing: Your findings and recommendations Notification regarding any medication changes Copies of lab radiology and other reports Please see included pertinent records. Thank you for your assistance with the evaluation and treatment of this patient. Sincerely, Ryan Reyes MD This document has images extracted. Source: [employer] Document Id: [id number] Telephone Encounter - Conversion, Historical Provider Ser - 11/20/2015 8:54 AM CDT *Phone Message- Paula/patrick Document Contains Addenda Addendum by QAMAR ARREOLA LPN on November 20, 2015 13:37:29 CDT This message along with patient's face sheet and order faxed to Dr. Bliss's office at [phone].Called to inform patient's and stated that they are all scheduled with Dr. Bliss for tomorrow at 8:30am. Addendum by RYAN REYES MD on November 20, 2015 13:05:59 CDT From: RYAN REYES MD To: TONY Mitchell Nurse; Sent: 11/20/2015 13:05:59 CDT ! Subject: RE: *Phone Message- Kylee Actions: Notify patient- refer to General Message, Notify patient of Future Order I reviewed CT abdomen and pelvis report. I don't have MRI reports. Order for consultation with Dr. Bliss from [facility] is in EHR. Dx: Gastric wall thickening and flocculent calcifications within the gastric fundus suggesting neoplasm per recent CT abdomen & pelvis. Dr. Bliss may want to see CT scan. They need to get it from [facility] unless he can look at in their [facility] EHR. Addendum by QAMAR ARREOLA LPN on November 20, 2015 10:14:00 CDT From: QAMAR ARREOLA LPN (TONY Mitchell Nurse) To: RYAN REYES MD; Sent: 11/20/2015 10:14:00 CDT Subject: FW: *Phone Message- Kylee Addendum by QAMAR ARREOLA LPN on November 20, 2015 10:13:48 CDT Called and spoke with patient's . was requesting our fax number to have patient's MRI results faxed to us. also wanted patient's CT scan reviewed. Based on the results it shows Marked gastric wall thickening and flocculent clacifications within the gastric fundus suggesting neoplasm and radiologist recommended an upper endoscopy. Patient is scheduled to see you on however wifeand patient are unwilling to wait until then to get this scheduled. They would like a referral sent today to Dr. Bliss for an upper endoscopy. I have set his CT scan on your desk. Please advise. From: BREEZY HUERTAS ([facility] Nurse) To: TONY Mitchell Nurse; Sent: 11/20/2015 08:54:31 CDT Subject: *Phone Message- Paula/patrick Caller is: ( ) Patient ( ) Mother ( ) Father ( valentino) Spouse ( ) Daughter ( ) Son ( ) Pharmacy ( ) Other: Physician: Patient MRN #: Reason for Call: Message: would like a call to discuss MRI an endoscopy, please call Valentino [phone] Advice/Action: Source used: ( ) Verbalizes understanding of instructions ( ) Instructed to call back if symptoms worsen or do not resolve ( ) Refused to see provider ( ) Appointment Scheduled ( ) OK to leave message on voice mail ( ) Patient told to expect return call: ( ) today ( ) tomorrow ( ) next work day ( ) Patient's email ( ) Patient told physician out of office, will call upon return call on ( ) ( ) Patient told physician out of office, routed to other physician ( ) Other ( ) Call back telephone number ( ) Call back cell phone number ( ) Source: [facility] [employer] Document Id: [id number] Miscellaneous - Pauly Sen P.A.-C. - 11/14/2015 1:08 PM CDT Addendum by GALINA CHIN LPN on November 14, 2015 15:49:19 CDT patient will contact [facility] for ct scan report and lab results Addendum by BREEZY HUERTAS on November 14, 2015 15:43:24 CDT Atilio calling to see if he can get a copy of test results from today, please call [phone] or cell [phone] Addendum by GALINA CHIN LPN on November 14, 2015 14:51:43 CDT patient called order faxed to [facility] for MRI of Abdomen From: PAULY SEN PA-C To: TONY Mitchell Nurse; Sent: 11/14/2015 13:08:32 CDT Received a call from urologist. CT scan shows abnormality in stomach and pancreas that needs furtherevaluation. Please set up MRI of abdomen Source: [facility] [employer] Document Id: [id number] Electronically signed by Conversion, [facility] [employer] [id number] at 08/17/2016 1:54 AM CDT Miguel A Villar M.D. - 11/09/2015 9:34 AM CDT Results Notification Document Contains Addenda Addendum by QAMAR ARREOLA LPN on November 09, 2015 10:15:48 CDT Patient notified of results. From: MIGUEL A MITCHELL MD To: TONY Mitchell Nurse; Sent: 11/09/2015 09:34:29 CDT ! Show up: 11/09/2015 09:34:29 CDT Subject: Results Notification Actions: Notify patient of results Reminder Comments: ok Results: Date Result Name Value Ref Range 11/08/2015 09:35 TSH, Sensitive-Terry 2.2 mIU/L (0.3-4.2 - ) Source: [facility] POWERCHART Document Id: [id number] Electronically signed by Conversion, [facility] [employer] [id number] at 08/17/2016 1:54 AM CDT Harvey - Miguel A Mitchell M.D. - 11/08/2015 2:28 PM CDT Results Notification Document Contains Addenda Addendum by GALINA CHIN LPN on November 08, 2015 14:46:57 CDT patient called with results instruted patient to report to Er for further work up ER notified From: MIGUEL A MITCHELL MD To: TONY Mitchell Nurse; Sent: 11/08/2015 14:28:23 CDT ! Show up: 11/08/2015 14:28:23 CDT Subject: Results Notification Actions: Notify patient of results Reminder Comments: needs to go to ER for henderson Results: Date Result Name Ind Value Ref Range 11/08/2015 09:35 Sodium Lvl 144 mmol/L (135 - 145) 11/08/2015 09:35 Potassium Lvl 4.6 mmol/L (3.6 - 5.2) 11/08/2015 09:35 Chloride (H) 111 mmol/L (98 - 107) 11/08/2015 09:35 CO2 23 mmol/L (22 - 29) 11/08/2015 09:35 AGAP 10 mmol/L (7 - 15) 11/08/2015 09:35 Alkaline Phosphatase 68 unit/L (45 - 115) 11/08/2015 09:35 Glucose Lvl 101 mg/dL (70 - 139) 11/08/2015 09:35 Creatinine (H) 2.74 mg/dL (0.80 - 1.30) 11/08/2015 09:35 EGFR (MDRD) (L) 24 mL/min/1.73m2 (>=60 - ) 11/08/2015 09:35 EGFR (MDRD) (L) 28 mL/min/1.73m2 (>=60 - ) 11/08/2015 09:35 BUN (H) 28 mg/dL (8 - 24) 11/08/2015 09:35 Calcium Lvl 9.7 mg/dL (8.8 - 10.3) 11/08/2015 09:35 Protein Total 7.0 G/DL (6.3 - 7.9) 11/08/2015 09:35 Albumin Lvl 4.3 G/DL (3.2 - 5.2) 11/08/2015 09:35 AST 26 unit/L (8 - 48) 11/08/2015 09:35 ALT 23 unit/L (7 - 55) 11/08/2015 09:35 Bili Total 0.5 mg/dL (0.1 - 1.0) 11/08/2015 09:35 Bili Direct <0.20 mg/dL ( - <=0.30) Source: [facility] POWERCHART Document Id: [id number] Electronically signed by Conversion, [facility] [employer] [id number] at 08/17/2016 1:54 AM CDT Miscellaneous - Miguel A Mitchell M.D. - 11/08/2015 12:48 PM CDT Results Notification Document Contains Addenda Addendum by GALINA CHIN LPN on November 08, 2015 14:47:09 CDT called with results From: MIGUEL A MITCHELL MD To: TONY Mitchell Nurse; Sent: 11/08/2015 12:48:45 CDT ! Show up: 11/08/2015 12:48:45 CDT Subject: Results Notification Actions: Notify patient of results Reminder Comments: normal Results: Date Result Name Value Ref Range 11/08/2015 09:35 Hgb A1c 5.4 % A1C ( - <=5.6) Source: [facility] [employer] Document Id: [id number] Electronically signed by Conversion, [facility] [employer] [id number] at 08/17/2016 1:54 AM CDT Telephone Encounter - Conversion, Historical Provider Ser - 11/08/2015 10:14 AM CDT *Phone Message/Marlen Mitchell Document Contains Addenda Addendum by GALINA CHIN LPN on November 08, 2015 10:41:[address] Mitchell would like patient to wait on referral until work up is done on patient visit from today From: SAHIL BANDA To: TONY Mitchell Nurse; Sent: 11/08/2015 10:14:48 CDT Subject: *Phone Message/Marlen Mitchell Caller is: ( x ) Patient ( ) Mother ( ) Father ( ) Spouse ( ) Daughter ( ) Son ( ) Pharmacy ( ) Other: Physician: Patient MRN #: Reason for Call: Atilio forgot to ask Dr. Mitchell about a referral for a hip surgery. Please call Atilio back at [phone] (fdml). Message: Advice/Action: Source used: ( ) Verbalizes understanding of instructions ( ) Instructed to call back if symptoms worsen or do not resolve ( ) Refused to see provider ( ) Appointment Scheduled ( ) OK to leave message on voice mail ( ) Patient told to expect return call: ( ) today ( ) tomorrow ( ) next work day ( ) Patient's email ( ) Patient told physician out of office, will call upon return call on ( ) ( ) Patient told physician out of office, routed to other physician ( ) Other ( ) Call back telephone number ( ) Call back cell phone number ( ) Source: [facility] POWERCHART Document Id: [id number] Miscellaneous - Miguel A Mitchell M.D. - 11/08/2015 10:11 AM CDT Results Notification Document Contains Addenda Addendum by MIGUEL A MITCHELL MD on November 08, 2015 11:05:41 CDT From: MIGUEL A MITCHELL MD To: TONY Mitchell Nurse; Sent: 11/08/2015 11:05:41 CDT Show up: 11/08/2015 11:05:00 CDT Subject: RE: Results Notification will await other labs for now Addendum by GALINA CHIN LPN on November 08, 2015 10:39:19 CDT From: GALINA CHNI LPN ( Miguel A Mitchell Nurse) To: MIGUEL A MITCHELL MD; Sent: 11/08/2015 10:39:19 CDT Show up: 11/08/2015 10:39:00 CDT Subject: RE: Results Notification patient called reports no blood noted From: MIGUEL A MITCHELL MD To: TONY Mitchell Nurse; Sent: 11/08/2015 10:11:43 CDT ! Show up: 11/08/2015 10:11:43 CDT Subject: Results Notification Actions: Notify patient of results Reminder Comments: anemia, urine looks fine. Seen any blood loss, or dark tarry stools? Results: Date Result Name Ind Value Ref Range 11/08/2015 09:35 Hgb (L) 12.3 g/dL (13.5 - 17.5) 11/08/2015 09:35 Hct (L) 36.3 % (38.8 - 50.0) 11/08/2015 09:35 WBC 7.9 x10(9)/L (3.5 - 10.5) 11/08/2015 09:35 RBC (L) 4.13 x10(12)/L (4.32 - 5.72) 11/08/2015 09:35 MCV 87.9 fL (81.0 - 95.0) 11/08/2015 09:35 RDW 12.5 % (11.8 - 15.6) 11/08/2015 09:35 Platelet 196 x10(9)/L (150 - 450) 11/08/2015 09:35 Neutro Absolute 5.92 10(9)/L (1.70 - 7.00) 11/08/2015 09:35 Lymph Absolute 1.11 x10(9)/L (0.90 - 2.90) 11/08/2015 09:35 Mclennan Absolute 0.58 x10(9)/L (0.30 - 0.90) 11/08/2015 09:35 Eos Absolute 0.21 x10(9)/L (0.05 - 0.50) 11/08/2015 09:35 Baso Absolute 0.06 x10(9)/L (0.00 - 0.30) 11/08/2015 09:27 UA Color Yellow (Colorless - ) 11/08/2015 09:27 UA Clarity Clear (Clear - ) 11/08/2015 09:27 UA Spec Grav <=1.005 11/08/2015 09:27 UA pH 5.5 (<5.0 - ) 11/08/2015 09:27 UA Protein Negative mg/dL (Negative - ) 11/08/2015 09:27 UA Glucose Negative mg/dL (Negative - ) 11/08/2015 09:27 UA Ketones Negative mg/dL (Negative - ) 11/08/2015 09:27 UA Bili Negative (Negative - ) 11/08/2015 09:27 UA Urobilinogen 0.2 mg/dL (0.2 - ) 11/08/2015 09:27 UA Blood Negative (Negative - ) 11/08/2015 09:27 UA Nitrite Negative (Negative - ) 11/08/2015 09:27 UA Leuk Est Negative (Negative - ) 11/08/2015 09:27 UR WBC Occ-3 /HPF (None Seen - ) 11/08/2015 09:27 UR RBC None Seen /HPF (None Seen - ) Source: [facility] POWERCHART Document Id: [id number] Electronically signed by Conversion, [facility] [employer] [id number] at 08/17/2016 1:54 AM CDT Miscellaneous - Miguel A Mitchell M.D. - 11/08/2015 8:53 AM CDT Ambulatory Patient Summary [address] [place] [id number] Visit Information Name: ATILIO NEWMANIN [facility] Number: [id number] Current Date: 11/08/2015 08:53:34 Physicians Attending Provider: MIGUEL A MITCHELL MD Primary Care Provider: MIGUEL A MITCHELL MD EMMYJUAN JOSENADIASHERRI ATILIO LOPEZ has been given the following list of [...] day multivitamin (multivitamin) Oral, once a day sildenafil (Viagra 50 mg oral tablet) 1 Tablet(s), Oral, once a day as needed for Erectile dysfunction tamsulosin (Flomax 0.4 mg oral capsule) 1 cap, Oral, two times a day valsartan (valsartan 320 mg oral tablet) 1 Tablet(s), Oral, once a day This is a CHANGE Routed to [facility] [address] [place] [id number] Stop Taking the Following Medications: Medication list as of 11-08-15 08:53 Attention: If you have any medications at [...] Signed By: MIGUEL A MITCHELL MD Signed On:08-NOV-2015 08:50:19 Your Allergies & Intolerances Substance Reaction Symptoms [...] Elastosis Solar Active Hypertension (HTN) NOS Active Your Upcoming Appointments Date Time Location Provider No Appointments found Attention: Contact your local Clinic if further appointment detail needed. Taking Your Blood Pressure Blood pressure is the force of blood as it moves from the heart through the blood vessels. You can take your own blood pressure reading using a digital monitor. Take readings as often as your doctor instructs. Take each reading at the same time of day. 1. Relax ?? Wait at least a half-hour after smoking, eating, or exercising. ?? Sit comfortably at a table. Place the monitor near you. ?? Rest for a few minutes before you begin. 2. Wrap the Cuff ?? Place your arm on the table, palm up. Your arm should be at the level of your heart. Wrap the cuff around your upper arm, just above your elbow. Its best done on bare skin, not over clothing. ?? Make sure your cuff fits. If it doesnt wrap around your upper arm, order a larger cuff. 3. Inflate the Cuff ?? Pump the cuff until the scale reads 160. If you have a self-inflating cuff, push the button that starts the pump. ?? The cuff will tighten, then loosen. ?? The numbers will change. When they stop changing, your blood pressure reading will appear. ?? If you get a reading that is too high or too low for you, relax for a few minutes. Then do the test again. 4. Write Down the Results ?? Write down your blood pressure numbers. Note the date and time. Keep your results in one place, such as a notebook. ?? Remove the cuff from your arm. Turn off the machine. ?? [id number] [facility], [address] [place] [address], [place] [address]. All rights reserved. This information is not [...] if you dont have one. Go to [employer]lineservices and click on Create Your Account. Then, follow the directions to complete the online form. Youll be asked for your [facility] number which you can find at the top of this document. Your Goals/Additional instructions: This document has images extracted. Please consider using [employer] for all your patient education needs. Source: [facility] POWERCHART Document Id: [id number] Miscellaneous - Miguel A Mitchell M.D. - 11/08/2015 8:53 AM CDT Ambulatory Discharge Medication List [address] [id number] Visit Information Name: ATILIO NEWMAN [facility] Number: [id number] Visit Date: 11/08/2015 08:53:33 Attending Provider: MIGUEL A MITCHELL MD Primary Care Provider: MIGUEL A MITCHELL MD ATILIO NEWMAN has been given the following list of [...] day multivitamin (multivitamin) Oral, once a day sildenafil (Viagra 50 mg oral tablet) 1 Tablet(s), Oral, once a day as needed for Erectile dysfunction tamsulosin (Flomax 0.4 mg oral capsule) 1 cap, Oral, two times a day valsartan (valsartan 320 mg oral tablet) 1 Tablet(s), Oral, once a day This is a CHANGE Routed to [facility] [address] [place] [address] Stop Taking the Following Medications: Medication list as of 11-08-15 08:53 Attention: If you have any medications at [...] Signed By: MIGUEL A MITCHELL MD Signed On:08-NOV-2015 08:50:19 Additional Information: Source: [facility] POWERCHART Document Id: [id number] Miscellaneous - Galina Chin L.PLaceyN. - 11/08/2015 8:36 AM CDT Ambulatory Vitals Height Weight Ambulatory Vitals Height Weight Entered On: 11/08/2015 8:37 CDT Performed On: 11/08/2015 8:36 CDT by GALINA CHIN LPN Vitals/Ht/Wt Systolic Blood Pressure : 162 mmHg (>HHI) Diastolic Blood Pressure : 82 mmHg NIBP Mean : 109 mmHg BP Location : Left upper extremity Blood Pressure Cuff Size : Large Height : 185 cm(Converted to: 6 ft 1 inch(es), 73 inch(es)) GALINA CHIN LPN - 11/08/2015 8:36 CDT Source: [facility] POWERCHART Document Id: [id number] CDT!8 Miscellaneous - Galina Chin L.P.N. - 11/08/2015 8:33 AM CDT Adult Public Accountant Intake/History Adult Public Accountant Intake/History Entered On: 11/08/2015 8:36 CDT Performed On: 11/08/2015 8:33 CDT by GALINA CHIN LPN Intake Chief Complaint : tired up voiding at night Temperature Core : 36.7 DegC(Converted to: 98.1 DegF) Peripheral Pulse Rate : 80 /min Respiratory Rate : 16 /min Heart Rhythm : Regular Systolic Blood Pressure : 162 mmHg (>HHI) Diastolic Blood Pressure : 80 mmHg NIBP Mean : 107 mmHg BP Location : Left upper extremity Blood Pressure Cuff Size : Large Height : 185 cm(Converted to: 6 ft 1 inch(es), 73 inch(es)) Actual Weight : 97 kg(Converted to: 213 lb 14 oz) Weight Source : Standing scale Dosing Weight Clinic : 97 kg Clinic BSA : 2.23 Body Mass Index : 28.34 kg/m2 CHINCOSTAGALINAYVES RAMIREZ LPN - 11/08/2015 8:33 CDT General Info Information Given By : Patient Languages : Icelandic Is Patient Female and 13-50 no hysterectomy : No GALINA CHIN LPN - 11/08/2015 8:33 CDT Subjective Pain Symptoms : No GALINA CHIN LPN - 11/08/2015 8:33 CDT Dependent Habits Exposure to Tobacco Smoke : Other: NEVER Smoking Status : Never smoker Tobacco 2A : No Tobacco Use/Currently Using : No Tobacco Use/Last 30 Days : No Tobacco Use/Last 12 months : No GALINA CHIN LPN - 11/08/2015 8:33 CDT Caffeine Use Grid Caffeine Use : Current Type : Soft drinks Frequency : Daily GALINA CHIN LPN - 11/08/2015 8:33 CDT Recreational Drug Use Grid Drug Use : None GALINA CHIN ASHLEY FURNACE UNLOADER - 11/08/2015 8:33 CDT Source: [facility] POWERCHART Document Id: [id number] CDT!39 documented in this encounter Plan of Treatment Not on filedocumented as of this encounter Procedures Procedure Name Priority Date/Time Associated Comments Diagnosis HEPATIC FUNCTION Routine 11/08/2015 9:35 AM Resul ts for this PANEL, S CDT procedure are i n the results section. THYROID FUNCTION Routine 11/08/2015 9:35 AM Resul ts for this CASCADE, S CDT procedure are i n the results section. AUTOMATED Routine 11/08/2015 9:35 AM Results f or this DIFFERENTIAL, B CDT procedure ar e in the results section. CBC WITH Routine 11/08/2015 9:35 AM Results f or this DIFFERENTIAL, B CDT procedure ar e in the results section. HEMOGLOBIN A1C, B Routine 11/08/2015 9:35 AM Resu lts for this CDT procedure are i n the results section. BASIC METABOLIC Routine 11/08/2015 9:35 AM Result s for this PANEL, S/P CDT procedure are i n the results section. URINALYSIS, Routine 11/08/2015 9:27 AM Results f or this MIDSTREAM, WITH CDT procedure ar e in CULTURE IF INDICATED the res ults section. documented in this encounter Results Automated Differential (11/08/2015 9:35 AM CDT) P athologist Signature Absolute 5.92 1.70 - POWERCHART Neutrophils 7.00 109L Lymphocytes 1.11 0.90 - POWERCHART 2.90 X109L Monocytes 0.58 0.30 - POWERCHART 0.90 X109L Eosinophils 0.21 0.05 - POWERCHART 0.50 X109L Absolute 0.06 0.00 - POWERCHART Basophil 0.30 X109L Specimen Anatomical Collection Method Collection Time Receive d Time (Source) Location / / Volume Laterality Blood 11/08/2015 9:35 AM 6 9:35 CDT AM CDT Miguel A Mitchell M.D. LAB BLOOD ADD-ON Performing Organization Address City/State/ZIP Code Phon e Number POWERCHART (ABNORMAL) CBC with Differential (11/08/2015 9:35 AM CDT) Analysis Performed At Patho logist Time Signature Leukocytes 7.9 3.5 - 10.5 POWERCHART X109L Erythrocytes 4.13 (L) 4.32 - POWERCHART 5.72 M6816T Hemoglobin 12.3 (L) 13.5 - POWERCHART 17.5 GDL Hematocrit 36.3 (L) 38.8 - POWERCHART 50.0 MCV 87.9 81.0 - POWERCHART 95.0 FL Platelet Count 196 150 - 450 POWERCHART X109L HX RDW 12.5 11.8 - POWERCHART 15.6 Specimen (Source) Anatomical Collection Method Collection Time Re ceived Time Location / / Volume Laterality Blood 11/08/2015 9:35 AM CDT Miguel A Mitchell M.D. LAB BLOOD ADD-ON Performing Organization Address [facility] Code Phon e Number POWERCHART Hepatic Function Panel (11/08/2015 9:35 AM CDT) Patholo gist Method Time Signature Alanine 23 7 - 55 POWERCHART Amniotransferase, LD UNITL Albumin, S 4.3 3.2 - 5.2 POWERCHART GDL Alkaline 68 45 - 115 POWERCHART Phosphatase, S UNITL Aspartate 26 8 - 48 POWERCHART Aminotransferase UNITL (AST), S Bilirubin, Direct, S <0.20 <=0.30 POWERCHAR T MGDL Bilirubin, Total, S 0.5 0.1 - 1.0 POWERCHART MGDL Total Protein, S 7.0 6.3 - 7.9 POWERCHART GDL Specimen (Source) Anatomical Collection Method Collection Time Re ceived Time Location / / Volume Laterality Blood 11/08/2015 9:35 AM CDT Miguel A Mitchell M.D. LAB BLOOD ADD-ON Performing Organization Address City/[facility] Code Phon e Number POWERCHART Thyroid Function [place] (11/08/2015 9:35 AM CDT) P athologist Signature TSH, Sensitive 2.2 0.3 - 4.2 POWERCHART MIUL Comment: Test Performed by: [address] [address] [place] Mining Machine Helper: Gt Schmid II, M.D., Ph.D. Specimen (Source) Anatomical Collection Method Collection Time Re ceived Time Location / / Volume Laterality Blood 11/08/2015 9:35 AM CDT Miguel A Mitchell M.D. LAB BLOOD ADD-ON Performing Organization Address City/State/ZIP Code Phon e Number POWERCHART Hemoglobin A1c (11/08/2015 9:35 AM CDT) P athologist Signature Hemoglobin A1c, 5.4 <=5.6 A1C POWERCHART B Specimen (Source) Anatomical Collection Method Collection Time Re ceived Time Location / / Volume Laterality Blood 11/08/2015 9:35 AM CDT Miguel A Mitchell M.D. LAB BLOOD ADD-ON Performing Organization Address City/[facility]/ZIP Code Phon e Number POWERCHART (ABNORMAL) BMP (Basic Metabolic Panel) (11/08/2015 9:35 AM CDT) Analysis Performed At Patho logist Time Signature Sodium, S 144 135 - 145 POWERCHART MMOLL Potassium, S 4.6 3.6 - 5.2 POWERCHART MMOLL Chloride, S 111 (H) 98 - 107 POWERCHART MMOLL CO2 Total 23 22 - 29 POWERCHART MMOLL BUN (Blood Urea 28 (H) 8 - 24 POWERCHART Nitrogen), S MGDL Creatinine 2.74 (H) 0.80 - POWERCHART 1.30 MGDL Calcium, Total, 9.7 8.8 - 10.3 POWERCHART S MGDL Anion Gap 10 7 - 15 POWERCHART MMOLL HXeGFR (MDRD) 24 (L) >=60 POWERCHART [id number] eGFR 28 (L) >=60 POWERCHART Black/ [id number] [place] Glucose 101 70 - 139 POWERCHART MGDL Specimen (Source) Anatomical Collection Method Collection Time Re ceived Time Location / / Volume Laterality Blood 11/08/2015 9:35 AM CDT Miguel A Mitchell M.D. LAB BLOOD ADD-ON Performing Organization Address City/[facility]/ZIP Code Phon e Number POWERCHART Urinalysis, Midstream, with culture if indicated (11/08/2015 9:27 AM CDT) Patholo gist Method Time Signature Clarity Clear Clear POWERCHART HXUr Color Yellow Colorless POWERCHART Specific <=1.005 POWERCHART [place], POCT, U pH, POCT, Urine 5.5 <5.0 POWERCHART Protein, Ur, Dip Negative Negative POWERCHART MGDL Glucose Negative Negative POWERCHART MGDL Ketones, QL(U) Negative Negative POWERCHART MGDL HXBILIRUBIN Negative Negative POWERCHART HXBLOOD Negative Negative POWERCHART Leukocyte Negative Negative POWERCHART Esterase HXNITRITE Negative Negative POWERCHART Urobilinogen 0.2 0.2 MGDL POWERCHART HXUR WBC. Occ-3 None Seen POWERCHART HPF HXUR RBC. None Seen None Seen POWERCHART HPF Specimen (Source) Anatomical Collection Method Collection Time Re ceived Time Location / / Volume Laterality Urine, First 11/08/2015 9:27 AM Voided CDT Miguel A Mitchell M.D. LAB URINE ORDERABLES Performing Organization Address City/State/ZIP Code Phon e Number POWERCHART documented in this encounter Visit Diagnoses Not on filedocumented in this encounter
--- OUTSIDE RECORDS SUMMARY | 2022-01-20 10:00 | XMS_ITS | Encounter Summary ---
:1950 Author Organization [facility] Address [address] [place] [address] Care Team Providers Name Role Phone Unavailable Primary Care Provider Unavailable Encounter Details Date Type Department Care Team Description 12/17/2015 Hospital Encounter HX NO MAPPING Missael Mitchell M.D. [address] [place], [place] [address] (Wo rk) Social History Tobacco Use Types Packs/Day Years Used Date Smoking Tobacco: Never Assessed Sex Assigned at Date Recorded Not on file documented as of this encounter Miscellaneous Notes Miscellaneous - Conversion, Historical Provider Ser - 12/17/2015 11:59 PM CDT Coding Summary-Paper Based CODING DATE: 12/27/2015 FINAL [facility] STATUS: * Discharged to Home or Self Care PAYOR: Commercial Insurance ADMIT DX: REASON FOR VISIT DX: FINAL DX: PRINCIPAL: Z01.818 Encounter for other preprocedural examination SECONDARY: K31.89 Other diseases of stomach and duodenum PROCEDURES DOCTOR NAME DATE NOTE: The code number assigned matches the documented diagnosis and / or procedure in the patient's chart. However, the narrative phrase printed from the coding software may appear abbreviated, or result in slightly different terminology. Coded By: RAFAEL FERNANDO Date Saved: 12/27/2015 06:27 am Source: [employer] Document Id: [id number] documented in this encounter Plan of Treatment Not on filedocumented as of this encounter Visit Diagnoses Not on filedocumented in this encounter
--- OUTSIDE RECORDS SUMMARY | 2022-01-20 10:00 | XMS_ITS | Encounter Summary ---
:1950 Author Organization [facility] Address [address] [place] [address] Care Team Providers Name Role Phone Addy Reyes M.D. Primary Care Provider Encounter Details Date Type Department Care Team Description 02/08/2018 Orders Only Department of [facility] Baljit Reyes M.D. Internal Medicine in [address] [place] [address] [address] [place] [address] [place] [address] [phone] Social History Tobacco Use Types Packs/Day Years Used Date Smoking Tobacco: Never Smokeless Tobacco: Never Sex Assigned at Date Recorded Not on file documented as of this encounter Plan of Treatment Not on filedocumented as of this encounter Visit Diagnoses Not on filedocumented in this encounter Care Teams Rate Setter Relationship Specialty Start Date End Date Addy Reyes M.D. PCP - General Internal Medicine 11/13/17 04/18/18 documented as of this encounter
--- OUTSIDE RECORDS SUMMARY | 2022-01-20 10:00 | XMS_ITS | Encounter Summary ---
:1950 Author Organization [facility] Address [address] [place] [address] Care Team Providers Name Role Phone Jefferson Mitchell M.D. Primary Care Provider Encounter Details Date Type Department Care Team Description 07/30/2017 Orders Only [address] [facility] Internal Medicine in [address] [place] [address] [address] [facility] [place] [address] Social History Tobacco Use Types Packs/Day Years Used Date Smoking Tobacco: Never Sex Assigned at Date Recorded Not on file documented as of this encounter Plan of Treatment Not on filedocumented as of this encounter Visit Diagnoses Not on filedocumented in this encounter Care Teams Down Filler Relationship Specialty Start Date End Date Jefferson Mitchell M.D. PCP - General 09/04/16 11/12/17 [address] [place], [place] [id number] documented as of this encounter
--- OUTSIDE RECORDS SUMMARY | 2022-01-20 10:00 | XMS_ITS | Encounter Summary ---
:1950 Author Organization [facility] Address [address] [place] [address] Care Team Providers Name Role Phone Unavailable Primary Care Provider Unavailable Encounter Details Date Type Department Care Team Description 03/18/2013 Hospital Encounter HX [facility] JESSIE GARCIA Provider, Hi kathy Social History Tobacco Use Types Packs/Day Years Used Date Smoking Tobacco: Never Assessed Sex Assigned at Date Recorded Not on file documented as of this encounter Plan of Treatment Not on filedocumented as of this encounter Visit Diagnoses Not on filedocumented in this encounter
--- OUTSIDE RECORDS SUMMARY | 2022-01-20 10:00 | XMS_ITS | Encounter Summary ---
:1950 Author Organization [facility] Address [address] [place] [address] Care Team Providers Name Role Phone Unavailable Primary Care Provider Unavailable Encounter Details Date Type Department Care Team Description 11/29/2013 Hospital Encounter HX [facility] Summer Palacios M.D. [address] [place] [address], [place] [address] (Wo rk) Social History Tobacco Use Types Packs/Day Years Used Date Smoking Tobacco: Never Assessed Sex Assigned at Date Recorded Not on file documented as of this encounter Last Filed Vital Signs Vital Sign Reading Time Taken Comments Blood Pressure 136/84 11/29/2013 1:28 PM CDT Pulse 88 11/29/2013 1:28 PM CDT Temperature - - Respiratory Rate - - Oxygen Saturation - - Inhaled Oxygen Concentration - - Weight - - Height 185 cm (6' 0.84) 11/29/2013 1:28 PM CDT Body Mass Index - - documented in this encounter Progress Notes Idania Palacios M.D. - 11/29/2013 1:20 PM CDT [id number] CHIEF COMPLAINT/REASON FOR VISIT Full skin exam for skin cancer. HISTORY OF PRESENT ILLNESS This 63-year-old male is here for a full skin exam to rule out skin cancer. He has a history of a basal cell carcinoma and has had atypical nevi in the past. He has always had a lot of moles and comes in once a year to have them evaluated for any changes. He has not noticed any changes himself. MEDICATIONS Viagra. Flomax. Vitamins. Aspirin. ALLERGIES Morphine. SYSTEMS REVIEW All systems were reviewed and were negative. PAST MEDICAL/SURGICAL HISTORY Arthritis. He is anticipating surgery on his bad hip soon. 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 HOBBIES AND LEISURE ACTIVITIES: Enjoys exercising, walking and golf. SMOKING: Does not smoke. ALCOHOL: Does not drink alcohol. FAMILY HISTORY Negative for psoriasis, eczema, acne, skin cancer, hayfever, and asthma. VITAL SIGNS BP 136/84, temp 36.8 C, pulse 88. PHYSICAL EXAMINATION GENERAL: Alert and oriented x3 in no acute distress. Pleasant demeanor. Well groomed. Near ideal weight. SKIN: Skin of face, neck, back, chest, abdomen, arms, legs, hands, feet, and buttocks shows type 2 skin with a multitude of nevi, which were examined under dermoscopy and pictures were taken. He does have 1 nevus on his left posterior calf that appeared darker and more irregular than the other lesionsand we decided to remove that for pathology review. PROCEDURE: Shave biopsy. Prior to the procedure, final verification of the patient identity and correct marked surgical site was performed. Patient consent was obtained. 1.0% lidocaine with epinephrine1:200,000, buffered, was used for anesthesia. The skin was prepped with chlorhexidine. The specimen was tangentially excised through the partial thickness of the dermis using a blade, with 1 mm margins. Hemostasis achieved with Drysol. Postoperative size 4 mm. Blood loss: Minimal. Complications: None.Wound care: Routine. The specimen was sent for pathology. DIGITS: Fingers, toes, and nails are within normal limits on visualization and palpation. HEAD: Lips and teeth within normal limits. Hair of scalp and face within normal limits. EYES: Eyes and eyelids normal. THYROID: No thyromegaly. PERIPHERAL VESSELS: Peripheral vascular system intact. IMPRESSION/REPORT/PLAN 1. Skin exam for skin cancer. 2. Multiple nevi. The ABCDE criteria for moles and melanoma were reviewed with the patient. None of the patients nevi reached the clinical threshold for biopsy. I recommend continued sun protection, self-skin examinations, and observation. Should any of the patients nevi change in size, color, texture, shape, or develop symptoms such as itching or bleeding, I recommend a return visit for reassessmentas these can be signs of skin cancer. 3. Removal of 1 irregular nevus for pathology review. PLAN: Care instructions were given, and he will follow up in 1 year. We will contact him with results of biopsy report and the need to follow up as necessary. Idania Palacios M.D./julio Electronically Signed By: IDANIA PALACIOS MD On: 12/27/2013 05:36 PM Source: [facility] [email or web address] Document Id: [id number] documented in this encounter Miscellaneous Notes Miscellaneous - Idania Palacios M.D. - 12/09/2013 12:26 PM CDT Results Notification Document Contains Addenda Addendum by JAZZ CHIU on 09 December 2013 16:53:06 CDT Patient informed. From: IDANIA PALACIOS MD To: Dermatology Nurse; Sent: 12/09/2013 12:26:02 CDT Show up: 12/09/2013 12:26:00 CDT Subject: Results Notification 1.) (Medium Importance) Result Comment by CONTRIBUTOR_SYSTEM, [facility]_MML_SYS on 05 December 2013 12:14CDT A. DermPath Consultation, Wet Tissue; left posterior calf: Lentiginous junctional nevus No cancer. Normal nevus. Results: Date Result Name Value 11/29/2013 16:45 Drm Exam Accn-[facility] [id number] 11/29/2013 16:45 Drm Exam Addr[facility] See Comment 11/29/2013 16:45 Drm Exam Impr[facility] See Comment 11/29/2013 16:45 Drm Exam Mtrl[facility] See Comment 11/29/2013 16:45 Drm Exam Refer[facility] See Comment 11/29/2013 16:45 Drm Exam Sign[facility] See Comment 11/29/2013 16:45 Drm Exam Site[facility] See Comment Source: [facility] POWERCHART Document Id: [id number] Electronically signed by Conversion, [facility] Dam Tender Assistant [id number] at 08/19/2016 12:50 PM CDT Miscellaneous - Idania Palacios M.D. - 12/05/2013 5:19 PM CDT Results Notification Document Contains Addenda Addendum by JAZZ CHIU on 06 December 2013 10:43:19 CDT Message to patient with results. From: IDANIA PALACIOS MD To: Dermatology Nurse; Sent: 12/05/2013 17:19:01 CDT Show up: 12/05/2013 17:19:00 CDT Subject: Results Notification 1.) (Medium Importance) Result Comment by CONTRIBUTOR_SYSTEM, [facility]_MML_SYS on 05 December 2013 12:14 CDT A. DermPath Consultation, Wet Tissue; left posterior calf: Lentiginous junctional nevus Benign. no further treatment needed. Results: Date Result Name Value 11/29/2013 16:45 Drm Exam [facility] [id number] 11/29/2013 16:45 Drm Exam Addr[facility] See Comment 11/29/2013 16:45 Drm Exam Impr[facility] See Comment 11/29/2013 16:45 Drm Exam Mtrl[facility] See Comment 11/29/2013 16:45 Drm Exam Refer[facility] See Comment 11/29/2013 16:45 Drm Exam Sign[facility] See Comment 11/29/2013 16:45 Drm Exam Site[facility] See Comment Source: [facility] POWERCHART Document Id: [id number] Electronically signed by Conversion, [facility] Dam Tender Assistant [id number] at 08/19/2016 12:50 PM CDT Miscellaneous - Jazz Chiu, L.P.N. - 11/29/2013 1:28 PM CDT Adult Economics Lecturer Intake/History Adult Economics Lecturer Intake/History Entered On: 11/29/2013 13:31 CDT Performed On: 11/29/2013 13:28 CDT by JAZZ CHIU Intake Chief Complaint : full skin exam history of atypical nevi, BCC Temperature Oral : 36.8 DegC(Converted to: 98.2 DegF) Peripheral Pulse Rate : 88 /min Systolic Blood Pressure : 136 mmHg Diastolic Blood Pressure : 84 mmHg NIBP Mean : 101 mmHg BP Location : Right upper extremity Blood Pressure Cuff Size : Regular Height : 185 cm(Converted to: 6 ft 1 inch(es), 73 inch(es)) ARAMAGUEDAWOO [place] 11/29/2013 13:28 CDT General Info Information Given By : Patient Languages : Nicaraguan Is Patient Female and 13-50 no hysterectomy : No JAZZ CHIU - 11/29/2013 13:28 CDT Subjective Pain Symptoms : No JAZZ CHIU - 11/29/2013 13:28 CDT Dependent Habits Tobacco Use/Currently Using : No Smoking Status : Never smoker ARAM JAZZ M - 11/29/2013 13:28 CDT Caffeine Use Grid Caffeine Use : Current Type : Soft drinks Frequency : Daily JAZZ CHIU - 11/29/2013 13:28 CDT Recreational Drug Use Grid Drug Use : None JAZZ CHIU - 11/29/2013 13:28 CDT Source: [employer] Document Id: [id number] CDT!28 documented in this encounter Plan of Treatment Not on filedocumented as of this encounter Procedures Procedure Name Priority Date/Time Associated Comments Diagnosis DERMATOPATHOLOGY CONSULT Routine 11/29/2013 4:45 Results for this PM CDT procedure are i n the results section. LAB SURG PATH,LEVEL IV Routine 11/29/2013 4:45 Re sults for this PRO AND TECH PM CDT procedure are i n the results section. documented in this encounter Results LAB SURG PATH,LEVEL IV PRO AND TECH (11/29/2013 4:45 PM CDT) Analysis Performed At Patho logist Time Signature HXLvl IV Surg Performed POWERCHART [facility] Comment: Test Performed by: [address] [address] Forest Resource Specialist: Ac spencer III, M.D. Specimen Anatomical Collection Method Collection Time Receive d Time (Source) Location / / Volume Laterality Tissue 11/29/2013 4:45 PM 4 9:30 CDT AM CDT Historical Provider [facility] Performing Organization Address City/State/ZIP Code Phon e Number POWERCHART PATHOLOGY DERMPATH CONSULT, WET TISSUE (11/29/2013 4:45 PM CDT) [facility] Method Time Signature HXDrm Exam [id number] POWERCHART [facility] HXDrm Exam See Comment POWERCHART [facility] Comment: RESULT: Brittny Palacios M.D. HXDrm Exam [facility] See Comment POWERCH ART Comment: [facility] [address] [place] [address] Priority Fax HXDrm Exam [facility] See Comment POWERCH ART Comment: RESULT: A. DermPath Consultatio n, Wet Tissue; left posterior calf: HXDrm Exam [facility] See Comment POWERCH ART Comment: A. ??Received in formalin labeled with t he patient's name and and lab eled as left posterior calf is a 0.5 x 0.4 x 0.1 cm skin shave biopsy. ??There is a 0.2 x 0.2 cm brown pigmented lesion with irreg ular borders eccentrically located on the skin surface. ??The speci men is bisected and submitted entirely in cassette A1. HXDrm Exam [facility] See Comment POWERCH ART Comment: A. ??DermPath Consultation, Wet Tissue; left posterior calf: Lentiginous junctional nevus HXDrm Exam [facility] See Comment POWERCH ART Comment: RESULT: 12/05/2013 12:08 ??Interpreted by : Verónica Nichols M.D Report electronically signed by Verónica Nichols M.D. Transcribed by: [email or web address] 12/05/2013 09:25:50 Test Performed by: [facility] [address] [place] [address] Forest Resource Specialist: Ac spencer III, M.D. Specimen (Source) Anatomical Collection Method Collection Time Re ceived Time Location / / Volume Laterality Tissue 11/29/2013 4:45 PM CDT Idania Palacios M.D. LAB PATH DERM ORDERABLES Performing Organization Address City/State/ZIP Code Phon e Number POWERCHART documented in this encounter Visit Diagnoses Not on filedocumented in this encounter
--- OUTSIDE RECORDS SUMMARY | 2022-01-20 10:00 | XMS_ITS | Encounter Summary ---
:1950 Author Organization [facility] Address [address] [place] [address] Care Team Providers Name Role Phone Jefferson Mitchell M.D. Primary Care Provider Encounter Details Date Type Department Care Team Description 09/09/2017 Clinical Communication Department of Nicole Reddy, Medicine, [place] Veronica TREJONJustin [facility], in [place], [address] [place], [place] [address] [facility] [address] [place], [place] [phone] [address] (Work) [phone] Social History Tobacco Use Types Packs/Day Years Used Date Smoking Tobacco: Never Smokeless Tobacco: Never Sex Assigned at Date Recorded Not on file documented as of this encounter Plan of Treatment Not on filedocumented as of this encounter Visit Diagnoses Diagnosis Gastrectomy Partial Status Post - Primar y documented in this encounter Care Teams [employer] Assistant Teacher Relationship Specialty Start Date End Date Jefferson Mitchell M.D. PCP - General 09/04/16 11/12/17 [address] [place], [place] [id number] documented as of this encounter
--- OUTSIDE RECORDS SUMMARY | 2022-01-20 10:00 | XMS_ITS | Encounter Summary ---
:1950 Author Organization [facility] Address [address] [place] [address] Care Team Providers Name Role Phone Jefferson Mitchell M.D. Primary Care Provider Reason for Referral Outpatient (Routine) - Closed Specialty Diagnoses / Procedures Referred By Contact Refer red To Contact General Surgery Diagnoses Hernia Inguinal Right Eliezer Ledezma Fulco, Jose M, M.D. M.B.BLaceySLacey, MAshanti [address] [place] [address] [address] [place] [address] [place], [place] Phone: [phone] Referral ID Status Reason Start Date Expiration Visits Visits Date Requested Authorized [id number] Closed Patient 08/07/2017 02/03/2018 1 1 Preference Reason for Visit Reason Comments Inguinal Hernia Right side; increased pain i n the past few days B12 Injection Last one given 06/30/17 Encounter Details Date Type Department Care Team Description 08/07/2017 Office Visit Department of [facility] Eliezer Ledezma Inguinal Right (Primary Dx); Medicine, Nyasia RowellBLaceyB.S., Gastrec xavier Partial Status Post Clinic, in [place] [address] [facility] [address] [place] [id number] Social History Tobacco Use Types Packs/Day Years Used Date Smoking Tobacco: Never Sex Assigned at Date Recorded Not on file documented as of this encounter Last Filed Vital Signs Vital Sign Reading Time Taken Comments Blood Pressure 124/62 08/07/2017 2:15 PM CDT Pulse 100 08/07/2017 2:15 PM CDT Temperature 36.7 ??C (98.1 ??F) 08/07/2017 2:15 PM CDT Respiratory Rate 16 08/07/2017 2:15 PM CDT Oxygen Saturation 99% 08/07/2017 2:15 PM CDT Inhaled Oxygen Concentration - - Weight 71.3 kg (157 lb 3 oz) 08/07/2017 2:15 PM CDT Height - - Body Mass Index 20.83 01/22/2017 2:15 PM CDT documented in this encounter H&P Notes Eliezer Ledezma M.D., M.B.B.S. - 08/07/2017 2:15 PM CDT SUBJECTIVE CHIEF COMPLAINT / REASON FOR VISIT Atilio Austin is a 66 y.o. male who presents for evaluation of Inguinal Hernia (Right side; increased pain in the past few days ) and B12 Injection (Last one given 06/30/17). HISTORY OF PRESENT ILLNESS Patient is here with a 1 month history of right groin pain. Pain has been intermittent but has been getting worse. It occurs more at the end of the day. He has also noticed some swelling in his right groin. Patient reports that he has been doing lots of moving and lifting of heavy furniture to help his mother move into assisted living. Patient denies any fever or chills. He has had no nausea or vomiting. He has had no melena or bloodystools. He reports some constipation and some weight loss but he has seen a childcare worker for this. Patient denies any dysuria, urinary frequency or hematuria. He has had no urgency, dribbling or nocturia. He denies any loss of appetite. 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 Hehad a partial gastrectomy at that time. He is on routine B12 injections and would like to get this done today. He is also concerned that the pain might be associated with that cancer. He has regular followups with Oncology. The following portions of the patient's history were reviewed and updated as appropriate: allergies,current medications, family history, medical history, social history, surgical history and problem list. REVIEW OF SYSTEMS Pertinent items are noted in HPI. OBJECTIVE BP 124/62 Pulse 100 Temp 36.7 ??C Resp 16 Wt 71.3 kg SpO2 99% BMI 20.83 kg/m?? PHYSICAL EXAM General Appearance: healthy, alert, no distress, cooperative. Head: normocephalic, no masses, lesions, tenderness or abnormalities. Abdomen: Abdomen soft, non-tender. Bowel sounds normal. No masses, organomegaly, negative CVA tenderness. Groin: Reducible right groin swelling. Swelling increases with increased intra- abdominal pressure.. ASSESSMENT / PLAN #1 Gastrectomy Partial Status Post Patient will receive a 1000 mcg of vitamin B12 today. - cyanocobalamin 1,000 mcg/mL injection 1,000 mcg (VITAMIN B12); 1,000 mcg, intramuscular, Once, Thu08/07/17 at 1500, For 1 dose #2 Hernia Inguinal Right Patient has been referred to General surgery, specifically [facility] and [facility] (patient's preference) for surgical review. - External referral physician (non-Neeses) documented in this encounter Plan of Treatment Not on filedocumented as of this encounter Visit Diagnoses Diagnosis Hernia Inguinal Right - Primary Gastrectomy Partial Status Post documented in this encounter Administered Medications Inactive Administered Medications - up to 3 most recent administrations Medication Order MAR Action Action Date Dose Rate Site cyanocobalamin 1,000 mcg/mL Given 08/07/2017 3:10 PM 1,000 mcg Left Deltoid injection 1,000 mcg CDT (VITAMIN B12) 1,000 mcg, intramuscular, Once, On Thu08/07/17 at 1500, For 1 dose documented in this encounter Care Teams Division Sergeant Relationship Specialty Start Date End Date Jefferson Mitchell M.D. PCP - General 09/04/16 11/12/[address] [place] [address] [place] [address] documented as of this encounter
--- OUTSIDE RECORDS SUMMARY | 2022-01-20 10:00 | XMS_ITS | Encounter Summary ---
:1950 Author Organization [facility] Address [address] [place] [address] Care Team Providers Name Role Phone Unavailable Primary Care Provider Unavailable Encounter Details Date Type Department Care Team Description 05/17/2015 Hospital Encounter HX [facility] INTERNMED Haja Mitchell M.D. [address] [place], [place] [address] (Wo rk) Social History Tobacco Use Types Packs/Day Years Used Date Smoking Tobacco: Never Assessed Sex Assigned at Date Recorded Not on file documented as of this encounter Last Filed Vital Signs Vital Sign Reading Time Taken Comments Blood Pressure 140/80 05/17/2015 8:27 AM FLATWORK FINISHER HAND Pulse 88 05/17/2015 8:26 AM FLATWORK FINISHER HAND Temperature - - Respiratory Rate 16 05/17/2015 8:26 AM FLATWORK FINISHER HAND Oxygen Saturation - - Inhaled Oxygen Concentration - - Weight 102 kg (224 lb 13.9 oz) 05/17/2015 8:26 AM FLATWORK FINISHER HAND Height 185 cm (6' 0.84) 05/17/2015 8:27 AM FLATWORK FINISHER HAND Body Mass Index 29.8 05/17/2015 8:26 AM FLATWORK FINISHER HAND documented in this encounter Progress Notes Miguel A Mitchell M.D. - 05/17/2015 8:16 AM CST [id number] CHIEF COMPLAINT/REASON FOR VISIT Elevated blood pressure without the diagnosis of hypertension. HISTORY OF PRESENT ILLNESS Patient comes to check his blood pressure today. Initial check was a little high but 2nd check was meeting goals. He is on Flomax now 0.4 mg by mouth 2 times a day and that has helped his urination andhe is quite satisfied with that. That is an alpha mariely so there is some hypertensive effect with it. The patient does not want to start a new medicine and he feels that stress in his family and stress with possibly inability to exercise because of a hip problem is giving him trouble. He is going to have his hip repaired probably in the summer. MEDICATIONS See medicine list in EHR. ALLERGIES [...] documentation form for this visit. PHYSICAL EXAMINATION Not performed. IMPRESSION/REPORT/PLAN He has elevated blood pressure without the diagnosis of hypertension. His blood pressure flirts withelevation but is not actually consistently there. He wishes to avoid a pill so we will honor that request and simply have him check his blood pressure at home periodically and then he can be checked next when he has a preop for his hip arthroplasty. He is going to do that in [place] probably. If the blood pressure stays elevated at any point on 3 separate occasions so that the diagnosis of hypertension can be made then he should start treatment and I would favor an ARB such as losartan. He will continue on current medicines at the moment without change. Miguel A Mitchell M.D./julio Electronically Signed By: MIGUEL A MITCHELL MD On: 05/17/2015 02:56 PM Source: [facility] MHSDOLBEYNONRADSYS Document Id: [id number] WORK FINISHER HAND documented in this encounter Miscellaneous Notes Miscellaneous - Miguel A Mitchell M.D. - 05/17/2015 8:40 AM CST Ambulatory Patient Summary [address] [id number] Visit Information Name: ATILIO AUSTIN [facility] Number: [id number] Current Date: 05/17/2015 08:40:12 Physicians Attending Provider: MIGUEL A MITCHELL MD [...] 1 cap, Oral, two times a day Stop Taking the Following Medications: Medication list as of 05-17-15 08:40 Attention: If you have any medications at home that are not on this list, DO NOT take them until youcontact your provider for clarification. Give a copy of your medication list to your primary care provider. Update your medication list any time medications or doses are changed and carry your medication list at all times in case of emergency. Electronically Signed By: Signed On: Your Allergies & Intolerances Substance Reaction Symptoms [...] local Clinic if further appointment detail needed. Controlling High Blood Pressure High blood pressure (hypertension) is called the silent killer. This is because many people who haveit dont know it. Normal blood pressure is less than 120/80. Know your blood pressure and remember tocheck it regularly. Doing so can save your life. Here are some things you can do to help control your blood pressure. Choose heart-healthy foods ?? Select low-salt, low-fat foods. ?? Limit canned, dried, cured, packaged, and fast foods. These can contain a lot of salt. ?? Eat 8--10 servings of fruits and vegetables every day. ?? Choose lean meats, fish, or chicken. ?? Eat whole-grain pasta, brown rice, and beans. ?? Eat 2--3 servings of low-fat or fat-free dairy products ?? Ask your doctor about the DASH eating plan. This plan helps reduce blood pressure. Maintain a healthy weight ?? Ask your healthcare provider how many calories to eat a day. Then stick to that number. ?? Ask your healthcare provider what weight range is healthiest for you. If you are overweight, weight loss of only 10 lbs can help lower blood pressure. ?? Limit snacks and sweets. ?? Get regular exercise. Get up and get active ?? Choose activities you enjoy. Find ones you can do with friends or family. ?? Park farther away from building entrances. ?? Use stairs instead of the elevator. ?? When you can, walk or bike instead of driving. ?? [place] leaves, garden, or do household repairs. ?? Be active for at least 30 minutes a day, most days of the week. Manage stress ?? Make time to relax and enjoy life. Find time to laugh. ?? Visit with family and friends, and keep up with hobbies. Limit alcohol and quit smoking ?? Men: Have no more than 2 drinks per day. ?? Women: Have no more than 1 drink per day. ?? Talk with your healthcare provider about quitting smoking. Smoking increases your risk for heart disease and stroke. Ask about local or community programs that can help. Medications If lifestyle changes arent enough, your healthcare provider may prescribe high blood pressure medicine. Take all medications as prescribed. ?? [id number] [facility], [address] [place] [address], [place] [address]. All rights reserved. This information is not [...] if you dont have one. Go to [email or web address] and click on Create Your Account. Then, follow the directions to complete the online form. Youll be asked for your [facility] number which you can find at the top of this document. Your Goals/Additional instructions: This document has images extracted. Please consider using [employer] for all your patient education needs. Source: [facility] POWERCHART Document Id: [id number] WORK FINISHER HAND Miscellaneous - Miguel A Mitchell M.D. - 05/17/2015 8:40 AM CST Ambulatory Discharge Medication List [address] [id number] Visit Information Name: ATILIO AUSTIN [facility] Number: [id number] Visit Date: 05/17/2015 08:40:10 Attending Provider: MIGUEL A MITCHELL MD Primary [...] 1 cap, Oral, two times a day Stop Taking the Following Medications: Medication list as of 05-17-15 08:40 Attention: If you have any medications at home that are not on this list, DO NOT take them until youcontact your provider for clarification. Give a copy of your medication list to your primary care provider. Update your medication list any time medications or doses are changed and carry your medication list at all times in case of emergency. Electronically Signed By: Signed On: Additional Information: Source: [facility] PayLease Document Id: [id number] WORK FINISHER HAND Galina Keen, L.P.N. - 05/17/2015 8:27 AM CST Ambulatory Vitals Height Weight Ambulatory Vitals Height Weight Entered On: 05/17/2015 8:28 FLATWORK FINISHER HAND Performed On: 05/17/2015 8:27 FLATWORK FINISHER HAND by GALINA CHIN LPN Vitals/Ht/Wt Systolic Blood Pressure : 140 mmHg Diastolic Blood Pressure : 80 mmHg NIBP Mean : 100 mmHg BP Location : Left upper extremity Blood Pressure Cuff Size : Large Height : 185 cm(Converted to: 6 ft 1 inch(es), 73 inch(es)) GALINA CHIN LPN - 05/17/2015 8:27 FLATWORK FINISHER HAND Source: [facility] PayLe[facility] Document Id: [id number] FLATWORK FINISHER HAND!8 WORK FINISHER HAND Galina Keen L.P.N. - 05/17/2015 8:26 AM CST Adult Race Relations Professor Intake/History Adult Race Relations Professor Intake/History Entered On: 05/17/2015 8:27 FLATWORK FINISHER HAND Performed On: 05/17/2015 8:26 FLATWORK FINISHER HAND by CHIN, GALINA ASHLEY MARINE WELDER Intake Chief Complaint : recheck BP Temperature Core : 36.7 DegC(Converted to: 98.1 DegF) Peripheral Pulse Rate : 88 /min Respiratory Rate : 16 /min Heart Rhythm : Regular Systolic Blood Pressure : 154 mmHg (HI) Diastolic Blood Pressure : 80 mmHg NIBP Mean : 105 mmHg BP Location : Left upper extremity Blood Pressure Cuff Size : Large Height : 185 cm(Converted to: 6 ft 1 inch(es), 73 inch(es)) Actual Weight : 102 kg(Converted to: 224 lb 14 oz) Weight Source : Standing scale Dosing Weight Clinic : 102 kg Clinic BSA : 2.29 Body Mass Index : 29.8 kg/m2 GALINA CHIN LPN - 05/17/2015 8:26 FLATWORK FINISHER HAND General Info Information Given By : Patient Languages : Urdu Is Patient Female and 13-50 no hysterectomy : No GALINA CHIN LPN - 05/17/2015 8:26 FLATWORK FINISHER HAND Subjective Pain Symptoms : GALINA Smith LPN - 05/17/2015 8:26 FLATWORK FINISHER HAND Dependent Habits Exposure to Tobacco Smoke : Other: NEVER Smoking Status : Never smoker Tobacco 2A : No Tobacco Use/Currently Using : No Tobacco Use/Last 30 Days : No Tobacco Use/Last 12 months : No GALINA CHIN LPN - 05/17/2015 8:26 FLATWORK FINISHER HAND Caffeine Use Grid Caffeine Use : Current Type : Soft drinks Frequency : Daily GALINA CHIN LPN - 05/17/2015 8:26 FLATWORK FINISHER HAND Recreational Drug Use Grid Drug Use : None GALINA CHIN LPN - 05/17/2015 8:26 FLATWORK FINISHER HAND Source: [facility] POWERCHART Document Id: [id number] FLATWORK FINISHER HAND!39 WORK FINISHER HAND documented in this encounter Plan of Treatment Not on filedocumented as of this encounter Visit Diagnoses Not on filedocumented in this encounter
--- OUTSIDE RECORDS SUMMARY | 2022-01-20 10:00 | XMS_ITS | Encounter Summary ---
:1950 Author Organization [facility] Address [address] [place] [address] Care Team Providers Name Role Phone Unavailable Primary Care Provider Unavailable Encounter Details Date Type Department Care Team Description 11/26/2012 Hospital Encounter HX [facility] Summer Palacios M.D. [address] [place] [address], [place] [phone] (Wo rk) Social History Tobacco Use Types Packs/Day Years Used Date Smoking Tobacco: Never Assessed Sex Assigned at Date Recorded Not on file documented as of this encounter Last Filed Vital Signs Vital Sign Reading Time Taken Comments Blood Pressure 136/80 11/26/2012 10:55 AM CDT Pulse - - Temperature - - Respiratory Rate - - Oxygen Saturation - - Inhaled Oxygen Concentration - - Weight 101 kg (221 lb 9 oz) 11/26/2012 10:55 AM CDT Height - - Body Mass Index - - documented in this encounter Progress Notes Idania Palacios M.D. - 11/26/2012 10:40 AM CDT [id number] CHIEF COMPLAINT/REASON FOR VISIT Full skin exam. HISTORY OF PRESENT ILLNESS This 62-year-old male is a previous patient of Dr. Bernard Caro and is here for his annual skin exam. He was last seen 09/08/2011. He has a history of basal cell carcinoma, superficial, on his left lower back in 2010, and many moles. He says that Dr. Caro used to call him liz garland becausehe attended [facility]. CURRENT MEDICATIONS Viagra. Vitamins. Flomax. ALLERGIES Morphine. SYSTEMS REVIEW Current problems with head and face, eyes, ears, mouth, throat, nose and sinuses, respiratory tract,cardiovascular system, gastrointestinal system, genitourinary system, musculoskeletal system, psychological system, endocrine system, hematopoietic system, nervous system were reviewed. PAST MEDICAL/SURGICAL HISTORY Past problems with head and face, eyes, ears, mouth, throat, nose and sinuses, respiratory tract, cardiovascular system, gastrointestinal system, genitourinary system, musculoskeletal system, psychological system, endocrine system, hematopoietic system, nervous system were reviewed. Past surgical procedures were reviewed. Hip replacement and back surgery. 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 SMOKING: Does not smoke. ALCOHOL: Does not drink alcohol. FAMILY HISTORY Negative for psoriasis, eczema, acne, skin cancer, hayfever, and asthma. VITAL SIGNS BLOOD PRESSURE: 136/80. WEIGHT: 100.5 kg. TEMP: 36.9 C. PHYSICAL EXAMINATION GENERAL: Alert and oriented x3 in no acute distress. Pleasant demeanor. Well groomed. Overweight. SKIN: Skin of face, neck, back, chest, abdomen, arms, legs, hands, feet, and buttocks shows type 2 skin with a multitude of nevi, which were examined under dermoscopy. He has a 1-cm seborrheic keratosis on his left cheek that we talked about treating with Liquid Nitrogen, but he declined because he has to go a marketing meeting next week. DIGITS: Fingers and finger nails are within normal limits. He asks about his left 5th toenail, whichseems to be coming off. He says he was running and something happened to it. On exam, it shows that the nail is indeed coming off. I did not pull it off. I told him just let nature take its course, andthe nail should regrow. HEAD: Lips and teeth within normal limits. Hair of scalp and face within normal limits. EYES: Eyes and eyelids normal. THYROID: No thyromegaly. PERIPHERAL VESSELS: Peripheral vascular system intact. IMPRESSION/REPORT/PLAN 1. Full skin examination to screen for skin cancer. 2. History of superficial basal cell carcinoma, 2011. 3. Multitude of benign nevi. 4. Seborrheic keratoses. 5. Damaged toenail. FOLLOW UP: He will follow up again 1 year or sooner as needed. Patient did not desire a depart summary. Idania Palacios M.D./rachid Electronically Signed By: IDANIA PALACIOS MD On: 12/09/2012 03:38 PM Source: [facility] MHSDOLBEYNONRADSYS Document Id: [id number] documented in this encounter Miscellaneous Notes Miscellaneous - Idania Palacios M.D. - 11/26/2012 11:18 AM CDT Ambulatory Patient Summary [facility] [address] [place] [id number] Visit Information Name: ATILIO AUSTIN [facility] Number: [id number] Current Date: 11/26/2012 11:18:59 Physicians Attending Provider: IDANIA PALACIOS MD Primary Care Provider: MIGUEL A ESTRADA MD Your Medications Here is a list of your medications. It is important to take your medications as directed. Use a pillbox or chart to help remind you to take your medications. Please let your doctor or nurse know if you have problems taking your medications. Medication/Strength Dose Route Frequency Indications/Special Instructions/Comments/Notes sildenafil (Viagra 50 mg oral tablet) 50 mg Oral once a day as needed for Erectile dysfunction *naproxen (naproxen 500 mg oral tablet) 500 mg Oral two times a day as needed for pain multivitamin (multivitamin) Oral once a day aspirin (aspirin 81 mg oral tablet) 1 tab(s) Oral once a day tamsulosin (Flomax 0.4 mg oral capsule) 1 cap(s) Oral once a day * You have let us know that you are not taking this medication as listed. Please talk with your primary care provider or the health care provider who prescribed the medication as soon as possible. Attention: If you have any medications at home that are not on this list, DO NOT take them until youcontact your provider for clarification. Your Allergies & Intolerances Substance Reaction Symptoms [...] Skin of Trunk, Except Scrotum Active 03/10/2011 Your Upcoming Appointments Date Time Location Reason Provider No Appointments found Your Goals/Additional instructions: Source: [facility] POWERCHART Document Id: [id number] Miscellaneous - Idania Palacios M.D. - 11/26/2012 11:18 AM CDT Ambulatory Depart Summary [address] [address] Visit Information Name: ATILIO AUSTIN [facility] Number: [id number] Visit Date: 11/26/2012 11:18:58 Attending Provider: IDANIA PALACIOS MD Primary Care Provider: MIGUEL A ESTRADA MD ATILIO AUSTIN has been given the following list of medications: Your Medications It is important to take your medications as directed. Use a pill box or chart to help remind you to take your medications. Please let your doctor or nurse know if you have problems taking your medications. Medication/Strength Dose Route Frequency Indications/Special Instructions/Comments/Notes sildenafil (Viagra 50 mg oral tablet) 50 mg Oral once a day as needed for Erectile dysfunction *naproxen (naproxen 500 mg oral tablet) 500 mg Oral two times a day as needed for pain multivitamin (multivitamin) Oral once a day aspirin (aspirin 81 mg oral tablet) 1 tab(s) Oral once a day tamsulosin (Flomax 0.4 mg oral capsule) 1 cap(s) Oral once a day * You have let us know that you are not taking this medication as listed. Please talk with your primary care provider or the health care provider who prescribed the medication as soon as possible. Attention: If you have any medications at home that are not on this list, DO NOT take them until youcontact your provider for clarification. Additional Information: Source: [facility] Coupsta Document Id: [id number] Miscellaneous - Breezy Browne R.MLaceyALacey - 11/26/2012 10:55 AM CDT Adult Sas Programmer Remote Intake/History Adult Sas Programmer Remote Intake/History Entered On: 11/26/2012 10:58 CDT Performed On: 11/26/2012 10:55 CDT by BREEZY BROWNE Intake Chief Complaint : FSE Temperature Core : 36.9 DegC(Converted to: 98.4 DegF) Systolic Blood Pressure : 136 mmHg Diastolic Blood Pressure : 80 mmHg NIBP Mean : 99 mmHg BP Location : Left upper extremity Blood Pressure Cuff Size : Regular Actual Weight : 100.5 kg(Converted to: 221 lb 9 oz) Dosing Weight Clinic : 100.5 kg BREEZY BROWNE - 11/26/2012 10:55 CDT General Info Information Given By : Patient Languages : Kyrgyz BREEZY BROWNE - 11/26/2012 10:55 CDT Subjective Pain Symptoms : No BREEZY BROWNE - 11/26/2012 10:55 CDT Dependent Habits Tobacco Use/Currently Using : No Smoking Status : Never smoker BREEZY BROWNE - 11/26/2012 10:55 CDT Caffeine Use Grid Caffeine Use : Current Type : Soft drinks Frequency : Daily BREEZY BROWNE - 11/26/2012 10:55 CDT Recreational Drug Use Grid Drug Use : None BREEZY BROWNE - 11/26/2012 10:55 CDT Source: [facility] [employer] Document Id: [id number] documented in this encounter Plan of Treatment Not on filedocumented as of this encounter Visit Diagnoses Not on filedocumented in this encounter
--- OUTSIDE RECORDS SUMMARY | 2022-01-20 10:00 | XMS_ITS | Encounter Summary ---
:1950 Author Organization [facility] Address [address] [place] [address] Care Team Providers Name Role Phone Unavailable Primary Care Provider Unavailable Encounter Details Date Type Department Care Team Description 12/17/2015 Hospital Encounter HX [facility] Haja Lagunas M.D. [address] [place], [place] [address] (Wo rk) Social History Tobacco Use Types Packs/Day Years Used Date Smoking Tobacco: Never Assessed Sex Assigned at Date Recorded Not on file documented as of this encounter Last Filed Vital Signs Vital Sign Reading Time Taken Comments Blood Pressure 136/78 12/17/2015 2:39 PM CDT Pulse 88 12/17/2015 2:39 PM CDT Temperature - - Respiratory Rate 16 12/17/2015 2:39 PM CDT Oxygen Saturation - - Inhaled Oxygen Concentration - - Weight 95 kg (209 lb 7 oz) 12/17/2015 2:39 PM CDT Height 185 cm (6' 0.84) 12/17/2015 2:39 PM CDT Body Mass Index 27.76 12/17/2015 2:39 PM CDT documented in this encounter H&P Notes Miguel A Mitchell M.D. - 12/17/2015 2:24 PM CDT [id number] Preoperative examination is requested by Dr. Cunha and Dr. Johnson for preoperative consultation regarding a distal esophagectomy, proximal gastrectomy and thoracotomy. Patient has surgery scheduled at [facility] 12/20/2015 with the aforementioned surgeons. Hepresents today for preop. He feels well and is offering no complaints. MEDICATIONS None. ALLERGIES Morphine, but this is a soft allergy and it is not certain. No other known allergies. SPECIFIC PRESURGICAL REVIEW OF SYSTEMS He is questionably allergic to morphine, has no other allergies. No history of bleeding complications or bleeding diatheses. No recent cortisone or prednisone. He is not diabetic and he has never had DVT or pulmonary emboli. He has no glaucoma or use of eyedrops. He has no history of familial untowardreaction to anesthesia or previous anesthetic problems. He has no history of rheumatic fever. He used to be hypertension and treated for that, but most recently his blood pressures have been quite normal without medicines as they are today. He does not have angina, orthopnea, PND or palpitation. He has no pulmonary symptomatology and no infective symptomatology. PAST MEDICAL/SURGICAL HISTORY 1. Significant for acute urinary obstruction [address] scan showing gastric thickening. Then he had endoscopy with Dr. Bliss. 2. 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 Peres on 11/27/2015 showing a hernia from 40 to 43 cm, showing basically a mass extending adjacent to thecardia of the stomach, extending to the left chest and gallstones. 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 This is for which he is undergoing surgery. 3. He has recently had a TURP with Dr. Rojas on 11/30/2015 and is passing urine well at the moment. 4. Pancreatic, hepatic and small splenic cysts. 5. Cholelithiasis. 6. Colonic diverticulosis. 7. He has had a right knee total knee arthroplasty in the past. 8. He has had a lumbar diskectomy. FAMILY HISTORY He is . SOCIAL HISTORY He does not use tobacco. Has rare social alcohol. PHYSICAL EXAMINATION VITAL SIGNS: Temperature 36.7, heart rate 88, respiratory rate 16, blood pressure 136/78, O2 saturation 97% room air, BMI 27.76. Total sleep apnea score 4.0. HEENT: Standard for sun'aq teeth top and bottom. NECK: Full flexion and extension. Carotid upstrokes brisk without bruits. LUNGS: Clear to auscultation and percussion. Respiratory rate and effort are normal. CARDIAC: CVP is normal. The heart tones are in sinus rhythm without any significant murmur, gallop or rub. ABDOMEN: Soft, nondistended. No organomegaly. No focal mass or tenderness. Bowel sounds positive in all quadrants. EXTREMITIES: Warm, dry, noncyanotic. No clubbing or peripheral edema. NEUROLOGICAL: He is alert, oriented, and grossly nonfocal. IMPRESSION/REPORT/PLAN Patient with the aforementioned medical problems scheduled on 12/17/2015 for a distal esophagectomy,proximal gastrectomy and thoracotomy. Instructions to him today: 1. Be strictly nothing by mouth on the morning of surgery. Having nothing to eat or drink when not having any pills. 2. Abstain from any aspirin or NSAID between now and the time of surgery. Tylenol may be used in appropriate doses. 3. Call promptly for any intercurrent medical illness between now and the time of surgery, particularly any illness with a fever. 4. Any preoperative defects found on laboratory testing will be corrected prior to surgery. He has an EKG which is normal from back in October which will be included in his preop materials. He otherwisetoday had a BMP, a CBC and a UA with micro. 5. He will be an inpatient in the hospital. When he is discharged, he should follow his operating surgeon's instructions to the letter. There are no preoperative defects that require correction prior to surgery at this point. Miguel A Mitchell M.D./julio Electronically Signed By: MIGUEL A MITCHELL MD On: 12/17/2015 04:18 PM Source: [facility] MHSDOLBEYNONRADSYS Document Id: [id number] documented in this encounter Miscellaneous Notes Miscellaneous - Miguel A Mitchell M.D. - 12/19/2015 11:38 AM CDT Results Notification Document Contains Addenda Addendum by GALINA CHIN LPN on December 19, 2015 11:53:27 CDT patient called From: MIGUEL A MITCHELL MD To: TONY Mitchell Nurse; Sent: 12/19/2015 11:38:29 CDT ! Show up: 12/19/2015 11:38:29 CDT Subject: Results Notification Actions: Notify patient of results Reminder Comments: bug is sensitive Results: Date Result Type Ind Result Name MBO POS Culture Urine Source: [facility] POWERCHART Document Id: [id number] Electronically signed by Conversion, [facility] Monument Setter Helper [id number] at 08/17/2016 4:54 AM CDT Miguel A Villar M.D. - 12/18/2015 3:21 PM CDT Results Notification Document Contains Addenda Addendum by GALINA CHIN LPN on December 19, 2015 11:16:12 CDT patient given cpoy From: MIGUEL A MITCHELL MD To: TONY Mitchell Nurse; Sent: 12/18/2015 15:21:46 CDT ! Show up: 12/18/2015 15:21:46 CDT Subject: Results Notification Actions: Notify patient of results Reminder Comments: await sensitivity Results: Date Result Type Ind Result Name MBO POS Culture Urine Source: [facility] POWERCHART Document Id: [id number] Electronically signed by Conversion, [facility] Monument Setter Helper [id number] at 08/17/2016 4:54 AM CDT Miguel A Villar M.D. - 12/18/2015 8:09 AM CDT Results Notification Document Contains Addenda Addendum by GALINA CHIN LPN on December 19, 2015 11:16:40 CDT patient given copy From: MIGUEL A MITCHELL MD To: TONY Mitchell Nurse; Sent: 12/18/2015 08:09:44 CDT ! Show up: 12/18/2015 08:09:44 CDT Subject: Results Notification Actions: Notify patient of results Reminder Comments: ok and renal function much improved Results: Date Result Name Ind Value Ref Range 12/17/2015 15:12 Sodium Lvl 140 mmol/L (135 - 145) 12/17/2015 15:12 Potassium Lvl 4.2 mmol/L (3.6 - 5.2) 12/17/2015 15:12 Chloride 103 mmol/L (98 - 107) 12/17/2015 15:12 CO2 25 mmol/L (22 - 29) 12/17/2015 15:12 AGAP 12 mmol/L (7 - 15) 12/17/2015 15:12 Glucose Lvl (H) 145 mg/dL (70 - 139) 12/17/2015 15:12 Creatinine (H) 1.34 mg/dL (0.80 - 1.30) 12/17/2015 15:12 EGFR (MDRD) (L) 54 mL/min/1.73m2 (>=60 - ) 12/17/2015 15:12 EGFR (MDRD) >60 mL/min/1.73m2 (>=60 - ) 12/17/2015 15:12 BUN 16 mg/dL (8 - 24) 12/17/2015 15:12 Calcium Lvl 10.2 mg/dL (8.8 - 10.3) 12/17/2015 15:12 Hgb (L) 12.8 g/dL (13.5 - 17.5) 12/17/2015 15:12 Hct 38.8 % (38.8 - 50.0) 12/17/2015 15:12 WBC 8.9 x10(9)/L (3.5 - 10.5) 12/17/2015 15:12 RBC 4.39 x10(12)/L (4.32 - 5.72) 12/17/2015 15:12 MCV 88.4 fL (81.0 - 95.0) 12/17/2015 15:12 RDW 13.9 % (11.8 - 15.6) 12/17/2015 15:12 Platelet 397 x10(9)/L (150 - 450) 12/17/2015 15:12 Neutro Absolute 6.20 10(9)/L (1.70 - 7.00) 12/17/2015 15:12 Lymph Absolute 1.62 x10(9)/L (0.90 - 2.90) 12/17/2015 15:12 [place] Absolute 0.58 x10(9)/L (0.30 - 0.90) 12/17/2015 15:12 Eos Absolute 0.37 x10(9)/L (0.05 - 0.50) 12/17/2015 15:12 Baso Absolute 0.16 x10(9)/L (0.00 - 0.30) Source: [facility] MyMundusCHART Document Id: [id number] Electronically signed by Conversion, [facility] Monument Setter Helper [id number] at 08/17/2016 4:54 AM CDT Miscellaneous - Miguel A Mitchell M.D. - 12/17/2015 3:51 PM CDT Results Notification Document Contains Addenda Addendum by GALINA CHIN LPN on December 19, 2015 11:17:02 CDT patient givin copy Addendum by MIGUEL A MITCHELL MD on December 17, 2015 15:57:09 CDT From: MIGUEL A MITCHELL MD To: Miguel A Mitchell Nurse; Sent: 12/17/2015 15:57:09 CDT Show up: 12/17/2015 15:57:00 CDT Subject: RE: Results Notification ok Addendum by GALINA CHIN LPN on December 17, 2015 15:56:26 CDT From: GALINA CHIN LPN ( Miguel A Mitchell Nurse) To: MIGUEL A MITCHELL MD; Sent: 12/17/2015 15:56:26 CDT Show up: 12/17/2015 15:55:00 CDT Subject: RE: Results Notification was cultured From: MIGUEL A MITCHELL MD To: Miguel A Mitchell Nurse; Sent: 12/17/2015 15:51:37 CDT ! Show up: 12/17/2015 15:51:37 CDT Subject: Results Notification Actions: Notify patient of results Reminder Comments: was this reflexed for culture? Results: Date Result Name Ind Value Ref Range 12/17/2015 15:23 UR WBC (*) 31-40 /HPF (None Seen - ) 12/17/2015 15:23 UR RBC (*) 21-30 /HPF (None Seen - ) 12/17/2015 15:23 UR % Dysmorphic RBC <=25 % (<=25 - ) 12/17/2015 15:23 UR Squamous Epi Cells (*) Occ-3 /HPF (None Seen - ) Source: [facility] POWERCHART Document Id: [id number] Electronically signed by Conversion, [facility] Monument Setter Helper [id number] at 08/17/2016 4:54 AM CDT Miscellaneous - Miguel A Mitchell M.D. - 12/17/2015 3:33 PM CDT Results Notification Document Contains Addenda Addendum by GALINA CHIN LPN on December 19, 2015 11:17:19 CDT copy to patient From: MIGUEL A MITCHELL MD To: TONY Mitchell Nurse; Sent: 12/17/2015 15:33:03 CDT ! Show up: 12/17/2015 15:33:03 CDT Subject: Results Notification Actions: Notify patient of results Reminder Comments: will have to see the cell count Results: Date Result Name Ind Value Ref Range 12/17/2015 15:23 UA Color Yellow (Colorless - ) 12/17/2015 15:23 UA Clarity Clear (Clear - ) 12/17/2015 15:23 UA Spec Grav 1.025 12/17/2015 15:23 UA pH 5.5 (<5.0 - ) 12/17/2015 15:23 UA Protein (*) 100 mg/dL (Negative - ) 12/17/2015 15:23 UA Glucose Negative mg/dL (Negative - ) 12/17/2015 15:23 UA Ketones (*) Trace mg/dL (Negative - ) 12/17/2015 15:23 UA Bili Negative (Negative - ) 12/17/2015 15:23 UA Urobilinogen 0.2 mg/dL (0.2 - ) 12/17/2015 15:23 UA Blood (*) Large (Negative - ) 12/17/2015 15:23 UA Nitrite Negative (Negative - ) 12/17/2015 15:23 UA Leuk Est (*) Large (Negative - ) [facility] POWER[facility]ART Document Id: [id number] Electronically signed by Conversion, [facility] Monument Setter Helper [id number] at 08/17/2016 4:54 AM CDT Miscellaneous - Miguel A Mitchell M.D. - 12/17/2015 3:04 PM CDT Ambulatory Patient Summary [id number] [place], [place] [phone] Visit Information Name: JUNATILIO POLANCO JOHN [facility] Number: [id number] Current Date: 12/17/2015 15:04:39 Physicians Attending Provider: MIGUEL A MITCHELL MD [...] the Following Medications: Medication list as of 12-17-15 15:04 Attention: If you have any medications at [...] Signed By: MIGUEL A MITCHELL MD Signed On:17-DEC-2015 15:03:58 Your Allergies & Intolerances Substance Reaction Symptoms [...] flocculent calcifications within the gastric fundus Active Your Upcoming Appointments Date Time Location Provider No Appointments found Attention: Contact your local Clinic if further appointment detail needed. Preventing Surgical Site Infections One risk of having surgery is an infection at the surgical site (any cut the surgeon makes in the skin to perform the operation). Surgical site infections can range from minor to severe or even fatal. This sheet tells you more about surgical site infections, what hospitals are doing to prevent them, and how they are treated if they do occur. It also tells you what you can do to prevent these infections. What Causes Surgical Site Infections? Covering a wound with a sterile dressing helps prevent infection. Germs are everywhere. Theyre on your skin, in the air, and on things you touch. Many germs are good.Some are harmful. Surgical site infections occur when harmful germs enter your body through the incision in your skin. Some infections are caused by germs that are in the air or on objects. But most are caused by germs found on and in your own body. What Are the Risk Factors for Surgical Site Infections? Anyone can have a surgical site infection. Your risk is greater if you: ?? Are an older adult. ?? Have a weakened immune system or other serious health problem such as diabetes. ?? Smoke. ?? Have certain types of operations, such as abdominal surgery. ?? Are malnourished (dont eat enough healthy foods). ?? Are very overweight. ?? Have a wound that is left open instead of closed with sutures. What Are the Symptoms of a Surgical Site Infection? ?? The infection usually begins with increased redness, pain, and swelling around the incision. Later, you may notice a cloudy or greenish-yellow discharge from the incision. You are also likely to have a fever and may feel very ill. ?? Symptoms can appear any time from hours to weeks after surgery. Implants such as an artificial knee or hip can become infected a year or more after the operation. How Are Surgical Site Infections Treated? ?? Most infections are treated with antibiotics. The type of medication you receive will depend on the germ causing the infection. ?? An infected skin wound may be reopened and cleaned. ?? If an infection occurs where an implant is placed, the implant may be removed. ?? If you have an infection deeper in your body, you may need another operation to treat it. Preventing Surgical Site Infections: What Hospitals Are Doing Many hospitals take these steps to help prevent surgical site infections: ?? Handwashing: Before the operation, your surgeon and all operating room staff scrub their hands and arms with an antiseptic soap. ?? Clean skin: The site where your incision is made is carefully cleaned with an antiseptic solution. ?? Sterile clothing and drapes: Members of your surgical team wear medical uniforms (scrub suits), long-sleeved surgical gowns, masks, caps, shoe covers, and sterile gloves. Your body is fully covered with a sterile drape (a large sterile sheet) except for the spot where the incision is made. ?? Clean air: Operating rooms have special air filters and positive pressure airflow to prevent unfiltered air from entering the room. ?? Careful use of antibiotics: Antibiotics are given no more than 60 minutes before the incision is made and stopped within 24 hours after surgery. This helps kill germs but avoids problems that can occur when antibiotics are taken longer. ?? Controlled blood sugar levels: After surgery, a patients blood sugar level is watched closely to make sure it stays within a normal range. High blood sugar delays wound healing and increases the chances for infection. ?? Controlled body temperature: A ywrdy-lchk-obipwk temperature during or after surgery prevents oxygen from reaching the wound and makes it harder for your body to fight infection. Hospitals may warm IV fluids, increase the temperature in the operating room, and provide warm-air blankets. ?? Proper hair removal: Any hair that must be removed is clipped, not shaved with a razor. This prevents tiny nicks and cuts through which germs can enter. ?? Wound care: After surgery, a closed wound is covered with a sterile dressing for a day or two. Open wounds are packed with sterile gauze and covered with a sterile dressing. Preventing Surgical Site Infections: What Patients Can Do ?? Ask questions. Learn what your hospital is doing to prevent infection. ?? If your doctor instructs, shower or bathe with antiseptic soap the night before and the day of your operation. Follow the instructions you are given. You may be asked to use a special antibiotic cleanser that you dont rinse off. ?? If you smoke, stop or cut down. Ask your doctor about ways to quit. ?? Take antibiotics only when your health care provider tells you to. Using antibiotics when theyre not needed can create germs that are harder to kill. Also, finish all your antibiotics, even if you feel better. ?? Be sure health care workers clean their hands with soap and water or with an alcohol-based hand fur cleaner before and after caring for you. Dont be afraid to remind them. ?? After surgery, eat healthy foods. ?? When you return home, care for your incision as directed by your doctor or nurse. Call Your Doctor If You Have Any of the Following: Increased soreness, pain, or tenderness at the surgical site A red streak, increased redness, or puffiness near the incision Yellowish, cloudy, or bad-smelling discharge from the incision Stitches that dissolve before the wound heals Fever of 101.0?F (38.3?C), or higher A tired feeling that doesnt go away ?? [id number] [place] [address]. All rights reserved. This information is not [...] if you dont have one. Go to [email or web address] and click on Create Your Account. Then, follow the directions to complete the online form. Youll be asked for your [facility] number which you can find at the top of this document. Your Goals/Additional instructions: This document has images extracted. Please consider using [employer] for all your patient education needs. Source: [facility] Refund Exchange Document Id: [id number] Harvey - Miguel A Mitchell M.D. - 12/17/2015 3:04 PM CDT Ambulatory Discharge Medication List [address] [id number] Visit Information Name: SHIRLEYJULIAATILIO ANDUJAR [facility] Number: [id number] Visit Date: 12/17/2015 15:04:39 Attending Provider: MIGUEL A MITCHELL MD Primary [...] the Following Medications: Medication list as of 12-17-15 15:04 Attention: If you have any medications at [...] Signed By: MIGUEL A MITCHELL MD Signed On:17-DEC-2015 15:03:58 Additional Information: Source: [facility] Refund Exchange Document Id: [id number] Harvey - Galina Chin L.P.N. - 12/17/2015 2:43 PM CDT Obstructive Sleep Apnea Obstructive Sleep Apnea Entered On: 12/17/2015 14:43 CDT Performed On: 12/17/2015 14:43 CDT by GALINA CHIN LPN ANN Screening Known Obstructive Sleep Apnea : No - NOT diagnosed with ANN ANN Score : Total Sleep Apnea Clinical Score: 6.00 11/22/15 ANN Results : High BP or Take Medications for High BP: Yes 11/22/15 Known Obstructive Sleep Apnea: No - NOT diagnosed with ANN 11/22/15 Freq of Gasping, Choking, Snorting HTN: Never 11/22/15 Frequency of Snoring HTN: Usually (3-5 times per week) 11/22/15 Total Number of Historical Features HTN: 1 11/22/15 GALINA CHIN LPN - 12/17/2015 14:43 CDT ANN Assessment Do you have high blood pressure or have you been told to take medication for high blood pressure? : Yes Frequency of Snoring HTN : Occasionally (4-8 times per year) Frequency of Gasping, Choking, Snorting HTN : Never Total Number of Historical Features HTN : 0 Neck Circumference - ANN - HTN : 36/37 Total Sleep Apnea Clinical Score HTN Calc : 4 GALINA CHIN LPN - 12/17/2015 14:43 CDT Source: [employer] Document Id: [id number] CDT!12 Miscellaneous - Galina Chin L.PLaceyNLacey - 12/17/2015 2:39 PM CDT Adult Journalism Teacher Intake/History Adult Journalism Teacher Intake/History Entered On: 12/17/2015 14:42 CDT Performed On: 12/17/2015 14:39 CDT by GALINA CHIN LPN Intake Chief Complaint : pre-op Abbot Shekhar Cunha 12/20/15 Temperature Core : 36.7 DegC(Converted to: 98.1 DegF) Peripheral Pulse Rate : 88 /min Respiratory Rate : 16 /min Heart Rhythm : Regular Systolic Blood Pressure : 136 mmHg Diastolic Blood Pressure : 78 mmHg NIBP Mean : 97 mmHg BP Location : Left upper extremity Blood Pressure Cuff Size : Large SpO2 : 97 % Oxygen Therapy : Room air Height : 185 cm(Converted to: 6 ft 1 inch(es), 73 inch(es)) Actual Weight : 95 kg(Converted to: 209 lb 7 oz) Weight Source : Standing scale Dosing Weight Clinic : 95 kg Clinic BSA : 2.21 Body Mass Index : 27.76 kg/m2 CHIN, GALINAYVES [employer]IREZ [employer] CHA[employer] 12/17/2015 14:39 CDT General Info Information Given By : Patient Languages : Anguillan Is Patient Female and 13-50 no hysterectomy : No YNES GLAINA ASHLEY [facility] - 12/17/2015 14:39 CDT Subjective Pain Symptoms : No YNES GALINAYVES [employer] CHAIR - 12/17/2015 14:39 CDT Dependent Habits Exposure to Tobacco Smoke : Other: NEVER Smoking Status : Never smoker Tobacco 2A : No Tobacco Use/Currently Using : No Tobacco Use/Last 30 Days : No Tobacco Use/Last 12 months : No GALINA CHIN [facility] 12/17/2015 14:39 CDT Caffeine Use Grid Caffeine Use : Current Type : Soft drinks Frequency : Daily YNES GALINAYVES RAMIREZ [facility] - 12/17/2015 14:39 CDT Recreational Drug Use Grid Drug Use : None YNES GALINAYVES RAMIREZ [facility] 12/17/2015 14:39 CDT Source: [employer] Document Id: [id number] CDT!41 documented in this encounter Plan of Treatment Not on filedocumented as of this encounter Procedures Procedure Name Priority Date/Time Associated Comments Diagnosis BACTERIAL CULTURE, Routine 12/17/2015 3:28 PM Res ults for this AEROBIC, URINE CDT procedure are in the results section. HXUR % DYSMORPHIC Routine 12/17/2015 3:23 PM Resu lts for this RBC CDT procedure are i n the results section. URINALYSIS, Routine 12/17/2015 3:23 PM Results f or this MIDSTREAM, WITH CDT procedure ar e in CULTURE IF INDICATED the res ults section. AUTOMATED Routine 12/17/2015 3:12 PM Results f or this DIFFERENTIAL, B CDT procedure ar e in the results section. CBC WITH Routine 12/17/2015 3:12 PM Results f or this DIFFERENTIAL, B CDT procedure ar e in the results section. BASIC METABOLIC Routine 12/17/2015 3:12 PM Result s for this PANEL, S/P CDT procedure are i n the results section. documented in this encounter Results (ABNORMAL) Bacterial Culture, Aerobic, Urine (12/17/2015 3:28 PM CDT) Analysis Performed At Patho logist Time Signature Bacterial PA 2 POWERCHART Culture, (POSITIVE) Aerobic, Urine HXPre PA POWERCHART Comment: >100,000 cfu/mL Pseudomonas aer uginosa HXFinal PA POWERCHART Comment: >100,000 cfu/mL Pseudomonas aer uginosa Specimen Anatomical Collection Method Collection Time Receive d Time (Source) Location / / Volume Laterality Urine, First 12/17/2015 3:28 PM 6 3:28 Voided CDT PM CDT Organism Antibiotic Method Susceptibility Pseudomonas aeruginosa Cefepime SUSCEPTIBILITY, JESSI 2: [place] sceptible (MCG/ML) Pseudomonas aeruginosa Ceftazidime SUSCEPTIBILITY, JESSI 4: [place] sceptible (MCG/ML) Pseudomonas aeruginosa Gentamicin SUSCEPTIBILITY, JESSI 2: [place] sceptible (MCG/ML) Pseudomonas aeruginosa Levofloxacin SUSCEPTIBILITY, JESSI 4: In termediate (MCG/ML) Pseudomonas aeruginosa Meropenem SUSCEPTIBILITY, JESSI 1: [place] sceptible (MCG/ML) Pseudomonas aeruginosa Piperacillin + Tazobactam SUSCEPTIBILITY, JESSI 16: Susceptible (MCG/ML) Pseudomonas aeruginosa Tobramycin SUSCEPTIBILITY, JESSI <=1: Susceptible (MCG/ML) Miguel A Mitchell M.D. LAB MICROBIOLOGY - GENERAL O RDERABLES Performing Organization Address City/[facility]/ZIP Code Phon e Number POWERCHART HXUR % DYSMORPHIC RBC (12/17/2015 3:23 PM CDT) P athologist Signature Dysmorphic RBC <=25 <=25 POWERCHART Specimen Anatomical Collection Method Collection Time Receive d Time (Source) Location / / Volume Laterality Urine, First 12/17/2015 3:23 PM 6 3:23 Voided CDT PM CDT Miguel A Mitchell M.D. LAB HISTORICAL ORDERS Performing Organization Address City/[facility]/ZIP Code Phon e Number POWERCHART (ABNORMAL) Urinalysis, Midstream, with culture if indicated (12/17/2015 3:23 PM CDT) athologist Signature Clarity Clear Clear POWERCHART HXUr Color Yellow Colorless POWERCHART Specific 1.025 POWERCHART [place], POCT, U Comment: Reference Range Specific [place]: 1.000-1.035 pH, POCT, Urine 5.5 <5.0 POWERCHART Comment: Reference Range pH: 5.0-8.0 Protein, Ur, Dip 100 (A) Negative MGDL POWERCHAR T Glucose Negative Negative MGDL POWERCHART Ketones, QL(U) Trace (A) Negative MGDL POWERCHART HXBILIRUBIN Negative Negative POWERCHART HXBLOOD Large (A) Negative POWERCHART Leukocyte Esterase Large (A) Negative POWERCHART HXNITRITE Negative Negative POWERCHART Urobilinogen 0.2 0.2 MGDL POWERCHART Comment: Reference Range Urobilinogen: 0.2-1.0 mg/dL HXUR WBC. 31-40 (A) None Seen HPF POWERCHART HXUR RBC. 21-30 (A) None Seen HPF POWERCHART Squamous Epithelial Occ-3 (A) None Seen HPF POWERC CHIRINOS Specimen (Source) Anatomical Collection Method Collection Time Re ceived Time Location / / Volume Laterality Urine, First 12/17/2015 3:23 PM Voided CDT Miguel A Mitchell M.D. LAB URINE ORDERABLES Performing Organization Address City/[facility] Code Phon e Number POWERCHART Automated Differential (12/17/2015 3:12 PM CDT) athologist Signature Absolute 6.20 1.70 - POWERCHART Neutrophils 7.00 109L Lymphocytes 1.62 0.90 - POWERCHART 2.90 X109L Monocytes 0.58 0.30 - POWERCHART 0.90 X109L Eosinophils 0.37 0.05 - POWERCHART 0.50 X109L Absolute 0.16 0.00 - POWERCHART Basophil 0.30 X109L Specimen Anatomical Collection Method Collection Time Receive d Time (Source) Location / / Volume Laterality Blood 12/17/2015 3:12 PM 6 3:12 CDT PM CDT Miguel A Mitchell M.D. LAB BLOOD ADD-ON Performing Organization Address City/State/ZIP Code Phon e Number POWERCHART (ABNORMAL) CBC with Differential (12/17/2015 3:12 PM CDT) Analysis Performed At [facility] Time Signature Leukocytes 8.9 3.5 - 10.5 POWERCHART X109L Erythrocytes 4.39 4.32 - POWERCHART 5.72 [id number] Hemoglobin 12.8 (L) 13.5 - POWERCHART 17.5 GDL Hematocrit 38.8 38.8 - POWERCHART 50.0 MCV 88.4 81.0 - POWERCHART 95.0 FL HX RDW 13.9 11.8 - POWERCHART 15.6 Platelet Count 397 150 - 450 POWERCHART X109L Specimen (Source) Anatomical Collection Method Collection Time Re ceived Time Location / / Volume Laterality Blood 12/17/2015 3:12 PM CDT Miguel A Mitchell M.D. LAB BLOOD ADD-ON Performing Organization Address City/State/ZIP Code Phon e Number POWERCHART (ABNORMAL) BMP (Basic Metabolic Panel) (12/17/2015 3:12 PM CDT) Analysis Performed At [facility] Time Signature Sodium, S 140 135 - 145 POWERCHART MMOLL Potassium, S 4.2 3.6 - 5.2 POWERCHART MMOLL Chloride, S 103 98 - 107 POWERCHART MMOLL CO2 Total 25 22 - 29 POWERCHART MMOLL BUN (Blood Urea 16 8 - 24 POWERCHART Nitrogen), S MGDL Creatinine 1.34 (H) 0.80 - POWERCHART 1.30 MGDL Calcium, Total, 10.2 8.8 - 10.3 POWERCHART S MGDL Anion Gap 12 7 - 15 POWERCHART MMOLL HXeGFR (MDRD) 54 (L) >=60 POWERCHART [id number] eGFR >60 >=60 POWERCHART Black/ [id number] [place]an Glucose 145 (H) 70 - 139 POWERCHART MGDL Specimen (Source) Anatomical Collection Method Collection Time Re ceived Time Location / / Volume Laterality Blood 12/17/2015 3:12 PM CDT Miguel A Mitchell M.D. LAB BLOOD ADD-ON Performing Organization Address City/State/ZIP Code Phon e Number POWERCHART documented in this encounter Visit Diagnoses Not on filedocumented in this encounter
--- OUTSIDE RECORDS SUMMARY | 2022-01-20 10:00 | XMS_ITS | Encounter Summary ---
:1950 Author Organization [facility] Address [address] [place] [address] Care Team Providers Name Role Phone Jefferson Mitchell M.D. Primary Care Provider Encounter Details Date Type Department Care Team Description 10/23/2016 Hospital Encounter HX [facility] Danny Mitchell M.D. [address] [place], [place] [address] (Wo rk) Social History Tobacco Use Types Packs/Day Years Used Date Smoking Tobacco: Never Sex Assigned at Date Recorded Not on file documented as of this encounter Medications at Time of Discharge Medication Sig Dispensed Refills Start Date End Date acetaminophen (TYLENOL EXTRA Take 500-1,000 mg 0 01/23/2016 STRENGTH) 500 mg tablet by mouth. documented as of this encounter Plan of Treatment Not on filedocumented as of this encounter Visit Diagnoses Not on filedocumented in this encounter Care Teams Timber Hewer Relationship Specialty Start Date End Date Jefferson Mitchell M.D. PCP - General 09/04/16 11/12/17 [address] [place] [address] documented as of this encounter
--- OUTSIDE RECORDS SUMMARY | 2022-01-20 10:00 | XMS_ITS | Encounter Summary ---
:1950 Author Organization [facility] Address [address] [place] [address] Care Team Providers Name Role Phone Jefferson Mitchell M.D. Primary Care Provider Encounter Details Date Type Department Care Team Description 09/09/2017 Nurse Only Department of [facility] Yvonne Farias, Medicine, [facility] in [facility] [address] [place] [address] [place] [address] Social History Tobacco Use Types Packs/Day Years Used Date Smoking Tobacco: Never Smokeless Tobacco: Never Sex Assigned at Date Recorded Not on file documented as of this encounter Plan of Treatment Not on filedocumented as of this encounter Visit Diagnoses Diagnosis Anemia documented in this encounter Administered Medications Inactive Administered Medications - up to 3 most recent administrations Medication Order MAR Action Action Date Dose Rate Site cyanocobalamin 1,000 mcg/mL Given 09/09/2017 1:47 PM 1,000 mcg Left Deltoid injection 1,000 mcg CDT (VITAMIN B12) 1,000 mcg, intramuscular, Once, On Thu09/09/17 at 0900, For 1 dose documented in this encounter Care Teams Institution Librarian Relationship Specialty Start Date End Date Jefferson Mitchell M.D. PCP - General 09/04/16 11/12/17 [address] [place] [address] documented as of this encounter
--- OUTSIDE RECORDS SUMMARY | 2022-01-20 10:00 | XMS_ITS | Encounter Summary ---
:1950 Author Organization [facility] Address [address] [place] [address] Care Team Providers Name Role Phone Jefferson Mitchell M.D. Primary Care Provider Encounter Details Date Type Department Care Team Description 01/22/2017 Hospital Encounter HX [facility] Vinay Walker APRN, C.N.P. [address] [place] [address] (Wo rk) Social History Tobacco Use Types Packs/Day Years Used Date Smoking Tobacco: Never Sex Assigned at Date Recorded Not on file documented as of this encounter Last Filed Vital Signs Vital Sign Reading Time Taken Comments Blood Pressure 132/73 01/22/2017 2:15 PM CDT Pulse 76 01/22/2017 2:09 PM CDT Temperature - - Respiratory Rate 18 01/22/2017 2:09 PM CDT Oxygen Saturation - - Inhaled Oxygen Concentration - - Weight 79.2 kg (174 lb 9.7 oz) 01/22/2017 2:09 PM CDT Height 185 cm (6' 0.84) 01/22/2017 2:15 PM CDT Body Mass Index 23.14 01/22/2017 2:09 PM CDT documented in this encounter Medications at Time of Discharge Medication Sig Dispensed Refills Start Date End Date acetaminophen (TYLENOL EXTRA Take 500-1,000 mg 0 01/23/2016 STRENGTH) 500 mg tablet by mouth. documented as of this encounter Miscellaneous Notes Miscellaneous - Rosa Isela Walker APRN, C.N.P. - 01/22/2017 2:51 PM CDT CHIEF COMPLAINT: Pruritic rash left lower leg. 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 He has developed a left lower extremity anterior mid tibial shaft. Puritic rash which he believes is a side effect of the medication. He developed the rash approximately 2 weeks ago. So far he hasnot applied any medications or creams to his leg. He states he came in today because the rash is spreading. He has no complaints of headaches fevers chills or night sweats. He has lost quite a bit of weight following the surgery in the stomach. He states he is not hungry and has to force himself to eat. MEDICATIONS 1.Cyanocobalamin 1000 mcg monthly for B12 deficiency 2. Gleevec 400 mg daily post GIST. ALLERGIES: morphine PAST MEDICAL/SURGICAL HISTORY 1. Status post GIST tumor removal with partial gastrectomy] 2. Prostate cancer 3. Renal disease stage III VITAL SIGNS Weight is 79.2 kg , height 185 cm, temperature 36.8 , pulse 76 , respirations 18 , blood pressure 132/73 . PHYSICAL EXAMINATION GENERAL: The patient is well groomed, in no acute distress. SKIN: Red raised macules and papules and a surface area of 11 by 5.6 with satellite lesions noted inthe setting of 1+ edema in varicosities. IMPRESSION/REPORT/PLAN 1. Pruritic rash right lower extremity mid tibial shaft. This rash appears to be a reaction from Gleevec. He will start on Zyrtec 10 mg daily, Sarna a 1% cream twice a day and I did suggest that he make an appointment with Dr. Golden Vera , the only electroplating laborer in [place]. Source: [facility] POWERCHART Document Id: [id number] Miscellaneous - Rosa Isela Walker APRN, C.N.P. - 01/22/2017 2:42 PM CDT 1. Sarna to rash twice a day. 2. Medipeds compression stockings on in the morning off at night. 3. Zyrtec 10 mg daily for rash. Source: [facility] -R- [place] [employer] MineCHART Document Id: [id number] Miscellaneous - Karla Cr L.P.N. - 01/22/2017 2:15 PM CDT Ambulatory Vitals Height Weight Ambulatory Vitals Height Weight Entered On: 01/22/2017 14:15 CDT Performed On: 01/22/2017 14:15 CDT by KARLA CR LPN Vitals/Ht/Wt Systolic Blood Pressure : 132 mmHg Diastolic Blood Pressure : 73 mmHg NIBP Mean : 93 mmHg BP Location : Left upper extremity Blood Pressure Cuff Size : Regular Height : 185 cm(Converted to: 6 ft 1 inch(es), 73 inch(es)) KARLA CR LPN - 01/22/2017 14:15 CDT Source: [facility] [employer] Document Id: [id number] CDT!8 Miscellaneous - Karla Cr L.P.NLacey - 01/22/2017 2:09 PM CDT Adult Breaker Boss Intake/History Adult Breaker Boss Intake/History Entered On: 01/22/2017 14:13 CDT Performed On: 01/22/2017 14:09 CDT by KARLA CR LPN Intake Chief Complaint : Rash on left lopes, has had for 3 to 4 weeks Temperature Core : 36.8 DegC(Converted to: 98.2 DegF) Peripheral Pulse Rate : 76 /min Respiratory Rate : 18 /min Systolic Blood Pressure : 142 mmHg (HI) Diastolic Blood Pressure : 71 mmHg NIBP Mean : 95 mmHg BP Location : Left upper extremity Blood Pressure Cuff Size : Regular Height : 185 cm(Converted to: 6 ft 1 inch(es), 73 inch(es)) Actual Weight : 79.2 kg(Converted to: 174 lb 10 oz) Weight Source : Standing scale Dosing Weight Clinic : 79.2 kg Clinic BSA : 2.02 Body Mass Index : 23.14 kg/m2 KARLA CR LPN - 01/22/2017 14:09 CDT General Info Information Given By : Patient Preferred Communication Mode : Verbal Languages : Colombian Is Patient Female and 13-50 no hysterectomy : No KARLA CR LPN - 01/22/2017 14:09 CDT Subjective Pain Symptoms : No KARLA CR LPN - 01/22/2017 14:09 CDT Dependent Habits Exposure to Tobacco Smoke : Other: NEVER Smoking Status : Never smoker Tobacco 2A : No Tobacco Use/Currently Using : No Tobacco Use/Last 30 Days : No Tobacco Use/Last 12 months : No KARLA CR LPN - 01/22/2017 14:09 CDT Caffeine Use Grid Caffeine Use : Current Type : Soft drinks Frequency : Daily KARLA RC LPN - 01/22/2017 14:09 CDT Recreational Drug Use Grid Drug Use : None KARLA CR LPN - 01/22/2017 14:09 CDT Source: [employer] Document Id: [id number] CDT!39 documented in this encounter Plan of Treatment Not on filedocumented as of this encounter Visit Diagnoses Not on filedocumented in this encounter Care Teams Ground Water Technician Relationship Specialty Start Date End Date Jefferson Mitchell M.D. PCP - General 09/04/16 11/12/[address] [place] [address] documented as of this encounter
--- OUTSIDE RECORDS SUMMARY | 2022-01-20 10:00 | XMS_ITS | Encounter Summary ---
:1950 Author Organization [facility] Address [address] [place] [address] Care Team Providers Name Role Phone Jefferson Mitchell M.D. Primary Care Provider Reason for Visit Reason Comments Sinus Problem complains of sinus pain and pressure for the last week along with headaches Appointment Request (Routine) - Closed Specialty Diagnoses / Procedures Referred By Contact Refer red To Contact [facility] Referral ID Status Reason Start Date Expiration Date Visits Requ ested Visits Authorized [id number] Closed 08/24/2017 08/24/2018 1 Encounter Details Date Type Department Care Team Description 08/24/2017 Office Visit Department of Addy Reyes M.D . Pain Face (Primary Dx); [facility] [address]; Medicine in [place] [address] [place] [address] [address] [facility] [place] [address] Social History Tobacco Use Types Packs/Day Years Used Date Smoking Tobacco: Never Smokeless Tobacco: Never Sex Assigned at Date Recorded Not on file documented as of this encounter Last Filed Vital Signs Vital Sign Reading Time Taken Comments Blood Pressure 129/77 08/24/2017 10:02 AM CDT Pulse 71 08/24/2017 10:02 AM CDT Temperature 36.7 ??C (98.1 ??F) 08/24/2017 9:57 AM CDT Respiratory Rate 16 08/24/2017 9:57 AM CDT Oxygen Saturation - - Inhaled Oxygen Concentration - - Weight 70.2 kg (154 lb 14 oz) 08/24/2017 9:57 AM CDT Height 185 cm (6' 0.84) 08/24/2017 9:57 AM CDT Body Mass Index 20.53 08/24/2017 9:57 AM CDT documented in this encounter Progress Notes Addy Reyes M.D. - 08/24/2017 10:00 AM CDT SUBJECTIVE CHIEF COMPLAINT/REASON FOR VISIT Sinus pain. HISTORY OF PRESENT ILLNESS Atilio Austin is a 66 y.o. male who presents to the clinic today for sinus pain. His primary care provider is Dr. Jefferson Mitchell. He has right-sided facial pressure at night. It has been affecting his sleep. He is concerned about sinus or ear infection. He has had similar symptoms intermittently in the past but not for a while. He denies fever, chills, sneezing, runny nose, chest pain, shortness of breath, or cough. He has mildly sore throat. He notices occasional popping in his right ear. He feels that his teeth on the right side of his mouth are sensitive. He denies pain with chewing or touching. Patient denies personal history of trigeminal neuralgia. I reviewed and updated his medication list. We discussed potential side effects. There are no additional questions, concerns, or complaints. CURRENT MEDICATIONS Current Outpatient Prescriptions Medication Sig Dispense Refill ??? cyanocobalamin (VITAMIN B12) 1,000 mcg/mL injection Inject 1,000 mcg intramuscularly every 30 (thirty) days. ??? imatinib (GLEEVEC) 100 mg tablet Take 200 mg by mouth daily. ??? amoxicillin-pot clavulanate (AUGMENTIN) 875-125 mg per tablet Take 1 tablet by mouth 2 (two) times a day for 7 days. 14 tablet 0 No current facility-administered medications for this visit. ALLERGIES/CONTRAINDICATIONS Allergies Allergen Reactions ??? Morphine Other (see comments) REVIEW OF SYSTEMS Please see history of present illness for pertinent positives, otherwise rest of review of systems negative. PAST MEDICAL/SURGICAL HISTORY Past Medical History: Diagnosis Date ??? Anemia 11/22/2015 ??? Benign Prostatic Hyperplasia Hypertrophy With Obstruction 11/09/2015 ??? Chronic Kidney Disease Stage 3 Glomerular Filtration Rate 30 To 59 ??? Elevated Prostate-Specific Antigen 11/22/2015 ??? Hernia Inguinal Right 08/07/2017 ??? Hypertension ??? Impaired Fasting Glucose 11/22/2015 ??? 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 Stasis Ulcer With Varicose Vein Left (HCC) ??? Tumor Gastrointestinal Stromal Malignant (HCC) Past Surgical History: Procedure Laterality Date ??? COLONOSCOPY 10/22/2007 ??? CYSTOSCOPY W/ LASER LITHOTRIPSY 11/2015 Cystolitholapaxy with laser lithotripsy with bladder stone removal with TURP secondary to BPH and bladder stones ??? HEMILAMINOTOMY LUMBAR SPINE Right 05/31/1998 >Right fourth-fifth lumbar hemilaminectomy ??? 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 He developed a small esophageal leak at four weeks and was stented with subsequent J-tube placement. ??? TONSILLECTOMY As a child ??? TOTAL HIP ARTHROPLASTY Left 2000 SOCIAL HISTORY Social History Social History ??? Marital status: Spouse name: N/A ??? Number of children: N/A ??? Years of education: N/A Social History Main Topics ??? Smoking status: Never Smoker ??? Smokeless tobacco: Never Used ??? Alcohol use None ??? Drug use: Unknown ??? Sexual activity: Not Asked Other Topics Concern ??? None Social History Narrative ??? None FAMILY HISTORY Family History Problem Relation Age of Onset ??? Heart failure Father ??? Benign prostatic hyperplasia Father ??? Coronary artery disease Father OBJECTIVE VITAL SIGNS Vitals: 08/24/17 0957 08/24/17 1002 BP: 146/78 129/77 Patient Position: Sitting Sitting Pulse: 76 71 Temp: 36.7 ??C Resp: 16 Height: 185 cm Weight: 70.2 kg TempSrc: Temporal PHYSICAL EXAMINATION GENERAL: Patient is sitting. No distress. Able to talk without interruption. HEAD: No facial rash, asymmetry or sinus tenderness. EYES: PERRLA. EOMI. No pallor, icterus or conjunctivitis. ENT: No nasal congestion, discharge or bleeding. Right TM is tense with effusion. Left TM is normal.No mastoid tenderness. Tongue is moist and midline. No oral lesions. LYMPH NODES: No cervical or supraclavicular lymphadenopathy. HEART: No carotid bruit. No JVD. Regular rhythm. There is no S3, gallop, murmur or thrill. LUNGS: Normal respiratory effort. Clear to auscultation. Normal percussion. EXTREMITIES: No clubbing, cyanosis, edema, infection or calf tenderness. MENTAL: Alert and oriented x 3. Normal mood and affect. NEURO: Grossly nonfocal. ASSESSMENT / PLAN #1 Pain Face Right Side #2 Headache #3 Otitis Media Acute Right There is no evidence of sinusitis or focal neurological deficit. He may have inner ear infection. Wewill treat with Augmentin 875-125 mg 1 tablet by mouth twice a day for 7 days. He was advised to drink plenty of fluids. Patient can take Tylenol as needed, not to exceed Acetaminophen 4000 mg in 24 hours. He should contact me if there is no improvement or worsening of symptoms or develops side effects to new prescription medication. #4 Followup Visit Return to the clinic as needed. This document serves as a record of services personally performed by Dr. Addy Reyes. It was created on their behalf by Addy Reyes M.D., a trained lpn or medical assistant. The creation of this record is based on the scribe's personal observations and the provider's statements to them. This document has been checked and approved by the attending provider. documented in this encounter Plan of Treatment Not on filedocumented as of this encounter Visit Diagnoses Diagnosis Pain Face - Primary Headache Unspecified Otitis Media Acute Right documented in this encounter Care Teams Installer Technician Relationship Specialty Start Date End Date Jefferson Mitchell M.D. PCP - General 09/04/16 11/12/[address] [place] [address] documented as of this encounter
--- OUTSIDE RECORDS SUMMARY | 2022-01-20 10:00 | XMS_ITS | Encounter Summary ---
:1950 Author Organization [facility] Address [address] [place] [address] Care Team Providers Name Role Phone Unavailable Primary Care Provider Unavailable Encounter Details Date Type Department Care Team Description 06/12/2016 Hospital Encounter HX [facility] INTERNMED Haja Mitchell M.D. [address] [place], [place] [address] (Wo rk) Social History Tobacco Use Types Packs/Day Years Used Date Smoking Tobacco: Never Sex Assigned at Date Recorded Not on file documented as of this encounter Last Filed Vital Signs Vital Sign Reading Time Taken Comments Blood Pressure 130/72 06/12/2016 8:39 AM CDT Pulse 64 06/12/2016 8:39 AM CDT Temperature - - Respiratory Rate 16 06/12/2016 8:39 AM CDT Oxygen Saturation - - Inhaled Oxygen Concentration - - Weight 86 kg (189 lb 7.8 oz) 06/12/2016 8:39 AM CDT Height 185 cm (6' 0.84) 06/12/2016 8:39 AM CDT Body Mass Index 25.11 06/12/2016 8:39 AM CDT documented in this encounter Medications at Time of Discharge Medication Sig Dispensed Refills Start Date End Date acetaminophen (TYLENOL EXTRA Take 500-1,000 mg 0 01/23/2016 STRENGTH) 500 mg tablet by mouth. documented as of this encounter Progress Notes Miguel A Mitchell M.D. - 06/12/2016 8:33 AM CDT [id number] CHIEF COMPLAINT/REASON FOR VISIT Look at wound on right leg. 1. The patient was out in [place] vacation[place] and he stepped in a hole and sprained his ankle. He is wearing a cast and he got some abrasion above that and he wants me to have a look at it. He is using peroxide on it and putting a Band- Aid on it. I can do that. 2. 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 He is getting Gleevec for the time being from his private insurance with a 30 dollar co-pay, but when hegoes on Medicare it would be much more expensive. He is going to defer Medicare probably for that reason. Otherwise, he is maintaining his weight and he feels reasonably well. Does not offer many complaints. 3. He has chronic kidney disease that has gotten much better ever since his urologic work. We may take his labs and revisit the classification of a stage 4 kidney disease because that was when he add postobstructive uropathy. He now has a GFR of 54 and that makes that much better. I did explain to himthe grading systems that are used according to the GFR and they can change based on how the kidney is doing. He now has chronic kidney disease stage 3, which is appropriate for his age. MEDICATIONS Per EMR. ALLERGIES Per EMR. SYSTEMS REVIEW In other areas is negative. PAST MEDICAL/SURGICAL HISTORY Significant for: 1. 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 He had a lot of problems with esophageal leaksand things like that, but he is out of the vásquez on that and taking Gleevec for it. <__IM_1: BLANK__> 2. Chronic kidney disease stage 3. 3. BPH. 4. Hypertension, controlled currently because his weight is down and he exercises. SOCIAL HISTORY He is . He works a [employer]. He has no tobacco and rare alcohol. PHYSICAL EXAMINATION HEENT: Eyes: Conjunctivae and lids [...] or fourthsound, no significant murmur, no gallop. EXTREMITIES: Down in his leg right above the ankle he has an abrasion, which has healed extremely well. I do not see any issue. IMPRESSION/REPORT/PLAN 1. Sprained ankle on the right side. Continue to wear his brace, but that wound has healed essentially. 2. Gastrointestinal stromal tumor of the stomach. Continue his Gleevec. 3. Chronic kidney disease, now upgraded to stage 3. He has bloods periodically because of the Gleevec and they are following him very closely. Miguel A Mitchell M.D./julio Electronically Signed By: MIGEUL A MITCHELL MD On: 06/13/2016 07:36 AM Source: [facility] MHSDOLBEYNONRADSYS Document Id: [id number] documented in this encounter Miscellaneous Notes Miscellaneous - Miguel A Mitchell M.D. - 06/12/2016 9:22 AM CDT Ambulatory Discharge Medication List [facility] [address] [place] [id number] Visit Information Name: ATILIO AUSTIN [facility] Number: [id number] Current Date: 06/12/2016 09:22:04 Attending Provider: MIGUEL A MITCHELL MD Primary [...] Take Indications/Special Instructions/Comments/Notes for Patient Medication Changes/Routing imatinib (Gleevec 400 mg oral tablet) 1 cap, Oral, once a day Stop Taking the Following Medications: Medication list as of 06-12-16 09:22 Attention: If you have any medications at [...] Signed By: MIGUEL A MITCHELL MD Signed On:12-JUN-2016 09:19:06 Additional Information: Source: [facility] POWERCHART Document Id: [id number] Miscellaneous - Miguel A Mitchell M.D. - 06/12/2016 9:22 AM CDT Ambulatory Patient Summary [address] [id number] Visit Information Name: ATILIO A[place]IN [facility] Number: [id number] Current Date: 06/12/2016 09:22:04 Physicians Attending Provider: MIGUEL A MITCHELL MD [...] Take Indications/Special Instructions/Comments/Notes for Patient Medication Changes/Routing imatinib (Gleevec 400 mg oral tablet) 1 cap, Oral, once a day Stop Taking the Following Medications: Medication list as of 06-12-16 09:22 Attention: If you have any medications at [...] Signed By: MIGUEL A MITCHELL MD Signed On:12-JUN-2016 09:19:06 Your Allergies & Intolerances Substance Reaction Symptoms [...] gastric fundus Active Leak Esophageal Postoperative Active Tumor Gastrointestinal (GI) Stromal Malignant (GIST) Active Your Upcoming Appointments Date Time Location [...] have one. Go to [email or web address] and click on Create Your Account. Then, follow the directions to complete the online form. Youll be asked for your [facility] number which you can find at the top of this document. Your Goals/Additional instructions: [facility] Document Id: [id number] Miscellaneous - Galina Chin L.P.N. - 06/12/2016 8:39 AM CDT Adult Down Filler Intake/History Adult Down Filler Intake/History Entered On: 06/12/2016 8:43 CDT Performed On: 06/12/2016 8:39 CDT by GALINA CHIN LPN Intake Chief Complaint : recheck Temperature Core : 36.8 DegC(Converted to: 98.2 DegF) Peripheral Pulse Rate : 64 /min Respiratory Rate : 16 /min Heart Rhythm : Regular Systolic Blood Pressure : 130 mmHg Diastolic Blood Pressure : 72 mmHg NIBP Mean : 91 mmHg BP Location : Left upper extremity Blood Pressure Cuff Size : Regular Height : 185 cm(Converted to: 6 ft 1 inch(es), 73 inch(es)) Actual Weight : 85.95 kg(Converted to: 189 lb 8 oz) Weight Source : Standing scale Dosing Weight Clinic : 85.95 kg Clinic BSA : 2.1 Body Mass Index : 25.11 kg/m2 GALINA CHIN LPN - 06/12/2016 8:39 CDT General Info Information Given By : Patient Languages : Welsh Is Patient Female and 13-50 no hysterectomy : No GALINA CHIN LPN - 06/12/2016 8:39 CDT Subjective Pain Symptoms : No GALINA CHIN LPN - 06/12/2016 8:39 CDT Dependent Habits Exposure to Tobacco Smoke : Other: NEVER Smoking Status : Never smoker Tobacco 2A : No Tobacco Use/Currently Using : No Tobacco Use/Last 30 Days : No Tobacco Use/Last 12 months : No GALINA CHIN LPN - 06/12/2016 8:39 CDT Caffeine Use Grid Caffeine Use : Current Type : Soft drinks Frequency : Daily GALINA CHIN LPN - 06/12/2016 8:39 CDT Recreational Drug Use Grid Drug Use : None GALINA CHIN LPN - 06/12/2016 8:39 CDT [facility] Document Id: [id number] CDT!39 documented in this encounter Plan of Treatment Not on filedocumented as of this encounter Visit Diagnoses Not on filedocumented in this encounter
--- OUTSIDE RECORDS SUMMARY | 2022-01-20 10:00 | XMS_ITS | Encounter Summary ---
:1950 Author Organization [facility] Address [address] [place] [address] Care Team Providers Name Role Phone Jefferson Mitchell M.D. Primary Care Provider Encounter Details Date Type Department Care Team Description 09/09/2017 Orders Only Department of Family Myrom, Mildred Cassidy, APR N, Medicine, [facility], C.N. P. 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 PCP - General 09/04/16 11/12/17 [address] [place] [address] documented as of this encounter
--- OUTSIDE RECORDS SUMMARY | 2022-01-20 10:00 | XMS_ITS | Encounter Summary ---
:1950 Author Organization [facility] Address [address] [place] [address] Care Team Providers Name Role Phone Unavailable Primary Care Provider Unavailable Encounter Details Date Type Department Care Team Description 03/27/2015 Hospital Encounter HX [facility] FB INTERNMED Haja Mitchell M.D. [address] [place], [place] [address] (Wo rk) Social History Tobacco Use Types Packs/Day Years Used Date Smoking Tobacco: Never Assessed Sex Assigned at Date Recorded Not on file documented as of this encounter Last Filed Vital Signs Vital Sign Reading Time Taken Comments Blood Pressure 147/90 03/27/2015 8:40 AM FORKLIFT TECHNICIAN Pulse 96 03/27/2015 8:38 AM FORKLIFT TECHNICIAN Temperature - - Respiratory Rate 16 03/27/2015 8:38 AM FORKLIFT TECHNICIAN Oxygen Saturation - - Inhaled Oxygen Concentration - - Weight 102 kg (224 lb 13.9 oz) 03/27/2015 8:38 AM FORKLIFT TECHNICIAN Height 185 cm (6' 0.84) 03/27/2015 8:40 AM FORKLIFT TECHNICIAN Body Mass Index 29.8 03/27/2015 8:38 AM FORKLIFT TECHNICIAN documented in this encounter H&P Notes Miguel A Mitchell M.D. - 03/27/2015 8:29 AM CST [id number] CHIEF COMPLAINT/REASON FOR VISIT Preventive medicine with acute problems. Acute problems: The patient has been having a little trouble with his prostate. He has a lot of dribbling and he is taking Flomax 0.4 mg already. We had a long talk about this and basically he can try increasing it to 0.4 mg 2 times a day and I will see him in a month. If that has not improved his urination then perhaps a urologist could talk to him about green light laser therapy. The patient has got elevated blood pressure without the diagnosis of hypertension. Increasing the Flomax would probably help that, but I will have him come back in a month and we will recheck the bloodpressure. If the blood pressure is high, then we are going to have to give him the diagnosis of hyper tension because all 3 blood pressures were hypertensive. MEDICATIONS Per EMR. ALLERGIES Per EMR. SYSTEMS REVIEW In all areas except as mentioned above is negative. PAST MEDICAL/SURGICAL HISTORY 1. He has had his left hip replaced about 12 years ago and he is looking to have his right hip replaced soon as well. 2. Elevated blood pressure without the diagnosis of hypertension. 3. BPH with obstruction. 4. Basal cell skin cancer and multiple skin lesions for which he sees a marketing program coordinator twice a year. 5. Erectile dysfunction on Viagra. SOCIAL HISTORY He is . He does not use tobacco. FAMILY HISTORY He has no first-degree relative with history of colorectal cancer or prostate cancer. He does have ahistory of longevity in his family. PHYSICAL EXAMINATION VITAL SIGNS: Per EMR. HEENT: Eyes: Conjunctivae and lids normal. Pupils equal, round, reactive to light and accommodation.Extraocular movements normal. Sclerae nonicteric. Ophthalmologic exam grossly normal. ENT: Tympanic membranes look okay bilaterally. Nares without erythema or congestion. Mouth without erythema or exudate, no leuko or erythroplakia. Cheesh-Na teeth top and bottom. NECK: Supple, no adenopathy or thyromegaly. Carotid [...] fourthsound, no significant murmur, no gallop. ABDOMEN: Soft and nondistended. No organomegaly. No focal mass or tenderness. PERIPHERAL VASCULAR: There are good femoral, popliteal and dorsalis pedis pulses bilaterally; no bruits over the femoral arteries. GENITOURINARY/RECTAL: Normal penis. Testicles normal. No hernias palpated. Rectal has normal perirectal area with internal exam revealing a smooth rectal vault. No mass or tenderness. Brown stool, guaiac negative. The prostate is normal in size for age with no nodules, induration, or pain to palpation. EXTREMITIES: Warm, dry, and noncyanotic without clubbing or peripheral edema. NEUROLOGIC: Cranial nerves II to XII are grossly intact. Reflexes in the upper and lower extremitiesare bilaterally symmetric. Toes are downgoing. There is no dysmetria. Gait is normal.. SKIN: Multiple moles, angioma and skin lesions of aging, under the care of the marketing program coordinator. IMPRESSION/REPORT/PLAN 1. Continue seeing the marketing program coordinator regularly because he has multiple skin lesions. 2. Prostatic issues. Will try Flomax 2 times a day and check him in a month. 3. Elevated blood pressure without the diagnosis of hypertension. Recheck blood pressure in 1 month. 4. Considering getting his right hip replaced and we talked about that in some detail. That could [facility] at [facility]. 5. Erectile dysfunction. I will refill his Viagra prescription for him. 6. Deficient immunization status. He received his Fluvax and a tetanus shot today. 7. Inactive problems. Please see past medical history. HEALTH MAINTENANCE CONCERNS Instructed to have a complete physical examination once a year, to see an valve and regulator repairer or citrix consultant once a year for glaucoma screening, and see the dentist at least once or twice a year. Instructed to wear seatbelts when in a motor vehicle. Recommended to drink at least 6 glasses of plain water each day, have 5 servings of fruits and vegetables each day, and get good aerobic exercise. I also recommended he take a generic multivitamin without iron once a day. With his laboratories and shots today, everything is up to date. Laboratories today he had a BMP, CBC, lipid panel, PSA, thyroid function cascade and UA with micro. He got a DTaP and a Fluvax. Miguel A Mitchell M.D./julio Electronically Signed By: MIGUEL A MITCHELL MD On: 03/27/2015 03:23 PM Source: [facility] MHSDOLBEYNONRADSYS Document Id: [id number] LIFT TECHNICIAN documented in this encounter Miscellaneous Notes Telephone Encounter - Conversion, Historical Provider Ser - 01/24/2016 2:34 PM CDT *Phone Message/dequan Document Contains Addenda Addendum by GALINA CHIN LPN on January 24, 2016 16:30:35 CDT Romelia called verbal orders given for RN and PT services Addendum by MIGUEL A MITCHELL MD on January 24, 2016 16:13:01 CDT From: MIGUEL A MITCHELL MD To: TONY Mitchell Nurse; Sent: 01/24/2016 16:13:01 CDT Subject: RE: *Phone Message/dequan ok Addendum by GALINA CHIN LPN on January 24, 2016 16:01:13 CDT From: GALINA CHIN LPN ( Miguel A Mitchell Nurse) To: MIGUEL A MITCHELL MD; Sent: 01/24/2016 16:01:13 CDT Subject: FW: *Phone Message/dequan León called will fax over discharge summary From: LULY LOW ( Miguel A Mitchell Nurse) To: TONY Mitchell Nurse; Sent: 01/24/2016 14:34:50 CDT Subject: *Phone Message/dequan Caller is: ( ) Patient ( ) Mother ( ) Father ( ) Spouse ( ) Daughter ( ) Son ( ) Pharmacy ( x ) Other: Physician: Patient MRN #: Reason for Call: Romelia with [facility] calling, she is need verbal orders for RN and PT services. Please call Romelia at [phone] Message: Advice/Action: Source used: ( ) Verbalizes [...] back cell phone number ( ) Source: [facility] [employer] Document Id: [id number] Miguel A Raza M.D. - 03/28/2015 7:34 AM CST Results Notification Document Contains Addenda Addendum by GALINA CHIN LPN on 28 March 2015 08:48:09 FORKLIFT TECHNICIAN called with results From: MIGUEL A MITCHELL MD To: TONY Mitchell Nurse; Sent: 03/28/2015 07:34:21 FORKLIFT TECHNICIAN ! Show up: 03/28/2015 07:34:21 FORKLIFT TECHNICIAN Subject: Results Notification Actions: Notify patient of results Reminder Comments: ok Results: Date Result Name Value Ref Range 03/27/2015 09:26 TSH, Sensitive-Terry 2.6 mIU/L (0.3-4.2 - ) Source: [facility] [employer] Document Id: [id number] Electronically signed by Conversion, [facility] Programmer Numerical Control [id number] at 08/16/2016 11:12 AM CDT Miguel A Villar M.D. - 03/27/2015 1:24 PM CST Results Notification Document Contains Addenda Addendum by GALINA CHIN LPN on 27 March 2015 16:10:02 FORKLIFT TECHNICIAN called with results From: MIGUEL A MITCHELL MD To: TONY Mitchell Nurse; Sent: 03/27/2015 13:24:45 FORKLIFT TECHNICIAN ! Show up: 03/27/2015 13:24:45 FORKLIFT TECHNICIAN Subject: Results Notification Actions: Notify patient of results Reminder Comments: ok Results: Date Result Name Ind Value Ref Range 03/27/2015 09:26 Sodium Lvl 142 mmol/L (135 - 145) 03/27/2015 09:26 Potassium Lvl 4.1 mmol/L (3.6 - 5.2) 03/27/2015 09:26 Chloride 104 mmol/L (98 - 107) 03/27/2015 09:26 CO2 27 mmol/L (22 - 29) 03/27/2015 09:26 AGAP 11 mmol/L (7 - 15) 03/27/2015 09:26 Glucose Fasting (H) 103 mg/dL (70 - 99) 03/27/2015 09:26 Creatinine 1.0 mg/dL (0.8 - 1.3) 03/27/2015 09:26 EGFR (MDRD) >60 mL/min/1.73m2 (>=60 - ) 03/27/2015 09:26 EGFR (MDRD) >60 mL/min/1.73m2 (>=60 - ) 03/27/2015 09:26 BUN 22 mg/dL (8 - 24) 03/27/2015 09:26 Calcium Lvl 9.7 mg/dL (8.8 - 10.3) 03/27/2015 09:26 Cholesterol 199 mg/dL ( - <=199) 03/27/2015 09:26 Trig 114 mg/dL ( - <=149) 03/27/2015 09:26 HDL 48 mg/dL (>=40 - ) 03/27/2015 09:26 LDL/HDL 3 Source: [facility] [employer]ART Document Id: [id number] Electronically signed by Garth, [facility] Programmer Numerical Control [id number] at 08/16/2016 11:12 AM CDT Miscellaneous - Miguel A Mitchell M.D. - 03/27/2015 12:48 PM CST Results Notification Document Contains Addenda Addendum by GALINA CHIN LPN on 27 March 2015 16:10:09 FORKLIFT TECHNICIAN called with results From: MIGUEL A MITCHELL MD To: TONY Mitchell Nurse; Sent: 03/27/2015 12:48:15 FORKLIFT TECHNICIAN ! Show up: 03/27/2015 12:48:15 FORKLIFT TECHNICIAN Subject: Results Notification Actions: Notify patient of results Reminder Comments: ok Results: Date Result Name Value Ref Range 03/27/2015 09:26 LDL Calculated 128 mg/dL ( - <=129) 03/27/2015 09:26 Chol/HDL Ratio 4.15 Source: [facility] P[employer]CHART Document Id: [id number] Electronically signed by Conversion, [facility] Programmer Numerical Control [id number] at 08/16/2016 11:12 AM CDT Miguel A Villar M.D. - 03/27/2015 12:42 PM CST Results Notification Document Contains Addenda Addendum by GALINA CHIN LPN on 27 March 2015 16:10:15 FORKLIFT TECHNICIAN called with results From: MIGUEL A MITCHELL MD To: TONY Mitchell Nurse; Sent: 03/27/2015 12:42:25 FORKLIFT TECHNICIAN ! Show up: 03/27/2015 12:42:25 FORKLIFT TECHNICIAN Subject: Results Notification Actions: Notify patient of results Reminder Comments: ok Results: Date Result Name Value Ref Range 03/27/2015 09:26 PSA 3.2 ng/mL (0.0 - 4.5) Source: [facility] [employer] Document Id: [id number] Electronically signed by Conversion, [facility] Programmer Numerical Control [id number] at 08/16/2016 11:12 AM CDT Miguel A Villar M.D. - 03/27/2015 11:22 AM CST Results Notification Document Contains Addenda Addendum by GALINA CHIN LPN on 27 March 2015 16:10:22 FORKLIFT TECHNICIAN called with results From: MIGUEL A MITCHELL MD To: TONY Mitchell Nurse; Sent: 03/27/2015 11:22:44 FORKLIFT TECHNICIAN ! Show up: 03/27/2015 11:22:44 FORKLIFT TECHNICIAN Subject: Results Notification Actions: Notify patient of results Reminder Comments: ok Results: Date Result Name Value Ref Range 03/27/2015 09:26 Hgb 15.2 g/dL (13.5 - 17.5) 03/27/2015 09:26 Hct 45.5 % (38.8 - 50.0) 03/27/2015 09:26 WBC 5.7 x10(9)/L (3.5 - 10.5) 03/27/2015 09:26 RBC 5.45 x10(12)/L (4.32 - 5.72) 03/27/2015 09:26 MCV 83.5 fL (81.0 - 95.0) 03/27/2015 09:26 RDW 12.9 % (11.8 - 15.6) 03/27/2015 09:26 Platelet 245 x10(9)/L (150 - 450) 03/27/2015 09:26 Neutro Absolute 3.50 10(9)/L (1.70 - 7.00) 03/27/2015 09:26 Lymph Absolute 1.41 x10(9)/L (0.90 - 2.90) 03/27/2015 09:26 Charlton Absolute 0.39 x10(9)/L (0.30 - 0.90) 03/27/2015 09:26 Eos Absolute 0.27 x10(9)/L (0.05 - 0.50) 03/27/2015 09:26 Baso Absolute 0.11 x10(9)/L (0.00 - 0.30) Source: [facility] POWERCHART Document Id: [id number] Electronically signed by Conversion, [facility] Programmer Numerical Control [id number] at 08/16/2016 11:12 AM CDT Miscellaneous - Miguel A Mitchell M.D. - 03/27/2015 9:40 AM CST Results Notification Document Contains Addenda Addendum by GALINA CHIN LPN on 27 March 2015 16:08:11 FORKLIFT TECHNICIAN called with results From: MIGUEL A MITCHELL MD To: TONY Mitchell Nurse; Sent: 03/27/2015 09:40:18 FORKLIFT TECHNICIAN ! Show up: 03/27/2015 09:40:18 FORKLIFT TECHNICIAN Subject: Results Notification Actions: Notify patient of results Reminder Comments: ok Results: Date Result Name Ind Value Ref Range 03/27/2015 09:30 UA Color Yellow (Colorless - ) 03/27/2015 09:30 UA Clarity Clear (Clear - ) 03/27/2015 09:30 UA Spec Grav 1.020 03/27/2015 09:30 UA pH 5.5 (<5.0 - ) 03/27/2015 09:30 UA Protein Negative mg/dL (Negative - ) 03/27/2015 09:30 UA Glucose Negative mg/dL (Negative - ) 03/27/2015 09:30 UA Ketones Negative mg/dL (Negative - ) 03/27/2015 09:30 UA Bili Negative (Negative - ) 03/27/2015 09:30 UA Urobilinogen 0.2 mg/dL (0.2 - ) 03/27/2015 09:30 UA Blood Negative (Negative - ) 03/27/2015 09:30 UA Nitrite Negative (Negative - ) 03/27/2015 09:30 UA Leuk Est Negative (Negative - ) 03/27/2015 09:30 UR WBC Occ-3 /HPF (None Seen - ) 03/27/2015 09:30 UR RBC None Seen /HPF (None Seen - ) 03/27/2015 09:30 UR Squamous Epi Cells (*) Occ-3 /HPF (None Seen - ) Source: [facility] [employer] Document Id: [id number] Electronically signed by Garth [facility] Programmer Numerical Control [id number] at 08/16/2016 11:12 AM CDT Miscellaneous - Galina Chin L.P.N. - 03/27/2015 8:40 AM CST Ambulatory Vitals Height Weight Ambulatory Vitals Height Weight Entered On: 03/27/2015 8:40 FORKLIFT TECHNICIAN Performed On: 03/27/2015 8:40 FORKLIFT TECHNICIAN by GALINA CHIN LPN Vitals/Ht/Wt Systolic Blood Pressure : 147 mmHg (HI) Diastolic Blood Pressure : 90 mmHg (HI) NIBP Mean : 109 mmHg BP Location : Left upper extremity Blood Pressure Cuff Size : Large Height : 185 cm(Converted to: 6 ft 1 inch(es), 73 inch(es)) GALINA CHIN LPN - 03/27/2015 8:40 FORKLIFT TECHNICIAN Source: [facility] [employer] Document Id: [id number] FORKLIFT TECHNICIAN!8 LIFT TECHNICIAN Miscellaneous - Miguel A Mitchell M.D. - 03/27/2015 8:40 AM CST Ambulatory Patient Summary [place] [id number] [facility] [place], [place] [id number] Visit Information Name: ATILIO AUSTIN [facility] Number: [id number] Current Date: 03/27/2015 08:40:00 Physicians Attending Provider: MIGUEL A MITCHELL MD [...] the Following Medications: Medication list as of 03-27-15 08:40 Attention: If you have any medications [...] Signed By: MIGUEL A MITCHELL MD Signed On:27-MAR-2015 08:37:24 Your Allergies & Intolerances Substance Reaction Symptoms [...] Vein (VV) L Active Elastosis Solar Active Your Upcoming Appointments Date Time Location Provider No Appointments found Attention: Contact your local Clinic if further appointment detail needed. Prevention Guidelines, Men Ages to 64 Screening tests and vaccines are an important part of managing your health. Health counseling is essential, too. Below are guidelines for these, for men ages 50 to 64. Talk with your health care provider to make sure youre up to date on what you need. Screening Who needs it How often Alcohol misuse All men in this age group At routine exams Blood pressure All men in this age group Every 2 years if your blood pressure is less than 120/80 mmHg; yearly if your systolic blood pressure is 120 to 139 mm Hg, or your diastolic blood pressure reading is 80 to 89 mm Hg Colorectal cancer All men in this age group Flexible sigmoidoscopy every 5 years, or colonoscopy every 10 years, or double-contrast barium enema every 5 years; yearly fecal occult blood test or fecal immunochemical test; or a stool DNA test as often as your health care provider advises; talk with yourhealth care provider about which tests are best for you Depression All men in this age group At routine exams Diabetes mellitus, type 2 Men who have blood pressure higher than 135/80 mm Hg At least every 3 years High cholesterol or triglycerides All men in this age group At least every 5 years HIV Men at increased risk for infection -- talk with your health care provider At routine exams Obesity All men in this age group At routine exams Syphilis Men at increased risk for infection -- talk with your health care provider At routine exams Tuberculosis Men at increased risk for infection -- talk with your health care provider Ask your health care provider Vision All men in this age group Ask your health care provider Vaccine Who needs it How often Chickenpox (varicella) All men in this age group who have no record of this infection or vaccine 2 doses; second dose should be given at least 4 weeks after the first dose Hepatitis A Men at increased risk for infection -- talk with your health care provider 2 doses givenat least 6 months apart Hepatitis B Men at increased risk for infection -- talk with your health care provider 3 doses over 6 months; second dose should be given 1 month after the first dose; the third dose should be given atleast 2 months after the second dose and at least 4 months after the first dose Influenza (flu) All men in this age group Once a year Measles, mumps, rubella (MMR) All men in this age group who have no record of these infections or vaccines 1 or 2 dose; ask your health care provider Meningococcal Men at increased risk for infection -- talk with your health care provider 1 or more doses Pneumococcal (polysaccharide) Men at increased risk for infection -- talk with your health care provider 1 or more doses Tetanus/diphtheria/ pertussis (Td/Tdap) booster All men in this age group Td every 10 years, or a one-time dose of Tdap instead of a Td booster after age 18, then Td every 10 years Zoster All men ages 60 and older 1 dose Counseling Who needs it How often Diet and exercise Men with high cholesterol or triglycerides, or other risk factors for cardiovascular or chronic disease affected by diet or exercise When diagnosed, and then at routine exams Use of daily aspirin Men in this age group at risk for cardiovascular health problems At routine exams Use of tobacco and the health affects it can cause All men in this age group Every visit ?? [id number], [place] [address]. All rights reserved. This information is not [...] if you dont have one. Go to [email or web address] and click on Create Your Account. Then, follow the directions to complete the online form. Youll be asked for your [facility] number which you can find at the top of this document. Your Goals/Additional instructions: Source: [facility] [employer] Document Id: [id number] LIFT TECHNICIAN Miscellaneous - Miguel A Mitchell M.D. - 03/27/2015 8:39 AM CST Ambulatory Discharge Medication List [address] [id number] Visit Information Name: ATILIO AUSTIN [facility] Number: [id number] Visit Date: 03/27/2015 08:39:59 Attending Provider: MIGUEL A MITCHELL MD Primary [...] the Following Medications: Medication list as of 03-27-15 08:39 Attention: If you have any medications at [...] Signed By: MIGUEL A MITCHELL MD Signed On:27-MAR-2015 08:37:24 Additional Information: Source: [facility] [employer] Document Id: [id number] LIFT TECHNICIAN Harvey - Galina Chin L.P.N. - 03/27/2015 8:38 AM CST PHQ-9 PHQ-9 Entered On: 03/27/2015 8:38 FORKLIFT TECHNICIAN Performed On: 03/27/2015 8:38 FORKLIFT TECHNICIAN by GALINA CHIN LPN PHQ-9 Little interest or pleasure in doing things : Not at all Feeling down, depressed, or hopeless : Not at all Trouble falling or staying asleep, or sleeping too much : Not at all Feeling tired or having little energy : Not at all Poor appetite or overeating : Not at all Feeling bad about yourself or that you are a failure : Not at all Trouble concentrating on things : Not at all Moving or speaking slowly; restless or fidgety : Not at all Thoughts that you would be better off /hurting self : Not at all PHQ-9 Calculated Score : 0 Problems make work, home, or dealing with others : Not difficult at all GALINA CHIN LPN - 03/27/2015 8:38 FORKLIFT TECHNICIAN [facility] Document Id: [id number] FORKLIFT TECHNICIAN!13 LIFT TECHNICIAN Galina Keen L.PLaceyNLacey - 03/27/2015 8:38 AM CST Adult Soil Conservation Teacher Intake/History Adult Soil Conservation Teacher Intake/History Entered On: 03/27/2015 8:40 FORKLIFT TECHNICIAN Performed On: 03/27/2015 8:38 FORKLIFT TECHNICIAN by GALINA CHIN LPN Intake Chief Complaint : complete exam Temperature Core : 36.4 DegC(Converted to: 97.5 DegF) (LOW) Peripheral Pulse Rate : 96 /min Respiratory Rate : 16 /min Heart Rhythm : Regular Systolic Blood Pressure : 160 mmHg (HI) Diastolic Blood Pressure : 85 mmHg NIBP Mean : 110 mmHg BP [...] : 29.8 kg/m2 GALINA CHIN LPN - 03/27/2015 8:38 FORKLIFT TECHNICIAN General Info Information Given By : Patient Languages : [place] Zealander Is Patient Female and 13-50 no hysterectomy : No GALINA CHIN LPN - 03/27/2015 8:38 FORKLIFT TECHNICIAN Subjective Pain Symptoms : No GALINA CHIN LPN - 03/27/2015 8:38 FORKLIFT TECHNICIAN Dependent Habits Exposure to Tobacco Smoke : Other: NEVER Smoking Status : Never smoker Tobacco 2A : No Tobacco Use/Currently Using : No Tobacco Use/Last 30 Days : No Tobacco Use/Last 12 months : No GALINA CHIN LPN - 03/27/2015 8:38 FORKLIFT TECHNICIAN Caffeine Use Grid Caffeine Use : Current Type : Soft drinks Frequency : Daily GALINA CHIN LPN - 03/27/2015 8:38 FORKLIFT TECHNICIAN Recreational Drug Use Grid Drug Use : None GALINA CHIN LPN - 03/27/2015 8:38 FORKLIFT TECHNICIAN Source: [facility] [employer] Document Id: [id number] FORKLIFT TECHNICIAN!39 LIFT TECHNICIAN Miscellaneous - Galina Chin L.PLaceyNLacey - 03/27/2015 8:37 AM CST Health Assessment Health Assessment Entered On: 03/27/2015 8:38 FORKLIFT TECHNICIAN Performed On: 03/27/2015 8:37 FORKLIFT TECHNICIAN by GALINA CHIN LPN Health Assessment Complete Health Assessment Complete or Modified : Annual Health Assessment Annual Health Assessment Completed : Yes GALINA CHIN LPN - 03/27/2015 8:37 FORKLIFT TECHNICIAN Nutrition Nutrition Risk Factors by History Adult : None GALINA CHIN LPN - 03/27/2015 8:37 FORKLIFT TECHNICIAN Functional Current Daily Living Assistance : None GALINA CHIN LPN - 03/27/2015 8:37 FORKLIFT TECHNICIAN Dependent Habits Exposure to Tobacco Smoke : Other: NEVER Smoking Status : Never smoker Tobacco 2A : No Tobacco Use/Currently Using : No Tobacco Use/Last 30 Days : No Tobacco Use/Last 12 months : No GALINA CHIN CLASSIFICATION AND TREATMENT DIRECTOR 03/27/2015 8:37 FORKLIFT TECHNICIAN Caffeine Use Grid Caffeine Use : Current Type : Soft drinks Frequency : Daily GALINA CHIN [facility] - 03/27/2015 8:37 FORKLIFT TECHNICIAN Alcohol Use : Yes GALINA CHIN [facility] 03/27/2015 8:37 FORKLIFT TECHNICIAN Recreational Drug Use Grid Drug Use : None GALINA CHIN [facility] 03/27/2015 8:37 FORKLIFT TECHNICIAN Psychosocial Domestic Abuse Concerns : None Behavioral Health Screen/Safety Assmt : No Episcopalian Preference : No qualifying data available. GALINA CHIN [facility] 03/27/2015 8:37 FORKLIFT TECHNICIAN Advance Directive Advanced Directives : No Advance Directive Additional Information : No GALINA CHIN [facility] 03/27/2015 8:37 FORKLIFT TECHNICIAN Educ Needs Learning Style Preference Adult Grid Patient : Verbal explanation, Printed materials Family : Verbal explanation, Printed materials GALINA CHIN [facility] - 03/27/2015 8:37 FORKLIFT TECHNICIAN Source: [facility] [employer]ART Document Id: [id number] FORKLIFT TECHNICIAN!35 LIFT TECHNICIAN documented in this encounter Plan of Treatment Not on filedocumented as of this encounter Procedures Procedure Name Priority Date/Time Associated Comments Diagnosis URINALYSIS WITH Routine 03/27/2015 9:30 AM Result s for this MICROSCOPIC FORKLIFT TECHNICIAN procedure are i n the results section. LIPID PANEL, S Routine 03/27/2015 9:26 AM Results for this FORKLIFT TECHNICIAN procedure are i n the results section. THYROID FUNCTION Routine 03/27/2015 9:26 AM Resul ts for this CASCADE, S FORKLIFT TECHNICIAN procedure are i n the results section. PROSTATE-SPECIFIC AG Routine 03/27/2015 9:26 AM R esults for this (PSA) SCRN, S FORKLIFT TECHNICIAN procedure are in the results section. AUTOMATED Routine 03/27/2015 9:26 AM Results f or this DIFFERENTIAL, B FORKLIFT TECHNICIAN procedure ar e in the results section. CBC WITH Routine 03/27/2015 9:26 AM Results f or this DIFFERENTIAL, B FORKLIFT TECHNICIAN procedure ar e in the results section. BASIC METABOLIC Routine 03/27/2015 9:26 AM Result s for this PANEL, S/P FORKLIFT TECHNICIAN procedure are i n the results section. documented in this encounter Results (ABNORMAL) Urinalysis, Complete, Includes Microscopic (03/27/2015 9:30 AM FORKLIFT TECHNICIAN) [facility] gist Method Time Signature Clarity Clear Clear POWERCHART HXUr Color Yellow Colorless POWERCHART Specific 1.020 POWERCHART [place], POCT, U pH, POCT, Urine 5.5 <5.0 POWERCHART Protein, Ur, Dip Negative Negative POWERCHART MGDL Glucose Negative Negative POWERCHART MGDL Ketones, QL(U) Negative Negative POWERCHART MGDL HXBILIRUBIN Negative Negative POWERCHART HXBLOOD Negative Negative POWERCHART Leukocyte Negative Negative POWERCHART Esterase HXNITRITE Negative Negative POWERCHART Urobilinogen 0.2 0.2 MGDL POWERCHART HXUR WBC. Occ-3 None Seen POWERCHART HPF HXUR RBC. None Seen None Seen POWERCHART HPF Squamous Occ-3 (A) None Seen POWERCHART Epithelial HPF Specimen (Source) Anatomical Collection Method Collection Time Re ceived Time Location / / Volume Laterality Urine, First 03/27/2015 9:30 AM Voided FORKLIFT TECHNICIAN Miguel A Mitchell M.D. LAB URINE ORDERABLES Performing Organization Address City/[facility] Phon e Number POWERCHART Automated Differential (03/27/2015 9:26 AM FORKLIFT TECHNICIAN) athologist Signature Absolute 3.50 1.70 - POWERCHART Neutrophils 7.00 109L Lymphocytes 1.41 0.90 - POWERCHART 2.90 X109L Monocytes 0.39 0.30 - POWERCHART 0.90 X109L Eosinophils 0.27 0.05 - POWERCHART 0.50 X109L Absolute 0.11 0.00 - POWERCHART Basophil 0.30 X109L Specimen Anatomical Collection Method Collection Time Receive d Time (Source) Location / / Volume Laterality Blood 03/27/2015 9:26 AM 6 9:26 FORKLIFT TECHNICIAN AM FORKLIFT TECHNICIAN Miguel A Mitchell M.D. LAB BLOOD ADD-ON Performing Organization Address City/[facility] Phon e Number POWERCHART CBC with Differential (03/27/2015 9:26 AM FORKLIFT TECHNICIAN) athologist Signature Leukocytes 5.7 3.5 - 10.5 POWERCHART X109L Erythrocytes 5.45 4.32 - 5.72 POWERCHART [id number] Hemoglobin 15.2 13.5 - 17.5 POWERCHART GDL Hematocrit 45.5 38.8 - 50.0 POWERCHART MCV 83.5 81.0 - 95.0 POWERCHART FL HX RDW 12.9 11.8 - 15.6 POWERCHART Platelet Count 245 150 - 450 POWERCHART X109L Specimen (Source) Anatomical Collection Method Collection Time Re ceived Time Location / / Volume Laterality Blood 03/27/2015 9:26 AM FORKLIFT TECHNICIAN Miguel A Mitchell M.D. LAB BLOOD ADD-ON Performing Organization Address City/State/ZIP Code Phon e Number POWERCHART Lipid Panel (03/27/2015 9:26 AM FORKLIFT TECHNICIAN) athologist Signature Calculated LDL 128 <=129 MGDL POWERCHART Comment: 2013 National Lipid Association recommen dations for LDL-C in adults ages 18 and up: Desirable <100 mg/dL Above desirable 100-129 mg/dL Borderline high 130-159 mg/dL High 160-189 mg/dL Very High 190 mg/dL 2014 National Lipid Association recommen dations for LDL-C in children ages 2 to 17. Acceptable <110 mg/dL Borderline High 110-129mg/dL High 130 mg/dL LDL-C >190mg/dL: The markedly elevated LDL level is suggestive of a genetic condition such as familial hypercholesterolemia(FH) or familial defective apolipoprotein B-100 (FDB). Molecular genetic t esting for FH and FDB is available donnyu [facility]: FH/ADH Genetic Reflex [place] el (test ADHP). Acquired (non-genetic) causes of markedly increased LDL cholesterol include cholestatic liver disease due to the presence of LpX. If a genetic form of hypercholesterolemia is suspected, family studies including biochemical testing fo r lipids (total cholesterol,triglycerides, LDL cholesterol and HDL cholesterol) are recommended. ??Please contact the laboratory at or the on-line test catalog at [email or web address] for information about how to order these emmett ts or to speak with a genetic counselor. Further interpretation would require clinical information. Total Cholesterol/HDL Ratio 4.15 PO WERCHART Cholesterol, Total 199 <=199 MGDL POWERCHART Comment: 2013 National Lipid Association recommen dations for Total Cholesterol in adults ages 18 and up: Desirable <200 mg/dL Borderline high 200-239 mg/dL High 240 mg/dL 2014 National Lipid Association recommen dations for Total Cholesterol in children ages 2 to 17. Acceptable <170 mg/dL Borderline High 170-199 mg/dL High 200 mg/dL HX HDL 48 >=40 MGDL POWERCHART Comment: 2013 National Lipid Association recommen dations for HDL-C in adults ages 18 and up: Low <40 mg/dL (Men) Low <50 mg/dL (Women) 2014 National Lipid Association recommen dations for HDL-C in children ages 2 to 17. Low <40 mg/dL Borderline Low 40-45 mg/dL Acceptable >45 mg/dL Triglycerides 114 <=149 MGDL POWERCHART Comment: 2013 National Lipid Association recommen dations for Triglycerides in adults ages 18 and up: Normal <150 mg/dL Borderline High 150-199 mg/dL High 200-499 mg/dL Very High 500 mg/dL 2014 National Lipid Association recommen dations for Triglycerides in children ages 2 to 9. Acceptable <75 mg/dL Borderline High 75-99 mg/dL High 100 mg/dL 2014 National Lipid Association recommen dations for Triglycerides in children ages 10 to 17. Acceptable <90 mg/dL Borderline High 90-129 mg/dL High 130 mg/dL Trigs >400mg/dL: Triglycerides >400 mg/ dL. Calculated LDL cholesterol is not valid. Non-HDL cholesterol may be used for risk assessment when triglycerides are >400mg/dL. HXLDL/HDL 3 POWERCHART Specimen (Source) Anatomical Collection Method Collection Time Re ceived Time Location / / Volume Laterality Blood 03/27/2015 9:26 AM FORKLIFT TECHNICIAN Miguel A Mitchell M.D. LAB BLOOD ADD-ON Performing Organization Address City/State/ZIP Code Phon e Number POWERCHART Thyroid Function [place] (03/27/2015 9:26 AM FORKLIFT TECHNICIAN) P athologist Signature TSH, Sensitive 2.6 0.3 - 4.2 POWERCHART MIUL Comment: Test Performed by: [address] [address] [employer] Operator: Gt Schmid II, M.D., Ph.D. Specimen (Source) Anatomical Collection Method Collection Time Re ceived Time Location / / Volume Laterality Blood 03/27/2015 9:26 AM FORKLIFT TECHNICIAN Miguel A Mitchell M.D. LAB BLOOD ADD-ON Performing Organization Address City/State/ZIP Code Phon e Number POWERCHART PSA (Prostate-Specific Antigen) Screen (03/27/2015 9:26 AM FORKLIFT TECHNICIAN) P athologist Signature Prostate-Specif 3.2 0.0 - 4.5 POWERCHART ic Ag NGML Specimen (Source) Anatomical Collection Method Collection Time Re ceived Time Location / / Volume Laterality Blood 03/27/2015 9:26 AM FORKLIFT TECHNICIAN Miguel A Mitchell M.D. LAB BLOOD ADD-ON Performing Organization Address City/State/ZIP Code Phon e Number POWERCHART (ABNORMAL) BMP (Basic Metabolic Panel) (03/27/2015 9:26 AM FORKLIFT TECHNICIAN) P athologist Signature Anion Gap 11 7 - 15 POWERCHART MMOLL BUN (Blood Urea 22 8 - 24 POWERCHART Nitrogen), S MGDL Chloride, S 104 98 - 107 POWERCHART MMOLL CO2 Total 27 22 - 29 POWERCHART MMOLL Creatinine 1.0 0.8 - 1.3 POWERCHART MGDL Glucose, 103 (H) 70 - 99 POWERCHART Fasting, S MGDL Calcium, Total, 9.7 8.8 - 10.3 POWERCHART S MGDL Sodium, S 142 135 - 145 POWERCHART MMOLL Potassium, S 4.1 3.6 - 5.2 POWERCHART MMOLL HXeGFR (MDRD) >60 >=60 POWERCHART [id number] eGFR >60 >=60 POWERCHART Black/ [id number] [place] Specimen (Source) Anatomical Collection Method Collection Time Re ceived Time Location / / Volume Laterality Blood 03/27/2015 9:26 AM FORKLIFT TECHNICIAN Miguel A Mitchell M.D. LAB BLOOD ADD-ON Performing Organization Address City/State/ZIP Code Phon e Number POWERCHART documented in this encounter Visit Diagnoses Not on filedocumented in this encounter
--- OUTSIDE RECORDS SUMMARY | 2022-01-20 10:00 | XMS_ITS | Encounter Summary ---
:1950 Author Organization [facility] Address [address] [place] [address] Care Team Providers Name Role Phone Unavailable Primary Care Provider Unavailable Encounter Details Date Type Department Care Team Description 11/22/2015 Hospital Encounter HX [facility] FB[facility] INTERNRyan Yusuf M.D. [address] [id number] [phone] Social History Tobacco Use Types Packs/Day Years Used Date Smoking Tobacco: Never Assessed Sex Assigned at Date Recorded Not on file documented as of this encounter Last Filed Vital Signs Vital Sign Reading Time Taken Comments Blood Pressure 136/78 11/22/2015 2:21 PM CDT Pulse 99 11/22/2015 2:21 PM CDT Temperature - - Respiratory Rate 16 11/22/2015 2:21 PM CDT Oxygen Saturation - - Inhaled Oxygen Concentration - - Weight 96 kg (211 lb 10.3 oz) 11/22/2015 2:21 PM CDT Height 185 cm (6' 0.84) 11/22/2015 2:21 PM CDT Body Mass Index 28.05 11/22/2015 2:21 PM CDT documented in this encounter H&P Notes Ryan Reyes M.D. - 11/22/2015 2:16 PM CDT [id number] CHIEF COMPLAINT/REASON FOR VISIT Proposed surgery date: 11/30/2015. Surgeon: Dr. Dimitri Griggs. Proposed surgery: Transurethral resection of the prostate (TURP). Location: [facility]. HISTORY OF PRESENT ILLNESS Atilio is a 65-year-old male who presents to the clinic today with his for a preanesthetic medical evaluation. I am asked by Dr. Griggs to assess whether Atilio Newman is an adequate candidate for anesthesia for transurethral resection of the prostate on 11/30/2015. They discussed with Dr. Griggs regarding risks, benefits, alternative therapy. He is willing to proceed because the benefits outweigh the risks. He has been having troubles with urination for about eight weeks. His creatinine was 2.74 on 11/08/2015 with his visit with Dr. Mitchell and was sent to hospital ER. Labs were remarkable for glucose 154, BUN 26, creatinine 2.85, and EGFR 22. He had catheter placed and still has catheter in. Renal and bladder ultrasound showed: 1. Prostatomegaly. 2. Diffuse borderline or mild wall thickening of the urinary bladder. 3. Large postvoid residual of 337 mL in the urinary bladder. 4. Multiple bladder calculi, the largest measuring 1.7 cm. 5. Moderate bilateral renal pelvicaliectasis consistent with hydronephrosis. He hasnt taken Valsartan or Flomax since ER visit on 11/08/2015. Valsartan was started by Dr. Preciado because of high blood pressure, which was discontinued because of elevated creatinine with declined renal function. His blood pressure has improved following after placing urinary catheter to relieve urinary retention with bilateral hydronephrosis. Patient saw kSylar Murray APRN/WING in Urology at [facility] on 11/13/2015 for BPH with obstruction and bilateral hydronephrosis. I reviewed [facility] records. In comparison, his creatinine decreased from 2.85 to 1.92 and EGFR improved from 22 to 35 over a week (11/07 to 11/13). I reviewed his CT of the abdomen/pelvis from 11/14/2015: 1. Large hiatal hernia extending into the right paraspinal region in the chest. 2. Marked gastric wall thickening and flocculent calcifications within the gastric fundus suggestingneoplasm. Recommend upper endoscopy. 3. 1.3 cm low dense mass in the mid body of the pancreas. This could represent a cystic or solid neoplasm. MRI could be considered for further evaluation. 4. Probably hepatic and small splenic cysts. 5. Cholelithiasis. 6. Moderate bilateral hydronephrosis and diffuse bladder all thickening with Streeter catheter in place. 1.5 cm calculus in the urinary bladder. 7. Mild prostatomegaly. 8. Colonic diverticulosis. He saw Dr. Dimitri Griggs at [facility] recently. His note is unavailable at this time. He denies any back pain, fever, chills, nausea, or vomiting. Patient has anemia. He noticed some hematuria afew days following after catheter placement. He denies any bleeding symptoms since then. There were no other bleeding symptoms. Patient mentioned that he had upper endoscopy with Dr. Nabil Bliss, General Surgeon at [facility] in [place] yesterday. Per the patients , he had 7 biopsies taken. He and his were contacted by Dr. James office with results earlier today. I reviewed impression of upper GI endoscopy from 11/21/2015: Normal esophagus. Biopsied. Medium-sized hiatus hernia. Biopsied. No gross lesion in the stomach. Biopsied. Normal examined duodenum. There have been no complications during or after previous surgeries. Patient denies any personal or family history intolerance to general anesthesia. He denies any blood transfusions. There is no personal history of hepatitis, jaundice, bleeding disorder, or drug resistant infection like MRSA or VRE. There was no family or personal history of blood clots in legs or lungs. He denies history of heart attack or previous stress test. Patient denies any exertional chest pain, shortness of breath, dizziness, lightheadedness, coughing up blood or phlegm, orthopnea, paroxysmal nocturnal dyspnea, palpitation, or peripheral edema. He was scheduled for a MRI yesterday at [facility] but was cancelled because of elevated creatinine. His MRI is rescheduled for 11/27/2015 but are willing to move it to 11/28/2015. They would need to repeat creatinine level prior to MRI. I reviewed and updated his medication list. We discussed potential side effects. There are no additional questions, concerns, or complaints. MEDICATIONS None. ALLERGIES Morphine. SYSTEMS REVIEW Please see HPI for pertinent positives, otherwise rest of ROS negative. PAST MEDICAL/SURGICAL HISTORY Basal cell carcinoma. Multiple nevi. Hypertension. Stasis ulcer with varicose vein in left lower extremity. History of right ankle fracture. BPH with obstruction. Erectile dysfunction. Actinic keratosis. Seborrheic keratosis. Degenerative joint disease. Low back pain. History of closed fracture of right wrist. Status post tonsillectomy. Status post L4-L5 hemilaminectomy for ruptured disc, 05/31/1998. Status post left total hip arthroplasty, 2000. Status post colonoscopy, 10/22/2007. PREVENTATIVE SERVICES Colonoscopy: 10/22/2007. PSA: 11/13/2015 at [facility]. Tetanus booster: 03/27/2015. Influenza: 03/27/2015. SOCIAL HISTORY He is and has four children. He denies tobacco, alcohol, or drug abuse. FAMILY HISTORY BPH in father. Congestive heart failure in father. Coronary artery disease in father. There is no family history of reaction to general anesthesia or bleeding disorders. VITAL SIGNS HEIGHT: 185 cm. WEIGHT: 96 kg. BMI: 28.05 kg/m2. TEMP: 37.1 Deg C. PULSE: 99 /min. RESP: 16 /min. O2SAT: 96 %. SYSTOLIC: 136 mmHg. DIASTOLIC: 78 mmHg. PHYSICAL EXAMINATION GENERAL: Patient is sitting. No distress. Able to talk without interruption. HEAD: No facial rash, asymmetry, or sinus tenderness. EYES: PERRLA. EOMI. No icterus or conjunctivitis. Slight pallor. ENT: No nasal congestion, discharge, or bleeding. There is no ear infection or discharge. No mastoidtenderness. Tongue is moist and midline. No oral lesions. LYMPH NODES: No cervical or supraclavicular lymphadenopathy. PERIPHERAL VESSELS: Good radial pulses. HEART: No carotid bruit. No JVD. Regular rhythm. There is no S3, gallop, murmur, or thrill. LUNGS: Normal respiratory effort. Clear to auscultation. Normal percussion. ABDOMEN: Moves with respiration. Bowel sounds present. Soft. No rebound tenderness, guarding, or rigidity. No organomegaly. EXTREMITIES: No clubbing, cyanosis, edema, infection, or calf tenderness. MENTAL: Alert and oriented x 3. Normal mood and affect. NEURO: Grossly nonfocal exam. IMPRESSION/REPORT/PLAN 1. Preoperative medical evaluation prior to transurethral resection of the prostate on 11/30/2015. The patient is stable from a cardiac and respiratory standpoint. There is no absolute contraindicationfor planned procedure. They discussed with Dr. Griggs regarding risks, benefits, alternative therapy. He is willing to proceed because the benefits outweigh the risks. EKG on 11/08/2015 at hospital ER showed sinus tachycardia, ventricular rate 93 BPM, as per the record. He was advised to get a copy from [facility]. He is not on any prescription medications. He should be NPO the night before surgery. He will follow urology instructions. 2. BPH with obstruction & retention, bilateral hydroureteronephrosis, and elevated PSA. His PSA was 6.7 on 11/13/15 at [facility]. He will proceed with procedure outlined above. 3. Chronic kidney disease, stage 4. His creatine was 2.74 on 11/08/2015 and has been decreasing. We will repeat BMP next week. Need to monitor electrolytes and renal function. Need to continue cardiovascular risk factors modification. Patient was advised to avoid NSAIDs and drink plenty of fluids. 4. Anemia. It is most likely due to recent illness and catheter placement. There was no evidence of bleeding. Need to watch for bleeding. We should monitor CBC in subsequent visit. 5. Hypertension. Blood pressure is controlled without medication. He is stable from a cardiac standpoint. Need to continue sodium controlled diet and current medication. Blood pressure goal is less than 140/90 mmHg. Need to continue cardiovascular risk factors modification. 6. Abnormal CT Abdomen. He was found to have gastric wall thickening and flocculent calcifications within the gastric fundus. He underwent EGD yesterday. He will follow with Dr. Bliss, general surgeon from [facility] in [place]. He is scheduled to have MRI of abdomen next week if his renalfunction improved. The patient will follow with Dr. Mitchell a few days after surgery. Please send a copy to Dr. Griggs at [facility]. Thank you for allowing me to participate in the care of this patient. Administrative Billing 40 minutes spent with greater than 50% counseling, coordination of care, answering questions, and discussing management of above medical problems. This document serves as a record of services personally performed by Dr. Ryan Reyes. It was created on their behalf by Ronnie Muro, a trained biomedical service engineer. The creation of this record is based on the scribe's personal observations and the provider's statements to them. This document has been checked and approved by the attending provider. Ryan Reyes M.D./heather Electronically Signed By: RYAN REYES MD On: 11/23/2015 08:33 AM Modified by and Electronically Signed by: RYAN REYES MD On: 11/23/2015 08:33 AM Source: [facility] MHSDOLBEYNONRADSYS Document Id: [id number] documented in this encounter Nursing Notes Qamar Arreola L.P.N. - 11/23/2015 9:16 AM CDT Pre-op faxed to [facility] Patient's pre-op information including office note from 11/22/2015, sleep apnea screening and lab work from 11/08/2015 faxed to [facility] at [phone] for patient's upcoming surgery. Copy given to patient's to handcarry as well. Electronically Signed By: QAMAR ARREOLA LPN On: 11/23/2015 09:18 AM Source: [facility] citibuddies Document Id: [id number] Ryan Reyes M.D. - 11/22/2015 3:18 PM CDT Ambulatory Patient Education The following Patient Education Materials have been given to the patient: Patient Education Materials: Source: [facility] cit[employer]uddies Document Id: [id number] documented in this encounter Miscellaneous Notes Miscellaneous - Elisabeth Moura CLaceyMYani - 12/11/2015 3:38 PM CDT Advance Directive Advance Directive Entered On: 12/11/2015 15:44 CDT Performed On: 12/11/2015 15:38 CDT by ELISABETH MOURA CMA Advance Directive Advanced Directives : Yes Advance Directive Date : 11/28/2015 Advance Directive Type : Other: Health Care Directive Advance Directive Location : Scanned into EMR Advance Directive Comments : 1) Karla Newman Cell 2) Suzy Gonzales 3) Ton Newman 4) Gaurav Newman ELISABETH MOURA HOUSING COUNSELOR - 12/11/2015 15:38 CDT Source: [facility] EnsightenCHART Document Id: [id number] CDT!7 Telephone Encounter - Conversion, Historical Provider Ser - 12/04/2015 3:30 PM CDT *Phone Message Document Contains Addenda Addendum by SAMANTHA WATERS CMA on December 06, 2015 18:18:45 CDT also was notifed that will take a day to get tested due to goes to [place] Addendum by SAMANTHA WATERS CMA on December 06, 2015 18:18:22 CDT patient was notifed that order was in to come in to the Clinic and get Blood tested. Addendum by RYAN REYES MD on December 06, 2015 18:13:48 CDT From: RYAN REYES MD To: Amy Nurse; Sent: 12/06/2015 18:13:48 CDT Subject: RE: *Phone Message Actions: Notify patient- refer to General Message, Notify patient of Future Order OK. Order is in EHR. Addendum by SAMANTHA WATERS CMA on December 05, 2015 12:27:35 CDT From: SAMANTHA WATERS CMA (FB Amy Nurse) To: RYAN REYES MD; Sent: 12/05/2015 12:27:35 CDT Subject: FW: *Phone Message Addendum by SAMANTHA WATERS CMA on December 05, 2015 12:27:25 CDT talked to lab and they said it is called [facility]. It will get sent to [place] for testing. Patient can come here to get the draw. will take about one days to get results and to run test. Addendum by RYAN REYES MD on December 04, 2015 18:09:16 CDT From: RYAN REYES MD To: Amy Nurse; Sent: 12/04/2015 18:09:16 CDT ! Subject: RE: *Phone Message Actions: Notify patient- refer to General Message I can't find an order to be put in EHR to check blood type. Please check with our lab and find out how to order. Please call the patient if we can't do it here. Addendum by SAMANTHA WATERS CMA on December 04, 2015 16:14:06 CDT From: SAMANTHA WATERS CMA ([facility] Nurse) To: RYAN REYES MD; Sent: 12/04/2015 16:14:06 CDT Subject: FW: *Phone Message Addendum by SAMANTHA WATERS CMA on December 04, 2015 16:14:01 CDT called the Patient back and she would like an order to be put is so they can know what [place] Blood type is so he can get there blood when he has surgery, he is having surgery on the . The states that they need this as soon as possible so they can go to the [facility] and donate blood. The states and feels that if they give blood it will be safer. From: CHEMA BANDA ([facility] 60 Appeals Board Referee) To: [facility] Nurse; Sent: 12/04/2015 15:30:02 CDT Subject: *Phone Message Caller is: ( ) Patient ( ) Mother ( ) Father ( x ) Spouse ( ) Daughter ( ) Son ( ) Pharmacy ( ) Other: Physician: Patient MRN #: Reason for Call: Message: Patients called, they need to know if you have Atilio's blood type in the chart. He will be having surgery and he wants to work it out that family members can donate blood if needed. This is done through the [facility]. Please call his back at [phone] Advice/Action: Source used: ( ) Verbalizes understanding [...] back cell phone number ( ) [facility] Document Id: [id number] Miscellaneous - Ryan Reyes M.D. - 11/23/2015 12:40 PM CDT Fax H&P to [facility] and [facility] Document Contains Addenda Addendum by QAMAR ARREOLA LPN on November 23, 2015 13:47 CDT Call recie[facility] from [place] [facility] confirming reciept of H & P along with theorders for the blood work. Angeles stated they have everything they need. Addendum by QAMAR ARREOLA LPN on November 23, 2015 13:42:09 CDT H & P including office note from 11/22/2015, labs from 11/08/2015, and sleep apnea screening sent to [facility] at [phone]. Called and spoke with Allison at [facility] and confirmed that she had recieved the fax. Fax was recieved. H & P including office noteand sleep apnea screening from 11/22/2015, labs from 11/08/2015, and orders for a CBC and BMP faxed to Angeles at [facility] at . Left a voicemail for Angeles requesting her to call with confirmation of recieving information. Called and informed patient's Allison of the above information. From: RYAN REYES MD To: TONY Reyes Nurse; Sent: 11/23/2015 12:40:09 CDT ! Subject: Fax H&P to [facility] and [facility] Atilio came in during lunch hour. I talked to her. 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 They need H&P to [facility], attention to Angeles, . They also want him to have creatinine and hemoglobin check before the surgery and I was told to order these tests to be done at [facility]. I explained to her that I'll write an order and fax the order along with H&P. She said, the nurse from [facility] told her that they didn't receive H&P we faxed this morning. Their fax number is [phone]. After faxing these, please make sure they received all the documents, because this is long weekend. Thank you. Source: [facility] POWERCHART Document Id: [id number] Telephone Encounter - Qamar Arreola L.P.N. - 11/23/2015 9:38 AM CDT *Phone Message Document Contains Addenda Addendum by QAMAR ARREOLA LPN on November 23, 2015 13:48:47 CDT Order added to appointment on 11/27/2015 Addendum by RYAN REYES MD on November 23, 2015 11:57:15 CDT From: RYAN REYES MD To: TONY Reyes Nurse; Sent: 11/23/2015 11:57:15 CDT Subject: RE: *Phone Message Actions: Notify patient- refer to General Message, Notify patient of Future Order Please call. Order for CBC is in EHR. PSR to add CBC to lab appointment on 11/27/2015. From: QAMAR ARREOLA LPN ( Amy Nurse) To: RYAN REYES MD; Sent: 11/23/2015 09:38:43 CDT Subject: *Phone Message Caller is: ( ) Patient ( ) Mother ( ) Father ( x- Allison ) Spouse ( ) Daughter ( ) Son ( ) Pharmacy ( )Other: Physician: Patient MRN #: Reason for Call: Message: Patient's is calling stating that she feels patient needs another hemoglobin level drawn. His last hemoglobin was low and she doesn't feel he should go into surgery without knowing what his level currently is. Please advise. Allison can be reached [phone] Advice/Action: Source used: ( ) Verbalizes understanding [...] back cell phone number ( ) Source: [facility] POWERCHART Document Id: [id number] Electronically signed by Conversion, [facility] Health Administrator [id number] at 08/17/2016 6:10 AM CDT Telephone Encounter - Conversion, Historical Provider Ser - 11/23/2015 8:15 AM CDT *Phone Message Document Contains Addenda Addendum by QAMAR ARREOLA LPN on November 23, 2015 09:41:42 CDT Called and spoke with patient's . Informed her the forms are ready at the [facility] desk. From: KAILEY MARQUEZ ( [place] Appeals Board Referee) To: TONY Reyes Nurse; Sent: 11/23/2015 08:15:19 CDT Subject: *Phone Message Caller is: ( ) Patient ( ) Mother ( ) Father ( Allison ) Spouse ( ) Daughter ( ) Son ( ) Pharmacy ( ) Other: Physician: Patient MRN #: Reason for Call: Allison is wondering if the H & P from yesterdays pre-op is ready to vegetable picker? Please contact her at [phone] (cell) or [phone] (home) Message: Advice/Action: Source used: ( ) Verbalizes [...] back cell phone number ( ) Source: [facility] POWERCHART Document Id: [id number] Telephone Encounter - Conversion, Historical Provider Ser - 11/23/2015 8:14 AM CDT *Phone Message Document Contains Addenda Addendum by GALINA QUICK LPN on November 27, 2015 11:12:22 CDT Allison called with update on test requesting fax number fax number given From: KAILEY MARQUEZ (TONY Rodriguez Appeals Board Referee) To: TONY Mitchell Nurse; Sent: 11/23/2015 08:14:09 CDT Subject: *Phone Message Caller is: ( ) Patient ( ) Mother ( ) Father ( Allison ) Spouse ( ) Daughter ( ) Son ( ) Pharmacy ( ) Other: Physician: Patient MRN #: Reason for Call: Alliosn would like for Galina to call patient on Sunday 11/26. Allison is aware she and Dr. Mitchell are out today. Allison would like to get Galina updated on the patient. Home # [phone], [facility] [phone] and Allison cell [phone] Message: Advice/Action: Source used: ( ) Verbalizes [...] back cell phone number ( ) Source: [facility] cit[employer]uddies Document Id: [id number] Miscellaneous - Ryan Reyes M.D. - 11/22/2015 3:18 PM CDT Ambulatory Patient Summary [address] [id number] Visit Information Name: ATILIO NEWMAN [facility] Number: [id number] Current Date: 11/22/2015 15:18:13 Physicians Attending Provider: RYAN REYES MD Primary Care Provider: MIGUEL A MITCHELL MD ATILIO NEWMAN has been given the following list of follow-up instructions, medicationlist, and patient education materials: Follow-up Instructions With: Address: When: Will do blood tests on 11/27/2015. Will let you know with results. You can come in to pick upthe test results on 11/27/2015 afternoon. With: Address: When: Follow with Dr. Mitchell after prostate surgery. Also need to discuss abnromal CT scan and upper GI endoscopy report. With: Address: When: You don't take any medication right now. Do not eat or drink after 11/29/2015 midnight and follow Urology instruction. Your Medications Here is a list of your medications. It is important to take your medications as directed. Use a pillbox or chart to help remind you to take your medications. Please let your doctor or nurse know if you have problems taking your medications. Medication/Strength How to Take Indications/Special Instructions/Comments/Notes for Patient Medication Changes/Routing Stop Taking the Following Medications: aspirin (aspirin 81 mg oral tablet) multivitamin (multivitamin) sildenafil (Viagra 50 mg oral tablet) tamsulosin (Flomax 0.4 mg oral capsule) valsartan (valsartan 320 mg oral tablet) Medication list as of 11-22-15 15:18 Attention: If you have any medications at home that are not on this list, DO NOT take them until youcontact your provider for clarification. Give a copy of your medication list to your primary care provider. Update your medication list any time medications or doses are changed and carry your medication list at all times in case of emergency. Electronically Signed By: RYAN REYES MD Signed On:22-NOV-2015 15:15:02 Your Allergies & Intolerances Substance Reaction Symptoms [...] (PSA) Active Impaired (IFG) Fasting Glucose Active Your Upcoming Appointments Date Time Location [...] if you dont have one. Go to [email or web address] and click on Create Your Account. Then, follow the directions to complete the online form. Youll be asked for your [facility] number which you can find at the top of this document. Your Goals/Additional instructions: Source: [facility] POWERCHART Document Id: [id number] Miscellaneous - Ryan Reyes M.D. - 11/22/2015 3:18 PM CDT Ambulatory Discharge Medication List [address] [id number] Visit Information Name: ATILIO NEWMAN [facility] Number: [id number] Visit Date: 11/22/2015 15:18:13 Attending Provider: RYAN REYES MD Primary Care Provider: MIGUEL A MITCHELL [...] Take Indications/Special Instructions/Comments/Notes for Patient Medication Changes/Routing Stop Taking the Following Medications: aspirin (aspirin 81 mg oral tablet) multivitamin (multivitamin) sildenafil (Viagra 50 mg oral tablet) tamsulosin (Flomax 0.4 mg oral capsule) valsartan (valsartan 320 mg oral tablet) Medication list as of 11-22-15 15:18 Attention: If you have any medications at home that are not on this list, DO NOT take them until youcontact your provider for clarification. Give a copy of your medication list to your primary care provider. Update your medication list any time medications or doses are changed and carry your medication list at all times in case of emergency. Electronically Signed By: RYAN REYES MD Signed On:22-NOV-2015 15:15:02 Additional Information: Source: [facility] citibuddies Document Id: [id number] Miscellaneous - Ryan Reyes M.D. - 11/22/2015 3:02 PM CDT Lab on 11/27/2015 Document Contains Addenda Addendum by QAMAR ARREOLA LPN on November 23, 2015 15:03:08 CDT No need to call them with results. Patient will be having this tested at [facility] on Thursday. From: RYAN REYES MD To: GALINA QUICK LPN; Cc: MIGUEL A MITCHELL MD; FB Amy Nurse; Sent: 11/22/2015 15:02:37 CDT ! Subject: Lab on 11/27/2015 Actions: Notify patient- refer to General Message, Notify patient of Future Order Please call him with lab result on 11/27/2015. They want to know BMP results right away because he is going to have MRI next day, 11/28/2015. I'll order the test. Source: [facility] citibuddies Document Id: [id number] Miscellaneous - Hasmukh Lees, C.M.ALacey - 11/22/2015 2:25 PM CDT Obstructive Sleep Apnea Obstructive Sleep Apnea Entered On: 11/22/2015 14:27 CDT Performed On: 11/22/2015 14:25 CDT by HASMUKH LEES CMA ANN Screening Known Obstructive Sleep Apnea : No - NOT diagnosed with ANN ANN Score : No qualifying data available. ANN Results : No qualifying data available. HASMUKH LEES CMA - 11/22/2015 14:25 CDT ANN Assessment Do you have high blood pressure or have you been told to take medication for high blood pressure? 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 Griggs at [facility] Temperature Core : 37.1 DegC(Converted to: 98.8 DegF) Peripheral Pulse Rate : 99 /min Respiratory Rate : 16 /min Heart Rhythm : Regular Systolic Blood Pressure : 136 mmHg Diastolic Blood Pressure : 78 mmHg NIBP Mean : 97 mmHg BP Location : Left upper extremity Blood Pressure Cuff Size : Large SpO2 : 96 % Oxygen Therapy : Room air Height : 185 cm(Converted to: 6 ft 1 inch(es), 73 inch(es)) Actual Weight : 96 kg(Converted to: 211 lb 10 oz) Weight Source : Standing scale Dosing Weight Clinic : 96 kg Clinic BSA : 2.22 Body Mass Index : 28.05 kg/m2 Neck Circumference : 3,696 cm(Converted to: 1,455 inch(es)) HASMUKH LEES [facility] - 11/22/2015 14:21 CDT General Info Information Given By : Patient Preferred Communication Mode : Verbal, Written Languages : Kenyan Is Patient Female and 13-50 no hysterectomy : No HASMUKH LEES [facility] - 11/22/2015 14:21 CDT Subjective Pain Symptoms : No HASMUKH LEES CMA - 11/22/2015 14:21 CDT Dependent Habits Exposure to Tobacco Smoke : Other: NEVER Smoking Status : Never smoker Tobacco 2A : No Tobacco Use/Currently Using : No Tobacco Use/Last 30 Days : No Tobacco Use/Last 12 months : No HASMUKH LEES [facility] - 11/22/2015 14:21 CDT Caffeine Use Grid Caffeine Use : Current Type : Soft drinks Frequency : Daily HASMUKH LEES [facility] - 11/22/2015 14:21 CDT Recreational Drug Use Grid Drug Use : None HASMUKH LEES [facility] - 11/22/2015 14:21 CDT [facility] Document Id: [id number] CDT!43 Telephone Encounter - Conversion, Historical Provider Ser - 11/20/2015 2:40 PM CDT *Phone Message Document Contains Addenda Addendum by RYAN REYES MD on November 22, 2015 13:02:09 CDT From: RYAN REYES MD To: Amy Nurse; Sent: 11/22/2015 13:02:09 CDT Subject: RE: *Phone Message Noted. Thank you. Addendum by JASS WALDEN LPN on November 21, 2015 13:31:02 CDT From: JASS WALDEN LPN ([facility] Nurse) To: RYAN REYES MD; Amy Nurse; Sent: 11/21/2015 13:31:02 CDT Subject: FW: *Phone Message Addendum by JASS WALDEN LPN on November 21, 2015 13:30:40 CDT mri was cancelled yesterday at [facility] because of hi creatnin level, 1.7, so it is rescheduled for nextTues. so would like creatnin checked if possible Tues before they head up to the [facility], Atilio has an appt with Dr. Reyes tomorrow . for pre op..... Addendum by QAMAR ARREOLA LPN on November 20, 2015 14:55:59 CDT Left message for patient's to return my call. From: BREEZY MONTES (TONY Hoffman Nurse) To: TONY Reyes Nurse; Sent: 11/20/2015 14:40:26 CDT Subject: *Phone Message Caller is: ( ) Patient ( ) Mother ( ) Father ( x-Allison ) Spouse ( ) Daughter ( ) Son ( ) Pharmacy ( ) Other: Physician: Patient MRN #: Reason for Call: Message: called in and would like nurse to call her regaurding some labs they need doen next thursday. Allison can be reached at [phone] or [place] [phone] Advice/Action: Source used: ( ) Verbalizes understanding [...] back cell phone number ( ) Source: [facility] POWERCHART Document Id: [id number] documented in this encounter Plan of Treatment Not on filedocumented as of this encounter Visit Diagnoses Not on filedocumented in this encounter
--- OUTSIDE RECORDS SUMMARY | 2022-01-20 10:00 | XMS_ITS | Encounter Summary ---
:1950 Author Organization [facility] Address [address] [place] [address] Care Team Providers Name Role Phone Gabby Briggs M.D. Primary Care Provider [phone] Reason for Referral Outpatient (Routine) - Closed Specialty Diagnoses / Procedures Referred By Contact Refer red To Contact Diagnoses Preoperative Exam MEAGHAN Briggs [facility] Procedures ECG 12 Lead NE EKG 12 LEAD TRACE ONLY NE EKG I&R ONLY Melissa Pierre [address] [place] [address] [phone] Referral ID Status Reason Start Date Expiration Date Visits Requ ested Visits Authorized [id number] Closed 04/26/2018 04/26/2019 1 1 DIRECTOR Reason for Visit Reason Comments Pre-op Exam hernia repair at [facility] on 04/[address] Moreno Outpatient (Routine) - Closed Specialty Diagnoses / Procedures Referred By Contact Refer red To Contact Family Medicine Diagnoses General Medical Examination Adult MEAGHAN Briggs [facility] Melissa Pierre [address] [place] [address] [phone] Referral ID Status Reason Start Date Expiration Date Visits Requ ested Visits Authorized [id number] Closed 04/19/2018 04/19/2019 1 1 Encounter Details Date Type Department Care Team Description 04/26/2018 Office Visit Department of [facility] [place] Pre operative Exam (Primary Dx); Medicine, Gabby Marlow, General Medical Examination Adult; Clinic, in [place] Gastrectomy Partial Status Post; [place] [address]199 Need Vaccine Immunization [address] [place] [phone] Social History Tobacco Use Types Packs/Day Years Used Date Smoking Tobacco: Never Smokeless Tobacco: Never Sex Assigned at Date Recorded Not on file documented as of this encounter Last Filed Vital Signs Vital Sign Reading Time Taken Comments Blood Pressure 118/60 04/26/2018 7:58 AM ART DIRECTOR Pulse 72 04/26/2018 7:58 AM ART DIRECTOR Temperature 36.9 ??C (98.4 ??F) 04/26/2018 7:58 AM ART DIRECTOR Respiratory Rate - - Oxygen Saturation 98% 04/26/2018 7:58 AM ART DIRECTOR Inhaled Oxygen Concentration - - Weight 70 kg (154 lb 5.2 oz) 04/26/2018 7:58 AM ART DIRECTOR Height 185 cm (6' 0.84) 04/26/2018 7:58 AM ART DIRECTOR Body Mass Index 20.45 04/26/2018 7:58 AM ART DIRECTOR documented in this encounter H&P Notes Gabby Briggs M.D. - 04/26/2018 8:00 AM CST CHIEF COMPLAINT/ REASON FOR VISIT Proposed surgery date: 04/29/2018. Surgeon: Dr. Moreno. Proposed surgery: Right inguinal hernia. Location: [facility]. HISTORY OF PRESENT ILLNESS Atilio Austin is a 67 y.o. male who presents to the clinic today for a preanesthetic medical evaluation for the above proposed procedure. I am asked by Dr. Moreno to assess whether the patient is an adequate candidate for anesthesia. He denies any cough, cold, sore throat, chest pain, or shortness of breath. He does not get any chest pain, even with exertion. He does occasionally get someesophageal pressure where he feels like he has excess air trapped in his esophagus. Once he is able to get this air out, he feels better. Atilio has been having a hard time sleeping on his left side. His ear will start to ache and it will then turn into a headache. It does not hurt much during the day. The pain is more inside of his ear. He will then wake up congested the next morning as well. There are no further concerns at this time. SYSTEMS REVIEW Please see HPI for pertinent positives, otherwise rest of ROS negative. Cardiac risk factors: hypertension, controlled with lifestyle. Pulmonary risk factors: none Sleep Apnea: none Steroid use within the past 12 months: none Diabetes: none Bleeding risk factors: none Anesthesia reactions: none Need for prophylactic antibiotics: yes, previous left KLAUDIA. Beta mariely: none The remainder of the review of systems is negative. MEDICATIONS Current Outpatient Prescriptions Medication Sig Dispense Refill ??? imatinib (GLEEVEC) 100 mg tablet Take 200 mg by mouth daily. ??? prasterone, dhea, (DHEA) 25 mg tablet Take by mouth. Current Facility-Administered Medications Medication Dose Route Frequency Provider Last Rate Last Dose ??? [START ON 04/27/2018] cyanocobalamin 1,000 mcg/mL injection 1,000 mcg (VITAMIN B12) 1,000 mcg intramuscular Q30 Days Gabby Briggs M.D. 1,000 mcg at 04/26/18 0923 ALLERGIES Allergies Allergen Reactions ??? Morphine Other (see comments) PAST MEDICAL / SURGICAL HISTORY Past Medical History: Diagnosis Date ??? [...] Left (HCC) ??? Tumor Gastrointestinal Stromal Malignant Past Surgical History: Procedure Laterality Date ??? COLONOSCOPY 10/22/2007 ??? CYSTOSCOPY W/ LASER LITHOTRIPSY 11/2015 Cystolitholapaxy with laser lithotripsy with bladder stone removal with TURP secondary to BPH and bladder stones ??? HEMILAMINOTOMY LUMBAR SPINE Right 05/31/1998 Right fourth-fifth lumbar hemilaminectomy ??? 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 He developed a small esophageal leak at four weeks and was stented with subsequent J-tube placement. ??? TONSILLECTOMY As a child ??? TOTAL HIP ARTHROPLASTY Left 2000 [facility] Lipid panel: 03/27/2015. Colonoscopy: 10/2007. Immunization History Administered Date(s) Administered ??? H1N1 All Forms 04/05/2009 ??? HepA Adult 01/28/2006, 08/11/2006 ??? HepA, Unspecified 08/11/2006 ??? HepB Adult 01/28/2006, 08/11/2006 ??? HepB, Unspecified 08/11/2006 ??? Influenza Split 01/07/2006 ??? Influenza, Injectable, Quadrivalent 03/27/2015 ??? Influenza, Seasonal, Injectable 01/07/2006, 03/18/2007, 03/19/2012 ??? Influenza, Unspecified 01/14/2011, 03/19/2012, 03/18/2013, 03/27/2015, 01/29/2016, 02/23/2018 ??? PCV13 04/26/2018 ??? Td (Adult), adsorbed 03/10/1984, 02/19/1994, 03/02/2003 ??? Td, (Adult) Unspecified 03/02/2003 ??? Tdap 03/27/2015 ??? Ty21a (oral) 02/05/2006 ??? TyVi (inj) 02/05/2006 ??? influenza high dose (65 years or older) (PF) 03/10/2017 SOCIAL HISTORY Social History Social History ??? Marital status: Spouse name: N/A ??? Number of children: N/A ??? Years of education: N/A Social History Main Topics ??? Smoking status: Never Smoker ??? Smokeless tobacco: Never Used ??? Alcohol use None ??? Drug use: Unknown ??? Sexual activity: Not Asked Other Topics Concern ??? None Social History Narrative ??? None History Alcohol use Not on file History Drug use: Unknown FAMILY HISTORY Family History Problem Relation Age of Onset ??? Heart failure Father ??? Benign prostatic hyperplasia Father ??? Coronary artery disease Father VITAL SIGNS Vitals: 04/26/18 0758 BP: 118/60 Patient Position: Sitting Pulse: 72 Temp: 36.9 ??C Height: 185 cm Weight: 70 kg SpO2: 98% Body mass index is 20.45 kg/m??. PHYSICAL EXAMINATION General: Alert and orientated x3, good hygiene, appropriately dressed. HEENT: Tympanic membranes are normal bilaterally. Oropharynx is without erythema or exudate. Nasal mucosa is without injection. Neck is without adenopathy. Lymph nodes: Not palpably enlarged and no nodules are palpated. Heart: Regular rate and rhythm without murmur. Lungs: Clear to auscultation. Abdomen: Soft and nontender with no masses. Extremities: Within normal limits. Skin: No suspicious lesions or rashes noted on exposed skin. DIAGNOSTICS EKG shows normal sinus rhythm at 61 bpm and otherwise normal ECG. Chest x-ray per Dr. Recinos: IMPRESSION: Blunting of the right costophrenic angle may represent small amount of pleural fluid or pleural thickening. Mild hyperinflation. Surgical clips in the upper midline abdomen. Normal heart size. Lab Results Component Value Date WBC 4.4 04/26/2018 HGB 11.9 (L) 04/26/2018 HCT 35.8 (L) 04/26/2018 MCV 91.6 04/26/2018 PLT 203 04/26/2018 Lab Results Component Value Date NA 146 (H) 04/26/2018 K 4.9 04/26/2018 CL 109 (H) 04/26/2018 HCO3 28 04/26/2018 CREATININE 1.75 (H) 04/26/2018 EGFR 40 (L) 04/26/2018 BUN 24 04/26/2018 ANIONGAP 9 04/26/2018 GLUCOSE 101 04/26/2018 CALCIUM 9.6 04/26/2018 Lab Results Component Value Date ALT 30 04/26/2018 AST 32 04/26/2018 ALKPHOS 64 04/26/2018 BILITOT 0.4 04/26/2018 Lab Results Component Value Date PROT 6.0 (L) 04/26/2018 ALBUMIN 4.0 04/26/2018 ASSESSMENT / PLAN #1 Preoperative evaluation for surgery The patient is ASA category 3. There is no contraindication to proceeding with anesthesia and surgery as planned. EKG and lab work will be completed and reviewed prior to surgery. Further recommendations per Dr. Moreno. #2 Gastrectomy Partial Status Post PLAN: Vitamin B12 injection given today. Standing order is placed. #3 Need Vaccine Immunization PLAN: Prevnar-13 is administered today. #4 Follow up The patient will contact the clinic with any new or worsening symptoms. This document serves as a record of services personally performed by Gabby Hoffman MD. It was created on their behalf by Anay Berger, a trained medical science liaison. The creation of this record is based on the scribe's personal observations and the provider's statements to them. This document has been ch ecked and approved by the attending provider. DIRECTOR documented in this encounter Plan of Treatment Not on filedocumented as of this encounter Procedures Procedure Name Priority Date/Time Associated Diagnosis Comme nts ECG Routine 04/26/2018 8:23 Preoperative Exam Results for this AM ART DIRECTOR procedure are i n the results section. CBC WITH DIFFERENTIAL, Routine 04/26/2018 8:16 Preoperative Ex am Results for this B AM ART DIRECTOR procedure are i n the results section. COMPREHENSIVE Routine 04/26/2018 8:16 Preoperative Exam Result s for this METABOLIC PANEL, S/P AM ART DIRECTOR procedu re are in the results section. documented in this encounter Results DX Chest AP or PA and Lateral 2 Views (04/26/2018 9:01 AM ART DIRECTOR) Anatomical Region Laterality Modality Chest, Thoracic RST LOS, Thoracic ARZ LOS, Thoracic N/A Digital Radiography FLA LOS Specimen (Source) Anatomical Collection Method Collection Time Re ceived Time Location / / Volume Laterality 04/26/2018 9:20 AM ART DIRECTOR Impressions 04/26/2018 9:21 AM ART DIRECTOR IMPRESSION: Blunting of the right costophrenic angle may represent small amount of pleural fluid or pleural thickening. Mild hyperinflation. Surgical clips in the upper midline abdomen. Normal heart size. Narrative 04/26/2018 9:21 AM ART DIRECTOR EXAM: DX CHEST AP OR PA AND [...] Gabby Briggs M.D. IMG DIAGNOSTIC IMAGING PROCEDURES ECG 12 Lead (04/26/2018 8:23 AM ART DIRECTOR) P athologist Signature Ventricular Rate 61 BPM MUSE ECG/Min NE Interval 154 ms MUSE QRSD Interval 84 ms MUSE QT Interval 432 ms MUSE QTC Interval 434 ms MUSE P [place] 59 degrees MUSE R [place] 61 degrees MUSE T Wave [place] 51 degrees MUSE Specimen Anatomical Collection Method Collection Time Receive d Time (Source) Location / / Volume Laterality 04/26/2018 8:23 AM 9 8:34 ART DIRECTOR AM ART DIRECTOR Impressions MUSE - 04/26/2018 8:34 AM ART DIRECTOR Normal sinus rhythm Normal ECG No previous ECGs available Narrative This result has an attachment that is no t available. Procedure Note Alejo Oquendo Jr., M.D. - 04/26/2018For matting of this note might be different from the original. IMPRESSION: Normal sinus rhythm Normal ECG No previous ECGs available Gabby Briggs M.D. ECG ORDERABLES Performing Organization Address City/State/ZIP Code Phon e Number MUSE MUSE NA (ABNORMAL) Comprehensive Metabolic Panel (04/26/2018 8:16 AM [facility]) Analysis Performed At Patho logist Time Signature Potassium, S 4.9 3.6 - 5.2 04/26/2018 [facility] mmol/L 11:[address] [facility] Sodium, S 146 (H) 135 - 145 04/26/2018 [facility] mmol/L 11:[address] [facility] Chloride, S 109 (H) 98 - 107 04/26/2018 [facility] mmol/L 11:[address] [facility] Bicarbonate, S 28 22 - 29 04/26/2018 [facility] mmol/L 11:[address] [facility] Anion Gap 9 7 - 15 04/26/2018 [facility] 11:[address] [facility] BUN (Blood Urea 24 8 - 24 04/26/2018 [facility] Nitrogen), S mg/dL 11:21 [facility] [place] [facility] Creatinine 1.75 (H) 0.74 - 04/26/2018 [facility] 1.35 mg/dL 11:[address] [facility] [place] [facility] eGFR-Non 40 (L) >=60 04/26/2018 [facility] Black/ mL/min/BSA 11:[address] [facility] [place] [facility] Comment: ----ADDITIONAL INFORMATION---- Estimated GFR calculated using the 2009 CKD_EPI creatinine equation. eGFR-Black/ 46 (L) >=60 mL/min/BSA 04/26/2018 11:2 1 [facility] [place] [facility] Comment: ----ADDITIONAL INFORMATION---- Estimated GFR calculated using the 2009 CKD_EPI creatinine equation. Calcium, Total, S 9.6 8.8 - 10.2 04/26/2018 11:21 [facility] mg/dL [facility] [place] [facility] Glucose, S 101 70 - 140 mg/dL 04/26/2018 11:21 [facility] [place] [facility] Protein, Total, S 6.0 (L) 6.3 - 7.9 g/dL 04/26/2018 11:21 [facility] [place] [facility] Albumin, S 4.0 3.5 - 5.0 g/dL 04/26/2018 11:21 [facility] [place] [facility] Aspartate 32 8 - 48 U/L 04/26/2018 11:21 [facility] Aminotransferase (AST), S [facility] [place] [facility] Alkaline Phosphatase, S 64 40 - 129 U/L 04/26/2018 11 :21 [facility] [place] [facility] Alanine Aminotransferase 30 7 - 55 U/L 04/26/2018 11: 21 [facility] (ALT), S [facility] [place] [facility] Bilirubin, Total, S 0.4 <=1.2 mg/dL 04/26/2018 11:21 [facility] [place] [facility] Specimen Anatomical Collection Method Collection Time Receive d Time (Source) Location / / Volume Laterality Blood (Blood, 04/26/2018 8:16 AM 04/26/19 19 Venous) ART DIRECTOR 10:41 AM ART DIRECTOR Gabby Briggs M.D. LAB BLOOD ADD-ON Performing Organization Address City/State/ZIP Code Phon e Number [facility] [address] [place] [address] LAB (ABNORMAL) CBC with Differential, Blood (04/26/2018 8:16 AM ART DIRECTOR) [facility] Method Time Signature Hemoglobin 11.9 (L) 13.2 - 04/26/2018 [facility] 16.6 g/dL 9:[address] [facility] Hematocrit 35.8 (L) 38.3 - 04/26/2018 [facility] 48.6 % 9:[address] [facility] Erythrocytes 3.91 (L) 4.35 - 04/26/2018 [facility] 5.65 9:08 AM ART DIRECTOR HEALTH x10(12)/L [facility] MCV 91.6 78.2 - 04/26/2018 [facility] 97.9 fL 9:[address] [facility] RBC Distrib Width 12.9 11.8 - 04/26/2018 [facility] 14.5 % 9:[address] [facility] Platelet Count 203 135 - 317 04/26/2018 [facility] x10(9)/L 9:[address] [facility] Leukocytes 4.4 3.4 - 9.6 04/26/2018 [facility] x10(9)/L 9:[address] [facility] Neutrophils 2.54 1.56 - 04/26/2018 [facility] 6.45 9:08 AM ART DIRECTOR HEALTH x10(9)/L SYSTEM- [facility] Lymphocytes 1.10 0.95 - 04/26/2018 [facility] 3.07 9:08 AM ART DIRECTOR HEALTH x10(9)/L SYSTEM- [facility] Monocytes 0.39 0.26 - 04/26/2018 [facility] 0.81 9:08 AM ART DIRECTOR HEALTH x10(9)/L SYSTEM- [facility] Eosinophils 0.31 0.03 - 04/26/2018 [facility] 0.48 9:08 AM ART DIRECTOR HEALTH x10(9)/L [facility] Basophils 0.08 0.01 - 04/26/2018 [facility] 0.08 9:08 AM ART DIRECTOR HEALTH x10(9)/L [facility] Specimen Anatomical Collection Method Collection Time Receive d Time (Source) Location / / Volume Laterality Blood (Blood, 04/26/2018 8:16 AM 04/26/19 19 8:16 Venous) ART DIRECTOR AM ART DIRECTOR Gabby Briggs M.D. LAB BLOOD ADD-ON Performing Organization Address City/State/ZIP Code Phon e Number [facility] [place] [address] [place] [address] LAB documented in this encounter Visit Diagnoses Diagnosis Preoperative Exam - Primary General Medical Examination Adult Gastrectomy Partial Status Post Need Vaccine Immunization Preoperative Exam documented in this encounter Administered Medications Inactive Administered Medications - up to 3 most recent administrations Medication Order MAR Action Action Date Dose Rate Site cyanocobalamin 1,000 mcg/mL Given 10/04/2018 11:35 AM 1,000 mcg Left Deltoid injection 1,000 mcg CDT (VITAMIN B12) 1,000 mcg, intramuscular, Every 30 days, First dose on Thu04/27/18 at 0900, For 12 doses Given 04/26/2018 9:23 AM ART DIRECTOR 1,000 mcg Right Deltoid documented in this encounter Care Teams Weapons Specialist Relationship Specialty Start Date End Date Gabby Briggs M.D. PCP - General Family Medicine 04/19/18 05/02/[address] [phone] documented as of this encounter
--- OUTSIDE RECORDS SUMMARY | 2022-01-20 10:00 | XMS_ITS | Encounter Summary ---
:1950 Author Organization [facility] Address [address] [place] [address] Care Team Providers Name Role Phone Jefferson Mitchell M.D. Primary Care Provider Encounter Details Date Type Department Care Team Description 09/25/2016 Hospital Encounter HX [facility]BC[facility] FAMILYPRA Provider, Histori swetha Social History Tobacco Use Types Packs/Day Years [...] - - Height 185 cm (6' 0.84) 09/25/2016 2:11 PM CDT Body Mass Index - - documented in this encounter Medications at Time of Discharge Medication Sig Dispensed Refills Start Date End Date acetaminophen (TYLENOL EXTRA Take 500-1,000 mg 0 01/23/2016 STRENGTH) 500 mg tablet by mouth. documented as of this encounter Nursing Notes Elisabeth Moura, C.M.A. - 09/25/2016 2:30 PM CDT B 12 Nurse Visit Patient was in for his B 12 injection. 1000mcg given in the left deltoid today. No adverse reaction. Electronically Signed By: ELISABETH MOURA CMA On: 09/25/2016 02:31 PM Source: [email or web address] Document Id: [id number] documented in this encounter Plan of Treatment Not on filedocumented as of this encounter Visit Diagnoses Not on filedocumented in this encounter Care Teams Information Strategist Relationship Specialty Start Date End Date Jefferson Mitchell M.D. PCP - General 09/04/16 11/12/[address] [place] [address] [place] [id number] documented as of this encounter
--- OUTSIDE RECORDS SUMMARY | 2022-01-20 10:00 | XMS_ITS | Encounter Summary ---
:1950 Author Organization [facility] Address [address] [place] [address] Care Team Providers Name Role Phone Jefferson Mitchell M.D. Primary Care Provider Encounter Details Date Type Department Care Team Description 08/07/2017 [facility] [place], [place] [address] [facility] [address] [place] [address] [place] [address] [phone] Social History Tobacco Use Types Packs/Day Years Used Date Smoking Tobacco: Never Sex Assigned at Date Recorded Not on file documented as of this encounter Plan of Treatment Not on filedocumented as of this encounter Visit Diagnoses Not on filedocumented in this encounter Care Teams Cheesemaker Helper Relationship Specialty Start Date End Date Jefferson Mitchell M.D. PCP - General 09/04/16 11/12/17 [address] [place] [address] documented as of this encounter
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
--- OUTSIDE RECORDS SUMMARY | 2022-01-20 10:01 | XMS_ITS | Encounter Summary ---
:1950 Author Organization [facility] Address [address] [place] [address] Care Team Providers Name Role Phone Unavailable Primary Care Provider Unavailable Encounter Details Date Type Department Care Team Description 01/28/2011 Hospital Encounter HX [facility] Itz Swan M.D. [facility] [place] [phone] (Wo rk) Social History Tobacco Use Types Packs/Day Years Used Date Smoking Tobacco: Never Assessed Sex Assigned at Date Recorded Not on file documented as of this encounter Progress Notes Yovany Swan M.D. - 01/28/2011 12:00 AM CST [id number] HISTORY OF PRESENT ILLNESS This is a 60-year-old man who was sent by his because he has a lot of moles. He has never had an abnormal mole or skin cancer. He had been followed by Itz De Dios and now he sees Dr. Jefferson Mitchell. He is here for a mole screening. He has a history of much sun exposure, liking to be outside. Family history is negative for abnormal moles, increased number of moles or skin cancer. See the EMR for additional information. PHYSICAL EXAM GENERAL: Applicable vital signs as per intake sheet. Well-developed, well-nourished, oriented and with a normal affect. SKIN: The face, neck, back, chest, abdomen, arms, hands, genitals, buttocks, legs, and feet were examined. There are a moderate number of neoplasms, mainly less than 6 mm brown macules or papules, but interspersed. Most on the back and legs are 6 mm or less brown macules or papules that are darker than his other nevi and have some irregular borders. Lesion A, left intraorbital, 6 mm scaly red patch. Lesion A, left lower back, 6 mm red dome-shaped papule. Lesion C, left lateral lower back, 6 mm brown macule with a 2 mm focus of much darker pigment. He has notable additional very dark brown macules on back and legs. IMPRESSION / REPORT / PLAN 1) Screening for malignant neoplasms of the skin. 2) Lesion A, rule out actinic keratosis. 3) Lesion B, rule out basal cell carcinoma. 4) Lesion C, rule out dysplastic nevus. 5) Dysplastic/atypical nevi and also normal neoplasms consistent with his age. PLAN: 1) Lesion A curettage of the infraorbital lesion. 2) Lesion B curettage to the marked edges of the left lower back lesion. 3) Lesion C 2 mm punch biopsy of a dark focus of pigment; 1% Xylocaine; Gelfoam; 3 specimens to pathology; mini tray used. 4) Discussed my tentative diagnoses (I want to do a complete examination of his skin again the next time I see him). Informed consent. All questions were answered. ADMINISTRATIVE BILLING Total Time: 30 minutes Counseling Time: 20 minutes Yovany Swan M.D. w Electronically Signed By: YOVANY SWAN On: 01/30/2011 07:24 PM Source: [facility] MHSDOLBEYNONRADSYS Document Id: [id number] TRANSFER OPERATOR documented in this encounter Miscellaneous Notes Miscellaneous - Anila Dickey C.MYani - 01/28/2011 1:57 PM CST Adult Chiropractic Doctor Intake/History Adult Chiropractic Doctor Intake/History Entered On: 01/28/2011 14:00 KILN TRANSFER OPERATOR Performed On: 01/28/2011 13:57 KILN TRANSFER OPERATOR by ANILA MCCORMICK Intake Chief Complaint : new pt--fse Systolic Blood Pressure : 126mmHg Diastolic Blood Pressure : 78mmHg NIBP Mean : 94mmHg BP Location : Right upper extremity ANILA MCCORMICK - 01/28/2011 13:57 KILN TRANSFER OPERATOR Subjective Pain Symptoms : No ANILA MCCORMICK - 01/28/2011 13:57 KILN TRANSFER OPERATOR Dependent Habits Tobacco Use/Currently Using : No Smoking Status : Never smoker ANILA MCCORMICK 01/28/2011 13:57 KILN TRANSFER OPERATOR Caffeine Use Grid Caffeine Use : Current Type : Soft drinks Frequency : Daily ANILA MCCORMICK 01/28/2011 13:57 KILN TRANSFER OPERATOR Recreational Drug Use Grid Drug Use : None ANILA MCCORMICK 01/28/2011 13:57 KILN TRANSFER OPERATOR Allergy Allergies (Active) morphine Estimated Onset Date: Unspecified ; Created By: DIANE STEPHEN; Reaction Status: Active; Category: Drug ; Substance: morphine ; Type: Allergy ; Updated By: DIANE STEPHEN; Reviewed Date: 01/28/2011 13:57 KILN TRANSFER OPERATOR Source: [employer] Document Id: [id number] KILN TRANSFER OPERATOR!20 TRANSFER OPERATOR documented in this encounter Plan of Treatment Not on filedocumented as of this encounter Procedures Procedure Name Priority Date/Time Associated Diagnosis Comme [facility] SURGICAL PATHOLOGY Routine 01/28/2011 12:00 AM Re sults for this KILN TRANSFER OPERATOR procedure are i n the results section. documented in this encounter Results Pathology Surgical Pathology (01/28/2011 12:00 AM KILN TRANSFER OPERATOR) Specimen (Source) Anatomical Location Collection Method / Collectio n Time Received Time / Laterality Volume 01/28/2011 Narrative [facility] - 02/11/20 11 11:02 AM KILN TRANSFER OPERATOR PATIENT IMAGES Choose the Image button to view related documents. Historical Provider LAB SURG PATH ORDERABLES Performing Organization Address City/State/ZIP Code Phon e Number [facility] documented in this encounter Visit Diagnoses Not on filedocumented in this encounter
--- OUTSIDE RECORDS SUMMARY | 2022-01-20 10:01 | XMS_ITS | Encounter Summary ---
:1950 Author Organization [facility] Address [address] [place] [address] Care Team Providers Name Role Phone Unavailable Primary Care Provider Unavailable Encounter Details Date Type Department Care Team Description 01/14/2011 Hospital Encounter HX [facility] Haja Lagunas M.D. [address] [place], [place] [address] (Wo rk) Social History Tobacco Use Types Packs/Day Years Used Date Smoking Tobacco: Never Assessed Sex Assigned at Date Recorded Not on file documented as of this encounter H&P Notes Miguel A Mitchell M.D. - 01/14/2011 12:00 AM CDT [id number] CHIEF COMPLAINT/REASON FOR VISIT Preventive medicine visit with acute problems. HISTORY OF PRESENT ILLNESS Atilio presents today for a complete physical examination. He is overdue on some issues but up to date on others. He did have his colonoscopy by Dr. Bliss in 10/2007 and it was low risk. He is actually feeling very well. He has a few aches and pains from his degenerative joint disease, but really doesn't offer any other complaints. He is taking Flomax for his prostate from Dr. Mac whom he sees for urology. The Flomax has helped him. CURRENT MEDICATIONS Post-visit Medication Reconciliation Please see [facility] electronic medical record. ALLERGIES Per [facility] electronic medical record. SYSTEMS REVIEW Review of systems in all areas is asked about and is negative, except as mentioned above. PAST MEDICAL/SURGICAL HISTORY 1. Back pain 2. Benign prostatic hypertrophy with urinary outlet obstruction 3. Degenerative joint disease 4. Erectile dysfunction 5. Degeneration of left hip, status post left total hip arthroplasty in 2000 6. Footdrop on the right side, status post lumbar disc surgery on 05/31/1998 7. Tonsillectomy in the fourth grade 8. Fracture of right wrist many years ago 9. Fracture of the right ankle many years ago 10. Fracture of the fifth metatarsal in 1997 PREVENTIVE SERVICES Per [facility] electronic medical record. He was given a flu shot today. He is otherwise up to date on all of his preventive services with the laboratories done today. No tobacco use. Handwashing done prior to patient contact. SOCIAL HISTORY The patient is . He does not use tobacco or recreational drugs. FAMILY HISTORY There is a history of longevity in his family. There is coronary disease and heart disease, but all in family members above age 65. As aforementioned, there is a remarkable family history of longevity with one family member, his grandmother, living to 109 years of age. VITAL SIGNS Per [facility] electronic medical record. PHYSICAL EXAM AREA EXAM TEXT SKIN Inspection of the skin and subcutaneous tissue reveals nothing inconsistent with age. EYES Conjunctiva and lids normal. Pupils equal, round, reactive to light and accommodation. Extraocular movements normal. Sclera nonicteric. Fundi sharp discs bilaterally without diabetic or hypertensive changes. ENT Tympanic membranes okay on both sides. Hearing grossly normal to scratch test. Nasal mucosa without erythema or congestion. No sinus tenderness. Mouth without erythema or exudate, no leuko or erythroplakia. [place] teeth top and bottom. Dental hygiene is good. NECK Neck is supple. Carotid upstrokes +2 bilaterally. No carotid bruits. LYMPH NODES No adenopathy. THYROID No thyromegaly. PERIPHERAL There are good femoral, popliteal and dorsalis pedis pulses VESSELS bilaterally. There are no bruits over the femoral arteries. HEART Central venous pressure is normal at 7 to 8 centimeters of water or less; there is a normal systolic collapse of the jugular venous pulse; there is not a positive hepatojugular reflex. Heart tones are in sinus rhythm; S1 and S2 normal, physiologic splitting of the second heart tone, no third or fourth sound, no significant murmur, no gallop. LUNGS Lung gu are clear to auscultation and percussion with normal respiratory rate and effort. ABDOMEN Abdomen is soft and nondistended. No organomegaly. No focal mass or tenderness. The abdominal aorta is not enlarged to palpation. There are no bruits over the abdomen. There are no hernias. There is no costovertebral angle tenderness. RECTUM Normal perirectal area without skin tags or external hemorrhoids. Internal exam reveals a smooth rectal vault, no mass or induration, no tenderness; brown stool, guaiac negative. PROSTATE The prostate is small in size and volume for age; no nodules, induration or pain to palpation. GENITALIA Normal penis, no discharge; testicles normal; no hernias palpated. SPINE No cervical, thoracic, or lumbar tenderness to deep palpation. JOINTS He has a scar over his left hip. EXTREMITIES Warm, dry and noncyanotic without clubbing or peripheral edema. He has only 5 to 10 degrees of dorsiflexion of the right foot. He has mild superficial varicosities in his lower extremities. NEURO Cranial nerves II-XII are grossly intact. He has chronic footdrop of the right foot as documented in previous notes. Light touch testing in the lower extremities is normal. IMPRESSION/REPORT/PLAN ACTIVE PROBLEMS 1. Formidable degenerative joint disease largely because of a history of multiple fractures which are outlined in his past medical history. He has already had his left hip repaired. He had some questions as to whether his right hip should come to repair and we gave him guidelines on which to gauge that. He will use ibuprofen or Tylenol p.r.n. 2. Benign prostatic hypertrophy with urinary outlet obstruction. This has improved with Flomax. We will check a PSA. INACTIVE PROBLEMS Please see past medical history. HEALTH MAINTENANCE CONCERNS Instructed to have a complete physical examination once a year, to see an coastal and estuary specialist or sizing end bander once a year for glaucoma screening, and see the dentist at least once or twice a year. Instructed to wear seatbelts when in a motor vehicle. Recommended to drink at least six glasses of plain water each day, have five servings of fruits and vegetables each day, and get good aerobic exercise. With the laboratories done today and with his flu shot given today, he is completely up to date on all of his health maintenance concerns. STUDIES DONE TODAY 1. Basic metabolic panel 2. Complete blood count 3. Urinalysis with microscopy 4. Lipid panel 5. TSH 6. PSA We will call him with the results of his tests. DMB/nmd Signed Miguel A Mitchell M.D. Internal Medicine Electronically Signed By: MIGUEL A MITCHELL MD On: 01/15/2011 03:29 PM Source: [facility] MHSDOLBEYNONRADSYS Document Id: [id number] documented in this encounter Miscellaneous Notes Miscellaneous - Miguel A Mitchell M.D. - 01/15/2011 9:45 AM CDT Results Notification Document Contains Addenda Addendum by GALINA CHIN LPN on 16 January 2011 16:24:36 CDT called with results From: MIGUEL A MITCHELL MD To: GALINA CHIN LPN Sent: 01/15/2011 09:45:16 CDT ! Show up: 01/15/2011 09:45:00 CDT Subject: Results Notification Actions: Notify patient of results Due Date/Time: 01/15/2011 09:45:00 CDT Source: [facility] POWERCHART Document Id: [id number] Electronically signed by [facility]arth [facility] [employer] Developer [id number] at 08/24/2016 5:34 PM CDT Miscellaneous - Miguel A Mitchell M.D. - 01/14/2011 12:43 PM CDT Results Notification Document Contains Addenda Addendum by GALINA CHIN LPN on 16 January 2011 16:24:14 CDT called with results From: MIGUEL A MITCHELL MD To: GALINA CHIN LPN Sent: 01/14/2011 12:43:49 CDT ! Show up: 01/14/2011 12:43:00 CDT Subject: Results Notification Actions: Notify patient of results Due Date/Time: 01/14/2011 12:43:00 CDT Source: [facility] POWERCHART Document Id: [id number] Electronically signed by Conversion, [facility] [employer] Developer [id number] at 08/24/2016 5:34 PM CDT MarybelcellMiguel A Riojas M.D. - 01/14/2011 11:20 AM CDT Results Notification Document Contains Addenda Addendum by GALINA CHIN LPN on 16 January 2011 16:23:55 CDT called with results From: MIGUEL A MITCHELL MD To: GALINA CHIN LPN Sent: 01/14/2011 11:20:57 CDT ! Show up: 01/14/2011 11:20:00 CDT Subject: Results Notification Actions: Notify patient of results Due Date/Time: 01/14/2011 11:20:00 CDT Source: [facility] POWERCHART Document Id: [id number] Electronically signed by Conversion, [facility] [employer] Developer [id number] at 08/24/2016 5:34 PM CDT Miguel A Villar M.D. - 01/14/2011 11:07 AM CDT Results Notification Document Contains Addenda Addendum by GALINA CHIN LPN on 16 January 2011 16:23:39 CDT called with results From: MIGUEL A MITCHELL MD To: GALINA CHIN CARLITA Sent: 01/14/2011 11:07:48 CDT ! Show up: 01/14/2011 11:07:00 CDT Subject: Results Notification Actions: Notify patient of results Due Date/Time: 01/14/2011 11:07:00 CDT Source: [facility] POWERCHART Document Id: [id number] Electronically signed by Garth, [facility] [employer] Developer [id number] at 08/24/2016 5:34 PM CDT Miscellaneous - Miguel A Mitchell M.D. - 01/14/2011 9:09 AM CDT Ambulatory Patient Summary [address] [address] Visit Information Name: ATILIO AUSTIN Current Date: 01/14/2011 09:09:40 Primary Care Provider: MIGUEL A MITCHELL MD Your Medications Here is a list of your medications. It is important to take your medications as directed. Use a pillbox or chart to help remind you to take your medications. Please let your doctor or nurse know if you have problems taking your medications. Medication/Strength Dose Route Frequency Indications/Special Instructions/Comments multivitamin (multivitamin) Oral once a day aspirin (aspirin 81 mg oral tablet) 1 tab(s) Oral once a day tamsulosin (Flomax 0.4 mg oral capsule) 1 cap(s) Oral once a day sildenafil (Viagra 50 mg oral tablet) 50 mg Oral once a day as needed for Erectile dysfunction Your Allergies & Intolerances Substance Reaction Symptoms Category Comments morphine Drug Your Problem List Problem Status Onset Comments DJD, Unspecified Active Back pain, low Active Total Hip Arthroplasty Active 2000 and left hip Lumbar discectomy Active 05/31/98 foot frop resulting on right side Closed fracture of wrist NOS Active right wrist - distant past Ankle fracture Active right ankle- distant past BPH (benign prostatic hypertrophy) w/o obstruction & LUTS Active Erectile dysfunction* Active Your Recommendations We want to make sure you get the tests, immunizations, and guidance you need to stay healthy. Here is a customized list of recommendations, based on information we have in your medical record. Your doctor may have additional recommendations for you, based on your personal medical history and risk factors. You can help us by calling us to make an appointment when you are due for your tests. Additional information regarding recommendations: Test/Treatment Last Done Next Due Additional Information Screening Colonoscopy or Flex Sig or Occult Blood X3 01/14/2011 Checks for signs of cancer of the colon. Vaccine: Flu every 1 year 01/07/2006 01/07/2007 Immunization to help prevent you from getting the flu strain expected to be a problem for that year's flu season. Vaccine: Tetanus every 10 years 03/02/2003 02/27/2013 Immunization to help prevent you from getting the serious disease Tetanus (Lockjaw). Your Upcoming Appointments Date Time Location Reason Provider 01/28/2011 14:00 [facility] Derm fse- ok'd by dr Gordo GOOD, Bernard Cassidy Your Goals/Additional instructions: Source: [facility] POWERCHART Document Id: [id number] Electronically signed by Conversion, [facility] [employer] Developer [id number] at 08/24/2016 5:34 PM CDT Miscellaneous - Miguel A Mitchell M.D. - 01/14/2011 9:09 AM CDT [place] [address] Visit Information Name: ATILIO AUSTIN Current Date: 01/14/2011 09:09:40 Primary Care Provider: MIGUEL A MITCHELL MD ATILIO AUSTIN has been given the following list of medications: Your Medications It is important to take your medications as directed. Use a pill box or chart to help remind you to take your medications. Please let your doctor or nurse know if you have problems taking your medications. Medication/Strength Dose Route Frequency Indications/Special Instructions/Comments multivitamin (multivitamin) Oral once a day aspirin (aspirin 81 mg oral tablet) 1 tab(s) Oral once a day tamsulosin (Flomax 0.4 mg oral capsule) 1 cap(s) Oral once a day sildenafil (Viagra 50 mg oral tablet) 50 mg Oral once a day as needed for Erectile dysfunction Additional Information: Yes - Current list of reconciled medications is provided and explained to the patient and/or family, guardian/caregiver. Source: [facility] POWERCHART Document Id: [id number] Electronically signed by Garth, [facility] [employer] Developer [id number] at 08/24/2016 5:34 PM CDT Harvey - Galina Chin L.PLaceyNLacey - 01/14/2011 9:05 AM CDT Health Assessment Health Assessment Entered On: 01/14/2011 9:06 CDT Performed On: 01/14/2011 9:05 CDT by GALINA CHIN LPN Nutrition Nutrition Risk Factors by History Adult: None GALINA CHIN LPN - 01/14/2011 9:05 CDT Functional Current Daily Living Assistance: None GALINA CHIN LPN - 01/14/2011 9:05 CDT Dependent Habits Tobacco Use/Currently Using: No Smoking Status: Never smoker GALINA CHIN LPN - 01/14/2011 9:05 CDT Caffeine Use Grid Caffeine Use: Current Type: Soft drinks Frequency: Daily GALINA CHIN LPN - 01/14/2011 9:05 CDT Recreational Drug Use Grid Drug Use: None GALINA CHIN LPN - 01/14/2011 9:05 CDT Psychosocial Domestic Abuse Concerns: None GALINA CHIN LPN - 01/14/2011 9:05 CDT Advance Directive Advanced Directives: No GALINA CHIN LPN - 01/14/2011 9:05 CDT Educ Needs Learning Style Preference Adult Grid Patient: Verbal explanation, Printed materials Family: Verbal explanation, Printed materials GALINA CHIN LPN - 01/14/2011 9:05 CDT Source: [facility] POWERCHART Document Id: [id number] CDT!24 Harvey - Galina Chin L.P.NLacey - 01/14/2011 9:02 AM CDT Adult Affiliate Marketing Manager Intake/History Adult Affiliate Marketing Manager Intake/History Entered On: 01/14/2011 9:05 CDT Performed On: 01/14/2011 9:02 CDT by GALINA CHIN LPN Intake Chief Complaint: complete exam Peripheral Pulse Rate: 80/min Systolic Blood Pressure: 126mmHg Diastolic Blood Pressure: 76mmHg NIBP Mean: 93mmHg BP Location: Left upper extremity Heart Rhythm: Regular Height: 185.00cm(Converted to: 6ft 1inch(es), 72.83inch(es)) Actual Weight: 98.500kg(Converted to: 217lb 2oz) Weight Source: Standing scale Dosing Weight Clinic: 98.50kg Clinic BSA: 2.25 Body Mass Index: 28.78kg/m2 GALINA CHIN LPN - 01/14/2011 9:02 CDT Subjective Pain Symptoms: No GALINA CHIN LPN - 01/14/2011 9:02 CDT Dependent Habits Tobacco Use/Currently Using: No Smoking Status: Never smoker Alcohol Use: Yes GALINA CHIN LPN - 01/14/2011 9:02 CDT Caffeine Use Grid Caffeine Use: Current Type: Soft drinks Frequency: Daily GALINA CHIN LPN - 01/14/2011 9:02 CDT Recreational Drug Use Grid Drug Use: None GALINA CHIN LPN - 01/14/2011 9:02 CDT Allergy Allergies (Active) morphine Estimated Onset Date: Unspecified ; Created By: DIANE STEPHEN; Reaction Status: Active; Category: Drug ; Substance: morphine ; Type: Allergy ; Updated By: DIANE STEPHEN; Reviewed Date: 01/14/2011 9:00 CDT Source: [facility] POWERCHART Document Id: [id number] CDT!29 documented in this encounter Plan of Treatment Not on filedocumented as of this encounter Visit Diagnoses Not on filedocumented in this encounter
--- OUTSIDE RECORDS SUMMARY | 2022-01-20 10:01 | XMS_ITS | Encounter Summary ---
:1950 Author Organization [facility] Address [address] [place] [address] Care Team Providers Name Role Phone Unavailable Primary Care Provider Unavailable Encounter Details Date Type Department Care Team Description 05/24/2010 Hospital Encounter HX [facility] Yoselyn Barahona M.D. Social History Tobacco Use Types Packs/Day Years Used Date Smoking Tobacco: Never Assessed Sex Assigned at Date Recorded Not on file documented as of this encounter Progress Notes Rossy Barahona M.D. - 05/24/2010 12:00 AM CST [id number] CHIEF COMPLAINT/ REASON FOR VISIT Sore throat, headache for the last 2 days. HISTORY OF PRESENT ILLNESS This 59-year-old male patient has been sick for the last 2 days with sore throat, headache aching cough. Strep and influenza A in the community along with sinus infection. His grand kids had strep and their parents. Patient is concerned that he has strep will be going out of town next week, this is Thursday, for business meeting wants to be well when he goes and while he is there. Has had some fever but no high fever and no distress. EMR record reviewed and updated. SYSTEMS REVIEW 1. Respiratory: As above. 2. Cardiovascular: No palpitation of the heart, no chest pain. 3. GI: No nausea, vomiting, diarrhea, constipation or recent change in weight. 4. : No dysuria, no hematuria. 5. All other systems reviewed and negative, except as mentioned above. PHYSICAL EXAMINATION AREA EXAM TEXT SKIN Clear EYES Pupils equal, round, react to light and accommodation; EOMs full; fundi no papilledema, hemorrhage or exudate; lids normal. ENT Ears: TMs clear; external auditory canals clear. Throat red. Tongue normal. Teeth normal. LYMPH NODES Neck: mild swollen anterior cervical nodes. THYROID Normal size, symmetric. HEART No murmur, gallop or rub; normal size; PMI arteries normal. LUNGS Clear to percussion and auscultation, normal to inspection, no retractions, no dyspnea. ABDOMEN No masses, no organomegaly, nontender; normal to inspection, percussion and palpation; no distention. EXTREMITIES Legs: no edema. IMPRESSION/REPORT/PLAN Pharyngitis. Quick strep test negative throat culture done. Will treat with Augmentin 875 milligrams twice daily for 2 weeks. Influenza like illness. Tamiflu 75 milligrams twice a day for week and recheck in 2 weeks return sooner p.r.n. SFO/clf Signed Rossy Barahona M.D. Family Medicine Electronically Signed By: ROSSY BARAHONA MD On: 05/24/2010 04:32 Source: [facility] MHSDOLBEYNONRADSYS Document Id: [id number] L POLISHER documented in this encounter Miscellaneous Notes Miscellaneous - Rossy Barahona M.D. - 05/24/2010 9:49 AM CST Ambulatory Patient Summary [address] [address] Visit Information Name: ATILIO AUSTIN Current Date: 05/24/2010 09:49:18 Primary Care Provider: MIGUEL A ESTRADA MD Your Medications Here is a list of your medications. It is important to take your medications as directed. Use a pillbox or chart to help remind you to take your medications. Please let your doctor or nurse know if you have problems taking your medications. Medication/Strength Dose Route Frequency Indications/Special Instructions/Comments oseltamivir (Tamiflu 75 mg oral capsule) 75 mg Oral two times a day amoxicillin-clavulanate (Augmentin 875 mg oral tablet) 1 tab(s) Oral two times a day alfuzosin (Uroxatral 10 mg oral tablet, extended release) 10 mg Oral once a day Your Allergies & Intolerances Substance Reaction Symptoms Category Comments morphine Drug Your Problem List Problem Status Onset Comments No Problems found Your Recommendations We want to make sure [...] Information Screening Colonoscopy or Flex Sig or Barium Enema or Occult Blood X3 05/24/2010 Checks for signs of cancer of the colon. Lipid Panel every 5 years Age 20-75 09/13/2007 09/11/2012 Checks blood for good (HDL) and bad (LDL) cholesterol. Know your numbers, they are one indicator of your risk for heart attack and stroke. Vaccine: Flu every 1 year 01/07/2006 01/07/2007 Immunization to help prevent you from getting the flu strain expected to be a problem for that year's flu season. Vaccine: Tetanus every 10 years 03/02/2003 02/27/2013 Immunization to help prevent you from getting the serious disease Tetanus (Lockjaw). Your Upcoming Appointments Date Time Location Reason Provider No Appointments found Your Goals/Additional instructions: Source: [facility] POWERCHART Document Id: [id number] Miscellaneous - Rossy Barahona M.D. - 05/24/2010 9:49 AM CST Ambulatory Depart Summary [address] [id number] Visit Information Name: ATILIO AUSTIN Current Date: 05/24/2010 09:49:18 Primary Care Provider: MIGUEL A ESTRADA MD ATILIO AUSTIN has been given the following list of medications: Your Medications It is important to take your medications as directed. Use a pill box or chart to help remind you to take your medications. Please let your doctor or nurse know if you have problems taking your medications. Medication/Strength Dose Route Frequency Indications/Special Instructions/Comments oseltamivir (Tamiflu 75 mg oral capsule) 75 mg Oral two times a day amoxicillin-clavulanate (Augmentin 875 mg oral tablet) 1 tab(s) Oral two times a day alfuzosin (Uroxatral 10 mg oral tablet, extended release) 10 mg Oral once a day Additional Information: Yes - Current list of reconciled medications is provided and explained to the patient and/or family, guardian/caregiver. Source: [facility] EPAC Software TechnologiesCHART Document Id: [id number] Miscellanitha - Raiza Stephen LLaceyP.N. - 05/24/2010 9:01 AM CST Adult Director [employer] Intake/History Adult Director [employer] Intake/History Entered On: 05/24/2010 9:01 METAL POLISHER Performed On: 05/24/2010 9:01 METAL POLISHER by RAIZA STPEHEN Intake Chief Complaint: sore throat-exposed by grandkids to strep throat RAIZA STEPHEN - 05/24/2010 9:01 METAL POLISHER Subjective Pain Symptoms: No RAIZA STEPHEN - 05/24/2010 9:01 METAL POLISHER Dependent Habits Tobacco Use/Currently Using: No RAIZA STEPHEN - 05/24/2010 9:01 METAL POLISHER Allergies Allergies (Active) morphine Estimated Onset Date: Unspecified ; Created By: RAIZA STEPHEN; Reaction Status: Active; Category: Drug ; Substance: morphine ; Type: Allergy ; Updated By: RAIZA STEPHEN; Reviewed Date: 05/24/2010 8:57 METAL POLISHER Source: [facility] POWERCHART Document Id: [id number] METAL POLISHER!7 L POLISHER Miscellaneous - Raiza Stephen L.P.N. - 05/24/2010 8:58 AM CST Adult Director [employer] Intake/History Adult Director [employer] Intake/History Entered On: 05/24/2010 9:01 METAL POLISHER Performed On: 05/24/2010 8:58 METAL POLISHER by RAIZA STEPHEN Intake Peripheral Pulse Rate: 80/min Respiratory Rate: 16/min Systolic Blood Pressure: 138mmHg Diastolic Blood Pressure: 82mmHg NIBP Mean: 101mmHg Actual Weight: 100.400kg(Converted to: 221lb 6oz) Dosing Weight Clinic: 100.40kg RAIZA STEPHEN - 05/24/2010 8:58 METAL POLISHER Subjective Pain Symptoms: No RAIZA STEPHEN - 05/24/2010 8:58 METAL POLISHER Dependent Habits Tobacco Use/Currently Using: No RAIZA STEPHEN - 05/24/2010 8:58 METAL POLISHER Allergies Allergies (Active) morphine Estimated Onset Date: Unspecified ; Created By: RAIZA STEPHEN; Reaction Status: Active; Category: Drug ; Substance: morphine ; Type: Allergy ; Updated By: RAIZA STEPHEN; Reviewed Date: 05/24/2010 8:57 METAL POLISHER Source: [facility] EPAC Software TechnologiesCHART Document Id: [id number] METAL POLISHER!13 L POLISHER documented in this encounter Plan of Treatment Not on filedocumented as of this encounter Visit Diagnoses Not on filedocumented in this encounter
--- OUTSIDE RECORDS SUMMARY | 2022-01-20 10:01 | XMS_ITS | Encounter Summary ---
:1950 Author Organization [facility] Address [address] [place] [address] Care Team Providers Name Role Phone Unavailable Primary Care Provider Unavailable Encounter Details Date Type Department Care Team Description 03/19/2012 Hospital Encounter HX [facility] NURSE Haja Alcala M.D. [address] [place] [address] [phone] (Wo rk) Social History Tobacco Use Types Packs/Day Years Used Date Smoking Tobacco: Never Assessed Sex Assigned at Date Recorded Not on file documented as of this encounter Plan of Treatment Not on filedocumented as of this encounter Visit Diagnoses Not on filedocumented in this encounter
--- OUTSIDE RECORDS SUMMARY | 2022-01-20 10:01 | XMS_ITS | Encounter Summary ---
:1950 Author Organization [facility] Address [address] [place] [address] Care Team Providers Name Role Phone Unavailable Primary Care Provider Unavailable Encounter Details Date Type Department Care Team Description 03/10/2011 Hospital Encounter HX [facility] Itz Swan M.D. [facility] Division [facility], [place] [phone] (Wo rk) Social History Tobacco Use Types Packs/Day Years Used Date Smoking Tobacco: Never Assessed Sex Assigned at Date Recorded Not on file documented as of this encounter Progress Notes Yovany Swan M.D. - 03/10/2011 12:00 AM CST [id number] CHIEF COMPLAINT / REASON FOR VISIT Treatment of basal cell carcinoma and dysplastic nevus. PHYSICAL EXAM SKIN: [id number] from 01/28/2011: Lesion B left lower back superficial basal cell carcinoma. Lesion C left lower lateral back conjunctional nevus with moderate dysplasia extending to the lateral margins. IMPRESSION / REPORT / PLAN 1) Discussion of diagnoses. 2) Cryosurgical destruction of malignant basal cell carcinoma of the left lower back with a postoperative size of 1.5 cm. 3) Shave removal left lateral lower back dysplastic nevus with clinically free margins. 1% Xylocaine. Aluminum chloride. Vaseline for care. Specimen to pathology. Mini tray used. 4) Return 6 months to [place] or primary care physician. Informed consent. All questions were answered. Yovany Swan M.D. bft Electronically Signed By: YOVANY SWAN On: 03/17/2011 04:13 PM Source: [facility] MHSDOLBEYNONRADSYS Document Id: [id number] L MARKETING MANAGER documented in this encounter Miscellaneous Notes Miscellaneous - Jennifer Virgen LLaceyP.N. - 03/10/2011 1:49 PM CST Adult Airplane Electrical Repairer Intake/History Adult Airplane Electrical Repairer Intake/History Entered On: 03/10/2011 13:50 EMAIL MARKETING MANAGER Performed On: 03/10/2011 13:49 EMAIL MARKETING MANAGER by JENNIFER VIRGEN Intake Chief Complaint : Tx on lower back left JENNIFER VIRGEN - 03/10/2011 13:49 EMAIL MARKETING MANAGER Subjective Pain Symptoms : No JENNIFER VIRGEN - 03/10/2011 13:49 EMAIL MARKETING MANAGER Dependent Habits Tobacco Use/Currently Using : No Smoking Status : Never smoker Alcohol Use : No JENNIFER VIRGEN - 03/10/2011 13:49 EMAIL MARKETING MANAGER Caffeine Use Grid Caffeine Use : Current Type : Soft drinks Frequency : Daily JENNIFER VIRGEN - 03/10/2011 13:49 EMAIL MARKETING MANAGER Recreational Drug Use Grid Drug Use : None JENNIFER VIRGEN - 03/10/2011 13:49 EMAIL MARKETING MANAGER Allergy Allergies (Active) morphine Estimated Onset Date: Unspecified ; Created By: DIANE STEPHEN; Reaction Status: Active; Category: Drug ; Substance: morphine ; Type: Allergy ; Updated By: DIANE STEPHEN; Reviewed Date: 03/10/2011 13:48 EMAIL MARKETING MANAGER Source: [facility] POWERCHART Document Id: [id number] EMAIL MARKETING MANAGER!17 L MARKETING MANAGER documented in this encounter Plan of Treatment Not on filedocumented as of this encounter Procedures Procedure Name Priority Date/Time Associated Diagnosis Comme nts SURGICAL PATHOLOGY Routine 03/10/2011 12:00 AM Re sults for this EMAIL MARKETING MANAGER procedure are i n the results section. documented in this encounter Results Pathology Surgical Pathology (03/10/2011 12:00 AM EMAIL MARKETING MANAGER) Specimen (Source) Anatomical Location Collection Method / Collectio n Time Received Time / Laterality Volume 03/10/[address] [facility] - 03/21/20 11 1:34 PM EMAIL MARKETING MANAGER PATIENT IMAGES Choose the Image button to view related documents. Historical Provider LAB SURG PATH ORDERABLES Performing Organization Address City/State/ZIP Code Phon e Number [facility] documented in this encounter Visit Diagnoses Not on filedocumented in this encounter
--- OUTSIDE RECORDS SUMMARY | 2022-01-20 10:01 | XMS_ITS | Encounter Summary ---
:1950 Author Organization [facility] Address [address] [place] [address] Care Team Providers Name Role Phone Unavailable Primary Care Provider Unavailable Encounter Details Date Type Department Care Team Description 05/31/1998 - 06/01/1998 Hospital Encounter HX [facility] 2G Social History Tobacco Use Types Packs/Day Years Used Date Smoking Tobacco: Never Assessed Sex Assigned at Date Recorded Not on file documented as of this encounter Plan of Treatment Not on filedocumented as of this encounter Procedures Procedure Name Priority Date/Time Associated Diagnosis Comme nts DX LUMBAR SPINE 2-3 Routine 05/31/1998 4:01 PM Re sults for this VIEWS CROSSING GUARD procedure are i n the results section. documented in this encounter Results DX Lumbar Spine 2-3 Views (05/31/1998 4:01 PM CROSSING GUARD) Anatomical Region Laterality Modality Lumbar Spine N/A Radiographic Imaging Specimen (Source) Anatomical Collection Method Collection Time Re ceived Time Location / / Volume Laterality 05/31/1998 4:01 PM CROSSING GUARD Narrative 06/01/1998 10:16 AM CROSSING GUARD 31-May-1998 16:01:00 ??Exam: Sp Lmb 3vw AP/Lat/Spt Indications: LATERAL ONLY, [facility] ORIGINAL REPORT - 01-Jun-1998 10:16:00 Clamp directed at the posterior aspect o f the body of what is presumed to be L5. Electronically signed by: ?? Natalia Galvez ?? [id number] 01-Jun-18 99 10:16 Procedure Note Natalia Galvez M.D. - 06/29/2017For matting of this note might be different from the original. 31-May-1998 16:01:00 Exam: Sp Lmb 3vw AP /Lat/Spt Indications: LATERAL ONLY, [facility] ORIGINAL REPORT - 01-Jun-1998 10:16:00 Clamp directed at the posterior aspect o f the body of what is presumed to be L5. Electronically signed by: Natalia Galvez MD [id number] 01-Jun-1998 10:16 Farrukh Sepulveda M.D. [facility] DIAGNOSTIC IMAGING PROCE DURES documented in this encounter Visit Diagnoses Not on filedocumented in this encounter
--- OUTSIDE RECORDS SUMMARY | 2022-01-20 10:01 | XMS_ITS | Encounter Summary ---
:1950 Author Organization [facility] Address [address] [place] [address] Care Team Providers Name Role Phone Unavailable Primary Care Provider Unavailable Encounter Details Date Type Department Care Team Description 09/08/2011 Hospital Encounter HX [facility] Itz Swan M.D. [facility] Division [email or web address] [place] [phone] (Wo rk) Social History Tobacco Use Types Packs/Day Years Used Date Smoking Tobacco: Never Assessed Sex Assigned at Date Recorded Not on file documented as of this encounter Last Filed Vital Signs Vital Sign Reading Time Taken Comments Blood Pressure 120/82 09/08/2011 8:15 AM CDT Pulse - - Temperature - - Respiratory Rate - - Oxygen Saturation - - Inhaled Oxygen Concentration - - Weight 103 kg (226 lb 6.6 oz) 09/08/2011 8:15 AM CDT Height - - Body Mass Index - - documented in this encounter Progress Notes Yovany Swan M.D. - 09/08/2011 12:00 AM CDT [id number] CHIEF COMPLAINT Full skin examination HISTORY OF PRESENT ILLNESS Atilio is a 60-year-old male with a PMH of basal cell carcinoma and a dysplastic nevus who presents to the clinic for a full skin examination. The patient was last seen 6 months ago. He is unaware of any new skin concerns. He wears sun screen when outside. VITAL SIGNS WEIGHT: 102.7 kg TEMPERATURE: 37.0 C BLOOD PRESSURE: 120/82 mmHg PHYSICAL EXAM GENERAL: Well developed, well nourished, oriented X3, normal affect and in no acute distress. SKIN: I examined the patient's head, scalp, neck, chest, back, left arm, right arm, hands, abdomen, left leg, right leg, feet, buttocks, and genital area. Site of the basal cell carcinoma, left lower back looks excellent. Site of the dysplastic nevus, left lower back also looks excellent. There is a red scaly patch on the scalp (1), treated today with cryotherapy. On the mid lower back there is a 3 mm very dark brown macule an outlier, shave removal performed today. DIGITS: Fingers, toes, and nails are within normal limits. HEAD: Lips within normal limits. Hair of scalp and face within normal limits. EYES: Eyes and eyelids normal. PERIPHERAL VESSELS: Peripheral vascular system intact. IMPRESSION / REPORT / PLAN 1. Full skin examination screening for malignant neoplasms. 2. Actinic keratosis, scalp, treated today with cryotherapy. 3. Neoplasm undetermined behavior, mid lower back. Shave removal with the intent to remove was performed today by Dr. Yovany Swan, mid lower back, 1% Xylocaine with epinephrine, Monsel's for hemostasis, mini tray used. Vaseline and bandage applied. Patient tolerated the procedure well. One specimen sent to pathology. 4. History of basal cell carcinoma, left lower back in 2010. No evidence of recurrence. 5. History of dysplastic nevus, left lateral lower back in 2010. No evidence of recurrence. Plan: 1. Counseling and literature provided on sun protection and skin cancer. 2. Informed consent was obtained from the patient. Dr. Yovany Swan treated the affected areas today with cryotherapy. The patient was provided literature and care instructions. 3. I will correspond with the patient regarding the results once they become available and treatment options will be discussed at that time as well as a follow up. Care instructions given. 4. Follow-up in 1 year for a full skin examination. It was offered for him to follow-up in [place] with Dr. Mitchell or Dr. You, but he declined. The patient was offered a depart summary but declined. All the patient's questions were answered. ADMINISTRATION BILLING This document serves as a record of services personally performed by Dr. Yovany Swan. It was created on their behalf by Linda Sparks, a trained quality engineer medical device. The creation of this record is based on the scribe's personal observations and the provider's statements to them. This document has been checked and approved by the attending provider. Yovany Swan M.D. sl Electronically Signed By: YOVANY SWAN On: 09/08/2011 06:45 PM Source: [facility] MHSDOLBEYNONRADSYS Document Id: [id number] documented in this encounter Miscellaneous Notes Miscellaneous - Yovany Swan M.D. - 09/08/2011 8:30 AM CDT Ambulatory Patient Summary [facility] [address] [place] [id number] Visit Information Name: ATILIO AUSTIN Current Date: 09/08/2011 08:30:52 Physicians Attending Provider: YOVANY SWAN Primary Care Provider: MIGUEL A MITCHELL MD [...] a day as needed for Erectile dysfunction Attention: If you have any medications at [...] No Appointments found Your Goals/Additional instructions: Source: [facility] [place]in[facility]CHART Document Id: [id number] Harvey - Yovany Swan M.D. - 09/08/2011 8:30 AM CDT Ambulatory Depart Summary [address] [address] Visit Information Name: ATILIO AUSTIN Visit Date: 09/08/2011 08:30:51 Attending Provider: YOVANY SWAN Primary Care Provider: MIGUEL A MITCHELL MD [...] a day as needed for Erectile dysfunction Attention: If you have any medications at home that are not on this list, DO NOT take them until youcontact your provider for clarification. Additional Information: Source[facility] [place]ScaleGrid Document Id: [id number] Harvey - Breezy Browne R.M.A. - 09/08/2011 8:15 AM CDT Adult Reservations Agent Intake/History Adult Reservations Agent Intake/History Entered On: 09/08/2011 8:17 CDT Performed On: 09/08/2011 8:15 CDT by BREEZY BROWNE Intake Chief Complaint : FSE Temperature Oral : 37.0C(Converted to: 98.6DegF) Systolic Blood Pressure : 120mmHg Diastolic Blood Pressure : 82mmHg NIBP Mean : 95mmHg Actual Weight : 102.7kg(Converted to: 226lb 7oz) Dosing Weight Clinic : 102.70kg BREEZY BROWNE - 09/08/2011 8:15 CDT Subjective Pain Symptoms : No BREEZY BROWNE - 09/08/2011 8:15 CDT Dependent Habits Tobacco Use/Currently Using : No Smoking Status : Never smoker BREEZY BROWNE - 09/08/2011 8:15 CDT Caffeine Use Grid Caffeine Use : Current Type : Soft drinks Frequency : Daily BREEZY BROWNE - 09/08/2011 8:15 CDT Recreational Drug Use Grid Drug Use : None BREEZY BROWNE - 09/08/2011 8:15 CDT Allergy Allergies (Active) morphine Estimated Onset Date: Unspecified ; Created By: DIANE STEPHEN; Reaction Status: Active; Category: Drug ; Substance: morphine ; Type: Allergy ; Updated By: DIANE STEPHEN; Reviewed Date: 09/08/2011 8:14 CDT Source: [facility] Mswipe TechnologiesCHART Document Id: [id number] documented in this encounter Plan of Treatment Not on filedocumented as of this encounter Procedures Procedure Name Priority Date/Time Associated Diagnosis Comme nts SURGICAL PATHOLOGY Routine 09/08/2011 12:00 AM Re sults for this CDT procedure are i n the results section. documented in this encounter Results Pathology Surgical Pathology (09/08/2011 12:00 AM CDT) Specimen (Source) Anatomical Location Collection Method / Collectio n Time Received Time / Laterality Volume 09/08/2011 Narrative [facility] - 09/15/19 12 10:38 AM CDT PATIENT IMAGES Choose the Image button to view related documents. Historical Provider LAB SURG PATH ORDERABLES Performing Organization Address City/State/ZIP Code Phon e Number [facility] documented in this encounter Visit Diagnoses Not on filedocumented in this encounter
--- OUTSIDE RECORDS SUMMARY | 2022-01-20 10:01 | XMS_ITS | Encounter Summary ---
:1950 Author Organization [facility] Address [address] [place] [address] Care Team Providers Name Role Phone Unavailable Primary Care Provider Unavailable Encounter Details Date Type Department Care Team Description 03/31/2012 [facility] Haja Mitchell M.D. [address] [place], [place] [phone] (Wo rk) Social History Tobacco Use Types Packs/Day Years Used Date Smoking Tobacco: Never Assessed Sex Assigned at Date Recorded Not on file documented as of this encounter Last Filed Vital Signs Vital Sign Reading Time Taken Comments Blood Pressure 126/76 03/31/2012 2:27 PM MANAGER MEDIA Pulse 80 03/31/2012 2:27 PM MANAGER MEDIA Temperature - - Respiratory Rate - - Oxygen Saturation - - Inhaled Oxygen Concentration - - Weight 102 kg (224 lb 13.9 oz) 03/31/2012 2:27 PM MANAGER MEDIA Height - - Body Mass Index - - documented in this encounter Progress Notes Miguel A Mitchell M.D. - 03/31/2012 2:22 PM CST [id number] CHIEF COMPLAINT/REASON FOR VISIT Left shoulder pain. HISTORY OF PRESENT ILLNESS The patient was out ice fishing and when he came off the sawant he hauled the sled in using his left arm. He did not notice anything that night but the next day he woke up and had pain. The pain is mostly when he is awake and when he moves. Movements of the arm that seem to give him pain are external and internal rotation of the shoulder. Raising his arm also seems to hurt. He has some pain localized to the shoulder crease and the axillary crease. I will have to examine to sort this out. He has had no central chest pain. He has no pain with exertion. CURRENT MEDICATIONS Post-visit Medication Reconciliation Please see [facility] in [place] electronic medical record. ALLERGIES Per [facility] electronic medical record. SYSTEMS REVIEW Review of systems in all areas is negative except as mentioned above. PAST MEDICAL/SURGICAL HISTORY Per [facility] electronic medical record. PREVENTIVE SERVICES Per [facility] electronic medical record. Handwashing done prior to patient contact. VITAL SIGNS Per [facility] electronic medical record. PHYSICAL EXAMINATION The patient can bring his left arm up in an arc between 70 to 120 degrees of abduction without difficulty. He is not really tender over the subacromial bursa area, the acromioclavicular joint area, or the glenohumeral joint area. He is tender over the bicipital tendon. IMPRESSION/REPORT/PLAN I think the patient's difficulty with external and internal rotation of the left shoulder suggests acertain degree of subacromial bursitis. He also has a definite bicipital tendonitis. As this is getting better he thinks himself a little bit, I would treat with naproxen 500 milligramstwice daily on a full stomach once after breakfast and once after supper for 10 days. He was given 20 pills and when they are done they are done. If naproxen fails to work, corticosteroid injections could be given. Miguel A Mitchell M.D./nmd Electronically Signed By: MIGUEL A MITCHELL MD On: 04/05/2012 03:25 PM Source: [facility] MHSDOLBEYNONRADSYS Document Id: [id number] GER MEDIA documented in this encounter Miscellaneous Notes Miscellaneous - Galina Chin L.PLaceyNLacey - 03/31/2012 2:27 PM CST Adult Sanitarian Inspector Intake/History Adult Sanitarian Inspector Intake/History Entered On: 03/31/2012 14:30 MANAGER MEDIA Performed On: 03/31/2012 14:27 MANAGER MEDIA by CHIN, GALINA ASHLEY MANUFACTURING TEAM LEADER Intake Chief Complaint : left shoulder pain Peripheral Pulse Rate : 80/min Heart Rhythm : Regular Systolic Blood Pressure : 126mmHg Diastolic Blood Pressure : 76mmHg NIBP Mean : 93mmHg BP Location : Left upper extremity Blood Pressure Cuff Size : Large Actual Weight : 102kg(Converted to: 224lb 14oz) Weight Source : Standing scale Dosing Weight Clinic : 102.00kg CHINGALINA [facility] - 03/31/2012 14:27 MANAGER MEDIA Subjective Pain Symptoms : Yes GALINA CHIN MANUFACTURING TEAM LEADER - 03/31/2012 14:27 MANAGER MEDIA Pain Pain Assessment Grid Pain 1 Location : Shoulder Laterality : Left Intensity : 5 Time Pattern : Acute Onset : Sudden CHIN, GALINAYVES RAMIREZ [facility] - 03/31/2012 14:27 MANAGER MEDIA Dependent Habits Tobacco Use/Currently Using : No Smoking Status : Never smoker GALINA CHIN [facility] - 03/31/2012 14:27 MANAGER MEDIA Caffeine Use Grid Caffeine Use : Current Type : Soft drinks Frequency : Daily GALINA CHIN [facility] - 03/31/2012 14:27 MANAGER MEDIA Recreational Drug Use Grid Drug Use : None CHIN GALINAYVES RAMIREZ [facility] - 03/31/2012 14:27 MANAGER MEDIA Allergy Allergies (Active) morphine Estimated Onset Date: Unspecified ; Created By: DIANE STEPHEN; Reaction Status: Active; Category: Drug ; Substance: morphine ; Type: Allergy ; Updated By: DIANE STEPHEN; Reviewed Date: 03/31/2012 14:26 MANAGER MEDIA Source: [facility] POWERCHART Document Id: [id number] GER MEDIA documented in this encounter Plan of Treatment Not on filedocumented as of this encounter Visit Diagnoses Not on filedocumented in this encounter
== END 2022-01-20 09:56 | disposition home or self-care (01) ==
PROVIDERS: PCP Internal Medicine; Visit Provider Orthopaedic Surgery Sports Medicine
DX: Z01.818 Encounter for other preprocedural examination (principal); Z20.822 Contact with and (suspected) exposure to COVID-19
CPT/HCPCS: 36415; 86850; 86900; 86901

== ENCOUNTER 2022-01-22 08:33 | Day surgery (SDC) | payer OTHER, SELFPAY ==
[2022-01-22] VITALS (24 sets, daily range): BP systolic 85–143; BP diastolic 48–79; PULSE 46–90; RESP 12–20; TEMP 36.2–37.3; O2SAT 93–100; BMI 22.9
--- NOTE | 2022-01-22 10:15 | CRLHL7_ITS ---
For Patients: As a result of the Cures Act, medical imaging exams and procedure reports are released immediately into your electronic medical record. You may view this report before your referring provider. If you have questions, please contact your health care provider. Indication: Hip replacement surgery Technique: AP hip fluoroscopic images. Fluoroscopy time 47.0 seconds. 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 Dictated by Jefferson Castaneda MD @ 01/23/2022 8:30:21 AM (Electronically Signed)
[2022-01-22] MEDS: LACTATED RINGERS 1000 ML 1,000 ML 100 ML IV ×3 (10:35→13:52)
[2022-01-22] MEDS: MIDAZOLAM HCL 1 MG/ML inj IVP (11:28)
--- NOTE | 2022-01-22 11:34 | W.PM.NB ---
Nerve Block Nerve Block Time Seen by Provider: 11:32 Date Seen: 01/22/22 Type of block requested by surgeon for post-operative analgesia: MIS/LFCN Side: right Time out performed: Yes Verification of patient name: Yes Verification of date of : Yes Site marking: site marked Name of person performing procedure: Alphonse Continuous monitoring Was continuous monitoring of O2 sat, B/P, office secretary, recorded every 15 minutes?: Yes Procedure Checklist: sterile prep, needles and gloves Ultrasound guided. Images saved: Yes Medications given in 5ml increments after negative aspiration: Ropivicaine %: 0.5 mL: 30 Needle gauge: 20 Decadron (mg): 10 Precedex (mcg): 25 Patient tolerated procedure well: Yes Additional comments: Needle noted below psoas tendon needle noted adjacent to LFCN Block Charges Block Charge (with Pro Fee): Other Periph Nerve Block Use of Ultrasound Machine for Block: Yes- US Guidance/pain block
[2022-01-22] MEDS: fentaNYL 100 MCG/2 ML inj IVP (11:38)
[2022-01-22] MEDS: SODIUM CHLORIDE 0.9 % (FLUSH) 10 ML SYRINGE IVF (11:51)
[2022-01-22] MEDS: CEFAZOLIN 2 GM in 0.9 % SODIUM CHLORIDE Mini-bag 100 ML IVPB (12:03)
[2022-01-22] MEDS: TRANEXAMIC ACID 100 MG/ML INJ 1000 MG IV (12:05)
--- NOTE | 2022-01-22 12:16 | CRLHL7_ITS ---
For Patients: As a result of the Cures Act, medical imaging exams and procedure reports are released immediately into your electronic medical record. You may view this report before your referring provider. If you have questions, please contact your health care provider. 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 Bone alignment is normal. No sign of acute fracture. Postop changes are within normal limits. Dictated by Jefferson Castaneda MD @ 01/23/2022 8:31:02 AM (Electronically Signed)
--- NOTE | 2022-01-22 13:15 | W.ANESCHARGE ---
Anesthesia Charges Start Date/Time Anesthesia Start Date: 01/22/22 Anesthesia Start Time: 11:53 Stop Date/Time Anesthesia Stop Date: 01/22/22 Anesthesia Stop Time: 14:34 Summary Emergency: No Extremes of Age: Over 71-CPT [id number]
--- NOTE | 2022-01-22 13:57 | PM.ORPRC ---
Procedure Note Date of procedure: 01/22/22 Procedure: PREOPERATIVE DIAGNOSIS: 1. Right hip osteoarthritis, severe, primary POSTOPERATIVE DIAGNOSIS: 1. Right hip osteoarthritis, severe, primary PROCEDURE: 1. Right total hip arthroplasty-anterior approach 2. 65226 - intraoperative fluoroscopy up to 1 hour. SURGEON: Alexis Huff MD. TRAINING MANAGER: Armando Walden PA-C; CHITO Arriaga - Of note, a skilled podiatric assistant was critical for this case to aid in patient positioning, tissue retraction, limb manipulation/positioning, and closure. ANESTHESIA: Spinal anesthetic EBL: 550 mL IMPLANTS: DePuy J&J uncemented total hip [place] cup size 58, hole eliminator, +4 neutral liner Actis stem, standard offset, size 8 +5 mm ceramic 36 mm head COMPLICATIONS: None evident INDICATIONS: The patient is a pleasant 71-year-old male who has experienced severe right hip pain and difficulty bearing weight. Workup included x-rays which revealed severe osteoarthrosis in the hip. Given the deformity, the dysfunction, and the pain, as well as the failure of nonoperative management, recommendation was made for surgery. FINDINGS: Full-thickness chondral loss broadly throughout the femoral head and acetabulum. Osteophytes around the perimeter of the acetabulum. Deformity to the femoral head losing its sphericity. DESCRIPTION OF PROCEDURE: Following a thorough discussion of risks, benefits, and alternatives consent was obtained and the right hip was marked. The patient was brought to the operating room and placed supine on the operating table. Induction of anesthesia was undertaken. 1 g IV Ancef and 1 g tranexamic acid was administered within 1 hr of incision preoperatively. Proper time-out was performed identifying proper patient, site, procedure. The operative extremity was prepped and draped in the appropriate sterile fashion using ChloraPrep after the patient was positioned on the [place] table with head in neutral alignment and all bony prominences well padded. C-arm fluoroscopic imaging was utilized to confirm proper pelvis rotation and position, and to get true AP films of both the contralateral left, and the affected right hip. This is for comparison. A longitudinal incision was made starting approximately 1 cm distal to the ASIS, and 3-4 cm lateral. The incision was extended distally aiming toward the lateral border the patella. Sharp incision through skin and bovie cautery through the subcutaneous tissue allowed identification of the TFL fascia. This was sharply divided, and the fascia bluntly released from the muscle fibers as we dissected medial. Upon coming to the medial border, we were able to retract the TFL laterally, and penetrated the deeper fascia and identify the crossing circumflex vessels. These were ligated/cauterized. The rectus was elevated from the capsule, and retractors placed laterally and medially along the femoral neck to help with visualization of the capsule. We then performed an inverted T capsulotomy. The capsule was tagged for later repair. Retractors were placed inside the capsule. The femoral neck was visualized after releasing medially down to the lesser trochanter, along the saddle laterally, and up onto the acetabulum. The femoral neck cut was made in line with our preoperative templating. The head was removed in a single piece, and sized. We turned our attention to acetabular preparation. Initially, the labrum was resected from around the perimeter, the pulvinar was excised, allowing us to visualize the false wall. We started the reaming with a 43 mm reamer. This was medialized down to the true wall. We then enlarged our reamers sequentially up to one size less than the selected cup size. We trialed at the same size and found it to have an excellent fit. The selected cup was then opened, inserted, and impacted in line with the goal of 40? of abduction, and 20-25? of anteversion. This was confirmed on C-arm fluoroscopic imaging to be in the appropriate/goal position. Once the cup was placed we placed a hole eliminator and a liner consistent with preop planning. Attention was turned to the femoral preparation. The limb was extended, externally rotated, and adducted. The posteromedial capsule was released, as retractors were placed allowing excellent access to the proximal femur. Initially a ammonia box operator was followed by canal finder followed by various broaches. We broached sequentially up to the size noted above, found it to have excellent rotational control, and trialing various heads and necks, revealed that appropriate neck offset, and the above noted head size provided the greatest stability, and religion of length, and offset. C-arm fluoroscopic imaging confirmed position of the stem, as well as leg lengths, which were compared with the pre procedure all fluoroscopic images. Trial implants were removed, the real femoral stem inserted, as was the appropriate head. After reducing, the leg was placed through range of motion and stability was confirmed anterior, posterior, and lateral. A 3 min Betadine soak was then performed, and thorough irrigation with normal saline followed. Closure of the capsule was performed with #1 PDS. Bleeding was confirmed to be controlled at this stage, and the TFL fascia was closed with #0 strata fix. Subcutaneous, and subcuticular closure was performed with 2-0 Vicryl and 4-0 Monocryl, respectively. Dressings were applied, and the patient was awoken from anesthesia and transferred the PACU in stable condition. A skilled podiatric assistant was critical for this case to aid in patient positioning, tissue retraction, acetabular and proximal femoral exposure, limb manipulation/positioning, dislocation/relocation, patient safety, and closure. PLAN: 1. Weight bear as tolerated operative extremity. 2. 23 hr perioperative antibiotics. 3. Ice. 4. PT/OT consults for ambulation assistance/mobility education. 5. Social work consult for discharge planning. 6. DVT prophylaxis with at SCDs, Jamie Hose, and Xarelto x5 days followed by aspirin for a total of 1 month..
--- NOTE | 2022-01-22 14:35 | W.ANESCHARGE ---
Anesthesia Charges Start Date/Time Anesthesia Start Date: 01/22/22 Anesthesia Start Time: 11:53 Stop Date/Time Anesthesia Stop Date: 01/22/22 Anesthesia Stop Time: 14:34 Summary Emergency: No Extremes of Age: Over 71-CPT 32609
--- NOTE | 2022-01-22 15:59 | PC.NURSE ---
Pt up to floor at 1520 - awake and oriented x3. Spouse Allison at bedside. denies pain, able to wiggle toes. Good cap refil less than 3 sec. and good pedal pulses bilaterally. TEDS on with SCD's. LS CTA. HOB elevated slightly and Caty hugger applied at 1530.
--- NOTE | 2022-01-22 17:41 | PM.IMCN1 ---
Date of Consult Patient: Valentin Patient Consult date: 01/22/22 Primary Care Provider: Hailey Gresham MD Consult Narrative Reason for consult: Medical management of comorbidities Narrative: Atilio Austin is a 71 year old male who presented to the hospital today for an elective right KLAUDIA. There were no surgical or anesthetic complications noted during procedure. Patient's H&P reviewed, PCP is Dr. Hailey Gresham at the [facility] in [place]. No concerning findings noted on H&P. Preoperative labs included hemoglobin of 12.1, platelets of 181, potassium of 4.3 and creatinine of 1.71 (baseline). 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 He is a nonsmoker, no concerning alcohol use. He and his have no concerns for the hospitalist team. Review of Systems Status of ROS: Reports: 10 or more systems reviewed and unremarkable except as noted in History and below PFSH PFSH Medical History (Updated 01/22/22 @ 17:50 by Marsha Mercado MD) Acquired right foot drop CKD (chronic kidney disease) Gastrointestinal stromal tumor (GIST) GERD (gastroesophageal reflux disease) Stomach cancer (~2015) Surgical History (Updated 01/22/22 @ 17:50 by Marsha Mercado MD) H/O esophagectomy (~2015) History of hemilaminectomy (~1999) History of right hip replacement History of right inguinal hernia repair History of total left hip arthroplasty (08/31/00) Mallet deformity of right little finger Family History (Updated 01/07/22 @ 09:28 by Betzy Car RN) Father Hx of heart bypass surgery Paternal Grandfather Stroke Social History Smoking Status: Never smoker Do you use any of these nicotine containing products: None How often do you have a drink containing alcohol: monthly or less Alcohol type: wine How many standard drinks containing alcohol do you have on a typical day: 1 or 2 How often do you have six or more drinks on one occasion: Never AUDIT-C Alcohol total score: 1 Non-prescribed substance use: denies use Caffeine: No (occ soda) Meds Home Medications and Allergies Home Medications Medication Instructions Recorded Confirmed Type acetaminophen 500 mg tablet 500 - 1,000 mg PO Q6H PRN 01/21/22 01/22/22 History (Tylenol Extra Strength) cyanocobalamin (vitamin B-12) 1,000 mcg IM Q28D 01/21/22 01/22/22 History 1,000 mcg/mL injection solution omeprazole 40 mg capsule,delayed 40 mg PO BID 01/21/22 01/22/22 History release prasterone (dhea) 25 mg capsule 25 mg PO DAILY 01/21/22 01/22/22 History tadalafil 20 mg tablet 20 mg PO DAILY 01/21/22 01/22/22 History Allergies Allergy/AdvReac Type Severity Reaction Status Date / Time morphine Allergy Unknown sweating Verified 01/22/22 08:51 Exam Narrative: Exam Narrative: GEN: Alert and oriented, laying comfortably in bed and answering questions appropriately HEENT: Normal external ears, EOMIs bilaterally, no scleral icterus CV: RRR, No concerning murmurs, rubs, or gallops R: LCTA bilaterally without concerning wheezing, rales, or rhonchi Ext: wwp, no concerning edema Skin: No concerning skin lesions or rashes on exposed skin Neuro: Nonfocal Psych: Appropriate Const: Vital Signs, click to edit/add: Vital Signs - 24 hr 01/22/22 09:44 01/22/22 11:28 01/22/22 11:35 Temperature 98.2 F Pulse Rate 65 76 62 Pulse Rate [Pulse Oximeter] Respiratory Rate 16 16 16 Blood Pressure 112/55 L 143/74 H 123/71 Blood Pressure [Le ft Arm] Pulse Oximetry 99 99 100 Oxygen Delivery Me thod Room Air Nasal Cannula Nasal Cannula Oxygen Flow Rate 2 2 01/22/22 14:30 01/22/22 14:35 01/22/22 14:40 Temperature 97.8 F 97.8 F 97.8 F Pulse Rate 58 L 60 64 Pulse Rate [Pulse Oximeter] Respiratory Rate 12 12 14 Blood Pressure 90/56 L 89/55 L 85/55 L Blood Pressure [Le ft Arm] Pulse Oximetry 99 100 100 Oxygen Delivery Me thod Oxygen Flow Rate 01/22/22 15:10 01/22/22 14:45 01/22/22 14:50 Temperature 97.8 F 97.8 F 97.8 F Pulse Rate 54 L 66 60 Pulse Rate [Pulse Oximeter] Respiratory Rate 13 13 13 Blood Pressure 108/62 87/48 L 105/67 Blood Pressure [Le ft Arm] Pulse Oximetry 99 100 99 Oxygen Delivery Me thod Oxygen Flow Rate 01/22/22 14:55 01/22/22 15:00 01/22/22 15:05 Temperature 97.8 F 97.8 F 97.8 F Pulse Rate 61 63 71 Pulse Rate [Pulse Oximeter] Respiratory Rate 15 13 13 Blood Pressure 96/62 106/69 99/56 L Blood Pressure [Le ft Arm] Pulse Oximetry 99 100 100 Oxygen Delivery Me thod Oxygen Flow Rate 01/22/22 15:15 01/22/22 15:20 01/22/22 15:30 Temperature 97.2 F L 97.1 F L 97.9 F Pulse Rate 59 L 58 L Pulse Rate [Pulse Oximeter] 49 L Respiratory Rate 13 16 16 Blood Pressure 108/64 Blood Pressure [Le ft Arm] 92/72 113/54 L Pulse Oximetry 99 99 Oxygen Delivery Me thod Room Air Room Air Oxygen Flow Rate 0 01/22/22 15:45 01/22/22 16:00 01/22/22 16:15 Temperature 97.9 F 97.9 F 98.1 F Pulse Rate Pulse Rate [Pulse Oximeter] 46 L 54 L 61 Respiratory Rate 16 16 18 Blood Pressure Blood Pressure [Le ft Arm] 112/65 114/69 117/65 Pulse Oximetry 99 100 98 Oxygen Delivery Me thod Room Air Room Air Room Air Oxygen Flow Rate 0 0 0 01/22/22 16:30 Temperature 97.9 F Pulse Rate Pulse Rate [Pulse Oximeter] 69 Respiratory Rate 16 Blood Pressure Blood Pressure [Le ft Arm] 122/71 Pulse Oximetry 99 Oxygen Delivery Me thod Room Air Oxygen Flow Rate 0 Assessment and Plan Assessment and plan (1) History of right hip replacement: Status: Acute (2) GERD (gastroesophageal reflux disease): Status: Acute (3) CKD (chronic kidney disease): Status: Acute Plan - pain management and prophylaxis per Orthopedic Surgery team - continue home Omeprazole - anticipate routine postoperative course
[2022-01-22] MEDS: CEFAZOLIN 1 GM in 0.9 % SODIUM CHLORIDE Mini-bag 100 ML IVPB (17:58)
[2022-01-22] MEDS: ACETAMINOPHEN 500 MG TABLET 1000 MG PO (17:59)
--- NOTE | 2022-01-22 18:50 | PC.NURSE ---
pt up to dangle at bedside at 1830, then ambulated to BR with Ax2, walker and GB. Void unmeasured. pt reports flatus present. now up in chair. pain 05/30 - scheduled tylenol given.
[2022-01-22] MEDS: SENNOSIDES 1 TAB TABLET 2 TAB PO (20:58)
[2022-01-22] MEDS: CELECOXIB 200 MG CAPSULE PO (20:58)
[2022-01-22] MEDS: LACTATED RINGERS 1000 ML 1,000 ML 75 ML IV (21:25)
[2022-01-23] MEDS: ACETAMINOPHEN 500 MG TABLET 1000 MG PO ×2 (00:28→06:11)
[2022-01-23] MEDS: OXYCODONE 5 MG TABLET PO ×3 (00:34→08:48)
[2022-01-23] MEDS: CEFAZOLIN 1 GM in 0.9 % SODIUM CHLORIDE Mini-bag 100 ML IVPB ×2 (02:08→10:29)
[2022-01-23 06:00] VITALS: BP 117/58; PULSE 77; RESP 18; TEMP 36.8; O2SAT 96
[2022-01-23] MEDS: OMEPRAZOLE 20 MG CAPSULE DR 40 MG PO (06:11)
[2022-01-23 07:00] VITALS: PULSE 70; RESP 14
[2022-01-23 07:35] LABS: Basophils Absolute Auto 0.05 K/uL (0.00-0.30); Basophils Percent Auto 0.5 % (0.0-3.0); Eosinophils Absolute Auto 0.03 K/uL (0.00-0.50); Eosinophils Percent Auto 0.3 % (0.0-7.0); Hematocrit 29.4 % (37.0-53.0); Hemoglobin* 9.9 gm/dL (13.5-17.5); Lymphocytes Percent Auto 7.9 % (20-44); Mean Corpuscular HGB Conc 34 gm/dL (32-36); Mean Corpuscular Hemoglobin 30 pg (26-34); Mean Corpuscular Volume 88 fL (80-100); Monocytes Percent Auto 7.8 % (0.0-11.0); Neutrophils Percent Auto 82.9 % (42.0-72.0); Platelet Count* 151 K/uL (140-440); RDW Coefficient of Variation % 12.4 % (11.5-15.5); Red Blood Count 3.33 m/uL (4.30-5.90); White Blood Count* 9.51 K/uL (4.50-11.00)
[2022-01-23 07:40] LABS: Slide Review Reflex No
[2022-01-23 07:51] LABS: Potassium* 4.1 mmol/L (3.6-5.1); Sodium* 140 mmol/L (135-149)
[2022-01-23 07:54] LABS: Creatinine* 1.5 mg/dL (0.5-1.5); Est. Creatinine Clearance* 49.69; Estimated Glomerular Filt Rate 50 ml/min
[2022-01-23 07:55] LABS: Blood Urea Nitrogen* 25 mg/dL (7-30)
[2022-01-23] MEDS: SENNOSIDES 1 TAB TABLET 2 TAB PO (08:47)
[2022-01-23] MEDS: CELECOXIB 200 MG CAPSULE PO (08:47)
[2022-01-23] MEDS: RIVAROXABAN 10 MG TABLET PO (08:47)
[2022-01-23 10:00] VITALS: BP 119/65; PULSE 70; RESP 14; TEMP 37.3; O2SAT 99
--- NOTE | 2022-01-23 11:29 | PC.NURSE ---
Discharge: Patient pleasant and cooperative. Patient vitally stable, lung clear, BS WNL, IV removed catheter intact. Patient rates pain at most 2/10, 5 mg of oxy given once. Patient 1 assist, walker, gb. Patient tolerating regular diet and urinating. Patient right hip dressing C/D/I. Patient signed belongings sheet and discharge form. Patient had no further questions regarding discharge information. Patient left the floor by wheelchair at 1120. Patient took his belongings to the car in advanced.
[2022-01-23 11:34] LABS: Immature Granulocytes Pct Auto 0.1 %
--- NOTE | 2022-01-23 13:58 | PM.ORPN ---
Subjective Subjective Date Seen: 01/23/22 Principal diagnosis: Status postop day 1 right total hip arthroplasty - anterior approach Interval history: Patient reports doing well. No acute events over night. Pain managed with scheduled /PRN medications and ice. DVT prophylaxis rivaroxaban, bilateral knee high Jamie stockings, and SCDs. Denies fevers, chills, aches, N/V, CP, SOB/CHAVEZ, tachycardia, or lightheadedness. Ortho Exam Narrative Exam Narrative: -Patient appears comfortable in bed eating breakfast; no apparent acute distress -Alert and oriented times 3 -Operative hip mildly swollen; soft tissues supple; no obvious erythema. Ecchymosis minimal. Warmth appropriate -Surgical dressing clean, dry, intact; no obvious drainage, no erythematous streaking peripheral to the bandage -Bilateral calves soft and supple; no significant swelling, edema, tenderness, erythema, discoloration, warmth, or palpable cords -2+ DP/PT pulses, intact dermatomes and myotomes distally (5/5 strength). No numbness about the lateral femoral cutaneous nerve distribution. Const Vital Signs, click to edit/add: Vital Signs - 24 hr 01/22/22 14:30 01/22/22 14:35 01/22/22 14:40 Temperature 97.8 F 97.8 F 97.8 F Pulse Rate 58 L 60 64 Pulse Rate [Pulse Oximeter] Respiratory Rate 12 12 14 Blood Pressure 90/56 L 89/55 L 85/55 L Blood Pressure [Left Arm] Pulse Oximetry 99 100 100 Oxygen Delivery Method Oxygen Flow Rate 01/22/22 15:10 01/22/22 14:45 01/22/22 14:50 Temperature 97.8 F 97.8 F 97.8 F Pulse Rate 54 L 66 60 Pulse Rate [Pulse Oximeter] Respiratory Rate 13 13 13 Blood Pressure 108/62 87/48 L 105/67 Blood Pressure [Left Arm] Pulse Oximetry 99 100 99 Oxygen Delivery Method Oxygen Flow Rate 01/22/22 14:55 01/22/22 15:00 01/22/22 15:05 Temperature 97.8 F 97.8 F 97.8 F Pulse Rate 61 63 71 Pulse Rate [Pulse Oximeter] Respiratory Rate 15 13 13 Blood Pressure 96/62 106/69 99/56 L Blood Pressure [Left Arm] Pulse Oximetry 99 100 100 Oxygen Delivery Method Oxygen Flow Rate 01/22/22 15:15 01/22/22 15:20 01/22/22 15:30 Temperature 97.2 F L 97.1 F L 97.9 F Pulse Rate 59 L 58 L Pulse Rate [Pulse Oximeter] 49 L Respiratory Rate 13 16 16 Blood Pressure 108/64 Blood Pressure [Left Arm] 92/72 113/54 L Pulse Oximetry 99 99 Oxygen Delivery Method Room Air Room Air Oxygen Flow Rate 0 01/22/22 15:45 01/22/22 16:00 01/22/22 16:15 Temperature 97.9 F 97.9 F 98.1 F Pulse Rate Pulse Rate [Pulse Oximeter] 46 L 54 L 61 Respiratory Rate 16 16 18 Blood Pressure Blood Pressure [Left Arm] 112/65 114/69 117/65 Pulse Oximetry 99 100 98 Oxygen Delivery Method Room Air Room Air Room Air Oxygen Flow Rate 0 0 0 01/22/22 16:30 01/22/22 17:30 01/22/22 18:00 Temperature 97.9 F 97.9 F 98.5 F Pulse Rate Pulse Rate [Pulse Oximeter] 69 90 88 Respiratory Rate 16 16 16 Blood Pressure Blood Pressure [Left Arm] 122/71 120/79 118/67 Pulse Oximetry 99 99 99 Oxygen Delivery Method Room Air Room Air Room Air Oxygen Flow Rate 0 0 0 01/22/22 19:35 01/22/22 21:40 01/22/22 23:00 Temperature 98 F 98.4 F Pulse Rate Pulse Rate [Pulse Oximeter] 86 80 70 Respiratory Rate 18 20 18 Blood Pressure Blood Pressure [Left Arm] 120/76 112/66 Pulse Oximetry 97 97 Oxygen Delivery Method Room Air Oxygen Flow Rate 01/22/22 23:00 01/23/22 06:00 01/23/22 07:00 Temperature 99.1 F 98.3 F Pulse Rate Pulse Rate [Pulse Oximeter] 70 77 70 Respiratory Rate 18 18 14 Blood Pressure Blood Pressure [Left Arm] 114/58 L 117/58 L Pulse Oximetry 93 96 Oxygen Delivery Method Room Air Oxygen Flow Rate 01/23/22 10:00 Temperature 99.1 F Pulse Rate Pulse Rate [Pulse Oximeter] 70 Respiratory Rate 14 Blood Pressure Blood Pressure [Left Arm] 119/65 Pulse Oximetry 99 Oxygen Delivery Method Room Air Oxygen Flow Rate Assessment and Plan Assessment and plan (1) History of right hip replacement: Problem details: POD 1 right total hip arthroplasty - anterior approach Status: Acute (2) Acute blood loss anemia: Problem details: Hgb 9.9, asymptomatic (pt denies CP, SOB/CHAVEZ, tachycardia, tachypnea, lightheadedness or dizziness). Preoperative hemoglobin was 12.1 Status: Acute (3) GERD (gastroesophageal reflux disease): Status: Acute (4) CKD (chronic kidney disease): Status: Acute Plan - Complete 23 hour perioperative antibiotics. - PT/OT consult for education and assistance. - Social work consult for discharge planning - Prescribed analgesics as needed - DVT prophylaxis: Rivaroxaban for 5 days, then switch to 81 mg aspirin by mouth twice daily for 25 days, bilateral knee high Jamie Hose stockings and SCDs - Anticipation is for discharge to home with spouse 01/23/2022 if the patient remains medically stable, pain is controlled, and they are safe with mobilization.
--- NOTE | 2022-01-23 14:01 | PM.DS1 ---
DS: Providers Provider Date Seen: 01/23/22 Date of admission: med/surg recovery 01/22/22 Primary care physician: Hailey Gresham MD Consults: 01/22/22 16:03 Consult to Occupational Therapy [CONS] Routine Comment: Reason(s) for OT Consult:: ADLs Prior to Discharge Any Restrictions?:: No Restrictions Comment: Consult to Physical Therapy [CONS] Routine Comment: Ambulate in the [place]arra today Reason(s) for PT Consult:: Evaluate and Treat Any Restrictions?:: No Restrictions Comment: Nursing Activity Consult to Physician [CONS] Routine Comment: Consulting Provider: Hospitalists Has provider been notified: No Consult to Health Information Assistant [CONS] Routine Comment: Reason for Consult:: Discharge Planning Needs Attending Physician on discharge: Alexis Huff MD Date of Discharge: 01/23/22 DS: Diagnosis Discharge Diagnosis (1) Osteoarthritis of right hip: Status: Acute Problem details: Severe (2) History of right hip replacement: Status: Acute Problem details: 01/22/22 DS: Summary Hospital Course Hospital Course: The patient has a history of right hip osteoarthritis, primary, severe. After appropriate preoperative evaluation, the patient underwent right total hip arthroplasty. Postoperatively given anticoagulation for deep vein thrombosis prophylaxis. They progressed to PT/OT and were felt ready and prepared for discharge to home with appropriate pain medication and anticoagulation medications. Patient's hemoglobin was at 9.9, he believes preop hemoglobin was 12.1. He is asymptomatic with this hemoglobin. Status at Discharge Functional status at discharge: uses cane/walker Overall status at discharge: patient is progressing back to baseline Time Spent with Patient Time attestation: Total time spent providing and/or coordinating discharge services: Time spent: Less than 30 minutes Exam Const: Vital Signs, click to edit/add: Vital Signs - 24 hr 01/22/22 14:30 01/22/22 14:35 01/22/22 14:40 Temperature 97.8 F 97.8 F 97.8 F Pulse Rate 58 L 60 64 Pulse Rate [Pulse Oximeter] Respiratory Rate 12 12 14 Blood Pressure 90/56 L 89/55 L 85/55 L Blood Pressure [Le ft Arm] Pulse Oximetry 99 100 100 Oxygen Delivery Me thod Oxygen Flow Rate 01/22/22 15:10 01/22/22 14:45 01/22/22 14:50 Temperature 97.8 F 97.8 F 97.8 F Pulse Rate 54 L 66 60 Pulse Rate [Pulse Oximeter] Respiratory Rate 13 13 13 Blood Pressure 108/62 87/48 L 105/67 Blood Pressure [Le ft Arm] Pulse Oximetry 99 100 99 Oxygen Delivery Me thod Oxygen Flow Rate 01/22/22 14:55 01/22/22 15:00 01/22/22 15:05 Temperature 97.8 F 97.8 F 97.8 F Pulse Rate 61 63 71 Pulse Rate [Pulse Oximeter] Respiratory Rate 15 13 13 Blood Pressure 96/62 106/69 99/56 L Blood Pressure [Le ft Arm] Pulse Oximetry 99 100 100 Oxygen Delivery Me thod Oxygen Flow Rate 01/22/22 15:15 01/22/22 15:20 01/22/22 15:30 Temperature 97.2 F L 97.1 F L 97.9 F Pulse Rate 59 L 58 L Pulse Rate [Pulse Oximeter] 49 L Respiratory Rate 13 16 16 Blood Pressure 108/64 Blood Pressure [Le ft Arm] 92/72 113/54 L Pulse Oximetry 99 99 Oxygen Delivery Me thod Room Air Room Air Oxygen Flow Rate 0 01/22/22 15:45 01/22/22 16:00 01/22/22 16:15 Temperature 97.9 F 97.9 F 98.1 F Pulse Rate Pulse Rate [Pulse Oximeter] 46 L 54 L 61 Respiratory Rate 16 16 18 Blood Pressure Blood Pressure [Le ft Arm] 112/65 114/69 117/65 Pulse Oximetry 99 100 98 Oxygen Delivery Me thod Room Air Room Air Room Air Oxygen Flow Rate 0 0 0 01/22/22 16:30 01/22/22 17:30 01/22/22 18:00 Temperature 97.9 F 97.9 F 98.5 F Pulse Rate Pulse Rate [Pulse Oximeter] 69 90 88 Respiratory Rate 16 16 16 Blood Pressure Blood Pressure [Le ft Arm] 122/71 120/79 118/67 Pulse Oximetry 99 99 99 Oxygen Delivery Me thod Room Air Room Air Room Air Oxygen Flow Rate 0 0 0 01/22/22 19:35 01/22/22 21:40 01/22/22 23:00 Temperature 98 F 98.4 F Pulse Rate Pulse Rate [Pulse Oximeter] 86 80 70 Respiratory Rate 18 20 18 Blood Pressure Blood Pressure [Le ft Arm] 120/76 112/66 Pulse Oximetry 97 97 Oxygen Delivery Me thod Room Air Oxygen Flow Rate 01/22/22 23:00 01/23/22 06:00 01/23/22 07:00 Temperature 99.1 F 98.3 F Pulse Rate Pulse Rate [Pulse Oximeter] 70 77 70 Respiratory Rate 18 18 14 Blood Pressure Blood Pressure [Le ft Arm] 114/58 L 117/58 L Pulse Oximetry 93 96 Oxygen Delivery Me thod Room Air Oxygen Flow Rate 01/23/22 10:00 Temperature 99.1 F Pulse Rate Pulse Rate [Pulse Oximeter] 70 Respiratory Rate 14 Blood Pressure Blood Pressure [Le ft Arm] 119/65 Pulse Oximetry 99 Oxygen Delivery Me thod Room Air Oxygen Flow Rate DS: Data Data Completed and Pending Labs on day of discharge: Labs from last 24 hours 01/23/22 01/23/22 06:56 06:56 WBC 9.51 RBC 3.33 L Hgb 9.9 L Hct 29.4 L MCV 88 MCH 30 MCHC 34 RDW Coeff of Stone 12.4 Plt Count 151 Neut % (Auto) 82.9 H Lymph % (Auto) 7.9 L [place] % (Auto) 7.8 Eos % (Auto) 0.3 Baso % (Auto) 0.5 Neut # (Auto) 7.90 H Lymph # (Auto) 0.80 L [place] # (Auto) 0.70 Eos # (Auto) 0.03 Baso # (Auto) 0.05 Abs Immat Gran (auto) 0.00 Imm/Tot Granulo (auto) 0.1 Sodium 140 Potassium 4.1 BUN 25 Creatinine 1.5 Estimated Creat Clear 49.69 Estimated GFR 50 Discharge Plan Discharge Disposition: Home, Self-Care Discharging Surgeon: Alexis Huff Follow-Up Appointment: 1 week PO with CLAUDIA Prescriptions: New aspirin 81 mg tablet,delayed release (DR/EC) 81 mg PO BID Qty: 50 0RF Rx Instructions: Medication to help prevent blood clots postoperatively; take TWICE daily. rivaroxaban 10 mg tablet 10 mg PO DAILY Qty: 4 0RF Rx Instructions: Medication for deep vein clot prevention post surgery. Complete this medication before starting Aspirin. sennosides-docusate sodium [Senna-S] 8.6-50 mg tablet 1 - 4 tab-cap PO BID PRN (Reason: constipation) Qty: 60 0RF Rx Instructions: Hold medication if experiencing loose stools. oxycodone 5 mg tablet 2.5 - 5 mg PO Q4-6H MDD 6 PRN (Reason: pain) Qty: 42 0RF Rx Instructions: Take as needed for postop pain: 2.5mg mild pain, 5mg moderate-severe pain; wean as tolerated. Continued tadalafil 20 mg tablet 20 mg PO DAILY prasterone (dhea) 25 mg capsule 25 mg PO DAILY omeprazole 40 mg capsule,delayed release(DR/EC) 40 mg PO BID cyanocobalamin (vitamin B-12) 1,000 mcg/mL solution 1,000 mcg IM Q28D acetaminophen [Tylenol Extra Strength] 500 mg tablet 500 - 1,000 mg PO Q6H PRN Activity Level: Activity as Tolerated, Weight Bearing as Tolerated, Use Cane and Use Walker Discharge Diet: Regular Patient Instructions: Aspirin (By mouth), Oxycodone, Rapid Release (By mouth), Rivaroxaban (By mouth), Senna (By mouth), Surgical Site Infections (DC) Additional Instructions: Wound: ?Do not remove original dressing; we will remove this at first postop visit in 1 week. Only remove dressing if integrity is in question. ?No immersing wound in water; showering okay; light scrub with your hand and body soap, rinse, dab dry ?Sutures are under the skin, will dissolve; allow surgical glue to come off naturally; do not scrub the wound or apply ointments/lotions ?Call our office with any redness that streaks, excessive drainage from the wound, or wound gapping. Ice/Elevate: ?Ice as needed for swelling and discomfort (cryocuff or ice pack); elevate frequently above the heart ERIKA socks: ?Wear for 1 month, remove for 1 hour 3 times per day ?These are frustrating to take on/off, but are important for blood clot prevention for 1 month after surgery Blood Clot Prevention (DVT): ?Medication: Rivaroxaban, and transition to 81 mg aspirin by mouth twice daily (total one month of protection). Driving: ?Do not drive while taking narcotic pain medication ?Anticipate 4-6 weeks no driving if operative leg is driving leg Dental: ?No elective dental work for 6 months post-op. If there is an urgent/emergent dental need, contact our office for an antibiotic prescription. Smoking/Alcohol: ?Do not smoke; do no drink alcohol especially when taking postoperative oral narcotic medication Seek Care from you Primary Care Provider if you experience the following issues in the postoperative phase and beyond: ?Bacterial infections such as: pneumonia, bacterial skin infection (cellulitis), UTI, high fever, chills unrelated to the operative body part - call your primary care physician urgently for treatment in hopes to protect your health and the metal implant. Referrals: ?PT, OT per patient preference - evaluate treat total hip arthroplasty protocol (gait training, ROM, ADLs) Follow up: ?Ortho surgeon follow-up in 6 weeks; repeat radiographs AP pelvis, cross-table lateral operative hip ?PA-C visit in 1 week *If there are any acute concerns regarding your surgery, please call our orthopedic clinic ([phone]) Forms: Work/Release Restrictions Follow-up: Hailey Gresham MD [Primary Care Provider] - Discharge Orders: Discharge Order (Routine); Ordered 01/23/22 Ordered By: Armando Walden
== END 2022-01-23 11:20 | disposition home or self-care (01) ==
LOC: OR 08:34 → MEDSURG 08:37
PROVIDERS: PCP Internal Medicine; Visit Provider Orthopaedic Surgery Sports Medicine
PROC: (CPT 27130; principal; 2022-01-22 10:15)
DX: M16.11 Unilateral primary osteoarthritis, right hip (principal); D62 Acute posthemorrhagic anemia; K21.9 Gastro-esophageal reflux disease without esophagitis; N18.9 Chronic kidney disease, unspecified; N40.0 Benign prostatic hyperplasia without lower urinary tract symptoms; Z85.028 Personal history of other malignant neoplasm of stomach
CPT/HCPCS: 27130; 01214; 36415; 64450; 73501; 76000; 76942; 82565; 84132; 84295; 84520; 85025; 97110; 97116; 97162; 97165; 97535; 99100; A9270; C1776; J0690; J1100; J2250; J2405; J2704; J2795; J3010; J7120

== ENCOUNTER 2023-02-23 18:51 | Emergency (ER) | payer MEDICARE, OTHER, SELFPAY ==
--- OUTSIDE RECORDS SUMMARY | 2023-02-23 19:05 | XMS_ITS | Continuity of Care Document ---
Author Name Unknown Organization [facility] Address [address] [address] [place] [address] Care Team Providers Care [address] Magistrate Name Role Phone [place], [place] Unavailable Unav ailable Procedures Procedure Date Colono Advance Directives Directive Yes / No Effective Date File Name No Information Encounters Encounter Description Practice Location Reason(s) For Visit Diagnoses Date Provider Providers Copied on Encounter [facility], [address] [address], [place], [place], [id number], [facility] No Information [facility]. [address] [address], [place], [place], [id number], . tel:[phone] Referring Provider: Abigail Altman MD, [address] [address], [place], [address] . tel:[phone] Family History Family Member Type Diagnosis Age At Onset No Information Payers Payer name Insurance type Covered libertarian ID Temi ba(s) [facility] [id number] Social History Type Description Quantity Date Captured Comments Sex Male Smoking Status No Information Chief Complaint And Reason For Visit No Information Reason For Referral Reason For Referral No Information History Of Present Illness Encounter Date Complaint History Of Prese nt Illness No Information Functional Status Date Functional Assessmen t No Information Instructions Date Instruction Additional Infor mation No Information Assessments Type Assessment Date No Information Patient Care Teams Name Effective Dates (start - stop) Status Members No Information
--- OUTSIDE RECORDS SUMMARY | 2023-02-23 19:05 | XMS_ITS | Continuity of Care Document ---
Author Name Unknown Organization [facility] Address [address] [address] [place] [address] Phone Care Team Providers Care C Architect Name Role Phone No Information Unavailable Unavailable Allergies, Adverse Reactions, Alerts Substance Reaction Status Criticality No Known Allergies Active No Inform ation morphine Unknown Active No Information Medications Medication Instructions Dosage Effective Dates (start - stop) Status Comments omeprazole 40 mg capsule,delayed release take 1 capsule by ORAL route 2 times every day before a meal 40 MG - Active Must schedule office visit for further refills or may request refills from PCP. Suprep Bowel Prep Kit 17.5 gram-3.13 gram-1.6 gram oral solution take as directed - Active 1 kit Procedures Procedure Date Colonoscopy Flex; W/bx 1/mx Level Iv-surg Path Gross/micro 22 Offic/outpt E&m Estab Low-mod 2 Established Level 3 Ugi Endo; W/bx 1/mx Level Iv-surg Path Gross/micro 21 Established Level 3 Ugi Endo; W/bx 1/mx Ugi Endo; W/bx 1/mx EGD W/submucosal Injection Offic/outpt E&m Estab Mod-hi 2 19 Ugi Endo; W/remov Fb Subsqt Hosp-da E&m Minr Compl 6 Ugi Endo w/stent Ugi Endo; W/us Guid Asp/bx Ugi Endo; W/bx 1/mx Advance Directives Directive Yes / No Effective Date File Name No Information Encounters Encounter Description Practice Location Reason(s) For Visit Diagnoses Date Provider Providers Copied on Encounter [facility], [address] [address], [place], [id number], [place] tel:[phone] No Information 3 No Information [facility], [address] [address], [place], [id number], [place] tel:[phone] [facility] No Information 3 Tania Melgoza. [address], [id number], [place]. tel:[phone] [facility], [address] [address], [place], [id number], [place] tel:[phone] [facility] GI Symptoms or Concerns (chief complaint) Polyp of colon, unspecified part of colon, unspecified typeEncounter for screening for malignant neoplasm of colonBenign neoplasm of ascending colon 2 Anupama Hayes. [address], [id number], [place]. tel:[phone] Harley Marquis MD. tel:[phone] ring Provider: Referral Self, USE FOR SELF REFERRALS. [facility], [address] [address], [place], [id number], [place] tel:[phone] [facility] No Information 2 Anupama Hayes. [address] [facility], [address], [id number], [place]. tel:[phone] Offic/outpt E&m Estab Low-mod [facility], [address] [address], [place], [id number], [place] tel:[phone] [facility] GI Symptoms or Concerns (chief complaint) Status post partial gastrectomyHi story of gastrointesti nal stromal tumor (GIST)Gastric adenocarcinom aGastroesopha geal reflux disease with esophagitis without hemorrhageEnc ounter for screening colonoscopy Jun- 2 Tania Melgoza. [address] [facility], [address], [id number], [place]. tel:[phone] Harley Marquis MD. [phone] AnybodyOutThere Provider: Referral Self, USE FOR SELF REFERRALS. [facility], [address] [address], [place], [id number], [place] tel:[phone] [facility] No Information 2 Juanita Rocha. [address] [place] [address], [address], [id number], [place]. tel:[phone] [facility], [address] [address], [place], [id number], [place] tel:[phone] [facility] Gastro-esopha geal reflux disease with esophagitis, without bleedingPerso nal history of other malignant neoplasm of stomachGastro -esophageal reflux disease with esophagitis, without bleeding Jun- 1 Ja Swanson. [address] [facility], [address], [id number], [place]. tel:[phone] Harley Marquis MD. tel:[phone] AnybodyOutThere Provider: Referral Self, USE FOR SELF REFERRALS. [facility], [address] [address], [place], [id number], [place] tel:[phone] [facility] No Information 0 1 Ja Swanson. [address] [facility], [facility] [address], [place], [id number], [place]. tel:[phone] [facility], [address] [address], [place], [id number], [place] tel:[phone] [facility] Esophageal ulcer without bleeding [address] Ja Swanson. [address] [place] [address], [id number], [place]. tel:[phone] Established Level 3 [facility], [address] [address], [place], [id number], [place] tel:[phone] [facility] GI Symptoms or Concerns (chief complaint) Gastroesophag eal reflux disease with esophagitis without hemorrhage [address] Sw[address] [place] [address], [id number], [place]. tel:[phone] Harley Marquis MD. [phone] ring Provider: Gabby Hoffman MD, [address] [place] [address], [address]. tel:[phone] [facility], [address] [address], [place], [id number], [place] tel:[phone] [facility] No Information 1 Ja Swanson. [address] [place] [address], [id number], [place]. tel:[phone] [facility], [address] [address], [place], [id number], [place] tel:[phone] [facility] No Information 9 Ja Swanson. [address] [place] [address], [id number], [place]. tel:[phone] Referring Provider: Sky Chapman, [address] [place] [address], [address]. tel:[phone] [facility], [address] [address], [place], [id number], [place] tel:[phone] [facility] Esophageal ulcer without bleeding 9 Ja Swanson. [address] [facility], [address], [place], [place], [id number], [place]. tel:[phone] [facility], [address] [address], [place], [id number], [place] tel:[phone] [facility] No Information 9 Ja Swanson. [address] [facility], [address], [place], [place], [id number], [place]. tel:[phone] Referring Provider: Harley Baumann, [address], [place], [address]. tel:[phone] Offic/outpt E&m Estab Mod-hi 2 [facility], [address] [address], [place], [id number], [place] tel:[phone] [facility] GI Symptoms or Concerns (chief complaint) Stromal tumor of the stomachGastri c adenocarcinom aWeight loss, unintentional 9 Ja Swanson. [address] [facility], [address], [place], [place], [id number], [place]. tel:[phone] Harley Marquis MD, [address], [place], [address]. tel:[phone] ring Provider: Harley Baumann, [address], [place], [address]. tel:[phone] [facility], [address] [address], [place], [id number], [place] tel:[phone] [facility] No Information 6 Kenya Mckeon. [address] [facility], [address], [place], [place], [id number], [place]. tel:[phone] Referring Provider: Mike Zambrano MD, [address] [facility] [address], [place], [address]. tel:[phone] [facility], [address] [address], [place], [id number], [place] tel:[phone] [facility] Stromal tumor of the stomach 6 Kenya Mckeon. [address] [facility], [address], [id number], [place]. tel:[phone] Referring Provider: Referral Self, USE FOR SELF REFERRALS. Subsqt Hosp-da E&m Minr Compl [facility], [address] [address], [facility] [place] [facility], [id number], [place] tel:[phone] [facility] Disease of esophagusOthe r postprocedura l complication of digestive system 6 Shashi Cueva. [address] [facility], [address], [id number], [place]. tel:[phone] Referring Provider: Anay Mota, [address] [place] [address], [address]. tel:[phone] [facility], [address] [address], [facility] [place], [id number], [place] tel:[phone] [facility] No Information 6 Kenya Mckeon. [address] [facility], [address], [id number], [place]. tel:[phone] Referring Provider: Mike Zambrano MD, [address] [place] [address], [address]. tel:[phone] [facility], [address] [address], [facility] [place], [id number], [place] tel:[phone] [facility] No Information 0 6 Ja Swanson. [address] [facility], [address], [id number], [place]. tel:[phone] Referring Provider: Sky Chapman, [address] [place] [address], [address]. tel:[phone] Family History Family Member Type Diagnosis Age At Onset Daughter Problem (finding) Colon polyps Mother Problem (finding) Daughter Problem (finding) Alive and well Father Problem (finding) Immunizations Vaccine Date Status Comments influenza, seasonal vaccine, quadrivalent, adjuvanted, .5mL dose, preservative free administered Note: [facility] bi-di rectional interface ; Source: Other Registry SARS-COV-2 (COVID-19) vaccin e, mRNA, spike protein, LNP, preservative free, 100 mcg/0.5mL dose or 50 mcg/0.25mL dose administered Note: [facility] bi -directional interface ; Source: Other Registry SARS-COV-2 (COVID-19) vaccin e, mRNA, spike protein, LNP, preservative free, 100 mcg/0.5mL dose or 50 mcg/0.25mL dose administered Note: [facility] bi -directional interface ; Source: Other Registry SARS-COV-2 (COVID-19) vaccin e, mRNA, spike protein, LNP, preservative free, 100 mcg or 50 mcg dose administered Note: [facility] bi-direct ional interface ; Source: Other Registry influenza, seasonal vaccine, quadrivalent, adjuvanted, .5mL dose, preservative free administered Note: [facility] bi-di rectional interface ; Source: Other Registry SARS-COV-2 (COVID-19) vaccin e, mRNA, spike protein, LNP, preservative free, 100 mcg/0.5mL dose or 50 mcg/0.25mL dose administered Note: [facility] bi -directional interface ; Source: Other Registry SARS-COV-2 (COVID-19) vaccin e, mRNA, spike protein, LNP, preservative free, 100 mcg or 50 mcg dose administered Note: [facility] bi-direct ional interface ; Source: Other Registry SARS-COV-2 (COVID-19) vaccin e, mRNA, spike protein, LNP, preservative free, 100 mcg/0.5mL dose administered Note: [facility] bi-direct ional interface ; Source: Other Registry SARS-COV-2 (COVID-19) vaccin e, mRNA, spike protein, LNP, preservative free, 100 mcg/0.5mL dose or 50 mcg/0.25mL dose administered Note: [facility] bi -directional interface ; Source: Other Registry SARS-COV-2 (COVID-19) vaccin e, mRNA, spike protein, LNP, preservative free, 100 mcg or 50 mcg dose administered Note: [facility] bi-direct ional interface ; Source: Other Registry SARS-COV-2 (COVID-19) vaccin e, mRNA, spike protein, LNP, preservative free, 100 mcg/0.5mL dose administered Note: [facility] bi-direct ional interface ; Source: Other Registry Pneumovax 23 administered Note: [facility] bi-d irectional interface ; Source: Other Registry influenza, seasonal vaccine, quadrivalent, adjuvanted, .5mL dose, preservative free administered Note: [facility] bi-di rectional interface ; Source: Other Registry influenza virus vaccine, unspecified formulation administered Note: [facility] bi-di rectional interface ; Source: Other Registry influenza, high dose seasona l, preservative-free administered Note: [facility] bi-direct ional interface ; Source: Other Registry Prevnar 13 administered Note: [facility] bi-d irectional interface ; Source: Other Registry influenza, high dose seasona l, preservative-free administered Note: [facility] bi-direct ional interface ; Source: Other Registry influenza, high dose seasona l, preservative-free administered Note: [facility] bi-direct ional interface ; Source: Other Registry tetanus toxoid, reduced diphtheria toxoid, and acellular pertussis vaccine, adsorbed administered Note: [facility] b i-directional interface ; Source: Other Registry Influenza administered Note: [facility] bi-d irectional interface ; Source: Other Registry influenza virus vaccine, unspecified formulation administered Note: [facility] bi-di rectional interface ; Source: Other Registry Influenza, seasonal, injectable administe red Note: [facility] bi- directional interface ; Source: Other Registry influenza virus vaccine, unspecified formulation administered Note: [facility] bi-di rectional interface ; Source: Other Registry Novel [id number], all formulations administered Note: [facility] bi-direct ional interface ; Source: Other Registry Influenza, seasonal, injectable administe red Note: [facility] bi- directional interface ; Source: Other Registry Engerix-B administered Note: [facility] bi-d irectional interface ; Source: Other Registry Havrix administered Note: [facility] bi-d irectional interface ; Source: Other Registry typhoid Vi capsular polysaccharide vaccine administered Note: [facility] bi-dir ectional interface ; Source: Other Registry Engerix-B administered Note: [facility] bi-d irectional interface ; Source: Other Registry Havrix administered Note: [facility] bi-d irectional interface ; Source: Other Registry Influenza, seasonal, injectable administe red Note: [facility] bi- directional interface ; Source: Other Registry tetanus and diphtheria toxoi ds, adsorbed, preservative free, for adult use (2 Lf of tetanus toxoid and 2 Lf of diphtheria toxoid) administered Note: [facility] C bi- directional interface ; Source: Other Registry tetanus and diphtheria toxoi ds, adsorbed, preservative free, for adult use (2 Lf of tetanus toxoid and 2 Lf of diphtheria toxoid) administered Note: [facility] C bi- directional interface ; Source: Other Registry tetanus and diphtheria toxoi ds, adsorbed, preservative free, for adult use (2 Lf of tetanus toxoid and 2 Lf of diphtheria toxoid) administered Note: [facility]II C bi- directional interface ; Source: Other Registry Payers Payer name Insurance type Covered democrat ID Authoriza tion(s) No Information Social History Type Description Quantity Date Captured Comments Sex Male Smoking Status No Information Chief Complaint And Reason For Visit No Information Reason For Referral Reason For Referral No Information Plan Of Treatment Date Type Action Status Referral Ordered: Colonoscopy Appointment date/timeframe: 01/17/2022 ordered Referral Ordered: EGD Appointment date/timeframe: 02/19/2016 ordered History Of Present Illness Encounter Date Complaint History Of Prese nt Illness GI Symptoms or Concerns GI Symptoms or Concerns This is a very pleasant 70-year-old male patient seen virtually today for yearly follow-up. He agrees to have online visit and he is by himself. His last visit was with Dr. Peres in April 2020. 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 S/P resection, partial gastrectomy with mid-esophageal pull-up in 2015. Subsequently he had a leak that was treated with a fully covered esophageal stent. He has been asymptomatic since then. He is currently takes omeprazole 40 milligrams twice daily given his altered anatomy. He denies ongoing upper GI symptoms such as nausea, vomiting, dysphagia, heartburns, loss of appetite or weight loss. He has worked with dietitian in the past and modified his diet due to partial gastrectomy and mid-esophagus pull-up. He had an endoscopy in June 2020 which was notable for surgical changes in the esophagus and stomach, unchanged area of inflammation proximal to the anastomosis, this was biopsied, normal duodenum. The biopsy from the distal esophagus was notable for changes consistent with reflux esophagitis, no metaplasia or dysplasia and normal gastric cardia.His is due for screening colonoscopy. His last colonoscopy was 10 years ago at [facility]. GI Symptoms or Concerns The bianka ent was seen today for a telephone visit. 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 He had a leak that was treated with a fully covered esophageal stent and he did well after this. He has been on prophylactic Gleevec with no evidence of recurrent disease. He has been holding his weight steady, and has no dysphagia. He does have reflux symptoms, worse if he eats a large meal in the evening or lies flat. He does take twice-a-day omeprazole 40 mg with good improvement. He was recently seen by Oncology, and both cross-sectional imaging and laboratories were normal per his report. The last upper endoscopy was in October 2018, at which time he had salmon-colored mucosa above his anastomosis which showed just reflux on biopsies. No GI Symptoms or Concerns The bianka ent is a very pleasant 68-year-old man with a past medical history significant for large GIST and small, T1, gastric adenocarcinoma. He underwent resection with a mid-esophageal pull-up in 2016. The surgery was complicated by a leak that was treated by a fully covered esophageal stent. The stent was removed in late 2015 and we have not seen him since. He has been on prophylactic Gleevec since then with no evidence of disease. He presents to clinic today due to progressive inadvertent weight loss and abdominal bloating. He states that he has never been able to hold his weight since the surgery, starting at about 245 pounds and now down to about 145 pounds. This weight loss has been slow and gradual with no abrupt transitions. He describes a feeling of postprandial fullness, air, and bloating. He denies any dysphagia or dysphonia. He does not have any nausea or vomiting. No diarrhea or constipation. He has seen no melena or hematochezia. No lymphadenopathy. He does find Functional Status Date Functional Assessmen t No Information Instructions Date Instruction Additional Infor arianna Colon Polyps Related to Polyp of colon, unspecified part of colon, unspecified type Colon Cancer Prevention Related to Polyp of colon, unspecified part of colon, unspecified type 1. Continue on omepr azole 40 milligrams twice daily. 2. We will call to schedule screening colonoscopy in the near future. 3. As we discussed, it might take longer time to get on Dr. Peres's schedule for screening colonoscopy. Related to Status post partial gastrectomy Assessments Type Assessment Date No Information Patient Care Teams Name Effective Dates (start - stop) Status Members No Information
== END 2023-02-23 19:11 | disposition left against medical advice (07) ==
PROVIDERS: Emergency Provider Emergency Medicine; PCP Internal Medicine
DX: Z53.21 Procedure and treatment not carried out due to patient leaving prior to being seen by health care provider (principal)